=== PATIENT | female | born 1960 | race Caucasian/White ===

== ENCOUNTER 2017-08-10 16:33 | Inpatient (IN) | payer OTHER ==
[~2017-08-10] VITALS: Ht 162.6 cm; Wt 88.4 kg
[~2017-08-10 16:33] MED LIST: ALPR.5 PO; ALPR1 PO; AMLO5 PO; CHLO25 PO; CITA20 PO; CODACE30 PO; FURO20 PO; HYDACE5325 PO; IBUP600 PO; LISHYD1012 PO; LISHYD2012 PO; LISHYD2025 PO; LISI20 PO; NICO2 PO; OXYACE5T PO; OXYC5 PO; POTCHL20ER PO; TRAM50 PO; Xanax1 MG PO; Zofran Odt4 MG PO; Zofran Odt4 MG SL
[2017-08-10 17:20] LABS: BASOPHILS ABSOLUTE AUTO 0.03 K/mm3 (0.00-0.23); BASOPHILS PERCENT AUTO 1 % (0-2); EOSINOPHILS ABSOLUTE AUTO 0.01 K/mm3 (0.00-0.68); EOSINOPHILS PERCENT AUTO 0 % (0-6); Hematocrit 39.6 % (33.0-51.0); IMMATURE GRAN ABSOLUTE AUTO 0.02 K/mm3 (0.00-0.10); IMMATURE GRAN PERCENT AUTO 0 % (0-1); LYMPHOCYTES ABSOLUTE AUTO 2.37 K/mm3 (0.84-5.20); LYMPHOCYTES PERCENT AUTO 44 % (21-46); MONOCYTES ABSOLUTE AUTO 0.33 K/mm3 (0.16-1.47); MONOCYTES PERCENT AUTO 6 % (4-13); Mean Corpuscular HGB 36.9 pg (26.0-34.0); Mean Corpuscular HGB Conc 35.4 g/dL (31.5-36.5); Mean Corpuscular Volume 105 fL (80-100); NEUTROPHILS ABSOLUTE AUTO 2.69 K/mm3 (1.96-9.15); NEUTROPHILS PERCENT AUTO 49 % (41-73); Platelet Count 81 K/mm3 (150-400); RDW Coefficient Variation 14.3 % (11.7-14.2); RDW Standard Deviation 55.8 fL (35.1-46.3); Red Blood Cell Count 3.79 M/mm3 (3.80-5.20); White Blood Cell Count 5.45 K/mm3 (4.00-11.30)
[2017-08-10 17:41] LABS: Alanine Aminotransfer (ALT/SGP 107 U/L (12-78); Albumin, Blood 3.5 g/dL (3.4-5.0); Albumin/Globulin Ratio 0.9 (0.8-1.8); Alk Phos 49 U/L (50-136); Anion Gap 15 mmol/L (6-16); Aspartate Aminotrans (AST/SGOT 277 U/L (12-37); Bilirubin, Total 0.6 mg/dL (0.1-1.0); Blood Urea Nitrogen 15 mg/dL (8-24); Bun/Creatinine Ratio 23.3 (12.0-20.0); CO2, Blood 19 mmol/L (21-32); Chloride, Blood 103 mmol/L (98-108); Creatinine, Blood 0.64 mg/dL (0.40-1.00); Ethanol (Alcohol), Blood, Med 267 mg/dL; Globulin, Blood 3.7 g/dL (2.2-4.0); Glomerular Filtration Rate >60 (60-); Glucose, Blood 112 mg/dL (70-99); Potassium, Blood 3.6 mmol/L (3.5-5.5); Salicylate 3.5 mg/dL (2.8-20.0); Sodium, Blood 137 mmol/L (136-145); Total Protein, Blood 7.2 g/dL (6.4-8.2)
[2017-08-10 18:05] LABS: Acetaminophen, Random <2.0 ug/mL (10.0-30.0); CPK Creatine Kinase 1094 U/L (26-193)
[2017-08-10 18:18] LABS: Source, Urine Clean Catch
[2017-08-10 18:20] LABS: Creatine Kinase MB 7.4 ng/mL (0.0-3.6); Creatine Kinase MB Index 0.7 (0.0-4.0)
[2017-08-10 18:21] LABS: Appearance, Urine Hazy (Clear); Bilirubin, Urine Neg (Neg); Blood, Urine 1+ (Neg); Color, Urine Yellow (P-Yellow); Glucose Qualitative, Urine Neg (Neg); Ketones, Urine 3+ (Neg); Leukocyte Esterase, Urine 1+ (Neg); Nitrite, Urine Neg (Neg); Protein, Urine 2+ (Neg); Specific Gravity, Urine 1.015 (1.003-1.022); Urobilinogen, Urine 1+ (Normal)
[2017-08-10 18:31] LABS: Bacteria Many /hpf; Red Blood Cells, Urine 0-2 /hpf (0-2); Squamous Epithelial Cells Mod /hpf (Few)
[2017-08-10 18:34] LABS: U Amphetamine Screen Not Detected; U Barbituate Screen Not Detected; U Benzodiazapine Screen DETECTED; U Buprenorphine Screen Not Detected; U Cannabinoids Screen Not Detected; U Cocaine Screen Not Detected; U Methadone Screen Not Detected; U Methamphetamine Screen Not Detected; U Opiates Screen Not Detected; U Oxycodone Screen Not Detected; U Phencyclidine Screen Not Detected; U Propoxyphene Screen Not Detected
[2017-08-10 19:02] LABS: Influenza A Negative (NEGATIVE); Influenza B Negative (NEGATIVE)
[2017-08-10 23:20] LABS: Creatine Kinase MB 7.5 ng/mL (0.0-3.6); Creatine Kinase MB Index 0.7 (0.0-4.0)
[2017-08-11 05:23] LABS: BASOPHILS ABSOLUTE AUTO 0.03 K/mm3 (0.00-0.23); BASOPHILS PERCENT AUTO 1 % (0-2); EOSINOPHILS ABSOLUTE AUTO 0.02 K/mm3 (0.00-0.68); EOSINOPHILS PERCENT AUTO 0 % (0-6); Hematocrit 33.5 % (33.0-51.0); Hemoglobin 11.7 g/dL (11.5-16.0); IMMATURE GRAN ABSOLUTE AUTO 0.03 K/mm3 (0.00-0.10); IMMATURE GRAN PERCENT AUTO 1 % (0-1); LYMPHOCYTES ABSOLUTE AUTO 1.52 K/mm3 (0.84-5.20); LYMPHOCYTES PERCENT AUTO 31 % (21-46); MONOCYTES ABSOLUTE AUTO 0.47 K/mm3 (0.16-1.47); MONOCYTES PERCENT AUTO 10 % (4-13); Mean Corpuscular HGB 36.9 pg (26.0-34.0); Mean Corpuscular HGB Conc 34.9 g/dL (31.5-36.5); Mean Corpuscular Volume 106 fL (80-100); Mean Platelet Volume 10.7 fL (9.1-12.4); NEUTROPHILS ABSOLUTE AUTO 2.81 K/mm3 (1.96-9.15); NEUTROPHILS PERCENT AUTO 58 % (41-73); Platelet Count 63 K/mm3 (150-400); RDW Coefficient Variation 14.1 % (11.7-14.2); RDW Standard Deviation 55.4 fL (35.1-46.3); Red Blood Cell Count 3.17 M/mm3 (3.80-5.20); White Blood Cell Count 4.88 K/mm3 (4.00-11.30)
[2017-08-11 06:04] LABS: Alanine Aminotransfer (ALT/SGP 87 U/L (12-78); Albumin, Blood 3.1 g/dL (3.4-5.0); Albumin/Globulin Ratio 0.9 (0.8-1.8); Alk Phos 38 U/L (50-136); Anion Gap 11 mmol/L (6-16); Aspartate Aminotrans (AST/SGOT 199 U/L (12-37); Blood Urea Nitrogen 15 mg/dL (8-24); Bun/Creatinine Ratio 33.3 (12.0-20.0); CO2, Blood 22 mmol/L (21-32); Calcium, Blood 8.1 mg/dL (8.5-10.1); Chloride, Blood 106 mmol/L (98-108); Creatinine, Blood 0.45 mg/dL (0.40-1.00); Globulin, Blood 3.3 g/dL (2.2-4.0); Glomerular Filtration Rate >60 (60-); Glucose, Blood 88 mg/dL (70-99); Potassium, Blood 3.6 mmol/L (3.5-5.5); Sodium, Blood 139 mmol/L (136-145); Total Protein, Blood 6.4 g/dL (6.4-8.2)
[2017-08-11 06:05] LABS: CPK Creatine Kinase 1092 U/L (26-193)
[2017-08-11 06:22] LABS: Creatine Kinase MB 6.2 ng/mL (0.0-3.6); Creatine Kinase MB Index 0.6 (0.0-4.0)
[2017-08-12 04:49] LABS: BASOPHILS ABSOLUTE AUTO 0.03 K/mm3 (0.00-0.23); BASOPHILS PERCENT AUTO 1 % (0-2); EOSINOPHILS ABSOLUTE AUTO 0.07 K/mm3 (0.00-0.68); EOSINOPHILS PERCENT AUTO 2 % (0-6); Hematocrit 32.5 % (33.0-51.0); Hemoglobin 11.1 g/dL (11.5-16.0); IMMATURE GRAN ABSOLUTE AUTO 0.03 K/mm3 (0.00-0.10); IMMATURE GRAN PERCENT AUTO 1 % (0-1); LYMPHOCYTES ABSOLUTE AUTO 1.42 K/mm3 (0.84-5.20); LYMPHOCYTES PERCENT AUTO 43 % (21-46); MONOCYTES PERCENT AUTO 9 % (4-13); Mean Corpuscular HGB 36.6 pg (26.0-34.0); Mean Corpuscular HGB Conc 34.2 g/dL (31.5-36.5); Mean Corpuscular Volume 107 fL (80-100); Mean Platelet Volume 10.8 fL (9.1-12.4); NEUTROPHILS ABSOLUTE AUTO 1.46 K/mm3 (1.96-9.15); NEUTROPHILS PERCENT AUTO 44 % (41-73); Platelet Count 59 K/mm3 (150-400); RDW Standard Deviation 55.4 fL (35.1-46.3); Red Blood Cell Count 3.03 M/mm3 (3.80-5.20); White Blood Cell Count 3.31 K/mm3 (4.00-11.30)
[2017-08-12 05:11] LABS: Anion Gap 10 mmol/L (6-16); Blood Urea Nitrogen 6 mg/dL (8-24); Bun/Creatinine Ratio 16.5 (12.0-20.0); CO2, Blood 23 mmol/L (21-32); Calcium, Blood 7.9 mg/dL (8.5-10.1); Chloride, Blood 106 mmol/L (98-108); Creatinine, Blood 0.36 mg/dL (0.40-1.00); Glomerular Filtration Rate >60 (60-); Glucose, Blood 83 mg/dL (70-99); Potassium, Blood 3.2 mmol/L (3.5-5.5); Sodium, Blood 139 mmol/L (136-145)
[2017-08-13 04:38] LABS: BASOPHILS ABSOLUTE AUTO 0.03 K/mm3 (0.00-0.23); BASOPHILS PERCENT AUTO 1 % (0-2); EOSINOPHILS PERCENT AUTO 3 % (0-6); Hematocrit 33.3 % (33.0-51.0); Hemoglobin 11.6 g/dL (11.5-16.0); IMMATURE GRAN ABSOLUTE AUTO 0.04 K/mm3 (0.00-0.10); IMMATURE GRAN PERCENT AUTO 1 % (0-1); LYMPHOCYTES ABSOLUTE AUTO 1.78 K/mm3 (0.84-5.20); LYMPHOCYTES PERCENT AUTO 48 % (21-46); MONOCYTES ABSOLUTE AUTO 0.39 K/mm3 (0.16-1.47); MONOCYTES PERCENT AUTO 11 % (4-13); Mean Corpuscular HGB 37.1 pg (26.0-34.0); Mean Corpuscular HGB Conc 34.8 g/dL (31.5-36.5); Mean Corpuscular Volume 106 fL (80-100); NEUTROPHILS ABSOLUTE AUTO 1.35 K/mm3 (1.96-9.15); NEUTROPHILS PERCENT AUTO 37 % (41-73); NRBC ABSOLUTE 0.03 K/mm3 (0.00-0.02); NRBC Auto 0.8 /100 WBC (0.0-0.2); RDW Coefficient Variation 13.7 % (11.7-14.2); RDW Standard Deviation 54.4 fL (35.1-46.3); Red Blood Cell Count 3.13 M/mm3 (3.80-5.20); White Blood Cell Count 3.69 K/mm3 (4.00-11.30)
[2017-08-13 04:47] LABS: Mean Platelet Volume 10.8 fL (9.1-12.4); Platelet Count 73 K/mm3 (150-400)
[2017-08-13 05:04] LABS: Anion Gap 8 mmol/L (6-16); Blood Urea Nitrogen 3 mg/dL (8-24); Bun/Creatinine Ratio 8.2 (12.0-20.0); CO2, Blood 24 mmol/L (21-32); Calcium, Blood 8.4 mg/dL (8.5-10.1); Chloride, Blood 108 mmol/L (98-108); Creatinine, Blood 0.37 mg/dL (0.40-1.00); Glomerular Filtration Rate >60 (60-); Glucose, Blood 84 mg/dL (70-99); Magnesium, Blood 1.7 mg/dL (1.6-2.4); Potassium, Blood 3.2 mmol/L (3.5-5.5); Sodium, Blood 140 mmol/L (136-145)
[2017-08-13 05:40] LABS: Phosphorus, Blood 0.9 mg/dL (2.5-4.9)
[2017-08-13 12:07] LABS: Source, Urine Voided
[2017-08-13 12:18] LABS: Bilirubin, Urine Neg (Neg); Blood, Urine Neg (Neg); Glucose Qualitative, Urine Neg (Neg); Ketones, Urine Neg (Neg); Leukocyte Esterase, Urine Neg (Neg); Nitrite, Urine Neg (Neg); Protein, Urine Neg (Neg); Specific Gravity, Urine 1.015 (1.003-1.022); Urobilinogen, Urine NORM (Normal)
[2017-08-13 12:19] LABS: Appearance, Urine Clear (Clear); Color, Urine Pale Yellow (P-Yellow)
[2017-08-13 18:43] LABS: Phosphorus, Blood 1.8 mg/dL (2.5-4.9); Potassium, Blood 3.3 mmol/L (3.5-5.5)
[2017-08-14 05:54] LABS: Anion Gap 10 mmol/L (6-16); Blood Urea Nitrogen 4 mg/dL (8-24); Bun/Creatinine Ratio 10.4 (12.0-20.0); CO2, Blood 21 mmol/L (21-32); Calcium, Blood 8.6 mg/dL (8.5-10.1); Chloride, Blood 109 mmol/L (98-108); Creatinine, Blood 0.38 mg/dL (0.40-1.00); Glomerular Filtration Rate >60 (60-); Glucose, Blood 82 mg/dL (70-99); Phosphorus, Blood 3.7 mg/dL (2.5-4.9); Potassium, Blood 3.2 mmol/L (3.5-5.5); Sodium, Blood 140 mmol/L (136-145)
== END 2017-08-14 12:24 | disposition home or self-care (01) | DRG 897 ==
LOC: ER 16:33 → PCU 20:28
PROVIDERS: Emergency Medicine; Internal Medicine
PROC: 3E0234Z Introduction of Serum, Toxoid and Vaccine into Muscle, Percutaneous Approach (ICD-10-PCS; principal; 2017-08-11)
DX: F10.239 Alcohol dependence with withdrawal, unspecified (principal); D61.818 Other pancytopenia; M62.82 Rhabdomyolysis; E83.39 Other disorders of phosphorus metabolism; Z23 Encounter for immunization; G89.29 Other chronic pain; M54.9 Dorsalgia, unspecified; I10 Essential (primary) hypertension; E87.6 Hypokalemia; E86.0 Dehydration; F17.210 Nicotine dependence, cigarettes, uncomplicated; Z88.5 Allergy status to narcotic agent; Z88.8 Allergy status to other drugs, medicaments and biological substances; Z86.718 Personal history of other venous thrombosis and embolism; Z79.899 Other long term (current) drug therapy
CPT/HCPCS: 36415; 71046; 80048; 80053; 81001; 81003; 81025; 82550; 82553; 83735; 84100; 84132; 84443; 85025; 87086; 87804; 93005; 93010; 96361; 96365; 96375; 99285; G0480; J1650; J1956; J2001; J2060; J3411; J3475; J3480; J7030; J7040; J7042; J7050; Q2038

== ENCOUNTER 2017-11-30 17:25 | Emergency (ER) | payer OTHER ==
[~2017-11-30] VITALS: Ht 167.6 cm; Wt 86.2 kg
[2017-11-30] MEDS ORDERED: CEPH500 PO (17:55)
== END 2017-11-30 18:04 | disposition home or self-care (01) ==
LOC: ER 17:25
DX: L03.011 Cellulitis of right finger (principal); F41.9 Anxiety disorder, unspecified; I10 Essential (primary) hypertension; F17.210 Nicotine dependence, cigarettes, uncomplicated; Z88.8 Allergy status to other drugs, medicaments and biological substances; Z88.5 Allergy status to narcotic agent; Z88.1 Allergy status to other antibiotic agents; Z91.038 Other insect allergy status; Z79.899 Other long term (current) drug therapy
CPT/HCPCS: 99282

== ENCOUNTER 2018-01-17 00:46 | Emergency (ER) | payer OTHER ==
[~2018-01-17] VITALS: Ht 167.6 cm; Wt 86.2 kg
[~2018-01-17 00:46] MED LIST changes: +CEPH500 PO
== END 2018-01-17 03:00 | disposition home or self-care (01) ==
LOC: ER 00:46
DX: S52.501A Unspecified fracture of the lower end of right radius, initial encounter for closed fracture (principal); Y04.8XXA Assault by other bodily force, initial encounter; Z88.8 Allergy status to other drugs, medicaments and biological substances; Z88.5 Allergy status to narcotic agent; Z91.030 Bee allergy status; Z79.899 Other long term (current) drug therapy; Z79.2 Long term (current) use of antibiotics; F41.9 Anxiety disorder, unspecified; F17.210 Nicotine dependence, cigarettes, uncomplicated
CPT/HCPCS: 29105; 73110; 90471; 90714; 99283

== ENCOUNTER 2018-01-31 06:10 | Day surgery (SDC) | payer OTHER ==
[~2018-01-31] VITALS: Ht 167.6 cm; Wt 90.8 kg
[2018-01-31] MEDS ORDERED: TRAM50 PO (06:49)
== END 2018-01-31 11:51 | disposition home or self-care (01) ==
LOC: ORSCSDS 06:10
PROVIDERS: Orthopaedic Surgery
PROC: 0PSH04Z Reposition Right Radius with Internal Fixation Device, Open Approach (ICD-10-PCS; principal; 2018-01-31 07:30)
PROC: 0PHH05Z Insertion of External Fixation Device into Right Radius, Open Approach (ICD-10-PCS; principal; 2018-01-31 07:30)
DX: S52.501A Unspecified fracture of the lower end of right radius, initial encounter for closed fracture (principal); I10 Essential (primary) hypertension; Z79.899 Other long term (current) drug therapy; E66.9 Obesity, unspecified; Z68.32 Body mass index [BMI] 32.0-32.9, adult
CPT/HCPCS: C1713; J0690; J2250; J2405; J2795; J3010; J7120

== ENCOUNTER 2018-07-13 22:35 | Inpatient (IN) | payer OTHER ==
[~2018-07-13] VITALS: Ht 165.1 cm; Wt 89.0 kg
[2018-07-13 23:17] LABS: BASOPHILS ABSOLUTE AUTO 0.05 K/mm3 (0.00-0.23); BASOPHILS PERCENT AUTO 1 % (0-2); EOSINOPHILS ABSOLUTE AUTO 0.14 K/mm3 (0.00-0.68); EOSINOPHILS PERCENT AUTO 2 % (0-6); Hemoglobin 15.3 g/dL (11.5-16.0); IMMATURE GRAN ABSOLUTE AUTO 0.02 K/mm3 (0.00-0.10); IMMATURE GRAN PERCENT AUTO 0 % (0-1); LYMPHOCYTES ABSOLUTE AUTO 3.18 K/mm3 (0.84-5.20); LYMPHOCYTES PERCENT AUTO 46 % (21-46); MONOCYTES ABSOLUTE AUTO 0.57 K/mm3 (0.16-1.47); MONOCYTES PERCENT AUTO 8 % (4-13); Mean Corpuscular HGB 33.3 pg (26.0-34.0); Mean Corpuscular HGB Conc 33.3 g/dL (31.5-36.5); Mean Corpuscular Volume 100 fL (80-100); Mean Platelet Volume 10.3 fL (9.1-12.4); NEUTROPHILS ABSOLUTE AUTO 2.91 K/mm3 (1.96-9.15); NEUTROPHILS PERCENT AUTO 42 % (41-73); Platelet Count 145 K/mm3 (150-400); RDW Coefficient Variation 17.8 % (11.7-14.2); White Blood Cell Count 6.87 K/mm3 (4.00-11.30)
[2018-07-13 23:41] LABS: Acetaminophen, Random <2.0 ug/mL (10.0-30.0); Alanine Aminotransfer (ALT/SGP 47 U/L (12-78); Albumin, Blood 3.2 g/dL (3.4-5.0); Alk Phos 64 U/L (50-136); Anion Gap 7 mmol/L (6-16); Aspartate Aminotrans (AST/SGOT 65 U/L (12-37); Bilirubin, Total 0.2 mg/dL (0.1-1.0); Blood Urea Nitrogen 10 mg/dL (8-24); Bun/Creatinine Ratio 18.6 (12.0-20.0); CO2, Blood 28 mmol/L (21-32); Calcium, Blood 7.9 mg/dL (8.5-10.1); Chloride, Blood 112 mmol/L (98-108); Creatinine, Blood 0.54 mg/dL (0.40-1.00); Globulin, Blood 3.3 g/dL (2.2-4.0); Glomerular Filtration Rate >60 (60-); Glucose, Blood 93 mg/dL (70-99); Potassium, Blood 3.2 mmol/L (3.5-5.5); Salicylate 6.1 mg/dL (2.8-20.0); Sodium, Blood 147 mmol/L (136-145); Total Protein, Blood 6.5 g/dL (6.4-8.2)
[2018-07-13 23:59] LABS: Ethanol (Alcohol), Blood, Med 326 mg/dL
[2018-07-14 06:51] LABS: Source, Urine Clean Catch
[2018-07-14 06:55] LABS: Bilirubin, Urine Neg (Neg); Blood, Urine 2+ (Neg); Glucose Qualitative, Urine Neg (Neg); Ketones, Urine 1+ (Neg); Leukocyte Esterase, Urine 2+ (Neg); Nitrite, Urine Neg (Neg); Protein, Urine Neg (Neg); Specific Gravity, Urine 1.015 (1.003-1.022); Urobilinogen, Urine NORM (Normal); pH, Urine 6.5 (5.0-8.0)
[2018-07-14 07:03] LABS: Appearance, Urine Hazy (Clear); Color, Urine Yellow (P-Yellow)
[2018-07-14 07:07] LABS: Bacteria Many /hpf; Squamous Epithelial Cells Many /hpf (Few)
[2018-07-14 07:10] LABS: U Amphetamine Screen Not Detected; U Barbituate Screen Not Detected; U Benzodiazapine Screen DETECTED; U Buprenorphine Screen Not Detected; U Cannabinoids Screen Not Detected; U Cocaine Screen Not Detected; U Methadone Screen Not Detected; U Methamphetamine Screen Not Detected; U Opiates Screen Not Detected; U Oxycodone Screen Not Detected; U Phencyclidine Screen Not Detected; U Propoxyphene Screen Not Detected
[2018-07-14 16:43] LABS: BASOPHILS ABSOLUTE AUTO 0.04 K/mm3 (0.00-0.23); BASOPHILS PERCENT AUTO 1 % (0-2); EOSINOPHILS ABSOLUTE AUTO 0.01 K/mm3 (0.00-0.68); EOSINOPHILS PERCENT AUTO 0 % (0-6); Hematocrit 42.3 % (33.0-51.0); Hemoglobin 14.6 g/dL (11.5-16.0); IMMATURE GRAN ABSOLUTE AUTO 0.02 K/mm3 (0.00-0.10); IMMATURE GRAN PERCENT AUTO 0 % (0-1); LYMPHOCYTES ABSOLUTE AUTO 2.72 K/mm3 (0.84-5.20); LYMPHOCYTES PERCENT AUTO 33 % (21-46); MONOCYTES ABSOLUTE AUTO 0.78 K/mm3 (0.16-1.47); MONOCYTES PERCENT AUTO 10 % (4-13); Mean Corpuscular HGB Conc 34.5 g/dL (31.5-36.5); Mean Corpuscular Volume 99 fL (80-100); Mean Platelet Volume 10.4 fL (9.1-12.4); NEUTROPHILS ABSOLUTE AUTO 4.67 K/mm3 (1.96-9.15); NEUTROPHILS PERCENT AUTO 57 % (41-73); Platelet Count 120 K/mm3 (150-400); RDW Coefficient Variation 17.2 % (11.7-14.2); Red Blood Cell Count 4.29 M/mm3 (3.80-5.20); White Blood Cell Count 8.24 K/mm3 (4.00-11.30)
[2018-07-14 17:00] LABS: International Normalized Ratio 0.97
[2018-07-14 17:08] LABS: Magnesium, Blood 1.5 mg/dL (1.6-2.4)
[2018-07-14 17:09] LABS: Alanine Aminotransfer (ALT/SGP 42 U/L (12-78); Albumin, Blood 3.5 g/dL (3.4-5.0); Albumin/Globulin Ratio 1.1 (0.8-1.8); Alk Phos 68 U/L (50-136); Anion Gap 8 mmol/L (6-16); Aspartate Aminotrans (AST/SGOT 42 U/L (12-37); Bilirubin, Total 0.6 mg/dL (0.1-1.0); Blood Urea Nitrogen 12 mg/dL (8-24); Bun/Creatinine Ratio 24.2 (12.0-20.0); CO2, Blood 26 mmol/L (21-32); Calcium, Blood 8.8 mg/dL (8.5-10.1); Chloride, Blood 105 mmol/L (98-108); Globulin, Blood 3.2 g/dL (2.2-4.0); Glomerular Filtration Rate >60 (60-); Glucose, Blood 87 mg/dL (70-99); Phosphorus, Blood 2.2 mg/dL (2.5-4.9); Potassium, Blood 3.9 mmol/L (3.5-5.5); Sodium, Blood 139 mmol/L (136-145); Total Protein, Blood 6.7 g/dL (6.4-8.2)
--- NOTE | 2018-07-14 19:01 | NUR ---
1715: PT TO ICU 8 FROM ER, IS APPROPRATE AND COOPRATIVE AT THIS TIME, ALERT AND ORIENTED X4. VSS, ADMISSION ASSESSMENT AND HISTORY COMPLETED. BANANA BAG INFUSING AT 200ML/HR PER ORDERS. ALL BELONGINGS REMOVED FROM ROOM, PT IS A 2 PHYSICIAN HOLD. SITTER AT BEDSIDE. PT DENIES SUICIDAL IDEATION AT THIS TIME. 1830: CIWA SCORE 11, MEDICATED WITH ATIVAN AND LIBRIUM PER ORDERS, VSS. PT ALSO RECEIVED INFLUENZA VACCINE AT THIS TIME. DINNER TRAY GIVEN PER DR. BOATENG, PT SITTING UP IN BED EATING WITHOUT DIFFICULTY, REMAINS A&O, COOPERATIVE AND PLEASANT. SITTER REMAINS AT BEDSIDE, REPORT TO ONCOMING SHIFT.
--- NOTE | 2018-07-14 19:15 | NUR ---
ASSUMED PT CARE PT IS SLEEPING IN BED WITH CALL LIGHT AND BEDSIDE TABLE WITHIN REACH. BANANA BAG INFUSING AT 200MLS/HR. PT APPEARS COMFORTABLE AT THIS TIME.
--- NOTE | 2018-07-14 21:17 | NUR ---
POTASSIUM LEVEL CALLED DR. HERNANDEZ REGARDING POTASSIUM LEVEL OF 3.1; DR. HERNANDEZ STATED SHE WOULD PLACE ORDERS FOR PO POTASSIUM.
[2018-07-15 03:50] LABS: BASOPHILS ABSOLUTE AUTO 0.04 K/mm3 (0.00-0.23); BASOPHILS PERCENT AUTO 1 % (0-2); EOSINOPHILS PERCENT AUTO 2 % (0-6); Hematocrit 42.1 % (33.0-51.0); Hemoglobin 14.3 g/dL (11.5-16.0); IMMATURE GRAN ABSOLUTE AUTO 0.02 K/mm3 (0.00-0.10); IMMATURE GRAN PERCENT AUTO 0 % (0-1); LYMPHOCYTES ABSOLUTE AUTO 2.48 K/mm3 (0.84-5.20); LYMPHOCYTES PERCENT AUTO 37 % (21-46); MONOCYTES ABSOLUTE AUTO 0.55 K/mm3 (0.16-1.47); MONOCYTES PERCENT AUTO 8 % (4-13); Mean Corpuscular HGB 32.9 pg (26.0-34.0); Mean Corpuscular Volume 97 fL (80-100); Mean Platelet Volume 10.8 fL (9.1-12.4); NEUTROPHILS ABSOLUTE AUTO 3.58 K/mm3 (1.96-9.15); NEUTROPHILS PERCENT AUTO 53 % (41-73); Platelet Count 114 K/mm3 (150-400); RDW Coefficient Variation 17.3 % (11.7-14.2); RDW Standard Deviation 62.1 fL (35.1-46.3); Red Blood Cell Count 4.34 M/mm3 (3.80-5.20); White Blood Cell Count 6.77 K/mm3 (4.00-11.30)
[2018-07-15 04:06] LABS: Anion Gap 7 mmol/L (6-16); Blood Urea Nitrogen 7 mg/dL (8-24); CO2, Blood 26 mmol/L (21-32); Calcium, Blood 8.9 mg/dL (8.5-10.1); Chloride, Blood 110 mmol/L (98-108); Creatinine, Blood 0.58 mg/dL (0.40-1.00); Glomerular Filtration Rate >60 (60-); Glucose, Blood 85 mg/dL (70-99); Potassium, Blood 3.7 mmol/L (3.5-5.5); Sodium, Blood 143 mmol/L (136-145)
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
--- NOTE | 2018-07-15 10:49 | NUR ---
PATIENT UP TO CHAIR FOR OVER AN HOUR. PATIENT SPOKE WITH COMPASS. PATIENT CONTINUES TO HAVE TREMORS. MEDICATED WITH ATIVAN AND LIBRIUM. PATIENT ASSISTED BACK TO BED. NOT WANTING A BATH AT THIS TIME
--- NOTE | 2018-07-15 14:00 | NUR ---
Multiple attempts to see pt proved unsuccessful as pt was sleeping.
--- NOTE | 2018-07-15 14:29 | NUR ---
PATIENT BACK UP TO COMMODE AND CHAIR. PATIENT COOPERATIVE. CONTINUES TO HAVE TREMORS BUT ABLE TO FOLLOW CONVERSATION. PATIENT NOW MEDICAL FLOOR STATUS.
--- NOTE | 2018-07-15 18:31 | NUR ---
SUMMARY PATIENT CONTINUES TO HAVE WITHDRAWL SYMPTOMS RESPONDING WELL TO ATIVAN AND LIBRIUM. PATIENT UP TO CHAIR X2 TODAY AND MULTIPLE TIMES TO COMMODE. PATIENT CONTINUES TO BE IRRITABLE AT TIMES BUT EASILY REDIRECTED. VERBALIZING DESIRE TO GO HOME. WILL GIVE REPORT TO ONCOMING SHIFT WHEN AVAILABLE.
--- NOTE | 2018-07-16 02:09 | NUR ---
191: CARE ASSUMED, ROUNDED W/ OFF-GOING RN. DISCUSSED W/ PT PLAN TO CON'T ANTI-ANXIETY & PAIN MEDS AT SAME INTERVALS DURING NIGHT, PT AGREES. ATTENTION SPAN SHORT BUT SYMPTOMS OTHERWISE 0-1 RANGE. RETURNED TO SLEEP.
[2018-07-16 04:00] LABS: Anion Gap 6 mmol/L (6-16); Blood Urea Nitrogen 7 mg/dL (8-24); Bun/Creatinine Ratio 12.8 (12.0-20.0); CO2, Blood 26 mmol/L (21-32); Calcium, Blood 8.6 mg/dL (8.5-10.1); Chloride, Blood 109 mmol/L (98-108); Creatinine, Blood 0.55 mg/dL (0.40-1.00); Glomerular Filtration Rate >60 (60-); Glucose, Blood 83 mg/dL (70-99); Magnesium, Blood 2.1 mg/dL (1.6-2.4); Potassium, Blood 3.6 mmol/L (3.5-5.5); Sodium, Blood 141 mmol/L (136-145)
--- NOTE | 2018-07-16 07:43 | NUR ---
SLEPT AT LONG INTERVALS. CIIW-A SCORES < 10. TRAMADOL GIVEN Q 6 HR FOR MAXIMUM MANAGEMENT CHRONIC PAIN, ONLY C/O MINOR DISCOMFORTS OF MONITORS & IVs IN AM.
--- NOTE | 2018-07-16 08:29 | NUR ---
DR VILLEGAS IN TO ASSESS PT. DISCUSSED DOING TELEPYSCH TODAY.
--- NOTE | 2018-07-16 12:29 | NUR ---
[employer] ORDER PLACED. CALLED TO SET UP APPT TIME. SNAP SHOT DONE ON [employer] COMPUTER.
--- NOTE | 2018-07-16 13:04 | NUR ---
[facility] APPT SET UP FOR [address] ACOSTA.
--- NOTE | 2018-07-16 14:19 | NUR ---
CALLED DR VILLEGAS TO INFORM HIM OF DR DEX WOODS-JOEL RECOMMENDATIONS. AWAITING DR VILLEGAS TO SIGN RELEASE OF HOLD PAPERWORK.
--- NOTE | 2018-07-16 14:34 | NUR ---
DR VILLEGAS HERE TO SIGN RELEASE OF HOLD PAPERWORK. PT'S 2 MD HOLD AND SUICIDE PRECAUTIONS RELEASED.
--- NOTE | 2018-07-16 15:15 | NUR ---
DAVI FROM CASE MANAGEMENT TO DISCUSS RESOURCES AND RECOMMENDED PT RETURN TO [facility] FOR TX. PT DECLINED SERVICES.
--- NOTE | 2018-07-16 18:12 | NUR ---
SHIFT SUMMARY: KARLO DONE THIS SHIFT AND 2 MD HOLD WAS RELEASED. PT CONTINUES TO DENY SI. PT SLEEPS MOST THE TIME WHEN UNDISTURBED. PT REMAINS SLIGHTLY TREMULOUS IN THE UE'S, ANXIOUS AND RESTLESS AT TIMES, AND MOST RECENTLY BECAME TEARFUL OVER HAVE A "WEIRD DREAM." PT IS WORRIED ABOUT HER DOG AT HOME. OFFERRED TO CALL HER FRIEND/ROOMMATE AND CHECK ON HER DOG, BUT PT DECLINED. PT REPORTS SHE WOULD FEEL SAFEST STAYING IN THE HOSPITAL LONGER TO TX ETOH W/D SYMPTOMS. PT BEING TX WITH LIBRIUM AND ATIVAN PO PRN. LUNGS REMAIN CLEAR T/O. HR REGULAR, SR WITH CONTROLLED RATE. PT HAS GOOD APPETITE. VOIDS CLEAR YELLOW URINE PER TOILET. PT DOES REMAINS SOMEWHAT WEAK AND REQUIRES SBA WITH TNX FOR SAFETY.
--- NOTE | 2018-07-16 19:15 | NUR ---
REPORTED OFF TO YUMI SCHILLING WHOM ASSUMED CARE OF PT.
--- NOTE | 2018-07-16 19:32 | NUR ---
ASSUMED CARE BEDSIDE REPORT RECIEVED. PT IS RESTING QUIETLY, BUT AWAKENS TO VOICE EASILY. PT IS GROGGY, BUT ALERT, ORIENTED, AND FOLLOWING COMMANDS APPROPRIATELY. PT DENIES PAIN, NAUSEA, HEADACHE, AND NO TREMORS VISIBLE. PT DENIES SI AT THIS TIME, PT IS AWARE SHE HAS BEEN CLEARED OF HOLD. VITAL SIGNS STABLE, PT ON ROOMA AIR. IV'S SALINE LOCKED. PT TAKING PO FLUIDS WELL. INITIAL ADMIT SCREENING AND MED REC COMPLETED AT THIS TIME. WILL CONTINUE TO MONITOR.
--- NOTE | 2018-07-17 04:36 | NUR ---
SHIFT SUMMARY NO ACUTE CHANGES THIS SHIFT. PT HAS SLEPT OFF AND ON THROUGHOUT THE SHIFT. WHEN AWAKE PT IS GROGGY, BUT ORIENTED AND FOLLOWING COMMANDS APPROPRIATELY. PT CONTINUES TO DENY ANY FURTHER SI. PT EXPRESSESS WANTING TO GET OUTPATIENT HELP FOR ALCOHOL ABUSE. VITAL SIGNS HAVE REMAINED STABLE. PT UP TO TOILET WITH USE OF CANE, GAIT STEADY. PT TAKING PO FLUIDS WELL. PT VOIDING WELL. WILL CONTINUE TO MONITOR AND REPORT OFF TO ONCOMING RN.
--- NOTE | 2018-07-17 07:42 | NUR ---
0730: CARE ASSUMED, ASSESSMENT COMPLETED. PT AWAKE, ALERT AND ORIENTED, ANXIOUS, MOOD IS LABILE, PT CRIES WHILE TALKING ABOUT MISSING HER PETS AND FRIENDS. CIWA SCORE 10, PT MEDICATED PER ORDERS. VSS, HRR NSR, PT REPORTS ACHING PAIN IN RIGHT WRIST, DENIES NEED FOR INTERVENTION AT THIS TIME. PT AMBULATING IN ROOM TO VOID, GAIT STEADY WITH CANE. TEETH BRUSHED, PT REFUSES SHOWER. PLAN OF CARE AFTER DISCHARGE DISCUSSED WITH PATIENT, PT REPORTS [facility] W[facility], SEEMS WILLING AND AGREEABLE TO PARTICIPATE. PT DENIES SUICIDAL IDEATION OR HAVING THOUGHTS OF SELF HARM.
--- NOTE | 2018-07-17 10:12 | NUR ---
0830: DR. VILLEGAS AT BEDSIDE TO DISCUSS PLAN OF CARE WITH PT. BREAKFAST GIVEN, PT SITTING UP IN BED EATING WITHOUT DIFFICULTY. 1000: PT TOLERATED BREAKFAST WELL, IS NOW LYING IN BED WATCHING TV, DENIES NEEDS.
--- NOTE | 2018-07-17 11:21 | NUR ---
1120: PT STATES SHE WOULD LIKE TO BE DISCHARGED TO HOME TODAY IF SHE CAN HAVE AN RX FOR HER WITHDRAWAL SYMPTOMS, DR. VILLEGAS NOTIFIED. PT MEDICATED AT THIS TIME WITH ATIVAN AND LIBRIUM FOR CIWA SCORE 9, PT'S MOODS REMAIN LABILE. PALLIATIVE CARE AT BEDSIDE TO DISCUSS ADVANCED DIRECTIVE.
[2018-07-17] MEDS ORDERED: CHLO25 PO (11:50)
--- NOTE | 2018-07-17 12:17 | NUR ---
Initial [facility] visit: Pt and I are well known to each other. She is grateful to see someone she knows and states she is more tearful, out of relief in seeing a familiar face. I explained the purpose of my visit and clarified that pt would like help with completing an advanced directive. She states yes and is very receptive to discussing advanced care planning. She is appropriately tearful at times in expressing grief r/t loss of spouse (two years ago), sister and a beloved pet recently. Pt wants to complete her advanced directive and POLST at home after discharge. She is uncertain who her surrogate decision maker should be. She does not want it to be either of her two sons at this time. She has an aunt and uncle but states they are elderly and that might not work well. She expresses that she does not know who, right now, that she could trust with her life. She will need to think further about this. We talked about close and trusted friends who might be willing and able to be surrogate decision makers for her if needed. Pt discussed other stressors, finances, family conflict, her health. She has friends who have gone thru her home and removed alcohol. She feels if she has rxs to help with withdrawl that she can stop drinking. She is not interested in seeking treatment locally or otherwise. Time spent listening and supporting pt. Discussed resources for addressing her grief and she is receptive to contacting our [facility] Rn Cvor in the future. Contact information given to reach us with completed AD/POLST and assist with getting them into her medical record and also to contact us re: OP grief counseling. Pt's primary goal today is to get d/c'd and be able to sleep in her own bed tonight. She states she normally uses a cane and has been up and around in her room independently this am. She is experiencing emotional distress and pain but other than her normal bodily aches and pains denies new sources of physical pain. RN contacting re: medications and d/c orders during my visit.
--- NOTE | 2018-07-17 12:35 | NUR ---
1235: CASE MANAGEMENT HAS BEEN IN TO SEE PT REGARDING TRANSPORTATION TO APPOINTMENTS, PT TO FOLLOW UP WITH ZAC AT [facility]. DC INSTRUCTIONS GIVEN, PT VERBALIZES UNDERSTANDING. IV'S DC'D WITH TIPS INTACT, PRESSURE DRESSINGS APPLIED. PT DC TO HOME AT THIS TIME WITH MIKIE, ROOM MATE TO DRIVE HER HOME, GAIT SLOW BUT STEADY WITH CANE. PT HAS ALL BELONGINGS, RX, DC INSTRUCTIONS, AND ADVANCED DIRECTIVE PAPERWORK, PT REFUSES NEED FOR WC, AMBULATING TO CAR SAFELY.
== END 2018-07-17 12:35 | disposition home or self-care (01) | DRG 896 ==
LOC: ER 22:35 → EOR 22:36 → ICUE 07-14 15:38
PROVIDERS: Internal Medicine; ADMIT Emergency Medicine
DX: F10.229 Alcohol dependence with intoxication, unspecified (principal); G92 Toxic encephalopathy; R45.851 Suicidal ideations; E87.0 Hyperosmolality and hypernatremia; F10.239 Alcohol dependence with withdrawal, unspecified; Z96.642 Presence of left artificial hip joint; E66.9 Obesity, unspecified; Y90.8 Blood alcohol level of 240 mg/100 ml or more; Z68.30 Body mass index [BMI] 30.0-30.9, adult; I10 Essential (primary) hypertension; R31.9 Hematuria, unspecified; F32.9 Major depressive disorder, single episode, unspecified; F43.21 Adjustment disorder with depressed mood; Z51.5 Encounter for palliative care
CPT/HCPCS: 36415; 80048; 80053; 81001; 81025; 82140; 83735; 84100; 84132; 84443; 85025; 85610; 87086; 90686; 96365; 99285-25; G0378; G0480; J1650; J2060; J3411; J3475; J7042; Q3014

== ENCOUNTER 2018-08-12 14:38 | Emergency (ER) | payer OTHER ==
[~2018-08-12] VITALS: Ht 175.3 cm; Wt 83.9 kg
[2018-08-12] MEDS ORDERED: ALPR.5 PO (14:58)
[2018-08-12 15:26] LABS: BASOPHILS ABSOLUTE AUTO 0.06 K/mm3 (0.00-0.23); BASOPHILS PERCENT AUTO 1 % (0-2); EOSINOPHILS ABSOLUTE AUTO 0.03 K/mm3 (0.00-0.68); EOSINOPHILS PERCENT AUTO 0 % (0-6); Hematocrit 42.3 % (33.0-51.0); Hemoglobin 14.9 g/dL (11.5-16.0); IMMATURE GRAN ABSOLUTE AUTO 0.02 K/mm3 (0.00-0.10); IMMATURE GRAN PERCENT AUTO 0 % (0-1); LYMPHOCYTES ABSOLUTE AUTO 3.55 K/mm3 (0.84-5.20); LYMPHOCYTES PERCENT AUTO 48 % (21-46); MONOCYTES ABSOLUTE AUTO 0.49 K/mm3 (0.16-1.47); MONOCYTES PERCENT AUTO 7 % (4-13); Mean Corpuscular HGB Conc 35.2 g/dL (31.5-36.5); Mean Corpuscular Volume 97 fL (80-100); Mean Platelet Volume 9.5 fL (9.1-12.4); NEUTROPHILS ABSOLUTE AUTO 3.29 K/mm3 (1.96-9.15); NEUTROPHILS PERCENT AUTO 44 % (41-73); Platelet Count 192 K/mm3 (150-400); RDW Coefficient Variation 15.9 % (11.7-14.2); RDW Standard Deviation 57.1 fL (35.1-46.3); Red Blood Cell Count 4.38 M/mm3 (3.80-5.20); White Blood Cell Count 7.44 K/mm3 (4.00-11.30)
[2018-08-12 15:40] LABS: Alanine Aminotransfer (ALT/SGP 41 U/L (12-78); Albumin, Blood 3.7 g/dL (3.4-5.0); Alk Phos 40 U/L (50-136); Anion Gap 15 mmol/L (6-16); Aspartate Aminotrans (AST/SGOT 67 U/L (12-37); Bilirubin, Total 0.3 mg/dL (0.1-1.0); Blood Urea Nitrogen 6 mg/dL (8-24); Bun/Creatinine Ratio 12.5 (12.0-20.0); CO2, Blood 21 mmol/L (21-32); Calcium, Blood 8.7 mg/dL (8.5-10.1); Chloride, Blood 106 mmol/L (98-108); Creatinine, Blood 0.48 mg/dL (0.40-1.00); Ethanol (Alcohol), Blood, Med 222 mg/dL; Globulin, Blood 3.8 g/dL (2.2-4.0); Glomerular Filtration Rate >60 (60-); Glucose, Blood 75 mg/dL (70-99); Potassium, Blood 3.1 mmol/L (3.5-5.5); Sodium, Blood 142 mmol/L (136-145); Total Protein, Blood 7.5 g/dL (6.4-8.2); Troponin I <0.015 ng/mL (0.000-0.040)
[2018-08-12] MEDS ORDERED: CHLO25 PO (17:21)
== END 2018-08-12 19:18 | disposition home or self-care (01) ==
LOC: ER 14:38
PROVIDERS: Internal Medicine
DX: R07.9 Chest pain, unspecified (principal); F10.10 Alcohol abuse, uncomplicated; F32.9 Major depressive disorder, single episode, unspecified; F41.9 Anxiety disorder, unspecified; Z79.899 Other long term (current) drug therapy; Z88.6 Allergy status to analgesic agent; Z88.1 Allergy status to other antibiotic agents; Z88.8 Allergy status to other drugs, medicaments and biological substances; Z88.5 Allergy status to narcotic agent; Z91.030 Bee allergy status
CPT/HCPCS: 71045; 80053; 84484; 85025; 93005; 93010; 96360; 99285-25; G0480; J7030

== ENCOUNTER 2018-08-31 15:54 | Emergency (ER) | payer OTHER ==
[~2018-08-31] VITALS: Ht 167.6 cm; Wt 77.1 kg
[2018-08-31 16:53] LABS: BASOPHILS ABSOLUTE AUTO 0.06 K/mm3 (0.00-0.23); BASOPHILS PERCENT AUTO 1 % (0-2); EOSINOPHILS PERCENT AUTO 1 % (0-6); Hematocrit 46.1 % (33.0-51.0); Hemoglobin 15.8 g/dL (11.5-16.0); IMMATURE GRAN ABSOLUTE AUTO 0.07 K/mm3 (0.00-0.10); IMMATURE GRAN PERCENT AUTO 1 % (0-1); LYMPHOCYTES ABSOLUTE AUTO 3.74 K/mm3 (0.84-5.20); LYMPHOCYTES PERCENT AUTO 42 % (21-46); MONOCYTES ABSOLUTE AUTO 0.66 K/mm3 (0.16-1.47); MONOCYTES PERCENT AUTO 7 % (4-13); Mean Corpuscular HGB 34.1 pg (26.0-34.0); Mean Corpuscular HGB Conc 34.3 g/dL (31.5-36.5); Mean Corpuscular Volume 100 fL (80-100); Mean Platelet Volume 10.2 fL (9.1-12.4); NEUTROPHILS ABSOLUTE AUTO 4.27 K/mm3 (1.96-9.15); NEUTROPHILS PERCENT AUTO 48 % (41-73); Platelet Count 207 K/mm3 (150-400); RDW Coefficient Variation 16.6 % (11.7-14.2); RDW Standard Deviation 61.1 fL (35.1-46.3); Red Blood Cell Count 4.63 M/mm3 (3.80-5.20)
[2018-08-31 17:02] LABS: Source, Urine Clean Catch
[2018-08-31 17:07] LABS: Appearance, Urine Hazy (Clear); Bilirubin, Urine Neg (Neg); Blood, Urine 3+ (Neg); Color, Urine Yellow (P-Yellow); Glucose Qualitative, Urine Neg (Neg); Ketones, Urine Neg (Neg); Leukocyte Esterase, Urine 3+ (Neg); Nitrite, Urine Pos (Neg); Protein, Urine 2+ (Neg); Specific Gravity, Urine 1.015 (1.003-1.022); Urobilinogen, Urine NORM (Normal)
[2018-08-31 17:12] LABS: Alanine Aminotransfer (ALT/SGP 27 U/L (12-78); Albumin, Blood 3.2 g/dL (3.4-5.0); Albumin/Globulin Ratio 0.9 (0.8-1.8); Alk Phos 37 U/L (50-136); Anion Gap 11 mmol/L (6-16); Aspartate Aminotrans (AST/SGOT 28 U/L (12-37); Bilirubin, Total 0.1 mg/dL (0.1-1.0); Blood Urea Nitrogen 6 mg/dL (8-24); Bun/Creatinine Ratio 13.1 (12.0-20.0); CO2, Blood 26 mmol/L (21-32); Calcium, Blood 8.1 mg/dL (8.5-10.1); Chloride, Blood 110 mmol/L (98-108); Creatinine, Blood 0.46 mg/dL (0.40-1.00); Globulin, Blood 3.7 g/dL (2.2-4.0); Glomerular Filtration Rate >60 (60-); Glucose, Blood 88 mg/dL (70-99); Potassium, Blood 3.6 mmol/L (3.5-5.5); Salicylate 5.6 mg/dL (2.8-20.0); Sodium, Blood 147 mmol/L (136-145); Thyroxine (T4) 5.2 ug/dL (4.8-13.9); Total Protein, Blood 6.9 g/dL (6.4-8.2)
[2018-08-31 17:16] LABS: Thyroid Stimulating Hormone 0.709 uIU/mL (0.360-4.800)
[2018-08-31 17:16] LABS: U Amphetamine Screen Not Detected; U Barbituate Screen Not Detected; U Benzodiazapine Screen DETECTED; U Buprenorphine Screen Not Detected; U Cannabinoids Screen Not Detected; U Cocaine Screen Not Detected; U Methadone Screen Not Detected; U Methamphetamine Screen Not Detected; U Opiates Screen Not Detected; U Oxycodone Screen Not Detected; U Phencyclidine Screen Not Detected; U Propoxyphene Screen Not Detected
[2018-08-31 17:20] LABS: Acetaminophen, Random <2.0 ug/mL (10.0-30.0); Ethanol (Alcohol), Blood, Med 325 mg/dL
[2018-08-31 17:21] LABS: Bacteria Many /hpf; Squamous Epithelial Cells Few /hpf (Few); White Blood Cells, Urine 50-100 /hpf (0-5)
[2018-08-31] MEDS ORDERED: CHLO25 PO (18:03)
[2018-08-31] MEDS ORDERED: CEPH500 PO (18:06)
== END 2018-08-31 18:40 | disposition home or self-care (01) ==
LOC: ER 15:54
PROVIDERS: Emergency Medicine
DX: F10.20 Alcohol dependence, uncomplicated (principal); N39.0 Urinary tract infection, site not specified; F41.9 Anxiety disorder, unspecified; F17.210 Nicotine dependence, cigarettes, uncomplicated; Z88.8 Allergy status to other drugs, medicaments and biological substances; Z88.6 Allergy status to analgesic agent; Z88.1 Allergy status to other antibiotic agents; Z88.5 Allergy status to narcotic agent; Z79.899 Other long term (current) drug therapy; Y90.8 Blood alcohol level of 240 mg/100 ml or more
CPT/HCPCS: 36415; 80053; 81001; 84436; 84443; 85025; 87077; 87086; 87186; 99284; G0480

== ENCOUNTER 2018-09-03 00:59 | Observation (INO) | payer OTHER ==
[~2018-09-03] VITALS: Ht 167.6 cm; Wt 89.7 kg
[2018-09-03 01:25] LABS: BASOPHILS ABSOLUTE AUTO 0.06 K/mm3 (0.00-0.23); BASOPHILS PERCENT AUTO 1 % (0-2); EOSINOPHILS ABSOLUTE AUTO 0.15 K/mm3 (0.00-0.68); EOSINOPHILS PERCENT AUTO 2 % (0-6); Hematocrit 41.8 % (33.0-51.0); Hemoglobin 14.2 g/dL (11.5-16.0); IMMATURE GRAN ABSOLUTE AUTO 0.02 K/mm3 (0.00-0.10); IMMATURE GRAN PERCENT AUTO 0 % (0-1); LYMPHOCYTES ABSOLUTE AUTO 3.31 K/mm3 (0.84-5.20); LYMPHOCYTES PERCENT AUTO 52 % (21-46); MONOCYTES ABSOLUTE AUTO 0.56 K/mm3 (0.16-1.47); MONOCYTES PERCENT AUTO 9 % (4-13); Mean Corpuscular HGB 33.6 pg (26.0-34.0); Mean Corpuscular Volume 99 fL (80-100); NEUTROPHILS ABSOLUTE AUTO 2.28 K/mm3 (1.96-9.15); NEUTROPHILS PERCENT AUTO 36 % (41-73); Platelet Count 168 K/mm3 (150-400); RDW Coefficient Variation 16.3 % (11.7-14.2); RDW Standard Deviation 59.6 fL (35.1-46.3); Red Blood Cell Count 4.22 M/mm3 (3.80-5.20); White Blood Cell Count 6.38 K/mm3 (4.00-11.30)
[2018-09-03 01:51] LABS: Acetaminophen, Random <2.0 ug/mL (10.0-30.0); Alanine Aminotransfer (ALT/SGP 27 U/L (12-78); Albumin/Globulin Ratio 0.9 (0.8-1.8); Alk Phos 52 U/L (50-136); Anion Gap 8 mmol/L (6-16); Aspartate Aminotrans (AST/SGOT 28 U/L (12-37); Bilirubin, Total 0.2 mg/dL (0.1-1.0); Blood Urea Nitrogen 7 mg/dL (8-24); Bun/Creatinine Ratio 11.3 (12.0-20.0); CO2, Blood 28 mmol/L (21-32); Calcium, Blood 7.9 mg/dL (8.5-10.1); Chloride, Blood 109 mmol/L (98-108); Creatinine, Blood 0.62 mg/dL (0.40-1.00); Ethanol (Alcohol), Blood, Med 291 mg/dL; Globulin, Blood 3.3 g/dL (2.2-4.0); Glomerular Filtration Rate >60 (60-); Glucose, Blood 105 mg/dL (70-99); Potassium, Blood 3.1 mmol/L (3.5-5.5); Salicylate 5.3 mg/dL (2.8-20.0); Sodium, Blood 145 mmol/L (136-145); Total Protein, Blood 6.3 g/dL (6.4-8.2)
[2018-09-03] MEDS ORDERED: CITA20 PO (02:04)
[2018-09-03 02:06] LABS: Source, Urine Clean Catch
[2018-09-03 02:12] LABS: Appearance, Urine Clear (Clear); Bilirubin, Urine Neg (Neg); Blood, Urine 1+ (Neg); Color, Urine Yellow (P-Yellow); Glucose Qualitative, Urine Neg (Neg); Ketones, Urine Neg (Neg); Leukocyte Esterase, Urine 2+ (Neg); Nitrite, Urine Pos (Neg); Protein, Urine Neg (Neg); Specific Gravity, Urine 1.005 (1.003-1.022); Urobilinogen, Urine NORM (Normal)
[2018-09-03 02:14] LABS: Bacteria Many /hpf; Red Blood Cells, Urine 0-2 /hpf (0-2); Squamous Epithelial Cells Few /hpf (Few)
[2018-09-03 02:20] LABS: U Amphetamine Screen Not Detected; U Barbituate Screen Not Detected; U Benzodiazapine Screen DETECTED; U Buprenorphine Screen Not Detected; U Cannabinoids Screen Not Detected; U Cocaine Screen Not Detected; U Methadone Screen Not Detected; U Methamphetamine Screen Not Detected; U Opiates Screen Not Detected; U Oxycodone Screen Not Detected; U Phencyclidine Screen Not Detected; U Propoxyphene Screen Not Detected
[2018-09-03] MEDS ORDERED: CETI5 PO (12:49)
--- NOTE | 2018-09-03 13:26 | NUR ---
ADMIT: PT ARRIVED TO ICU 11 VIA STREATCHER. SITTER AT THE BEDSIDE. PT ABLE TO MOVE HERSELF TO THE BED. PT STATES SHE SAW DR. STINSON DOWNSTAIRS AND THAT HE MIGHT LET HER GO TOMORROW, BUT PT STATES SHE IS HOMELESS. PT WAS ADMITTED FROM HOME AND WHEN QUESTIONED ABOUT THIS SHE BACKTRACKS AND SAYS SHE IS PROBABLY ABOUT 2 MONTHS AWAY FROM [facility] AND SHE DOESN'T KNOW IF THE POWER WILL BE ON. PT STATES SHE HAS NO FAMILY TO HELP HER, BUT A FEW MINUTES LATER IS ASKING TO USE THE PHONE TO CALL FAMILY. RULES FOR PHONE USE WHEN ON A HOLD EXPLAINED TO PT. PT IS UNHAPPY ABOUT PHONE RESTRICTIONS BUT VERBALIZED UNDERSTANDING. DR. PETTY TO THE BEDSIDE AND DISCUSSED MEDICATIONS FOR ETOH WITHDRAWAL. CIWAA IS CURRENTLY LESS THAN 6. DR. PETTY REQUESTED TO BE CALLED FOR MEDS IF CIWAA STARTS TO RISE.
[2018-09-03 14:09] LABS: Hematocrit 41.5 % (33.0-51.0); Hemoglobin 14.6 g/dL (11.5-16.0); Mean Corpuscular HGB 33.9 pg (26.0-34.0); Mean Corpuscular HGB Conc 35.2 g/dL (31.5-36.5); Platelet Count 163 K/mm3 (150-400); RDW Coefficient Variation 15.8 % (11.7-14.2); RDW Standard Deviation 57.2 fL (35.1-46.3); Red Blood Cell Count 4.31 M/mm3 (3.80-5.20); White Blood Cell Count 7.13 K/mm3 (4.00-11.30)
[2018-09-03 14:11] LABS: Mean Corpuscular Volume 96 fL (80-100)
[2018-09-03 14:38] LABS: Alanine Aminotransfer (ALT/SGP 23 U/L (12-78); Albumin, Blood 3.1 g/dL (3.4-5.0); Albumin/Globulin Ratio 0.9 (0.8-1.8); Alk Phos 40 U/L (50-136); Anion Gap 10 mmol/L (6-16); Aspartate Aminotrans (AST/SGOT 26 U/L (12-37); Bilirubin, Total 0.6 mg/dL (0.1-1.0); Blood Urea Nitrogen 4 mg/dL (8-24); Bun/Creatinine Ratio 7.9 (12.0-20.0); CO2, Blood 25 mmol/L (21-32); Calcium, Blood 8.2 mg/dL (8.5-10.1); Chloride, Blood 108 mmol/L (98-108); Creatinine, Blood 0.51 mg/dL (0.40-1.00); Globulin, Blood 3.3 g/dL (2.2-4.0); Glomerular Filtration Rate >60 (60-); Glucose, Blood 109 mg/dL (70-99); Potassium, Blood 3.9 mmol/L (3.5-5.5); Sodium, Blood 143 mmol/L (136-145); Total Protein, Blood 6.4 g/dL (6.4-8.2)
--- NOTE | 2018-09-03 17:11 | NUR ---
SHIFT SUMMARY: PT HAS BEEN RESTING IN BED SINCE ADMIT. SHE IS GETTING UP TO THE COMMODE. CIWAA HAS BEEN AROUND 6, MOSTLY DUE TO HER TREMORS. HER LUNGS ARE CLEAR, ON RA. SR, BP STABLE. NO SIGNIFICANT CHANGES SINCE ADMIT ASSESSMENT. CONTINUING TO MONITOR.
--- NOTE | 2018-09-03 23:23 | NUR ---
PT RESTING QUIETLY IN BED. 1:1 SITTER PRESENT. PT DENIES SUICIDAL IDEATION NOW. NO SIGN OF DISTRESS.
[2018-09-04 03:35] LABS: Hematocrit 43.3 % (33.0-51.0); Hemoglobin 14.8 g/dL (11.5-16.0); Mean Corpuscular HGB 33.3 pg (26.0-34.0); Mean Corpuscular HGB Conc 34.2 g/dL (31.5-36.5); Mean Corpuscular Volume 97 fL (80-100); Mean Platelet Volume 10.7 fL (9.1-12.4); Platelet Count 162 K/mm3 (150-400); RDW Coefficient Variation 15.9 % (11.7-14.2); RDW Standard Deviation 57.3 fL (35.1-46.3); Red Blood Cell Count 4.45 M/mm3 (3.80-5.20); White Blood Cell Count 6.54 K/mm3 (4.00-11.30)
[2018-09-04 03:54] LABS: Anion Gap 8 mmol/L (6-16); Blood Urea Nitrogen 2 mg/dL (8-24); CO2, Blood 25 mmol/L (21-32); Calcium, Blood 8.3 mg/dL (8.5-10.1); Chloride, Blood 108 mmol/L (98-108); Glomerular Filtration Rate >60 (60-); Glucose, Blood 83 mg/dL (70-99); Magnesium, Blood 1.7 mg/dL (1.6-2.4); Phosphorus, Blood 2.1 mg/dL (2.5-4.9); Potassium, Blood 3.7 mmol/L (3.5-5.5); Sodium, Blood 141 mmol/L (136-145)
--- NOTE | 2018-09-04 06:46 | NUR ---
SUMMARY PT RESTING IN BED. A/O PERSON, PLACE, EVENTS, MONTH. CIWA 4-6 ALL NIGHT. HANDS ARE TREMULOUS. TRANSFERS TO BSC WITH STANDBY ASSIST. DENIES SUICIDAL IDEATION. 1:1 SITTER PRESENT. NO SIGN OF DISTRESS.
--- NOTE | 2018-09-04 07:30 | NUR ---
PATIENT UP TO BEDSIDE COMMODE WITH ONE ASSIST, APPEARS WEAK OVERALL, RETURNED TO BED, PATIENT HAS GOOD URINE OUTPUT, NO PROBLEMS URINATING, PATIENT HAS CALL LIGHT IN REACH, WILL CONTINUE TO MONITOR.
--- NOTE | 2018-09-04 07:46 | NUR ---
START OF SHIFT REPORT: RECEIVED REPORT FROM YUMI MCKINLEY, ASSUMED CARE, PATIENT IS RESTING COMFORTABLY, C/O GENERALIZED WEAKNESS, AWAKE, ALERT AND ORIENTED, IV FLUIDS INFUSING, PATIENT IS A TWO PHYSICIAN HOLD, SITTER IN PLACE, PATIENT DENIES PAIN, AFEBRILE, CALL LIGHT IN REACH, WILL CONTINUE TO MONITOR.
--- NOTE | 2018-09-04 09:36 | NUR ---
DR. CORRAL IN TO SEE PATIENT, TWO PHYSICIAN HOLD WAS REMOVED, FORM FILLED OUT AND SIGNED BY DR. CORRAL, PER DR. CORRAL PATIENT IS OK TO BE DISCHARGED IF OK WITH HOSPITALIST, DAIRY GRAZER IN TO SEE PATIENT WELL AND PROVIDE OPTIONS FOR DISCHARGE, DR. VILLEGAS IN TO SEE PATIENT, WILL KEEP PATIENT FOR ONE MORE DAY BUT MAY TRANSFER TO PCU/MEDICAL STATUS, HOME MEDICATIONS ORDERED PER DR. VILLEGAS.
--- NOTE | 2018-09-04 10:00 | NUR ---
DR. VILLEGAS IN TO SEE PATIENT, STATUS IS NOW MEDICAL, PATIENT'S BLOOD PRESSURE AND DEPRESSION MEDICATIONS ORDERED BY AND GIVEN, PATIENT RESTING COMFORTABLY AT THIS TIME, CALL LIGHT IN REACH, WILL CONTINUE TO MONITOR.
--- NOTE | 2018-09-04 11:36 | NUR ---
OVEN UNLOADER IN TO SEE PATIENT.
--- NOTE | 2018-09-04 14:00 | NUR ---
REPORT GIVEN TO YUMI NOLAN.
--- NOTE | 2018-09-04 14:35 | NUR ---
ASSUMED CARE: REPORT RECIEVED FROM CAMILLE EASON. PT RESTING IN BED, TREMORS NOTED. DENIES FURTHER NEEDS OR CONCERNS AT THIS TIME
--- NOTE | 2018-09-04 15:31 | NUR ---
KARENA EASON STARTED NEW IV, FLUIDS RESTARTED. TREMORS NOTED, DENIES FURTHER COMPLAINTS.
--- NOTE | 2018-09-04 18:22 | NUR ---
SHIFT SUMMARY: PT RESTING QUIETLY. CIWA BELOW 8 SINCE TAKING OVER PT THIS AFTERNOON. IV INFILTRATED AND DIFFICULT START. ORDERS TO KEEP IV OUT. NO FURTHER NEEDS OR CONCERNS AT THIS TIME
--- NOTE | 2018-09-04 22:01 | NUR ---
PT RESTING IN BED. A/O X4. C/O PAIN IN R WRIST THAT IS CHRONIC. GAVE ULTRAM. DENIES N/V, SOB AND DIZZINESS. SEE ASSESSMENT AND CIWA ASSESSMENT. NO SIGN OF DISTRESS.
[2018-09-05 03:46] LABS: Hematocrit 42.4 % (33.0-51.0); Hemoglobin 14.5 g/dL (11.5-16.0); Mean Corpuscular HGB 33.6 pg (26.0-34.0); Mean Corpuscular HGB Conc 34.2 g/dL (31.5-36.5); Mean Corpuscular Volume 98 fL (80-100); Mean Platelet Volume 10.7 fL (9.1-12.4); Platelet Count 162 K/mm3 (150-400); RDW Coefficient Variation 15.5 % (11.7-14.2); RDW Standard Deviation 56.6 fL (35.1-46.3); Red Blood Cell Count 4.31 M/mm3 (3.80-5.20); White Blood Cell Count 6.07 K/mm3 (4.00-11.30)
[2018-09-05 04:11] LABS: Anion Gap 7 mmol/L (6-16); Blood Urea Nitrogen 2 mg/dL (8-24); Bun/Creatinine Ratio 4.5 (12.0-20.0); CO2, Blood 25 mmol/L (21-32); Calcium, Blood 8.5 mg/dL (8.5-10.1); Chloride, Blood 109 mmol/L (98-108); Creatinine, Blood 0.44 mg/dL (0.40-1.00); Glomerular Filtration Rate >60 (60-); Glucose, Blood 82 mg/dL (70-99); Potassium, Blood 3.6 mmol/L (3.5-5.5); Sodium, Blood 141 mmol/L (136-145)
--- NOTE | 2018-09-05 04:54 | NUR ---
LATE ENTRY ON 09/04/[address] CHAPPELL TO INFORM HIM OF PHOS LEVEL. NO NEW ORDERS.
--- NOTE | 2018-09-05 06:30 | NUR ---
PT SLEPT MOST OF THE NIGHT. CIWA 2. NO SIGN OF DISTRESS. NO CHANGES.
--- NOTE | 2018-09-05 08:00 | NUR ---
PT A/O SITTING UP IN BED TALKING. SOME PAIN IN RT WRIST, STATES FROM OLD INJURY. MED PER EMAR. PT RESTING COMFORTABLY. STATES MAY START WITHDRAWL FROM ETOH SOON. STATES 1/2 OF 5TH VODKA DAILY. DENIES ANX, IRRITATION, H/ACHE, IS SOME TREMULOUS IN HANDS. NO HALLUCINATIONS. CWA 3. H/R REG, NO MURMER NOTED. NO TELE. LUNGS CLEAR., RESP EASY, UNLABORED TALKING IN 5-6 WORD SENTENCES. SPOKE ABOUT HER DOGS. ON R/A. BT X4 LAST BM STATES YEST. VOIDS PER BSC INDEPENDANTLY AT THIS TIME. BED IN LOW POSITION, CALL LITE IN REACH, CALLS APROP.
--- NOTE | 2018-09-05 10:00 | NUR ---
PT C/O PAIN IN WRIST. MED PER EMAR.
--- NOTE | 2018-09-05 11:50 | NUR ---
PT CALLED. SHAKING TREMBLING. SWEATING ON TRUNK. NOTICED PT RT LEG UP IN AIR SLIGHTLY, SHAKING BACK AND FORTH. LEFT LEG ON BED, NOT SHAKING. ARM TREMULOUS. SWEAT ON TRUNK. RECHECKED CWA 8. MED PER EMAR 25 MG LIBRIUM. 1205 PT SAME CONDITION, SPOKE TO CHARGE. OKAY RECOMMEND GIVE FULL LIBRIUM. ADDITIONAL DOSE OF 25 MG GIVEN. 1215 PT LYING IN BED RESTING, MINIMAL IF AFNY TREMULATIONS, PT RESTING. QUIET. STATES THANKS FOR MEDICATING. BED IN LOW POSITION, CALL LITE IN REACH, CALLS APPROP
--- NOTE | 2018-09-05 14:00 | NUR ---
PT LYING IN ROOM. FACING WINDOW. NO TREMULATIONS NOTED. RESP EASY, UNLABORED. DID NOT DISTURB PT.
--- NOTE | 2018-09-05 14:20 | NUR ---
DR VILLEGAS IN ROOM. NOT D/C PT TODAY. FEELS MAY BEGIN WITHDRAWL SOON. TO ORDER TELE AND LIBRIUM AND ATIVAN.
--- NOTE | 2018-09-05 17:59 | NUR ---
PT PLEASANT TODAY. CWA BETWEEN 2-8. MEDICATED WITH LIBRIUM 50 MG. TALKING ON PHONE THIS DALY. PRESENTS NO DISTRESS AT THIS TIME. VERY LIGHT VISABLE TREMORS IN HANDS AT THIS TIME. NO REPORTED HALLUCINATIONS. REMAINS ALERT AND ORIENTED T/O SHIFT. NO OTHER CONCERNS AT THIS TIME. BED IN LOW POSITION, CALL LITE IN REACH, CALLS APPROP
[2018-09-06 03:50] LABS: Hemoglobin 14.8 g/dL (11.5-16.0); Mean Corpuscular HGB 33.5 pg (26.0-34.0); Mean Corpuscular HGB Conc 34.4 g/dL (31.5-36.5); Mean Corpuscular Volume 97 fL (80-100); Mean Platelet Volume 10.8 fL (9.1-12.4); Platelet Count 142 K/mm3 (150-400); RDW Coefficient Variation 15.7 % (11.7-14.2); RDW Standard Deviation 55.8 fL (35.1-46.3); Red Blood Cell Count 4.42 M/mm3 (3.80-5.20); White Blood Cell Count 6.29 K/mm3 (4.00-11.30)
[2018-09-06 04:32] LABS: Albumin, Blood 3.2 g/dL (3.4-5.0); Anion Gap 9 mmol/L (6-16); Blood Urea Nitrogen 8 mg/dL (8-24); Bun/Creatinine Ratio 12.8 (12.0-20.0); CO2, Blood 26 mmol/L (21-32); Calcium, Blood 8.9 mg/dL (8.5-10.1); Chloride, Blood 107 mmol/L (98-108); Creatinine, Blood 0.62 mg/dL (0.40-1.00); Glomerular Filtration Rate >60 (60-); Glucose, Blood 78 mg/dL (70-99); Magnesium, Blood 2.1 mg/dL (1.6-2.4); Phosphorus, Blood 5.2 mg/dL (2.5-4.9); Potassium, Blood 3.1 mmol/L (3.5-5.5); Sodium, Blood 142 mmol/L (136-145)
--- NOTE | 2018-09-06 06:07 | NUR ---
SUMMARY VITALS STABLE THROUGHOUT NIGHT. PT PLEASANT, COOPERATIVE. MEDICATED PER CIWA ASSESSMENTS. ALSO MEDICATED FOR PAIN TO RIGHT WRIST. PT UP TO BEDSIDE COMMODE WITH STAND BY ASSIST, REPOSITIONING SELF THROUGHOUT NIGHT. SEE ASSESSMENTS/FLOWSHEETS.
--- NOTE | 2018-09-06 08:40 | NUR ---
ASSUMED CARE / DR. VILLEGAS: REPORT RECEIVED FROM CISCO Don RN. ASSUMED CARE OF THIS PT AT APPROX 0700. ON ASSESSMENT, THE PT IS RESTING QUIETLY. ONCE AWAKE, SHE BECOMES TREMULOUS & STS SHE IS EXPERIENCING A HEADACHE & AGITATION/ANXIETY. SHE STS THAT SHE IS NOT CURRENTLY HALLUCINATING BUT THAT LAST NIGHT THOUGHT SHE COULD HEAR A DOG "SCRATCHING AROUND" UNDER HER BED. CIWA COMPLETE. MEDS PER EMAR. PROVIDER AT BEDSIDE. DISCUSSED POC W/ PT. REQUEST FROM THIS RN FOR KPHOS TO BE D/C'd R/T PT's HIGH PHOS LEVEL THIS AM. POTASSIUM LOW THIS AM, ALTERNATE ORDERS HAVE BEEN PLACED FOR REPLETION & KPHOS HAS BEEN D/C'd. WILL CONTINUE TO MONITOR & UPDATE NEEDED.
--- NOTE | 2018-09-06 15:33 | NUR ---
MED FLOOR TRANSFER: NEW BED ASSIGNMENT, PT TO TX TO RM 349. CALL TO DULCE MARIA Murdock RN TO ASSUME CARE. SHE WILL RETURN CALL FOR REPORT WHEN ABLE. WILL CONTINUE TO MONITOR & UPDATE NEEDED.
--- NOTE | 2018-09-06 16:30 | NUR ---
TRANSFER TO MED FLOOR: REPORT HAS BEEN GIVEN TO DULCE MARIA Murdock RN TO ASSUME CARE. SHE DENIES FURTHER QUESTIONS. VSS & CIWA HAS BEEN COMPLETED W/ MEDS PER EMAR. PT HAS BEEN TAKEN UPSTAIRS BY ALBA WEBSTER. CHART, MEDS & ALL BELONGINGS HAVE BEEN TAKEN W/ PT.
--- NOTE | 2018-09-06 18:03 | NUR ---
SHIFT SUMMARY PT AXO, PLEASANT AND COOPERATIVE WITH CARE. ARRIVED TO ROOM AT 1446. PT COMPLAINS OF R. WRIST PAIN. BUT IS RESTING COMFORTABLY AT THIS TIME. BED IN LOW POSITION, CALL LIGHT WITHIN REACH, TELE ON; PT SINUS RHYTHM AT 90 PER LEGAL INSTRUMENTS EXAMINER. LAST CIWA COMPLETED AT 1604 BY RIGO CARPENTER PRIOR TO TRANSFER WAS 9. PT MEDICATED PER EMAR. NEXT DUE AT 2003.
--- NOTE | 2018-09-07 03:51 | NUR ---
SHIFT SUMMARY PATIENT HAD NO ACUTE CHANGES OBSERVED THIS SHIFT. FIRST CIWA 8 AND LIBRIUM GIVEN PER EMAR. NEXT CIWA LESS TREMORS AND DECREASE COLLAZO WITH A SCORE OF 7. AXOX 3 AND ONE ASSIST TO BSC. VSS/AFEBRILE. REPORTED RW FX PAIN AND RECEIVED ULTRAM PER EMAR. PIV REMAINS INTACT. SCRAP DEALER REPORTS SB 59. DENIES SOB AND N/V. CALL LIGHT IN REACH. BED IN LOWEST POSITION. WILL CONTINUE TO MONITOR UNTIL DAY SHIFT NURSE ASSUMES CARE.
[2018-09-07 05:34] LABS: Albumin, Blood 3.1 g/dL (3.4-5.0); Anion Gap 7 mmol/L (6-16); Blood Urea Nitrogen 12 mg/dL (8-24); CO2, Blood 26 mmol/L (21-32); Calcium, Blood 9.1 mg/dL (8.5-10.1); Chloride, Blood 108 mmol/L (98-108); Creatinine, Blood 0.57 mg/dL (0.40-1.00); Glomerular Filtration Rate >60 (60-); Glucose, Blood 82 mg/dL (70-99); Phosphorus, Blood 4.5 mg/dL (2.5-4.9); Potassium, Blood 3.3 mmol/L (3.5-5.5); Sodium, Blood 141 mmol/L (136-145)
--- NOTE | 2018-09-07 16:35 | NUR ---
SHIFT SUMMARY PT IS A&O X4, LISTED 1 ASSIST TO BSC. PT IS ON TELE (CAN RUN JOSE), SHE IS ON ROOM AIR AND ON A REGULAR DIET. ADMITTED FOR OVERDOSE. SHE HAS A HX OF ALCOHOL USE, CIWA SCORES HAVE DROPPED FROM 8 TO 5. SHE WILL ENTER ADAPT DETOX WHEN A BED BECOMES AVAILABLE. SHE IS EXPERIENCING MILD TREMORS AND WRIST PAIN THIS SHIFT. SHE BECAME UPSET FOLLOWING THE HOSPITALIST ROUNDING, BUT OTHER THAN THAT I HAVE NOT NOTICED UNDUE ANXIETY OR DIAPHORESIS THIS SHIFT. SHE WISHES TO DC TOMORROW. SHE CAN TAKE HER MEDS WHOLE AND HAS BEEN INDEPENDENT IN THE ROOM TO THE BATHROOM THIS SHIFT.
--- NOTE | 2018-09-08 03:34 | NUR ---
SHIFT SUMMARY PATIENT HAD NO ACUTE CHANGES OBSERVED THIS SHIFT. AXOX 3 AND INDEPENDENT IN THE ROOM. CIWA SCORES ARE THREE WITH TREMORS AND ANXIETY. PIV REMAINS INTACT. SUPERVISOR SILVERING DEPARTMENT REPORTS NSR 64. DENIES PAIN, SOB, AND N/V. VSS/AFEBRILE. TAKES MEDS WHOLE WITH WATER. PATIENT ABLE TO SLEEP MOST OF THE SHIFT. CALL LIGHT IN REACH. BED IN LOWEST POSITION. WILL CONTINUE TO MONITOR UNTIL DAY SHIFT NURSE ASSUMES CARE.
[2018-09-08 05:57] LABS: Anion Gap 8 mmol/L (6-16); Blood Urea Nitrogen 8 mg/dL (8-24); Bun/Creatinine Ratio 14.1 (12.0-20.0); CO2, Blood 23 mmol/L (21-32); Calcium, Blood 9.2 mg/dL (8.5-10.1); Chloride, Blood 112 mmol/L (98-108); Creatinine, Blood 0.57 mg/dL (0.40-1.00); Glomerular Filtration Rate >60 (60-); Glucose, Blood 85 mg/dL (70-99); Potassium, Blood 3.8 mmol/L (3.5-5.5); Sodium, Blood 143 mmol/L (136-145)
[2018-09-08] MEDS ORDERED: CEPH500 PO (10:42)
[2018-09-08] MEDS ORDERED: TRAZ100 PO (10:43)
[2018-09-08] MEDS ORDERED: TRAM50 PO (10:43)
--- NOTE | 2018-09-08 11:23 | NUR ---
DISCHARGE NOTE PT DRESSED IN PERSONAL CLOTHES AND HOSPITAL GOWN FOR DISCHARGE (EMT'S CUT PT'S TOP WHEN TRANSPORTED TO ER). IV DC'D WNL. PT PROVIDED WITH HARDCOPY PRESCRIPTIONS BY HOSPITALIST SHE REQUESTED. PT PROVIDED WITH TRANSPORTATION HOME VIA [facility] SHE REQUESTED. PT PROVIDED WITH HARDCOPY AND VERBAL INSTRUCTIONS FOR DISCHARGE REGARDING DIAGNOSES, MEDICATIONS, AND FOLLOW UP APPOINTMENTS. PT HAD NO FURTHER QUESTIONS. HOME APPRAISER TRANSPORTED PT TO [facility] VIA WHEELCHAIR.
--- NOTE | 2018-09-08 11:30 | NUR ---
MEDICATION RECONCILIATION CALLED PT TO NOTIFY HER THAT HER TRAZODONE PRESCRIPTION HAS BEEN CHANGED FROM 100 MG, TO 50-100 MG PO PRN SLEEP. PT STATED UNDERSTANDING.
== END 2018-09-08 11:10 | disposition home or self-care (01) ==
LOC: ER 00:59 → ERHOLD 01:00 → ICUW 01:00 → ER 01:32 → ERHOLD 01:32 → ICUW 12:15 → MEDS 09-06 16:42 → ENPENDDIS 09-08 10:30 → MEDS 09-08 11:10
PROVIDERS: Emergency Medicine; Internal Medicine; ADMIT Internal Medicine
DX: T42.4X2A Poisoning by benzodiazepines, intentional self-harm, initial encounter (principal); F10.239 Alcohol dependence with withdrawal, unspecified; F32.9 Major depressive disorder, single episode, unspecified; I10 Essential (primary) hypertension; E87.6 Hypokalemia; E66.9 Obesity, unspecified; Z88.1 Allergy status to other antibiotic agents; Z88.8 Allergy status to other drugs, medicaments and biological substances; Z79.899 Other long term (current) drug therapy; Z86.718 Personal history of other venous thrombosis and embolism; Z91.5 Personal history of self-harm; Z23 Encounter for immunization; Z68.29 Body mass index [BMI] 29.0-29.9, adult
CPT/HCPCS: 36415; 80048; 80053; 80069; 81001; 81025; 83735; 84100; 84132; 84443; 85025; 85027; 87077; 87086; 87186; 90686; 93005; 93010; 96361; 96365; 96366; 96367; 96372; 96375; 96376; 99285-25; C9113; G0378; G0480; J0696; J1650; J3411; J3475; J3480; J7042

== ENCOUNTER 2018-10-23 15:39 | Emergency (ER) | payer OTHER ==
[~2018-10-23] VITALS: Ht 165.1 cm; Wt 81.7 kg
[~2018-10-23 15:39] MED LIST changes: +CETI5 PO; +TRAZ100 PO
[2018-10-23 16:08] LABS: BASOPHILS ABSOLUTE AUTO 0.04 K/mm3 (0.00-0.23); BASOPHILS PERCENT AUTO 1 % (0-2); EOSINOPHILS ABSOLUTE AUTO 0.03 K/mm3 (0.00-0.68); EOSINOPHILS PERCENT AUTO 0 % (0-6); Hemoglobin 14.8 g/dL (11.5-16.0); IMMATURE GRAN ABSOLUTE AUTO 0.02 K/mm3 (0.00-0.10); IMMATURE GRAN PERCENT AUTO 0 % (0-1); LYMPHOCYTES ABSOLUTE AUTO 4.43 K/mm3 (0.84-5.20); LYMPHOCYTES PERCENT AUTO 54 % (21-46); MONOCYTES ABSOLUTE AUTO 0.54 K/mm3 (0.16-1.47); MONOCYTES PERCENT AUTO 7 % (4-13); Mean Corpuscular HGB 33.8 pg (26.0-34.0); Mean Corpuscular HGB Conc 34.4 g/dL (31.5-36.5); Mean Corpuscular Volume 98 fL (80-100); Mean Platelet Volume 10.2 fL (9.1-12.4); NEUTROPHILS ABSOLUTE AUTO 3.09 K/mm3 (1.96-9.15); NEUTROPHILS PERCENT AUTO 38 % (41-73); Platelet Count 189 K/mm3 (150-400); RDW Coefficient Variation 15.5 % (11.7-14.2); RDW Standard Deviation 55.4 fL (35.1-46.3); Red Blood Cell Count 4.38 M/mm3 (3.80-5.20); White Blood Cell Count 8.15 K/mm3 (4.00-11.30)
[2018-10-23 16:32] LABS: Alanine Aminotransfer (ALT/SGP 21 U/L (12-78); Albumin, Blood 3.7 g/dL (3.4-5.0); Albumin/Globulin Ratio 1.2 (0.8-1.8); Alk Phos 30 U/L (50-136); Anion Gap 8 mmol/L (6-16); Aspartate Aminotrans (AST/SGOT 16 U/L (12-37); Bilirubin, Total 0.4 mg/dL (0.1-1.0); Blood Urea Nitrogen 2 mg/dL (8-24); Bun/Creatinine Ratio 3.9 (12.0-20.0); CO2, Blood 26 mmol/L (21-32); Calcium, Blood 8.7 mg/dL (8.5-10.1); Chloride, Blood 109 mmol/L (98-108); Creatinine, Blood 0.52 mg/dL (0.40-1.00); Globulin, Blood 3.2 g/dL (2.2-4.0); Glomerular Filtration Rate >60 (60-); Glucose, Blood 113 mg/dL (70-99); Potassium, Blood 3.2 mmol/L (3.5-5.5); Sodium, Blood 143 mmol/L (136-145); Total Protein, Blood 6.9 g/dL (6.4-8.2); Troponin I <0.015 ng/mL (0.000-0.040)
== END 2018-10-23 17:45 | disposition home or self-care (01) ==
LOC: ER 15:39
PROVIDERS: Emergency Medicine
DX: R07.9 Chest pain, unspecified (principal); F41.9 Anxiety disorder, unspecified; F10.20 Alcohol dependence, uncomplicated; Z88.0 Allergy status to penicillin; Z88.8 Allergy status to other drugs, medicaments and biological substances; Z79.899 Other long term (current) drug therapy
CPT/HCPCS: 80053; 84484; 85025; 93005; 93010; 99285-25

== ENCOUNTER 2019-01-09 04:12 | Emergency (ER) | payer OTHER ==
[~2019-01-09] VITALS: Ht 165.1 cm; Wt 77.1 kg
[2019-01-09 04:57] LABS: BASOPHILS ABSOLUTE AUTO 0.05 K/mm3 (0.00-0.23); BASOPHILS PERCENT AUTO 1 % (0-2); EOSINOPHILS ABSOLUTE AUTO 0.04 K/mm3 (0.00-0.68); EOSINOPHILS PERCENT AUTO 1 % (0-6); Hematocrit 39.2 % (33.0-51.0); Hemoglobin 13.8 g/dL (11.5-16.0); IMMATURE GRAN ABSOLUTE AUTO 0.02 K/mm3 (0.00-0.10); IMMATURE GRAN PERCENT AUTO 0 % (0-1); LYMPHOCYTES ABSOLUTE AUTO 3.49 K/mm3 (0.84-5.20); LYMPHOCYTES PERCENT AUTO 45 % (21-46); MONOCYTES ABSOLUTE AUTO 0.62 K/mm3 (0.16-1.47); MONOCYTES PERCENT AUTO 8 % (4-13); Mean Corpuscular HGB 34.5 pg (26.0-34.0); Mean Corpuscular HGB Conc 35.2 g/dL (31.5-36.5); Mean Corpuscular Volume 98 fL (80-100); Mean Platelet Volume 10.3 fL (9.1-12.4); NEUTROPHILS ABSOLUTE AUTO 3.49 K/mm3 (1.96-9.15); NEUTROPHILS PERCENT AUTO 45 % (41-73); Platelet Count 152 K/mm3 (150-400); RDW Coefficient Variation 15.9 % (11.7-14.2); White Blood Cell Count 7.71 K/mm3 (4.00-11.30)
[2019-01-09 05:29] LABS: Alanine Aminotransfer (ALT/SGP 26 U/L (12-78); Albumin, Blood 3.5 g/dL (3.4-5.0); Albumin/Globulin Ratio 1.2 (0.8-1.8); Alk Phos 25 U/L (50-136); Anion Gap 7 mmol/L (6-16); Aspartate Aminotrans (AST/SGOT 26 U/L (12-37); Bilirubin, Total 0.3 mg/dL (0.1-1.0); Blood Urea Nitrogen 10 mg/dL (8-24); Bun/Creatinine Ratio 19.3 (12.0-20.0); CO2, Blood 25 mmol/L (21-32); Calcium, Blood 8.8 mg/dL (8.5-10.1); Chloride, Blood 112 mmol/L (98-108); Creatinine, Blood 0.52 mg/dL (0.40-1.00); Ethanol (Alcohol), Blood, Med <3 mg/dL; Globulin, Blood 2.9 g/dL (2.2-4.0); Glomerular Filtration Rate >60 (60-); Glucose, Blood 97 mg/dL (70-99); Potassium, Blood 3.6 mmol/L (3.5-5.5); Sodium, Blood 144 mmol/L (136-145); Total Protein, Blood 6.4 g/dL (6.4-8.2); Troponin I <0.015 ng/mL (0.000-0.040)
[2019-01-09] MEDS ORDERED: ONDA4ODT MM (06:13)
[2019-01-09] MEDS ORDERED: PHENERGAN25 MG PR (06:13)
== END 2019-01-09 08:50 | disposition home or self-care (01) ==
LOC: ER 04:12
PROVIDERS: Emergency Medicine
DX: F41.9 Anxiety disorder, unspecified (principal); R11.2 Nausea with vomiting, unspecified; Z88.8 Allergy status to other drugs, medicaments and biological substances; Z88.1 Allergy status to other antibiotic agents; Z88.5 Allergy status to narcotic agent; Z91.030 Bee allergy status; Z79.899 Other long term (current) drug therapy; F32.9 Major depressive disorder, single episode, unspecified; F17.200 Nicotine dependence, unspecified, uncomplicated
CPT/HCPCS: 71046; 80053; 83690; 84484; 85025; 93005; 93010; 96361; 96374; 96375; 99284-25; G0480; J2060; J2405; J2550; J7030

== ENCOUNTER 2019-01-16 10:01 | Emergency (ER) | payer OTHER ==
[~2019-01-16] VITALS: Ht 172.7 cm; Wt 83.9 kg
[~2019-01-16 10:01] MED LIST changes: +ONDA4ODT MM; +PHENERGAN25 MG PR
[2019-01-16] MEDS ORDERED: TRAM50 PO (10:21)
[2019-01-16 10:57] LABS: BASOPHILS ABSOLUTE AUTO 0.05 K/mm3 (0.00-0.23); BASOPHILS PERCENT AUTO 1 % (0-2); EOSINOPHILS ABSOLUTE AUTO 0.21 K/mm3 (0.00-0.68); EOSINOPHILS PERCENT AUTO 2 % (0-6); Hematocrit 42.8 % (33.0-51.0); IMMATURE GRAN ABSOLUTE AUTO 0.02 K/mm3 (0.00-0.10); IMMATURE GRAN PERCENT AUTO 0 % (0-1); LYMPHOCYTES ABSOLUTE AUTO 3.44 K/mm3 (0.84-5.20); LYMPHOCYTES PERCENT AUTO 35 % (21-46); MONOCYTES ABSOLUTE AUTO 0.92 K/mm3 (0.16-1.47); MONOCYTES PERCENT AUTO 9 % (4-13); Mean Corpuscular HGB 34.5 pg (26.0-34.0); Mean Corpuscular Volume 98 fL (80-100); Mean Platelet Volume 11.4 fL (9.1-12.4); NEUTROPHILS ABSOLUTE AUTO 5.18 K/mm3 (1.96-9.15); NEUTROPHILS PERCENT AUTO 53 % (41-73); Platelet Count 181 K/mm3 (150-400); RDW Standard Deviation 54.6 fL (35.1-46.3); Red Blood Cell Count 4.35 M/mm3 (3.80-5.20); White Blood Cell Count 9.82 K/mm3 (4.00-11.30)
[2019-01-16 11:12] LABS: Alanine Aminotransfer (ALT/SGP 24 U/L (12-78); Albumin, Blood 4.3 g/dL (3.4-5.0); Albumin/Globulin Ratio 1.3 (0.8-1.8); Alk Phos 33 U/L (50-136); Anion Gap 6 mmol/L (6-16); Aspartate Aminotrans (AST/SGOT 16 U/L (12-37); Bilirubin, Total 0.4 mg/dL (0.1-1.0); Blood Urea Nitrogen 6 mg/dL (8-24); Bun/Creatinine Ratio 13.8 (12.0-20.0); CO2, Blood 27 mmol/L (21-32); Calcium, Blood 9.6 mg/dL (8.5-10.1); Chloride, Blood 103 mmol/L (98-108); Creatinine, Blood 0.44 mg/dL (0.40-1.00); Ethanol (Alcohol), Blood, Med <3 mg/dL; Globulin, Blood 3.2 g/dL (2.2-4.0); Glomerular Filtration Rate >60 (60-); Glucose, Blood 79 mg/dL (70-99); Sodium, Blood 136 mmol/L (136-145); Total Protein, Blood 7.5 g/dL (6.4-8.2)
== END 2019-01-16 12:39 | disposition home or self-care (01) ==
LOC: ER 10:01
PROVIDERS: Emergency Medicine
DX: R11.2 Nausea with vomiting, unspecified (principal); Z88.8 Allergy status to other drugs, medicaments and biological substances; Z88.1 Allergy status to other antibiotic agents; Z88.5 Allergy status to narcotic agent; Z91.030 Bee allergy status; Z79.899 Other long term (current) drug therapy; Z79.891 Long term (current) use of opiate analgesic; F32.9 Major depressive disorder, single episode, unspecified; F41.9 Anxiety disorder, unspecified
CPT/HCPCS: 80053; 83690; 83735; 85025; 93005; 93010; 96361; 96374; 99284-25; G0480; J0780; J7120

== ENCOUNTER 2019-01-20 18:59 | Emergency (ER) | payer OTHER ==
[~2019-01-20] VITALS: Ht 167.6 cm; Wt 77.1 kg
[2019-01-20 19:30] LABS: BASOPHILS ABSOLUTE AUTO 0.03 K/mm3 (0.00-0.23); BASOPHILS PERCENT AUTO 1 % (0-2); EOSINOPHILS ABSOLUTE AUTO 0.01 K/mm3 (0.00-0.68); EOSINOPHILS PERCENT AUTO 0 % (0-6); Hematocrit 41.6 % (33.0-51.0); Hemoglobin 14.5 g/dL (11.5-16.0); IMMATURE GRAN ABSOLUTE AUTO 0.02 K/mm3 (0.00-0.10); IMMATURE GRAN PERCENT AUTO 0 % (0-1); LYMPHOCYTES ABSOLUTE AUTO 1.27 K/mm3 (0.84-5.20); LYMPHOCYTES PERCENT AUTO 20 % (21-46); MONOCYTES ABSOLUTE AUTO 0.67 K/mm3 (0.16-1.47); MONOCYTES PERCENT AUTO 10 % (4-13); Mean Corpuscular HGB 34.1 pg (26.0-34.0); Mean Corpuscular HGB Conc 34.9 g/dL (31.5-36.5); Mean Corpuscular Volume 98 fL (80-100); Mean Platelet Volume 10.4 fL (9.1-12.4); NEUTROPHILS ABSOLUTE AUTO 4.42 K/mm3 (1.96-9.15); NEUTROPHILS PERCENT AUTO 69 % (41-73); Platelet Count 170 K/mm3 (150-400); RDW Coefficient Variation 15.2 % (11.7-14.2); RDW Standard Deviation 54.9 fL (35.1-46.3); Red Blood Cell Count 4.25 M/mm3 (3.80-5.20); White Blood Cell Count 6.42 K/mm3 (4.00-11.30)
[2019-01-20 20:01] LABS: Alanine Aminotransfer (ALT/SGP 34 U/L (12-78); Albumin, Blood 4.2 g/dL (3.4-5.0); Albumin/Globulin Ratio 1.5 (0.8-1.8); Alk Phos 25 U/L (50-136); Anion Gap 8 mmol/L (6-16); Aspartate Aminotrans (AST/SGOT 38 U/L (12-37); Bilirubin, Total 0.4 mg/dL (0.1-1.0); Blood Urea Nitrogen 4 mg/dL (8-24); Bun/Creatinine Ratio 7.1 (12.0-20.0); CO2, Blood 25 mmol/L (21-32); Calcium, Blood 9.1 mg/dL (8.5-10.1); Chloride, Blood 102 mmol/L (98-108); Creatinine, Blood 0.56 mg/dL (0.40-1.00); Globulin, Blood 2.8 g/dL (2.2-4.0); Glomerular Filtration Rate >60 (60-); Glucose, Blood 118 mg/dL (70-99); Potassium, Blood 3.5 mmol/L (3.5-5.5); Sodium, Blood 135 mmol/L (136-145)
[2019-01-20 20:15] LABS: Source, Urine Clean Catch
[2019-01-20 20:19] LABS: Bilirubin, Urine Neg (Neg); Blood, Urine 1+ (Neg); Glucose Qualitative, Urine Neg (Neg); Ketones, Urine 2+ (Neg); Leukocyte Esterase, Urine Neg (Neg); Nitrite, Urine Neg (Neg); Protein, Urine Neg (Neg); Urobilinogen, Urine NORM (Normal)
[2019-01-20 20:25] LABS: Appearance, Urine Clear (Clear); Color, Urine Yellow (P-Yellow)
[2019-01-20 20:26] LABS: Bacteria Few /hpf; Red Blood Cells, Urine 0-2 /hpf (0-2); Squamous Epithelial Cells Few /hpf (Few); White Blood Cells, Urine 0-2 /hpf (0-5)
[2019-01-20 20:30] LABS: U Amphetamine Screen Not Detected; U Barbituate Screen Not Detected; U Benzodiazapine Screen Not Detected; U Buprenorphine Screen Not Detected; U Cannabinoids Screen Not Detected; U Cocaine Screen Not Detected; U Methadone Screen Not Detected; U Methamphetamine Screen Not Detected; U Opiates Screen Not Detected; U Oxycodone Screen Not Detected; U Phencyclidine Screen Not Detected; U Propoxyphene Screen Not Detected
[2019-01-20] MEDS ORDERED: Zofran4 MG PO (21:30)
== END 2019-01-20 21:45 | disposition home or self-care (01) ==
LOC: ER 18:59
PROVIDERS: Emergency Medicine
DX: E86.0 Dehydration (principal); F10.239 Alcohol dependence with withdrawal, unspecified; F41.9 Anxiety disorder, unspecified; R11.2 Nausea with vomiting, unspecified; Z88.8 Allergy status to other drugs, medicaments and biological substances; Z88.1 Allergy status to other antibiotic agents; Z88.5 Allergy status to narcotic agent; Z91.030 Bee allergy status; Z79.899 Other long term (current) drug therapy; Z79.891 Long term (current) use of opiate analgesic; F32.9 Major depressive disorder, single episode, unspecified; I10 Essential (primary) hypertension; F17.200 Nicotine dependence, unspecified, uncomplicated
CPT/HCPCS: 71045; 80053; 81001; 83605; 84145; 85025; 87040; 93005; 93010; 96361; 96374; 99285-25; G0480; J2405; J7030

== ENCOUNTER 2019-01-25 01:30 | Emergency (ER) | payer OTHER ==
[~2019-01-25] VITALS: Ht 172.7 cm; Wt 68.0 kg
[~2019-01-25 01:30] MED LIST changes: +Zofran4 MG PO
== END 2019-01-25 03:19 | disposition home or self-care (01) ==
LOC: ER 01:30
DX: F10.129 Alcohol abuse with intoxication, unspecified (principal); F41.0 Panic disorder [episodic paroxysmal anxiety]; F32.9 Major depressive disorder, single episode, unspecified; F17.200 Nicotine dependence, unspecified, uncomplicated; Z88.1 Allergy status to other antibiotic agents; Z88.6 Allergy status to analgesic agent; Z88.8 Allergy status to other drugs, medicaments and biological substances; Z91.038 Other insect allergy status; Z79.899 Other long term (current) drug therapy; Z86.718 Personal history of other venous thrombosis and embolism
CPT/HCPCS: 36415; 84484; 93005; 93010; 99284-25

== ENCOUNTER 2019-01-25 06:00 | Emergency (ER) | payer OTHER ==
[~2019-01-25] VITALS: Ht 162.6 cm; Wt 78.0 kg
== END 2019-01-25 06:07 | disposition home or self-care (01) ==
LOC: ER 06:00
DX: F10.10 Alcohol abuse, uncomplicated (principal); Z76.5 Malingerer [conscious simulation]; F41.9 Anxiety disorder, unspecified; Z88.1 Allergy status to other antibiotic agents; Z88.8 Allergy status to other drugs, medicaments and biological substances; Z88.5 Allergy status to narcotic agent; Z91.030 Bee allergy status; Z79.899 Other long term (current) drug therapy; Z79.891 Long term (current) use of opiate analgesic; F32.9 Major depressive disorder, single episode, unspecified; I10 Essential (primary) hypertension; F17.200 Nicotine dependence, unspecified, uncomplicated
CPT/HCPCS: 99283

== ENCOUNTER 2019-01-25 15:39 | Observation (INO) | payer OTHER ==
[~2019-01-25] VITALS: Ht 165.1 cm; Wt 79.2 kg
[2019-01-25 19:35] LABS: BASOPHILS ABSOLUTE AUTO 0.07 K/mm3 (0.00-0.23); BASOPHILS PERCENT AUTO 1 % (0-2); EOSINOPHILS ABSOLUTE AUTO 0.03 K/mm3 (0.00-0.68); EOSINOPHILS PERCENT AUTO 0 % (0-6); Hematocrit 37.6 % (33.0-51.0); Hemoglobin 13.5 g/dL (11.5-16.0); IMMATURE GRAN ABSOLUTE AUTO 0.02 K/mm3 (0.00-0.10); IMMATURE GRAN PERCENT AUTO 0 % (0-1); LYMPHOCYTES ABSOLUTE AUTO 2.73 K/mm3 (0.84-5.20); LYMPHOCYTES PERCENT AUTO 36 % (21-46); MONOCYTES ABSOLUTE AUTO 0.86 K/mm3 (0.16-1.47); MONOCYTES PERCENT AUTO 11 % (4-13); Mean Corpuscular HGB 34.8 pg (26.0-34.0); Mean Corpuscular HGB Conc 35.9 g/dL (31.5-36.5); Mean Corpuscular Volume 97 fL (80-100); Mean Platelet Volume 10.7 fL (9.1-12.4); NEUTROPHILS ABSOLUTE AUTO 3.81 K/mm3 (1.96-9.15); NEUTROPHILS PERCENT AUTO 51 % (41-73); Platelet Count 170 K/mm3 (150-400); RDW Coefficient Variation 14.9 % (11.7-14.2); RDW Standard Deviation 53.6 fL (35.1-46.3); Red Blood Cell Count 3.88 M/mm3 (3.80-5.20); White Blood Cell Count 7.52 K/mm3 (4.00-11.30)
[2019-01-25 19:50] LABS: Alanine Aminotransfer (ALT/SGP 57 U/L (12-78); Albumin, Blood 3.6 g/dL (3.4-5.0); Albumin/Globulin Ratio 1.4 (0.8-1.8); Alk Phos 28 U/L (50-136); Anion Gap 16 mmol/L (6-16); Aspartate Aminotrans (AST/SGOT 74 U/L (12-37); Bilirubin, Total 0.3 mg/dL (0.1-1.0); Blood Urea Nitrogen 7 mg/dL (8-24); Bun/Creatinine Ratio 14.8 (12.0-20.0); CO2, Blood 19 mmol/L (21-32); Calcium, Blood 8.1 mg/dL (8.5-10.1); Chloride, Blood 99 mmol/L (98-108); Creatinine, Blood 0.47 mg/dL (0.40-1.00); Globulin, Blood 2.6 g/dL (2.2-4.0); Glomerular Filtration Rate >60 (60-); Glucose, Blood 111 mg/dL (70-99); Magnesium, Blood 1.8 mg/dL (1.6-2.4); Potassium, Blood 2.9 mmol/L (3.5-5.5); Sodium, Blood 134 mmol/L (136-145); Total Protein, Blood 6.2 g/dL (6.4-8.2)
--- NOTE | 2019-01-26 04:48 | NUR ---
Shift summary. Pt admitted last pm. ETOH level 217. pt states she going thru detox. Pt hands very shaky but no seizure activity noted. Pt states she feels very weak so she is unable to get to bathroom. pt using the bedpan without assist. Pt getting librium every 2 hours during night. pt states it seems to help some.
[2019-01-26 05:25] LABS: Anion Gap 10 mmol/L (6-16); Blood Urea Nitrogen 3 mg/dL (8-24); CO2, Blood 24 mmol/L (21-32); Chloride, Blood 105 mmol/L (98-108); Creatinine, Blood 0.43 mg/dL (0.40-1.00); Glomerular Filtration Rate >60 (60-); Glucose, Blood 79 mg/dL (70-99); Potassium, Blood 3.2 mmol/L (3.5-5.5); Sodium, Blood 139 mmol/L (136-145)
--- NOTE | 2019-01-26 13:40 | NUR ---
UPON CIWA ASSESSEMENT THIS NURSE FOUND PATIENT TO BE DRENCHED IN SWEAT AND TREMOROUS. SHE HAD NO HEADACHE AND NO AUDITORY OR VISUAL HALLUCINATIONS. NO N/V AND NO AGITATION. SHE WAS EATING HER LUNCH. LIBRIUM WILL BE GIVEN PER EMAR. CIWA WAS 13.
--- NOTE | 2019-01-26 18:25 | NUR ---
PATIENT CONTINUES TO DETOX. SHE HAS HAD 2 EPISODES OF PARADOXICALL SWEATS REQUIRING COMPLETE CHANGE OF GOWN. SHE ACTS CONFUSED TO WHY SHE IS SWEATING SO MUCH AND HAS HAD IT EXPLAINED TO HER THAT SHE IS DETOXING. SHE HAS SLEPT MOST OF THE DAY WITH ONLY REQUESTS FOR LIBRIUM. IS EATING AND VOIDING WELL. NO ACUTE CHANGES.
--- NOTE | 2019-01-27 03:38 | NUR ---
pT HAS HAD A BETTER NIGHT. She has been able to sleep most of night with only two doses of librium. Pt still has some tremors but they having been decreasing in severity. No hallucinations or headache noted.
[2019-01-27 04:55] LABS: Hematocrit 38.2 % (33.0-51.0); Hemoglobin 13.1 g/dL (11.5-16.0); Mean Corpuscular HGB 34.4 pg (26.0-34.0); Mean Corpuscular HGB Conc 34.3 g/dL (31.5-36.5); Mean Corpuscular Volume 100 fL (80-100); Mean Platelet Volume 10.6 fL (9.1-12.4); Platelet Count 148 K/mm3 (150-400); RDW Coefficient Variation 15.1 % (11.7-14.2); RDW Standard Deviation 56.6 fL (35.1-46.3); Red Blood Cell Count 3.81 M/mm3 (3.80-5.20); White Blood Cell Count 4.64 K/mm3 (4.00-11.30)
[2019-01-27 05:12] LABS: Anion Gap 7 mmol/L (6-16); Blood Urea Nitrogen 3 mg/dL (8-24); Bun/Creatinine Ratio 6.1 (12.0-20.0); CO2, Blood 25 mmol/L (21-32); Calcium, Blood 8.3 mg/dL (8.5-10.1); Chloride, Blood 108 mmol/L (98-108); Creatinine, Blood 0.49 mg/dL (0.40-1.00); Glomerular Filtration Rate >60 (60-); Glucose, Blood 70 mg/dL (70-99); Phosphorus, Blood 2.9 mg/dL (2.5-4.9); Potassium, Blood 3.6 mmol/L (3.5-5.5); Sodium, Blood 140 mmol/L (136-145)
--- NOTE | 2019-01-27 17:15 | NUR ---
SUMMARY PT RESTING QUIETLY IN BED, HAS BEEN PLEASANT AND COOPERATIVE WITH CARE, PT HAVING MODERATE TREMORS, MED PER EMAR, PT HAS WORKED WITH PT/OT AND HAS BEEN SEEN BY DISCHARGE PLANNING, NO COMPLAINTS, NO ACUTE CHANGES, WILL CONT TO MONITOR
--- NOTE | 2019-01-28 03:51 | NUR ---
Shift summary: Pt has been able to sleep most of night s issues. Tremors in hands is decreasing. No sweats or hallucinations noted. Librium given x 2 during the night. Pt up to br x 1 with walker. pt still weak requiring one assist.
--- NOTE | 2019-01-28 17:59 | NUR ---
SUMMARY PT RESTING QUIETLY IN BED, HAS WORKED WITH PT/OT TODAY, HAD SOME FRIENDS IN TO VISIT, MED PER EMAR FOR WITHDRAWLS, NO COMPLAINTS, VSS, WILL CONT TO MONITOR
--- NOTE | 2019-01-29 03:08 | NUR ---
sHIFT SUMMARY. pT DOING MUCH BETTER THIS PM. tREMORS DECREASING IN SEVERITY. Pt sleeping most of night. Pt only requested librium x 1 during the night. Pt's strength also increasing. pt can get to bathroom on own with only standby assist. Pt anticipating discharge in am.
[2019-01-29 05:13] LABS: Anion Gap 5 mmol/L (6-16); Blood Urea Nitrogen 7 mg/dL (8-24); Bun/Creatinine Ratio 13.5 (12.0-20.0); CO2, Blood 28 mmol/L (21-32); Calcium, Blood 9.1 mg/dL (8.5-10.1); Chloride, Blood 107 mmol/L (98-108); Creatinine, Blood 0.52 mg/dL (0.40-1.00); Glomerular Filtration Rate >60 (60-); Glucose, Blood 81 mg/dL (70-99); Potassium, Blood 4.3 mmol/L (3.5-5.5); Sodium, Blood 140 mmol/L (136-145)
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
--- NOTE | 2019-01-29 11:49 | NUR ---
DISCHARGE REVIEWED WITH PT. SHE VERBALIZED UNDERSTANDING OF MEDS AND INSTRUCTIONS. 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 IV X2 REMOVED INTACT. NO TELE. PT DRESSED ALREADY.
--- NOTE | 2019-01-29 12:34 | NUR ---
OUT DOOR AT 1225 WITH AIDE IN WHEELCHAIR. SON AT SIDE.
== END 2019-01-29 12:40 | disposition home health service (06) ==
LOC: ER 15:39 → MEDS 15:40 → ENPENDDIS 01-29 11:41 → MEDS 01-29 12:40
PROVIDERS: Emergency Medicine; Hospitalist; Internal Medicine; ADMIT Hospitalist
DX: E87.6 Hypokalemia (principal); E87.1 Hypo-osmolality and hyponatremia; R11.2 Nausea with vomiting, unspecified; F10.129 Alcohol abuse with intoxication, unspecified; F11.10 Opioid abuse, uncomplicated; F41.9 Anxiety disorder, unspecified; F32.9 Major depressive disorder, single episode, unspecified; K21.9 Gastro-esophageal reflux disease without esophagitis; I10 Essential (primary) hypertension; F17.200 Nicotine dependence, unspecified, uncomplicated; Z88.8 Allergy status to other drugs, medicaments and biological substances; Z88.1 Allergy status to other antibiotic agents; Z88.5 Allergy status to narcotic agent; Z79.899 Other long term (current) drug therapy
CPT/HCPCS: 36415; 80048; 80053; 80069; 83735; 84484; 85025; 85027; 93005; 93010; 96365; 96366; 96367; 96368; 96372; 97110; 97116; 97162; 97165; 97530; 97535; 99285-25; G0378; G0480; J1650; J3411; J3475; J3480; J7030; J7040; J7042

== ENCOUNTER 2019-01-31 21:48 | Emergency (ER) | payer OTHER ==
[~2019-01-31] VITALS: Ht 165.1 cm; Wt 70.3 kg
[2019-01-31 23:10] LABS: BASOPHILS ABSOLUTE AUTO 0.05 K/mm3 (0.00-0.23); BASOPHILS PERCENT AUTO 1 % (0-2); EOSINOPHILS ABSOLUTE AUTO 0.08 K/mm3 (0.00-0.68); EOSINOPHILS PERCENT AUTO 1 % (0-6); Hematocrit 42.1 % (33.0-51.0); Hemoglobin 14.1 g/dL (11.5-16.0); IMMATURE GRAN ABSOLUTE AUTO 0.03 K/mm3 (0.00-0.10); IMMATURE GRAN PERCENT AUTO 0 % (0-1); LYMPHOCYTES ABSOLUTE AUTO 2.98 K/mm3 (0.84-5.20); LYMPHOCYTES PERCENT AUTO 37 % (21-46); MONOCYTES ABSOLUTE AUTO 0.54 K/mm3 (0.16-1.47); MONOCYTES PERCENT AUTO 7 % (4-13); Mean Corpuscular HGB 34.6 pg (26.0-34.0); Mean Corpuscular HGB Conc 33.5 g/dL (31.5-36.5); Mean Platelet Volume 10.6 fL (9.1-12.4); NEUTROPHILS ABSOLUTE AUTO 4.35 K/mm3 (1.96-9.15); NEUTROPHILS PERCENT AUTO 54 % (41-73); Platelet Count 148 K/mm3 (150-400); RDW Coefficient Variation 15.8 % (11.7-14.2); RDW Standard Deviation 60.9 fL (35.1-46.3); Red Blood Cell Count 4.07 M/mm3 (3.80-5.20); White Blood Cell Count 8.03 K/mm3 (4.00-11.30)
[2019-01-31 23:13] LABS: Mean Corpuscular Volume 103 fL (80-100)
[2019-01-31 23:33] LABS: Alanine Aminotransfer (ALT/SGP 28 U/L (12-78); Albumin, Blood 3.4 g/dL (3.4-5.0); Alk Phos 26 U/L (50-136); Anion Gap 7 mmol/L (6-16); Aspartate Aminotrans (AST/SGOT 18 U/L (12-37); Bilirubin, Total 0.1 mg/dL (0.1-1.0); Blood Urea Nitrogen 3 mg/dL (8-24); Bun/Creatinine Ratio 5.1 (12.0-20.0); CO2, Blood 25 mmol/L (21-32); Calcium, Blood 9.1 mg/dL (8.5-10.1); Chloride, Blood 110 mmol/L (98-108); Creatinine, Blood 0.59 mg/dL (0.40-1.00); Globulin, Blood 3.3 g/dL (2.2-4.0); Glomerular Filtration Rate >60 (60-); Glucose, Blood 106 mg/dL (70-99); Potassium, Blood 4.2 mmol/L (3.5-5.5); Sodium, Blood 142 mmol/L (136-145); Total Protein, Blood 6.7 g/dL (6.4-8.2); Troponin I <0.015 ng/mL (0.000-0.040)
[2019-02-01] MEDS ORDERED: CHLO25 PO (09:37)
== END 2019-02-01 02:00 | disposition home or self-care (01) ==
LOC: ER 21:48
PROVIDERS: Emergency Medicine
DX: R07.9 Chest pain, unspecified (principal); F41.9 Anxiety disorder, unspecified; F32.9 Major depressive disorder, single episode, unspecified; F17.210 Nicotine dependence, cigarettes, uncomplicated; Z88.1 Allergy status to other antibiotic agents; Z88.5 Allergy status to narcotic agent; Z91.038 Other insect allergy status; Z88.8 Allergy status to other drugs, medicaments and biological substances
CPT/HCPCS: 36415; 71046; 80053; 83690; 84484; 85025; 93005; 93010; 99285-25; G0480

== ENCOUNTER 2019-02-01 06:37 | Emergency (ER) | payer OTHER ==
[~2019-02-01] VITALS: Ht 165.1 cm; Wt 70.3 kg
[2019-02-01] MEDS ORDERED: CHLO25 PO (09:37)
== END 2019-02-01 09:36 | disposition home or self-care (01) ==
LOC: ER 06:37
DX: F10.20 Alcohol dependence, uncomplicated (principal); T69.9XXA Effect of reduced temperature, unspecified, initial encounter; R07.89 Other chest pain; F41.9 Anxiety disorder, unspecified; F32.9 Major depressive disorder, single episode, unspecified; I10 Essential (primary) hypertension; F17.200 Nicotine dependence, unspecified, uncomplicated; Z88.1 Allergy status to other antibiotic agents; Z88.8 Allergy status to other drugs, medicaments and biological substances
CPT/HCPCS: 99284

== ENCOUNTER 2019-08-18 20:31 | Emergency (ER) | payer OTHER ==
[~2019-08-18] VITALS: Ht 167.6 cm; Wt 81.7 kg
[2019-08-18] MEDS ORDERED: MELATONIN2.5 MG PO (22:35)
[2019-08-18] MEDS ORDERED: ALPRAZOLAM0.5 M1 PO (22:35)
[2019-08-18] MEDS ORDERED: DIPH50 PO (22:35)
== END 2019-08-18 23:30 | disposition home or self-care (01) ==
LOC: ER 20:31
DX: F10.129 Alcohol abuse with intoxication, unspecified (principal); S09.90XA Unspecified injury of head, initial encounter; F41.9 Anxiety disorder, unspecified; F32.9 Major depressive disorder, single episode, unspecified; F17.210 Nicotine dependence, cigarettes, uncomplicated; Z88.8 Allergy status to other drugs, medicaments and biological substances; Z88.1 Allergy status to other antibiotic agents; Z88.5 Allergy status to narcotic agent; Z79.899 Other long term (current) drug therapy; W01.0XXA Fall on same level from slipping, tripping and stumbling without subsequent striking against object, initial encounter; Y92.009 Unspecified place in unspecified non-institutional (private) residence as the place of occurrence of the external cause
CPT/HCPCS: 70450; 99284-25

== ENCOUNTER 2020-01-01 14:31 | Emergency (ER) | payer OTHER ==
[~2020-01-01] VITALS: Ht 167.6 cm; Wt 86.2 kg
[~2020-01-01 14:31] MED LIST changes: +ALPRAZOLAM0.5 M1 PO; +DIPH50 PO; +MELATONIN2.5 MG PO
== END 2020-01-01 15:48 | disposition left against medical advice (07) ==
LOC: ER 14:31
DX: Z53.21 Procedure and treatment not carried out due to patient leaving prior to being seen by health care provider (principal)

== ENCOUNTER 2020-08-12 21:40 | Emergency (ER) | payer MEDICARE, OTHER ==
[~2020-08-12] VITALS: Ht 165.1 cm; Wt 81.7 kg
== END 2020-08-12 23:00 | disposition home or self-care (01) ==
LOC: ER 21:40
DX: T76.21XA Adult sexual abuse, suspected, initial encounter (principal); F17.200 Nicotine dependence, unspecified, uncomplicated; I10 Essential (primary) hypertension; Z88.1 Allergy status to other antibiotic agents; Z88.5 Allergy status to narcotic agent; Z91.030 Bee allergy status; Z88.8 Allergy status to other drugs, medicaments and biological substances; Z79.899 Other long term (current) drug therapy; Z86.718 Personal history of other venous thrombosis and embolism
CPT/HCPCS: 99284

== ENCOUNTER 2020-08-13 20:36 | Emergency (ER) | payer OTHER, MEDICARE ==
[~2020-08-13] VITALS: Ht 165.1 cm; Wt 81.7 kg
[2020-08-14] MEDS ORDERED: Vibramycin100 MG PO (02:51)
== END 2020-08-14 04:44 | disposition home or self-care (01) ==
LOC: ER 20:36
DX: S30.0XXA Contusion of lower back and pelvis, initial encounter (principal); S80.12XA Contusion of left lower leg, initial encounter; S30.1XXA Contusion of abdominal wall, initial encounter; I10 Essential (primary) hypertension; F17.200 Nicotine dependence, unspecified, uncomplicated; Z79.899 Other long term (current) drug therapy; Z86.718 Personal history of other venous thrombosis and embolism; Z91.030 Bee allergy status; Z88.1 Allergy status to other antibiotic agents; W22.8XXA Striking against or struck by other objects, initial encounter
CPT/HCPCS: 96372; 99284-25; 99285; A9270; J0696

== ENCOUNTER 2020-12-29 22:03 | Emergency (ER) | payer OTHER, MEDICARE ==
[~2020-12-29] VITALS: Ht 162.6 cm; Wt 77.1 kg
[~2020-12-29 22:03] MED LIST changes: +Vibramycin100 MG PO
== END 2020-12-30 00:04 | disposition home or self-care (01) ==
LOC: ER 22:03
DX: S01.81XA Laceration without foreign body of other part of head, initial encounter (principal); I10 Essential (primary) hypertension; F17.200 Nicotine dependence, unspecified, uncomplicated; Z88.8 Allergy status to other drugs, medicaments and biological substances; Z88.1 Allergy status to other antibiotic agents; Z91.030 Bee allergy status; Z79.899 Other long term (current) drug therapy; Y08.89XA Assault by other specified means, initial encounter
CPT/HCPCS: 70450; 99284-25

== ENCOUNTER 2021-02-15 10:37 | Inpatient (IN) | payer MEDICARE, OTHER ==
[~2021-02-15] VITALS: Ht 167.6 cm; Wt 78.8 kg
[2021-02-15 11:17] LABS: Base Excess Venous -6.5 mmol/L; Bicarbonate Venous 19.6 mmol/L (24.0-30.0); PCO2 Venous 32.8 mmHg (38-42); pH Blood Venous 7.37 (7.34-7.37)
[2021-02-15 11:37] LABS: BASOPHILS ABSOLUTE AUTO 0.05 K/mm3 (0.00-0.23); BASOPHILS PERCENT AUTO 0 % (0-2); EOSINOPHILS PERCENT AUTO 0 % (0-6); Hematocrit 36.1 % (33.0-51.0); Hemoglobin 13.3 g/dL (11.5-16.0); IMMATURE GRAN ABSOLUTE AUTO 0.11 K/mm3 (0.00-0.10); IMMATURE GRAN PERCENT AUTO 1 % (0-1); LYMPHOCYTES ABSOLUTE AUTO 2.04 K/mm3 (0.84-5.20); LYMPHOCYTES PERCENT AUTO 11 % (21-46); MONOCYTES ABSOLUTE AUTO 1.23 K/mm3 (0.16-1.47); MONOCYTES PERCENT AUTO 6 % (4-13); Mean Corpuscular HGB 37.6 pg (26.0-34.0); Mean Corpuscular HGB Conc 36.8 g/dL (31.5-36.5); Mean Corpuscular Volume 102 fL (80-100); Mean Platelet Volume 11.9 fL (9.1-12.4); NEUTROPHILS ABSOLUTE AUTO 15.74 K/mm3 (1.96-9.15); NEUTROPHILS PERCENT AUTO 82 % (41-73); Platelet Count 270 K/mm3 (150-400); RDW Coefficient Variation 18.1 % (11.7-14.2); RDW Standard Deviation 68.3 fL (35.1-46.3); Red Blood Cell Count 3.54 M/mm3 (3.80-5.20); White Blood Cell Count 19.17 K/mm3 (4.00-11.30)
[2021-02-15 12:17] LABS: Albumin, Blood 3.5 g/dL (3.4-5.0); Albumin/Globulin Ratio 0.9 (0.8-1.8); Bilirubin, Total 0.9 mg/dL (0.1-1.0); Bun/Creatinine Ratio 7.5 (12.0-20.0); Calcium, Blood 9.1 mg/dL (8.5-10.1); Creatinine, Blood 5.21 mg/dL (0.40-1.00); Globulin, Blood 3.9 g/dL (2.2-4.0); Potassium, Blood 2.4 mmol/L (3.5-5.5); Total Protein, Blood 7.4 g/dL (6.4-8.2)
[2021-02-15] MEDS ORDERED: CITALOPRAM HBR20 M3 PO (12:57)
[2021-02-15] MEDS ORDERED: CITALOPRAM HBR PO (13:00)
[2021-02-15 14:10] LABS: SARS-Cov-2 (COVID-19) PCR, MMC NEGATIVE (NEGATIVE)
[2021-02-15 14:22] LABS: International Normalized Ratio 0.96; Prothrombin Time Results 10.4 Sec (9.7-11.5)
[2021-02-15 19:53] LABS: Bun/Creatinine Ratio 11.4 (12.0-20.0); Calcium, Blood 7.5 mg/dL (8.5-10.1); Creatinine, Blood 3.5 mg/dL (0.40-1.00); Potassium, Blood 2.9 mmol/L (3.5-5.5)
[2021-02-15 22:52] LABS: Source, Urine Clean Catch
[2021-02-15 23:01] LABS: Appearance, Urine Clear (Clear); Bilirubin, Urine Neg (Neg); Blood, Urine 5+ (Neg); Color, Urine Amber (P-Yellow); Glucose Qualitative, Urine Neg (Neg); Ketones, Urine Neg (Neg); Leukocyte Esterase, Urine Neg (Neg); Nitrite, Urine Neg (Neg); Protein, Urine 2+ (Neg); Specific Gravity, Urine 1.015 (1.003-1.022); Urobilinogen, Urine NORM (Normal)
[2021-02-15 23:09] LABS: Amorphous Light (0-Heavy); Bacteria Few /hpf; Hyaline Casts 0-2 /lpf (0-2); Red Blood Cells, Urine 0-2 /hpf (0-2); Squamous Epithelial Cells Few /hpf (Few)
[2021-02-15 23:13] LABS: U Amphetamine Screen Not Detected; U Barbituate Screen Not Detected; U Benzodiazapine Screen DETECTED; U Buprenorphine Screen Not Detected; U Cannabinoids Screen Not Detected; U Cocaine Screen Not Detected; U Methadone Screen Not Detected; U Methamphetamine Screen Not Detected; U Opiates Screen Not Detected; U Oxycodone Screen Not Detected; U Phencyclidine Screen Not Detected; U Propoxyphene Screen Not Detected
--- NOTE | 2021-02-16 00:19 | NUR ---
CARE ASSUMPTION PT ARRIVED TO THE UNIT SOMEWHAT LETHARGIC BUT WOULD AWAKEN WHEN SPOKEN TO. PT IS AXO TO SELF AT THIS POINT AND HAS NONSENSICAL SPEECH WHEN ASKED QUESTIONS. CIWA IS 10 AT THIS TIME DUE TO DISORIENTATION BUT IS SLEPPING COMFORTABLY IN NO DISTRESS. VSS, FLUIDS AND POTASSIUM RUNNING AT THIS TIME. O2 SATS >92% ON RM AIR.
[2021-02-16 04:25] LABS: BASOPHILS ABSOLUTE AUTO 0.04 K/mm3 (0.00-0.23); BASOPHILS PERCENT AUTO 1 % (0-2); EOSINOPHILS ABSOLUTE AUTO 0.04 K/mm3 (0.00-0.68); EOSINOPHILS PERCENT AUTO 1 % (0-6); Hematocrit 31.7 % (33.0-51.0); Hemoglobin 11.2 g/dL (11.5-16.0); IMMATURE GRAN ABSOLUTE AUTO 0.03 K/mm3 (0.00-0.10); IMMATURE GRAN PERCENT AUTO 0 % (0-1); LYMPHOCYTES PERCENT AUTO 21 % (21-46); MONOCYTES ABSOLUTE AUTO 0.71 K/mm3 (0.16-1.47); MONOCYTES PERCENT AUTO 10 % (4-13); Mean Corpuscular HGB 37.6 pg (26.0-34.0); Mean Corpuscular HGB Conc 35.3 g/dL (31.5-36.5); Mean Corpuscular Volume 106 fL (80-100); Mean Platelet Volume 11.5 fL (9.1-12.4); NEUTROPHILS ABSOLUTE AUTO 5.05 K/mm3 (1.96-9.15); NEUTROPHILS PERCENT AUTO 68 % (41-73); Platelet Count 208 K/mm3 (150-400); RDW Coefficient Variation 18.6 % (11.7-14.2); RDW Standard Deviation 72.3 fL (35.1-46.3); Red Blood Cell Count 2.98 M/mm3 (3.80-5.20); White Blood Cell Count 7.47 K/mm3 (4.00-11.30)
[2021-02-16 04:59] LABS: Albumin, Blood 2.7 g/dL (3.4-5.0); Albumin/Globulin Ratio 0.8 (0.8-1.8); Bilirubin, Total 0.5 mg/dL (0.1-1.0); Bun/Creatinine Ratio 14.6 (12.0-20.0); Calcium, Blood 7.6 mg/dL (8.5-10.1); Creatinine, Blood 2.33 mg/dL (0.40-1.00); Globulin, Blood 3.2 g/dL (2.2-4.0); Potassium, Blood 2.9 mmol/L (3.5-5.5); Total Protein, Blood 5.9 g/dL (6.4-8.2)
--- NOTE | 2021-02-16 05:43 | NUR ---
SERVER ASSISTANT SUMMARY PT IS AXO X3 THIS AM AND IS ABLE TO ANSWERS QUESTIONS APPROPRIATELY ALTHOUGH SHE HAS NONSENSICAL TALK WHEN SHE IS LYING IN BED ALONE IN HE ROOM. PT HAS DENIED ANY NAUSEA, ANXIETY ORHEADACHE THIS SHIFT BUT DOES HAVE A SLIGHT TREMOR. POTASSIUM REMAINS LOW IN AM LABS SO ADDITIONAL 60 MEQ WAS ORDERED BY THE NIGHT TIME PROVIDER. O2 SATS >92% ON RM AIR. WILL REPORT TO ONCOMING RN.
--- NOTE | 2021-02-16 16:32 | NUR ---
SHIFT SUMMARY PT A/O X2, SHE KNOWS THAT SHE IS IN THE HOSPITAL BUT DOES NOT KNOW THE DAY/MONTH/YEAR. SHE IS EXPERIENCING SYMPTOMS OF ETOH WITHDRAWAL. NO HEADACHES OR NAUSEA BUT TREMORS AND HALLUCINATIONS NOTED. PT'S TREMORS GET BETTER WHEN MEDICATED BUT HALLUCINATIONS REMAIN UNCHANGED THIS SHIFT. CIWAS DONE THIS SHIFT AND HAVE REMAINED UNDER 12. SCHWARTZ IN PLACE AND DRAINING PALE YELLOW URINE. VSS. PT ABLE TO TURN HERSELF IN BED. WILL REPORT TO KUSH EASON.
--- NOTE | 2021-02-17 05:27 | NUR ---
INFORMATION SYSTEMS PROJECT MANAGER SUMMARY PT CONTINUES TO HAVE HALLUCINATIONS BUT HAS LONG PERIODS OF BEING LUCID AND HAVING APPROPRIATE CONVERSATION. CIWA'S HAVE BEEN LOW AND STABLE THIS SHIFT. PT HAS HAD VERY GOOD URINE OUTPUT THIS SHIFT AND HAS POSITIVE 500ML FLUID BALANCE AT THIS TIME. POTASSIUM LEVELS STIL LOW AT 2.8 START OF SHIFT SO ORDER ADDITIONAL 60 MEQ'S GIVEN THIS SHIFT. PT HAS DENIED ANY PAIUN OR NAUSEA THIS SHIFT. BP WNL AND STABLE THIS SHIFT. O2 SATS >94% ON RM AIR, NO COUGH, LUNG SOUNDS CLEAR THIS SHIFT. TELE SHOWING NSR IN THE 60'S. PT HAD 2 SOFT BM'S THIS SHIFT. WILL REPORT TO ONCOMING RN.
[2021-02-17 06:31] LABS: Anion Gap 8 mmol/L (6-16); Blood Urea Nitrogen 15 mg/dL (8-24); Bun/Creatinine Ratio 20.2 (12.0-20.0); CO2, Blood 19 mmol/L (21-32); Calcium, Blood 7.3 mg/dL (8.5-10.1); Chloride, Blood 113 mmol/L (98-108); Creatinine, Blood 0.74 mg/dL (0.40-1.00); Glomerular Filtration Rate >60 (60-); Glucose, Blood 84 mg/dL (70-99); Potassium, Blood 2.9 mmol/L (3.5-5.5); Sodium, Blood 140 mmol/L (136-145)
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
--- NOTE | 2021-02-17 17:45 | NUR ---
pt has had an uneventful day, getting up to the bedside cammode with assistance, sleeping when left undisturbed, no acute changes this shift. call light in reach.
--- NOTE | 2021-02-18 00:26 | NUR ---
ASSUMED CARE ASSUMDED CARE OF PT AT 1900. PT IS A/OX4. CALLS APPRPOPIATELY. PT FEELS DIZZY WHEN WALKING. CIWAH SCORES 1-2. PT IS A 1P SBA WITH FWW TO BATHROOM. PT HAS NO NEW COMPLAINTS. CALL LIGHT IN REACH, BED IN LOWEST POSTION.
--- NOTE | 2021-02-18 03:34 | NUR ---
SHIFT SUMMARY NO ACUTE CHANGES FROM PT THIS EVENING. PT SLEPT T/O THE NIGHT. PT IS BEING TRANSFERED TO MEDICAL FLOOR. CWAH REMAINS BELOW 2. REPORT GIVEN TO FLORES EASON.
--- NOTE | 2021-02-18 04:50 | NUR ---
SUMMARY PT ARRIVED TO FLOOR IN NO DISTRESS. PT CURRENTLY RESTING AND BREATHING EASY. CALL LIGHT IN REACH AND BED ALARM ON.
[2021-02-18 06:18] LABS: Anion Gap 10 mmol/L (6-16); Blood Urea Nitrogen 8 mg/dL (8-24); Bun/Creatinine Ratio 14.1 (12.0-20.0); CO2, Blood 22 mmol/L (21-32); Calcium, Blood 7.8 mg/dL (8.5-10.1); Chloride, Blood 108 mmol/L (98-108); Creatinine, Blood 0.57 mg/dL (0.40-1.00); Glomerular Filtration Rate >60 (60-); Glucose, Blood 96 mg/dL (70-99); Potassium, Blood 2.8 mmol/L (3.5-5.5); Sodium, Blood 140 mmol/L (136-145)
[2021-02-18] MEDS ORDERED: POTA20LUD PO (18:05)
[2021-02-18] MEDS ORDERED: DOXY100 PO (18:05)
--- NOTE | 2021-02-18 18:27 | NUR ---
PT WAS DISCHARGED VIA WHEELCHAIR WITH BELONGINGS AT SIDE. PT WAS ALERT AND ORIENTED X4 AND MADE NO COMPLAINTS AT THE TIME. NO TREMMORS NOTED. CWAS COMPLETE. PT WAS PROVIDED DC EDUCATION AND WAS ABLE TO VERBALIZE UNDERSTANDING.
== END 2021-02-18 18:29 | disposition home or self-care (01) | DRG 896 ==
LOC: ER 10:37 → ERHOLD 13:23 → MEDS 13:23 → PCU 13:23 → MEDS 02-18 03:54
PROVIDERS: Emergency Medicine; Nurse Practitioner Acute Care; ADMIT Internal Medicine
DX: F10.131 Alcohol abuse with withdrawal delirium (principal); G92 Toxic encephalopathy; N17.9 Acute kidney failure, unspecified; R65.10 Systemic inflammatory response syndrome (SIRS) of non-infectious origin without acute organ dysfunction; E87.6 Hypokalemia; Z20.822 Contact with and (suspected) exposure to COVID-19; E83.42 Hypomagnesemia; E86.0 Dehydration; F41.9 Anxiety disorder, unspecified; F32.9 Major depressive disorder, single episode, unspecified; G89.4 Chronic pain syndrome; I10 Essential (primary) hypertension; G62.9 Polyneuropathy, unspecified; F17.210 Nicotine dependence, cigarettes, uncomplicated; Z71.41 Alcohol abuse counseling and surveillance of alcoholic; Z86.718 Personal history of other venous thrombosis and embolism; Z79.899 Other long term (current) drug therapy; Z96.642 Presence of left artificial hip joint; Z88.1 Allergy status to other antibiotic agents; Z88.5 Allergy status to narcotic agent; Z91.030 Bee allergy status; Z98.890 Other specified postprocedural states; Z88.8 Allergy status to other drugs, medicaments and biological substances
CPT/HCPCS: 36415; 51702; 71045; 76770; 80048; 80053; 81001; 82140; 82550; 82553; 82803; 83605; 83690; 83735; 84132; 84145; 84443; 85025; 85610; 87040; 92526; 92610; 93005; 93010; 96365-59; 96366-59; 96375-59; 96376-59; 97116; 97161; 99285-25; A9270; G0480; J0696; J1644; J2060; J3411; J3475; J3480; J7030; J7042; J7050; U0004

== ENCOUNTER 2021-04-26 18:14 | Emergency (ER) | payer MEDICARE, OTHER ==
[~2021-04-26] VITALS: Ht 167.6 cm; Wt 72.6 kg
[~2021-04-26 18:14] MED LIST changes: +CITALOPRAM HBR PO; +CITALOPRAM HBR20 M3 PO; +DOXY100 PO; +POTA20LUD PO
[2021-04-27] MEDS ORDERED: EPIPEN0.3 MG/0.3 IM (18:51)
[2021-04-27] MEDS ORDERED: ALLEGRA ALLERGY60 MG PO (18:51)
== END 2021-04-26 18:47 | disposition home or self-care (01) ==
LOC: ER 18:14
DX: F32.9 Major depressive disorder, single episode, unspecified (principal); F10.20 Alcohol dependence, uncomplicated; I10 Essential (primary) hypertension; F17.210 Nicotine dependence, cigarettes, uncomplicated; Z91.030 Bee allergy status; Z88.5 Allergy status to narcotic agent; Z79.899 Other long term (current) drug therapy
CPT/HCPCS: 99284

== ENCOUNTER 2021-04-27 17:15 | Emergency (ER) | payer MEDICARE, OTHER ==
[~2021-04-27] VITALS: Ht 165.1 cm; Wt 72.6 kg
[2021-04-27] MEDS ORDERED: ALLEGRA ALLERGY60 MG PO (18:51)
[2021-04-27] MEDS ORDERED: EPIPEN0.3 MG/0.3 IM (18:51)
== END 2021-04-27 19:24 | disposition home or self-care (01) ==
LOC: ER 17:15
DX: T63.441A Toxic effect of venom of bees, accidental (unintentional), initial encounter (principal); T78.2XXA Anaphylactic shock, unspecified, initial encounter; I10 Essential (primary) hypertension; F17.210 Nicotine dependence, cigarettes, uncomplicated; Z88.8 Allergy status to other drugs, medicaments and biological substances; Z88.1 Allergy status to other antibiotic agents; Z88.5 Allergy status to narcotic agent; Z79.899 Other long term (current) drug therapy; Z86.718 Personal history of other venous thrombosis and embolism
CPT/HCPCS: 93005; 93010; 99285

== ENCOUNTER 2021-05-29 14:20 | Emergency (ER) | payer MEDICARE, OTHER ==
[~2021-05-29] VITALS: Ht 165.1 cm; Wt 77.1 kg
[~2021-05-29 14:20] MED LIST changes: +ALLEGRA ALLERGY60 MG PO; +EPIPEN0.3 MG/0.3 IM
[2021-05-29 16:36] LABS: BASOPHILS ABSOLUTE AUTO 0.08 K/mm3 (0.00-0.23); BASOPHILS PERCENT AUTO 1 % (0-2); EOSINOPHILS ABSOLUTE AUTO 0.04 K/mm3 (0.00-0.68); EOSINOPHILS PERCENT AUTO 1 % (0-6); Hematocrit 38.6 % (33.0-51.0); Hemoglobin 13.4 g/dL (11.5-16.0); IMMATURE GRAN ABSOLUTE AUTO 0.01 K/mm3 (0.00-0.10); IMMATURE GRAN PERCENT AUTO 0 % (0-1); LYMPHOCYTES ABSOLUTE AUTO 2.36 K/mm3 (0.84-5.20); LYMPHOCYTES PERCENT AUTO 32 % (21-46); MONOCYTES ABSOLUTE AUTO 0.44 K/mm3 (0.16-1.47); MONOCYTES PERCENT AUTO 6 % (4-13); Mean Corpuscular HGB 34.4 pg (26.0-34.0); Mean Corpuscular HGB Conc 34.7 g/dL (31.5-36.5); Mean Corpuscular Volume 99 fL (80-100); NEUTROPHILS PERCENT AUTO 60 % (41-73); Platelet Count 148 K/mm3 (150-400); RDW Coefficient Variation 15.1 % (11.7-14.2); RDW Standard Deviation 54.9 fL (35.1-46.3); Red Blood Cell Count 3.89 M/mm3 (3.80-5.20); White Blood Cell Count 7.33 K/mm3 (4.00-11.30)
[2021-05-29 16:52] LABS: Ethanol (Alcohol), Blood, Med 53 mg/dL
[2021-05-29 17:05] LABS: Magnesium, Blood 1.7 mg/dL (1.6-2.4); Phosphorus, Blood 3.2 mg/dL (2.5-4.9)
[2021-05-29 17:11] LABS: Source, Urine Clean Catch
[2021-05-29 17:15] LABS: Appearance, Urine Clear (Clear); Bilirubin, Urine Neg (Neg); Blood, Urine 1+ (Neg); Glucose Qualitative, Urine Neg (Neg); Ketones, Urine Neg (Neg); Leukocyte Esterase, Urine 2+ (Neg); Nitrite, Urine Neg (Neg); Protein, Urine Neg (Neg); Urobilinogen, Urine NORM (Normal)
[2021-05-29 17:28] LABS: Color, Urine Pale Yellow (P-Yellow)
[2021-05-29 17:30] LABS: Bacteria Mod /hpf; Red Blood Cells, Urine 0-2 /hpf (0-2); Squamous Epithelial Cells Rare /hpf (Few); Yeast/Fungi Urine Few /hpf
[2021-05-29 17:53] LABS: Anion Gap 14 mmol/L (6-16); Blood Urea Nitrogen 8 mg/dL (8-24); Bun/Creatinine Ratio 18.6 (12.0-20.0); CO2, Blood 16 mmol/L (21-32); Chloride, Blood 108 mmol/L (98-108); Creatinine, Blood 0.43 mg/dL (0.40-1.00); Glomerular Filtration Rate >60 (60-); Glucose, Blood 93 mg/dL (70-99); Potassium, Blood 3.9 mmol/L (3.5-5.5); Sodium, Blood 138 mmol/L (136-145)
[2021-05-29 17:54] LABS: Calcium, Blood 9.6 mg/dL (8.5-10.1)
[2021-05-29 18:50] LABS: Alanine Aminotransfer (ALT/SGP 22 U/L (12-78); Albumin, Blood 3.8 g/dL (3.4-5.0); Albumin/Globulin Ratio 1.1 (0.8-1.8); Alk Phos 45 U/L (50-136); Aspartate Aminotrans (AST/SGOT 30 U/L (12-37); Bilirubin, Total 0.6 mg/dL (0.1-1.0); Globulin, Blood 3.6 g/dL (2.2-4.0); Total Protein, Blood 7.4 g/dL (6.4-8.2)
[2021-05-29] MEDS ORDERED: CEPH250A PO (20:11)
[2021-05-29] MEDS ORDERED: CHLO25 PO (20:11)
== END 2021-05-29 20:22 | disposition home or self-care (01) ==
LOC: ER 14:20
PROVIDERS: Physician Assistant
DX: F10.239 Alcohol dependence with withdrawal, unspecified (principal); I10 Essential (primary) hypertension; F17.210 Nicotine dependence, cigarettes, uncomplicated
CPT/HCPCS: 36415; 80053; 81001; 83735; 84100; 85025; 87077; 87086; 87186; 93005; 93010; 96374; 96375; 96376; 99285-25; A9270; G0480; J2060; J2405; J7030

== ENCOUNTER 2021-06-19 18:13 | Emergency (ER) | payer MEDICARE, OTHER ==
[~2021-06-19] VITALS: Ht 165.1 cm; Wt 72.6 kg
[~2021-06-19 18:13] MED LIST changes: +CEPH250A PO
[2021-06-19 18:37] LABS: BASOPHILS ABSOLUTE AUTO 0.08 K/mm3 (0.00-0.23); BASOPHILS PERCENT AUTO 1 % (0-2); EOSINOPHILS ABSOLUTE AUTO 0.07 K/mm3 (0.00-0.68); EOSINOPHILS PERCENT AUTO 1 % (0-6); Hematocrit 43.7 % (33.0-51.0); Hemoglobin 14.7 g/dL (11.5-16.0); IMMATURE GRAN ABSOLUTE AUTO 0.03 K/mm3 (0.00-0.10); IMMATURE GRAN PERCENT AUTO 0 % (0-1); LYMPHOCYTES ABSOLUTE AUTO 4.35 K/mm3 (0.84-5.20); LYMPHOCYTES PERCENT AUTO 54 % (21-46); MONOCYTES ABSOLUTE AUTO 0.36 K/mm3 (0.16-1.47); MONOCYTES PERCENT AUTO 4 % (4-13); Mean Corpuscular HGB 33.9 pg (26.0-34.0); Mean Corpuscular HGB Conc 33.6 g/dL (31.5-36.5); Mean Corpuscular Volume 101 fL (80-100); Mean Platelet Volume 10.5 fL (9.1-12.4); NEUTROPHILS ABSOLUTE AUTO 3.22 K/mm3 (1.96-9.15); NEUTROPHILS PERCENT AUTO 40 % (41-73); Platelet Count 257 K/mm3 (150-400); RDW Coefficient Variation 15.9 % (11.7-14.2); RDW Standard Deviation 58.1 fL (35.1-46.3); Red Blood Cell Count 4.33 M/mm3 (3.80-5.20); White Blood Cell Count 8.11 K/mm3 (4.00-11.30)
[2021-06-19 19:04] LABS: Alanine Aminotransfer (ALT/SGP 20 U/L (12-78); Albumin, Blood 3.8 g/dL (3.4-5.0); Albumin/Globulin Ratio 1.1 (0.8-1.8); Alk Phos 47 U/L (50-136); Anion Gap 11 mmol/L (6-16); Aspartate Aminotrans (AST/SGOT 19 U/L (12-37); Bilirubin, Total 0.2 mg/dL (0.1-1.0); Blood Urea Nitrogen 13 mg/dL (8-24); Bun/Creatinine Ratio 27.1 (12.0-20.0); CO2, Blood 21 mmol/L (21-32); Calcium, Blood 8.7 mg/dL (8.5-10.1); Chloride, Blood 114 mmol/L (98-108); Creatinine, Blood 0.48 mg/dL (0.40-1.00); Ethanol (Alcohol), Blood, Med 419 mg/dL; Globulin, Blood 3.4 g/dL (2.2-4.0); Glomerular Filtration Rate >60 (60-); Glucose, Blood 80 mg/dL (70-99); Potassium, Blood 3.8 mmol/L (3.5-5.5); Sodium, Blood 146 mmol/L (136-145); Total Protein, Blood 7.2 g/dL (6.4-8.2)
== END 2021-06-19 21:39 | disposition home or self-care (01) ==
LOC: ER 18:13
PROVIDERS: Physician Assistant
DX: F10.129 Alcohol abuse with intoxication, unspecified (principal); Y90.8 Blood alcohol level of 240 mg/100 ml or more; F17.210 Nicotine dependence, cigarettes, uncomplicated; I10 Essential (primary) hypertension; G62.9 Polyneuropathy, unspecified; Z86.718 Personal history of other venous thrombosis and embolism; Z88.8 Allergy status to other drugs, medicaments and biological substances; Z88.5 Allergy status to narcotic agent; Z79.899 Other long term (current) drug therapy
CPT/HCPCS: 36415; 80053; 85025; 99283; G0480

== ENCOUNTER 2021-06-27 18:26 | Inpatient (IN) | payer MEDICARE, OTHER ==
[~2021-06-27] VITALS: Ht 165.1 cm; Wt 84.9 kg
[~2021-06-27 18:26] MED LIST changes: +CELEXA40 M1 PO; -CITALOPRAM HBR PO
[2021-06-27 20:10] LABS: BASOPHILS ABSOLUTE AUTO 0.05 K/mm3 (0.00-0.23); BASOPHILS PERCENT AUTO 0 % (0-2); EOSINOPHILS ABSOLUTE AUTO 0.03 K/mm3 (0.00-0.68); EOSINOPHILS PERCENT AUTO 0 % (0-6); Hematocrit 35.3 % (33.0-51.0); Hemoglobin 12.4 g/dL (11.5-16.0); IMMATURE GRAN ABSOLUTE AUTO 0.09 K/mm3 (0.00-0.10); IMMATURE GRAN PERCENT AUTO 1 % (0-1); LYMPHOCYTES ABSOLUTE AUTO 1.87 K/mm3 (0.84-5.20); LYMPHOCYTES PERCENT AUTO 11 % (21-46); MONOCYTES PERCENT AUTO 8 % (4-13); Mean Corpuscular HGB 34.9 pg (26.0-34.0); Mean Corpuscular HGB Conc 35.1 g/dL (31.5-36.5); Mean Corpuscular Volume 99 fL (80-100); Mean Platelet Volume 10.9 fL (9.1-12.4); NEUTROPHILS ABSOLUTE AUTO 13.95 K/mm3 (1.96-9.15); NEUTROPHILS PERCENT AUTO 81 % (41-73); Platelet Count 137 K/mm3 (150-400); RDW Coefficient Variation 14.7 % (11.7-14.2); RDW Standard Deviation 52.9 fL (35.1-46.3); Red Blood Cell Count 3.55 M/mm3 (3.80-5.20); White Blood Cell Count 17.29 K/mm3 (4.00-11.30)
[2021-06-27 20:44] LABS: Alanine Aminotransfer (ALT/SGP 27 U/L (12-78); Albumin, Blood 3.6 g/dL (3.4-5.0); Alk Phos 28 U/L (50-136); Anion Gap 11 mmol/L (6-16); Aspartate Aminotrans (AST/SGOT 21 U/L (12-37); Bilirubin, Total 0.8 mg/dL (0.1-1.0); Blood Urea Nitrogen 16 mg/dL (8-24); Bun/Creatinine Ratio 16.5 (12.0-20.0); CO2, Blood 21 mmol/L (21-32); Calcium, Blood 9.5 mg/dL (8.5-10.1); Chloride, Blood 106 mmol/L (98-108); Creatinine, Blood 0.97 mg/dL (0.40-1.00); Ethanol (Alcohol), Blood, Med <3 mg/dL; Globulin, Blood 3.5 g/dL (2.2-4.0); Glomerular Filtration Rate 58 (60-); Glucose, Blood 97 mg/dL (70-99); Potassium, Blood 3.3 mmol/L (3.5-5.5); Sodium, Blood 138 mmol/L (136-145); Total Protein, Blood 7.1 g/dL (6.4-8.2)
[2021-06-27 21:00] LABS: Source, Urine Clean Catch
[2021-06-27 21:03] LABS: Blood, Urine 2+ (Neg); Glucose Qualitative, Urine Neg (Neg); Ketones, Urine Neg (Neg); Leukocyte Esterase, Urine 1+ (Neg); Nitrite, Urine Pos (Neg); Protein, Urine 2+ (Neg); Specific Gravity, Urine 1.015 (1.003-1.022); Urobilinogen, Urine 2+ (Normal)
[2021-06-27 21:19] LABS: Bilirubin, Urine 2+ (Neg)
[2021-06-27 21:21] LABS: Appearance, Urine Hazy (Clear); Color, Urine Amber (P-Yellow); Hyaline Casts 0-2 /lpf (0-2)
[2021-06-27 21:22] LABS: Bacteria Many /hpf; Red Blood Cells, Urine 0-2 /hpf (0-2); Squamous Epithelial Cells Few /hpf (Few)
[2021-06-27 21:31] LABS: U Amphetamine Screen Not Detected; U Barbituate Screen Not Detected; U Benzodiazapine Screen DETECTED; U Buprenorphine Screen Not Detected; U Cannabinoids Screen Not Detected; U Cocaine Screen Not Detected; U Methadone Screen Not Detected; U Methamphetamine Screen Not Detected; U Opiates Screen Not Detected; U Oxycodone Screen DETECTED; U Phencyclidine Screen Not Detected; U Propoxyphene Screen Not Detected
[2021-06-28 05:42] LABS: BASOPHILS ABSOLUTE AUTO 0.02 K/mm3 (0.00-0.23); BASOPHILS PERCENT AUTO 0 % (0-2); EOSINOPHILS ABSOLUTE AUTO 0.01 K/mm3 (0.00-0.68); EOSINOPHILS PERCENT AUTO 0 % (0-6); Hematocrit 36.3 % (33.0-51.0); Hemoglobin 12.6 g/dL (11.5-16.0); IMMATURE GRAN ABSOLUTE AUTO 0.06 K/mm3 (0.00-0.10); IMMATURE GRAN PERCENT AUTO 1 % (0-1); LYMPHOCYTES PERCENT AUTO 10 % (21-46); MONOCYTES ABSOLUTE AUTO 0.13 K/mm3 (0.16-1.47); MONOCYTES PERCENT AUTO 1 % (4-13); Mean Corpuscular HGB 34.1 pg (26.0-34.0); Mean Corpuscular HGB Conc 34.7 g/dL (31.5-36.5); Mean Corpuscular Volume 98 fL (80-100); Mean Platelet Volume 11.1 fL (9.1-12.4); NEUTROPHILS ABSOLUTE AUTO 8.98 K/mm3 (1.96-9.15); NEUTROPHILS PERCENT AUTO 88 % (41-73); Platelet Count 141 K/mm3 (150-400); RDW Coefficient Variation 14.7 % (11.7-14.2)
--- NOTE | 2021-06-28 06:35 | NUR ---
SHIFT SUMMARY PT ARRIVED ON UNIT FROM ER AT 0525. SHE WAS ABLE TO TRANSFER TO THE ICU BED W/ MINIMAL ASSISTANCE. ON RA SHE SATS 94%, HR IN 70'S, AND BP 115/75. SHE IS ORIENTED TO SELF AND PLACE BUT IS CONFUSED ABOUT THE DATE/TIME AND DOES NOT KNOW/REMEMBER WHY SHE IS HERE. SHE DENIES PAIN AND TEMP IS 98.0. SKIN IS WARM AND DRY W/ GENERALIZED BRUISING. SHE HAS LR INFUSING AT 100ML/HR INTO A L AC PIV. SHE HAS NOT VOIDED OR HAD A BM SINCE COMING TO THE ICU. SHE IS CURRENTLY RESTING QUIETLY IN BED W/ HER EYES CLOSED.
[2021-06-28 06:39] LABS: Alanine Aminotransfer (ALT/SGP 24 U/L (12-78); Albumin, Blood 3.2 g/dL (3.4-5.0); Albumin/Globulin Ratio 0.9 (0.8-1.8); Alk Phos 28 U/L (50-136); Anion Gap 12 mmol/L (6-16); Aspartate Aminotrans (AST/SGOT 18 U/L (12-37); Bilirubin, Total 0.5 mg/dL (0.1-1.0); Blood Urea Nitrogen 14 mg/dL (8-24); Bun/Creatinine Ratio 21.4 (12.0-20.0); CO2, Blood 19 mmol/L (21-32); Calcium, Blood 9.6 mg/dL (8.5-10.1); Chloride, Blood 107 mmol/L (98-108); Creatinine, Blood 0.66 mg/dL (0.40-1.00); Globulin, Blood 3.7 g/dL (2.2-4.0); Glomerular Filtration Rate >60 (60-); Glucose, Blood 120 mg/dL (70-99); Potassium, Blood 3.3 mmol/L (3.5-5.5); Sodium, Blood 138 mmol/L (136-145); Total Protein, Blood 6.9 g/dL (6.4-8.2)
--- NOTE | 2021-06-28 09:00 | NUR ---
INITIAL ASSESSMENT PATIENT ALERT AND ORIENTED X 4. TREMORS NOTED. CIWA SCORE OF 4. PATIENT STATES SHE REMEMBERS COMING TO THE HOSPITAL BECAUSE SHE SPRAYED RAID IN HER HOUSE TO KILL THE FLEAS. SHE STATES THAT SHE THEN HAD TROUBLE BREATHING AND BEGAN COUGHING UP "FLEA LEGS". AFEBRILE. NO COMPLAINTS OF PAIN. PATIENT LUNGS CLEAR TO AUSCULTATION. SATTING 94% ON RA. PATIENT IN SR, HR IN THE 90S. BP 116/ 70. GI AND WNL. PATIENT VOIDED THIS AM FOR REGISTERED NURSES. SCATTERED SCABS AND BRUISES NOTED T/O BODY. PATIENT STATES SMALL SCABS WITH BRUISES AROUND THEM ARE FROM THE FLEA BITES AND THEN HER SCRATCHING AT THEM. PATIENT REPORTS FREQUENT FALLS AT HOME. IV FLUID STOPPED. IV FLUSHED AND SALINE LOCKED. PATIENT RECEIVED 20 MEQ KCL IV THIS AM FOR POTASSIUM OF 3.3. CALL LIGHT IN REACH. WILL CONTINUE TO MONITOR PATIENT FREQUENTLY THROUGHOUT SHIFT.
--- NOTE | 2021-06-28 12:14 | NUR ---
PATIENT AFEBRILE. NO CHANGES IN NEURO STATUS NOTED. DENIES PAIN OR DISCOMFORT. CIWA SCORE OF 4 BECAUSE OF TREMORS. HR IN THE 80S. BP 138/69. PATIENT REFUSES SHOWER TODAY. NO OTHER ACUTE CHANGES TO NOTE ON AT THIS TIME. WILL CONTINUE TO MONITOR. BED LOW, CALL LIGHT IN REACH.
--- NOTE | 2021-06-28 17:00 | NUR ---
PATIENT AFEBRILE. HR IN THE 80S. SBP 147/68. CIWA REMAINS AT 4 FOR TREMORS. NO OTHER ACUTE CHANGES TO NOTE ON AT THIS TIME. WILL CONTINUE TO MONITOR.
--- NOTE | 2021-06-28 18:57 | NUR ---
SHIFT SUMMARY PATIENT REMAINED ALERT AND ORIENTED X 4 TO ALL ORIENTATION QUESTIONS. PATIENT DID CONTINUE TO TALK ABOUT HOW UPSET SHE IS THAT FLEAS ARE STILL IN HER HOUSE AND THAT SHE WAS COUGHING PARTS OF FLEAS UP. CIWA SCORE REMAINED 4. ONLY ETOH WITHDRAWAL SYMPTOM NOTED IS TREMORS. PATIENT STATES THAT SHE DOES WANT TO MAINTAIN SOBRIETY. PATIENT HAS REMAINED AFEBRILE. PATIENT HAS HAD NO COMPLAINTS OF PAIN. LUNGS REMAINED CLEAR. PATIENT REMAINED SATTING 94% AND GREATER ON RA. PATIENT HAD NO COMPLAINTS OF SOB OR DIFFICULTY BREATHING. GI WNL. PATIENT HAD GOOD APPETITE. NO BM THIS SHIFT. WNL- URINE YELLOW IN COLOR. IV SALINE LOCKED. PATIENT RECEIVED 20 MEQ KCL IV AND 20 MEQ PO KDUR THIS SHIFT FOR AM POTASSIUM OF 3.3. PATIENT REFUSED SHOWER THIS SHIFT. PATIENT HAS NO COMPLAINTS AT THIS TIME. BED LOW, CALL LIGHT IN REACH. REPORT WILL BE GIVEN TO ONCOMING LODGING FACILITIES ATTENDANT NURSE SHORTLY.
--- NOTE | 2021-06-28 19:00 | NUR ---
ASSUME CARE PT ALERT AND ORIENTED X4 W/ NO COMPLAINTS OF PAIN OR ANY [id number]. ON RA SHE SATS 95%, HR 80-90'S, AND SBP 140'S. SHE IS UP TO THE TOILET W/ ASSISTANCE. SHE IS AFEBRILE. SHE TOLERATED HER MEALS TODAY. SKIN IS WARM AND DRY W/ GEN. BRUISING AND BITE-LIKE THAT PT STATES ARE FLEA BITES AND FROM HER SCRATCHING. SHE IS MORE ALERT THIS EVENING AND STATES THAT SHE FEELS GOOD. SEE SHIFT ASSESSMENT FOR DETAILS.
[2021-06-29 05:45] LABS: BASOPHILS ABSOLUTE AUTO 0.02 K/mm3 (0.00-0.23); BASOPHILS PERCENT AUTO 0 % (0-2); EOSINOPHILS ABSOLUTE AUTO 0.07 K/mm3 (0.00-0.68); EOSINOPHILS PERCENT AUTO 1 % (0-6); Hematocrit 35.2 % (33.0-51.0); IMMATURE GRAN ABSOLUTE AUTO 0.05 K/mm3 (0.00-0.10); IMMATURE GRAN PERCENT AUTO 1 % (0-1); LYMPHOCYTES ABSOLUTE AUTO 1.82 K/mm3 (0.84-5.20); LYMPHOCYTES PERCENT AUTO 19 % (21-46); MONOCYTES ABSOLUTE AUTO 1.26 K/mm3 (0.16-1.47); MONOCYTES PERCENT AUTO 13 % (4-13); Mean Corpuscular HGB 33.9 pg (26.0-34.0); Mean Corpuscular HGB Conc 34.1 g/dL (31.5-36.5); Mean Corpuscular Volume 99 fL (80-100); Mean Platelet Volume 11.5 fL (9.1-12.4); NEUTROPHILS ABSOLUTE AUTO 6.35 K/mm3 (1.96-9.15); NEUTROPHILS PERCENT AUTO 66 % (41-73); Platelet Count 168 K/mm3 (150-400); RDW Coefficient Variation 14.9 % (11.7-14.2); RDW Standard Deviation 53.2 fL (35.1-46.3); Red Blood Cell Count 3.54 M/mm3 (3.80-5.20); White Blood Cell Count 9.57 K/mm3 (4.00-11.30)
[2021-06-29 05:50] LABS: Alanine Aminotransfer (ALT/SGP 20 U/L (12-78); Albumin, Blood 2.9 g/dL (3.4-5.0); Albumin/Globulin Ratio 0.9 (0.8-1.8); Alk Phos 29 U/L (50-136); Anion Gap 8 mmol/L (6-16); Aspartate Aminotrans (AST/SGOT 13 U/L (12-37); Bilirubin, Total 0.5 mg/dL (0.1-1.0); Blood Urea Nitrogen 11 mg/dL (8-24); Bun/Creatinine Ratio 21.8 (12.0-20.0); CO2, Blood 23 mmol/L (21-32); Calcium, Blood 8.7 mg/dL (8.5-10.1); Chloride, Blood 110 mmol/L (98-108); Globulin, Blood 3.3 g/dL (2.2-4.0); Glomerular Filtration Rate >60 (60-); Glucose, Blood 82 mg/dL (70-99); Potassium, Blood 3.5 mmol/L (3.5-5.5); Sodium, Blood 141 mmol/L (136-145); Total Protein, Blood 6.2 g/dL (6.4-8.2)
--- NOTE | 2021-06-29 06:00 | NUR ---
SHIFT SUMMARY: NO ACUTE OVERNIGHT EVENTS. PT RESTING QUIETLY BUT IS EASILY AROUSABLE. SHE HAS REMAINED ALERT AND ORIENTED T/O THE SHIFT. SHE DENIES PAIN AND CONTINUES TO BE AFEBRILE. ON RA SHE SATS 95%, HR 70-90'S, AND SBP 120-140'S. SHE WAS UP TO THE TOILET W/ MINIMAL ASSISTANCE W/ NO ISSUES VOIDING. NO BM THIS SHIFT. SKIN REMAINS WARM, DRY, AND INTACT W/ GENERALIZED BRUISING/FLEA BITES. WILL REPORT TO ONCOMING RN WHEN AVAILABLE.
[2021-06-29] MEDS ORDERED: CEFD300 PO ×2 (12:52→12:56)
[2021-06-29] MEDS ORDERED: MULVITA PO (12:57)
[2021-06-29] MEDS ORDERED: B-1100 M1 PO (12:57)
[2021-06-29] MEDS ORDERED: NICO21TP TOP (12:58)
[2021-06-29] MEDS ORDERED: Triamcinolone A15 G3 TOP (13:00)
[2021-06-29] MEDS ORDERED: VISBIOME 112.51 EACH PO (13:00)
--- NOTE | 2021-06-29 14:45 | NUR ---
PT DISCHARGE PT PROVIDED WITH DISCHARGE INSTRUCTIONS PER [facility]. MEDICATIONS FAXED TO PT'S PREFERRED [facility]. REAL ESTATE ADMINISTRATOR ASSISTED WITH TRANSPORT FOR PT TO PHARMACY AND HOME. IV REMOVED. PT EDUCATED ON NEW MEDICATIONS. PT BROUGHT TO [facility] BY THIS RN WITH BELONGINGS. ONCE PT IN [facility] PT STATED SHE WILL NOT GO TO [facility] HER PRESCRIPTIONS TODAY AND WILL GO TOMORROW AM.
== END 2021-06-29 14:35 | disposition home or self-care (01) | DRG 872 ==
LOC: ER 18:26 → ICUW 06-28 03:59
PROVIDERS: Family Medicine; Physician Assistant; Student in an Organized Health Care Education/Training Program; ADMIT Family Medicine
DX: A41.9 Sepsis, unspecified organism (principal); N39.0 Urinary tract infection, site not specified; E87.6 Hypokalemia; S40.862A Insect bite (nonvenomous) of left upper arm, initial encounter; S40.861A Insect bite (nonvenomous) of right upper arm, initial encounter; S80.862A Insect bite (nonvenomous), left lower leg, initial encounter; S80.861A Insect bite (nonvenomous), right lower leg, initial encounter; S20.369A Insect bite (nonvenomous) of unspecified front wall of thorax, initial encounter; S30.861A Insect bite (nonvenomous) of abdominal wall, initial encounter; G62.9 Polyneuropathy, unspecified; Z28.21 Immunization not carried out because of patient refusal; F41.9 Anxiety disorder, unspecified; I10 Essential (primary) hypertension; F32.A Depression, unspecified; G89.4 Chronic pain syndrome; F10.20 Alcohol dependence, uncomplicated; F17.210 Nicotine dependence, cigarettes, uncomplicated; Z98.890 Other specified postprocedural states; Z91.030 Bee allergy status; Z88.8 Allergy status to other drugs, medicaments and biological substances; Z88.1 Allergy status to other antibiotic agents; Z88.5 Allergy status to narcotic agent; Z79.899 Other long term (current) drug therapy; Z86.718 Personal history of other venous thrombosis and embolism; W57.XXXA Bitten or stung by nonvenomous insect and other nonvenomous arthropods, initial encounter
CPT/HCPCS: 36415; 71045; 80053; 81001; 83605; 85025; 87040; 87086; 96365; 96375; 97116; 97162; 99285-25; A9270; G0480; J0696; J1200; J1650; J1790; J2930; J3411; J3480; J7040; J7120

== ENCOUNTER 2021-08-12 20:38 | Inpatient (IN) | payer MEDICARE, OTHER ==
[~2021-08-12] VITALS: Ht 167.6 cm; Wt 81.3 kg
[~2021-08-12 20:38] MED LIST changes: +B-1100 M1 PO; +CEFD300 PO; +MULVITA PO; +NICO21TP TOP; +Triamcinolone A15 G3 TOP; +VISBIOME 112.51 EACH PO
[2021-08-12 22:55] LABS: BASOPHILS ABSOLUTE AUTO 0.04 K/mm3 (0.00-0.23); BASOPHILS PERCENT AUTO 1 % (0-2); EOSINOPHILS ABSOLUTE AUTO 0.04 K/mm3 (0.00-0.68); EOSINOPHILS PERCENT AUTO 1 % (0-6); Hematocrit 40.1 % (33.0-51.0); Hemoglobin 13.9 g/dL (11.5-16.0); IMMATURE GRAN ABSOLUTE AUTO 0.01 K/mm3 (0.00-0.10); IMMATURE GRAN PERCENT AUTO 0 % (0-1); LYMPHOCYTES ABSOLUTE AUTO 2.71 K/mm3 (0.84-5.20); LYMPHOCYTES PERCENT AUTO 38 % (21-46); MONOCYTES ABSOLUTE AUTO 0.43 K/mm3 (0.16-1.47); MONOCYTES PERCENT AUTO 6 % (4-13); Mean Corpuscular HGB 33.3 pg (26.0-34.0); Mean Corpuscular HGB Conc 34.7 g/dL (31.5-36.5); Mean Corpuscular Volume 96 fL (80-100); Mean Platelet Volume 9.7 fL (9.1-12.4); NEUTROPHILS ABSOLUTE AUTO 3.91 K/mm3 (1.96-9.15); NEUTROPHILS PERCENT AUTO 55 % (41-73); Platelet Count 148 K/mm3 (150-400); RDW Coefficient Variation 16.4 % (11.7-14.2); RDW Standard Deviation 57.6 fL (35.1-46.3); Red Blood Cell Count 4.17 M/mm3 (3.80-5.20); White Blood Cell Count 7.14 K/mm3 (4.00-11.30)
[2021-08-12 23:13] LABS: Alanine Aminotransfer (ALT/SGP 26 U/L (12-78); Albumin, Blood 3.7 g/dL (3.4-5.0); Albumin/Globulin Ratio 0.9 (0.8-1.8); Alk Phos 51 U/L (50-136); Anion Gap 12 mmol/L (6-16); Aspartate Aminotrans (AST/SGOT 32 U/L (12-37); Bilirubin, Total 0.3 mg/dL (0.1-1.0); Blood Urea Nitrogen 10 mg/dL (8-24); Bun/Creatinine Ratio 20.7 (12.0-20.0); CO2, Blood 19 mmol/L (21-32); Chloride, Blood 110 mmol/L (98-108); Creatinine, Blood 0.48 mg/dL (0.40-1.00); Globulin, Blood 4.1 g/dL (2.2-4.0); Glomerular Filtration Rate >60 (60-); Glucose, Blood 90 mg/dL (70-99); Sodium, Blood 141 mmol/L (136-145); Total Protein, Blood 7.8 g/dL (6.4-8.2)
[2021-08-12 23:44] LABS: Influenza A, PCR NEGATIVE (NEGATIVE); Influenza B, PCR NEGATIVE (NEGATIVE); Resp Syncytial Virus, PCR NEGATIVE (NEGATIVE); SARS-Cov-2 (COVID-19) PCR, MMC NEGATIVE (NEGATIVE)
[2021-08-13] MEDS ORDERED: Neurontin 300300 MG PO (01:18)
[2021-08-13] MEDS ORDERED: Naltrexone HCl50 MG PO (01:18)
[2021-08-13] MEDS ORDERED: CEFD300 PO (01:18)
[2021-08-13 03:03] LABS: Magnesium, Blood 2.1 mg/dL (1.6-2.4)
--- NOTE | 2021-08-13 03:30 | NUR ---
ASSUMED CARE PATIENT FROM ED TO ICU 2. PATIENT IS ON ROOM AIR AND TREMULOUS IN BED WHILE RESTING. PATIENT SLID SELF FROM ER BED TO ICU BED WITH GUIDANCE. V/S STABLE AT THIS TIME WITH SPO2 LOW 90'S, BP 100'S/60'S MAPS GREATER THAN 65, HR 90'S. SPEECH IS SLURRED AND SHAKY. SKIN IS COVERED WITH SCABS, SOME OF WHICH ARE BLEEDING AND HAVE BANDAIDS IN PLACE. PATIENT IS PICKING AT ELECTRODES AND CORDS. REPORT COMPLETED WITH ED RN.
--- NOTE | 2021-08-13 04:22 | NUR ---
CIWA 21-PRECEDEX ORDERED INITIAL CIWA ON ARRIVAL TO ICU 19, MEDICATED WITH ATIVAN 4MG IV AND LIBRIUM 50MG PO PER CIWA PROTOCOL. 30 MINUTES LATER CIWA REASSESSED WITH CIWA SCORE OF 21. CALL MADE TO DR. CHAPPELL FOR FURTHER ORDERS. PRECEDEX ORDERS OBTAINED AND TRANSFER ICU STATUS.
[2021-08-13 04:32] LABS: Anion Gap 12 mmol/L (6-16); Blood Urea Nitrogen 9 mg/dL (8-24); Bun/Creatinine Ratio 19.4 (12.0-20.0); CO2, Blood 17 mmol/L (21-32); Calcium, Blood 8.4 mg/dL (8.5-10.1); Chloride, Blood 109 mmol/L (98-108); Creatinine, Blood 0.46 mg/dL (0.40-1.00); Glomerular Filtration Rate >60 (60-); Glucose, Blood 118 mg/dL (70-99); Sodium, Blood 138 mmol/L (136-145)
--- NOTE | 2021-08-13 05:55 | NUR ---
SHIFT SUMMARY PATIENT CIWA SCORES INCREASED FROM 19 TO 21 FOLLOWING ATIVAN 4MG AND LIBRIUM 50MG. CALL MADE TO DR. CHAPPELL, SEE NOTE ON CIWA SCORES AND PRECEDEX. PRECEDEX WAS INITIALLY STARTED @ 0.3MCG/KG/HR. PATIENT DIFFICULT TO AROUSE BUT STILL TREMULOUS-PRECEDEX DECREASED TO 0.2MCG/KG/HR. CIWA REASSESSED AND SCORED 3 WITH PATIENT STILL DIFFICULT TO AROUSE-PRECEDEX PLACED ON STANDBY. SEE ICU FLOWSHEET FOR TIMES. PATIENT IS RESTING COMFORTABLY WITH NO TREMORS OR PERSPIRATION PRESENT AT THIS TIME. NS @ 125ML/HR AND KCL @ 50ML/HR INF TO RT AC IV. LT AC IV HAS NO MEDICATIONS INF AT THIS TIME. PATIENT ATTEMPTED TO USE THE BEDPAN UPON ARRIVAL TO ICU UNSUCCESSFULLY. UNABLE TO OBTAIN CURRENT HISTORY BASED ON PATIENT'S CONFUSION; HISTORY OBTAINED VIA MEDICAL RECORD. NO OTHER MAJOR CHANGES DURING SHIFT.
--- NOTE | 2021-08-13 13:02 | NUR ---
REASSESSMENT PT HAS BEEN RESTING IN BED THROUGHOUT THE MORNING. CIWAA WAS 8 THIS MORNING AND [address] SEQUEIRA STARTED SCHEDULED LIBRIUM. SR, BUT TACHY UP TO 130S WITH ACTIVITY. BP STABLE. LUNGS CLEAR, RA. TOLERATING DIET. VOIDING USING THE BEDPAN. PT STATES SHE HAS NOBODY THAT SHE WOULD LIKE UPDATED ABOUT HER CARE. CONTINUING TO MONITOR.
--- NOTE | 2021-08-13 17:16 | NUR ---
SHIFT SUMMARY PT HAS BEEN RESTING IN BED THROUGHOUT THE SHIFT. SHE IS ORIENTED, BUT SLEEPY. WAKES EASILY TO VOICE. LUNGS ARE CLEAR, RA. SR, BP STABLE. CIWAA 8-11 THIS SHIFT, MEDICATING WITH LIBRIUM AND ATIVAN. EATING MEALS. VOIDING IN BEDPAN. CONTINUING TO MONITOR.
--- NOTE | 2021-08-13 19:34 | NUR ---
ASSUMED CARE PATIENT LYING IN BED SLEEPING, AWAKES OCCASSIONALLY TO DRINK WATER AND EAT FRUIT. DEPENDS IN PLACE AND PATIENT REQUESTED BEDPAN TO URINATE FOLLOWING REPORT; 500ML CLEAR YELLOW URINE OUT. DEPENDS REPLACED. PATIENT WAS ABLE TO TURN SELF WITH GUIDANCE. NS INF @ 125ML/HR TO RT AC IV. NO MEDICATIONS INF TO LT AC IV. PATIENT TRACKS TO SOUND AND FOLLOWS COMMANDS. PRECEDEX IN ROOM BUT ON SB SINCE THIS MORNING. PATIENT ABLE TO USE CALL LIGHT APPROPRIATELY AND PLACED IN REACH OF PATIENT. REPORT COMPLETED WITH SHAQ RN.
[2021-08-14 03:30] LABS: Hematocrit 34.5 % (33.0-51.0); Hemoglobin 11.2 g/dL (11.5-16.0); Mean Corpuscular HGB 32.8 pg (26.0-34.0); Mean Corpuscular HGB Conc 32.5 g/dL (31.5-36.5); Mean Platelet Volume 10.2 fL (9.1-12.4); Platelet Count 118 K/mm3 (150-400); RDW Coefficient Variation 16.9 % (11.7-14.2); RDW Standard Deviation 60.6 fL (35.1-46.3); Red Blood Cell Count 3.41 M/mm3 (3.80-5.20); White Blood Cell Count 6.85 K/mm3 (4.00-11.30)
[2021-08-14 03:35] LABS: Mean Corpuscular Volume 101 fL (80-100)
[2021-08-14 03:50] LABS: Alanine Aminotransfer (ALT/SGP 20 U/L (12-78); Albumin, Blood 2.8 g/dL (3.4-5.0); Albumin/Globulin Ratio 0.8 (0.8-1.8); Alk Phos 38 U/L (50-136); Anion Gap 6 mmol/L (6-16); Aspartate Aminotrans (AST/SGOT 22 U/L (12-37); Bilirubin, Total 0.5 mg/dL (0.1-1.0); Blood Urea Nitrogen 7 mg/dL (8-24); Bun/Creatinine Ratio 15.1 (12.0-20.0); CO2, Blood 20 mmol/L (21-32); Calcium, Blood 8.5 mg/dL (8.5-10.1); Chloride, Blood 114 mmol/L (98-108); Creatinine, Blood 0.46 mg/dL (0.40-1.00); Globulin, Blood 3.3 g/dL (2.2-4.0); Glomerular Filtration Rate >60 (60-); Glucose, Blood 98 mg/dL (70-99); Potassium, Blood 3.2 mmol/L (3.5-5.5); Sodium, Blood 140 mmol/L (136-145); Total Protein, Blood 6.1 g/dL (6.4-8.2)
--- NOTE | 2021-08-14 05:14 | NUR ---
POTASSIUM REPLACEMENT POTASSIUM LAB RESULT 3.2 THIS MORNING. CALL MADE TO DR. CHAPPELL AND ORDERS OBTAINED FOR KCL 40MEQ PO ONCE.
--- NOTE | 2021-08-14 06:07 | NUR ---
SHIFT SUMMARY PATIENT REQUIRED TWO DOSES OF ATIVAN AND 1 PRN LIBRIUM 25MG DRING SHIFT FOR CIWA SCORES. HIGHEST CIWA 10 THIS MORNING. PATIENT WAS ABLE TO USE CALL LIGHT T/O NIGHT TO REQUEST BED CAMPO. NO BM DURING SHIFT, BUT BT ARE HYPERACTIVE X 4 AND PATIENT IS PASSING GAS. NO MEDICATIONS INF AT THIS TIME AND PRECEDEX REMAINED OFF T/O SHIFT. POTASSIUM LOW @ 3.2 THIS AM. SEE NOTE ON POTASSIUM REPLACEMENT. NO OTHER CHANGES DURING SHIFT.
--- NOTE | 2021-08-14 12:02 | NUR ---
REASSESSMENT PT HAS BEEN RESTING IN BED THROUGHOUT THE MORNING. ENCOURAGED PT TO GET UP FOR LUNCH, BUT SHE DIDN'T WANT TO. WILL ENOURAGE IT LATER THIS AFTERNOON. SHE REMAINS ALERT AND ORIENTED. CIWAA 11. SR, BP STABLE. VOIDING IN BEDPAN (WILL ALSO ENCOURAGE GETTING UP TO COMMODE). EATING WELL. SPOKE TO DR. SEQUEIRA AND SHE OK'D PT TO BE MED TELE, ORDER PLACED. CONTINUING TO MONITOR.
--- NOTE | 2021-08-14 16:26 | NUR ---
SHIFT SUMMARY PT HAS BEEN RESTING IN BED THROUGHOUT THE DAY BUT THIS AFTERNOON STARTED GETTING UP TO THE TOILET WHEN SHE NEEDS TO VOID. HER CIWAA IS STILL 10-12, MOSTLY DUE TO PT'S TREMORS. MEDICATING PER MAR. SR, BPS TABLE. LUNGS CLEAR, RA. VOIDING CL YELLOW URINE. EATING WELL. CONTINUING TO MONITOR.
--- NOTE | 2021-08-14 19:06 | NUR ---
ASSUMED CARE PATIENT LYING IN BED ON HIGH RT SIDE SLEEPING. ON ROOM AIR WITH SPO2 96%. SINUS TACH W/ RATE 100'S-110'S. WALKER IN ROOM AND FAN AND WATER ON BEDSIDE. NO MEDICATIONS INF AT THIS TIME. STATUS HAS BEEN CHANGED TO MED WITH TELE. SEE SHIFT ASSESSMENT FOR FURTHER INFORMATION. BEDSIDE REPORT COMPLETED WITH YAIMA EASON.
[2021-08-15 03:54] LABS: Hematocrit 35.1 % (33.0-51.0); Hemoglobin 11.8 g/dL (11.5-16.0); Mean Corpuscular HGB 33.6 pg (26.0-34.0); Mean Corpuscular HGB Conc 33.6 g/dL (31.5-36.5); Mean Corpuscular Volume 100 fL (80-100); Mean Platelet Volume 10.5 fL (9.1-12.4); Platelet Count 126 K/mm3 (150-400); RDW Coefficient Variation 16.8 % (11.7-14.2); RDW Standard Deviation 60.6 fL (35.1-46.3); Red Blood Cell Count 3.51 M/mm3 (3.80-5.20); White Blood Cell Count 6.78 K/mm3 (4.00-11.30)
[2021-08-15 04:16] LABS: Alanine Aminotransfer (ALT/SGP 21 U/L (12-78); Alk Phos 43 U/L (50-136); Anion Gap 8 mmol/L (6-16); Aspartate Aminotrans (AST/SGOT 23 U/L (12-37); Bilirubin, Total 0.4 mg/dL (0.1-1.0); Blood Urea Nitrogen 6 mg/dL (8-24); Bun/Creatinine Ratio 13.5 (12.0-20.0); CO2, Blood 22 mmol/L (21-32); Calcium, Blood 9.4 mg/dL (8.5-10.1); Chloride, Blood 110 mmol/L (98-108); Creatinine, Blood 0.44 mg/dL (0.40-1.00); Globulin, Blood 3.1 g/dL (2.2-4.0); Glomerular Filtration Rate >60 (60-); Glucose, Blood 91 mg/dL (70-99); Potassium, Blood 3.5 mmol/L (3.5-5.5); Sodium, Blood 140 mmol/L (136-145); Total Protein, Blood 6.1 g/dL (6.4-8.2)
--- NOTE | 2021-08-15 05:39 | NUR ---
SHIFT SUMMARY CIWA'S REMAINED LOW 3-5. NO PRN MEDICATIONS GIVEN. PATIENT WAS ABLE TO USE CALL LIGHT AND WALKER TO AMBULATE TO TOILET WHEN NEEDED WITH STAFF ON STANDBY. HR INCREASED TO 120'S-130'S WITH THIS EXERTION THAT RESOLVED WITHIN MINUTES OF REST. RHYTHM REMAINED SINUS AT ALL TIMES. ASSESSMENTS REMAINED THE SAME OTHER THAN CIWA SCORE. VSS REMAINED STABLE DURING SHIFT. NO OTHER MAJOR CHANGES DURING SHIFT.
--- NOTE | 2021-08-15 08:52 | NUR ---
DR SEQUEIRA ROUNDED, NO CHANGES, CAN DC TELE, PATIENT MEDICAL FLOOR STATUS
--- NOTE | 2021-08-15 11:25 | NUR ---
1018 reported to [facility] medical floor, patient transfered via w/c at 1115 to room 303
--- NOTE | 2021-08-15 11:54 | NUR ---
PT ARRIVED TO UNIT FROM ICU TRANSFERRED FROM TO BED W/SBA. ORIENTED TO ROOM. CALL LIGHT IN REACH. CIWA 7. PT REPORTS SLIGHT COLLAZO, SLIGHT NAUSEA AND SLIGHT TREMORS. DENIES ANY NEEDS AT THIS TIME.
--- NOTE | 2021-08-15 13:34 | NUR ---
BILLY Simmons/THERAPY IN TO SEE PT.
--- NOTE | 2021-08-15 18:14 | NUR ---
SUMMARY NO ACUTE CHANGES SINCE ARRIVING TO UNIT FROM ICU. PT'S CIWA SCORE WAS 7 UPON ARRIVAL. MEDICATED PER ORDERS W/LIBRIUM. APPEARS STABLE. WORKED W/THERAPY. SAT UP IN CHAIR. MAY BE CONFUSED AT TIMES. BED ALARM AND CHAIR ALARM IN USE. PT TOLERATING DIET. DENIES ANY NEEDS AT THIS TIME. CALL LIGHT IN REACH.
--- NOTE | 2021-08-16 04:18 | NUR ---
SUMMARY: PT A/OX3, CALLS APPROPRIATELY TO SPECIFY NEEDS AND IS PLEASANT AND COOPERATIVE W/CARE. SHE REPORTS GENERAL PAIN, COLLAZO, NAUSEA AND TREMORS AT TIMES W/CIWA SCORE OF 0-6 THIS SHIFT. SCHEDULED AND PRN LIBRIUM RECIEVED FOR GOOD AFFECT. SHE'S SBA TO TOILET OR BSC D/T OCC DIZZYNESS AFTER RECIEVING LIBRIUM. PT AWARE TO DANGLE AT EOB PRIOR TO AMBULATION AND BED ALARM ON FOR FALL RISK. VSS/AFEBRILE, NO ACUTE CHANGES. WCTM AND REPORT TO DAY RN.
[2021-08-16] MEDS ORDERED: ALPR.5 PO (11:56)
[2021-08-16] MEDS ORDERED: DOXY100 PO (11:57)
[2021-08-16] MEDS ORDERED: MELATONIN10 M6 PO (11:58)
[2021-08-16] MEDS ORDERED: POTASSIUM CHLORIDE PO (12:00)
[2021-08-16] MEDS ORDERED: GLUCOSAMINE CHOND PO (12:02)
--- NOTE | 2021-08-16 17:18 | NUR ---
PT AOX4 AND COOPERATIVE. PT STILL REPORTS FEELING A BIT LIGHT HEADED AFTER SHE TAKES LIBRIUM, BUT IS NOT IMPULSIVE AND WAITS FOR HELP TO TRANSFER TO RESTROOM. PT DOES WELL A ONE PERSON WITH WALKER. PT CALLS APPROPRIATELY AND HAS CALL LIGHT WITHIN REACH. NO DISTRESS NOTED WILL CONTINUE TO MONITOR.
[2021-08-17 04:48] LABS: BASOPHILS ABSOLUTE AUTO 0.04 K/mm3 (0.00-0.23); BASOPHILS PERCENT AUTO 1 % (0-2); EOSINOPHILS ABSOLUTE AUTO 0.12 K/mm3 (0.00-0.68); EOSINOPHILS PERCENT AUTO 2 % (0-6); Hematocrit 39.1 % (33.0-51.0); Hemoglobin 12.9 g/dL (11.5-16.0); IMMATURE GRAN ABSOLUTE AUTO 0.02 K/mm3 (0.00-0.10); IMMATURE GRAN PERCENT AUTO 0 % (0-1); LYMPHOCYTES ABSOLUTE AUTO 2.41 K/mm3 (0.84-5.20); LYMPHOCYTES PERCENT AUTO 34 % (21-46); MONOCYTES ABSOLUTE AUTO 1.05 K/mm3 (0.16-1.47); MONOCYTES PERCENT AUTO 15 % (4-13); Mean Corpuscular HGB 33.7 pg (26.0-34.0); Mean Corpuscular Volume 102 fL (80-100); Mean Platelet Volume 9.9 fL (9.1-12.4); NEUTROPHILS ABSOLUTE AUTO 3.46 K/mm3 (1.96-9.15); NEUTROPHILS PERCENT AUTO 49 % (41-73); Platelet Count 237 K/mm3 (150-400); RDW Coefficient Variation 17.7 % (11.7-14.2); RDW Standard Deviation 63.2 fL (35.1-46.3); Red Blood Cell Count 3.83 M/mm3 (3.80-5.20)
--- NOTE | 2021-08-17 04:54 | NUR ---
PT IS A/OX4. SHE WAS INDEPENDENT IN THE ROOM AND CALLED FOR NEEDS. SHE IS CURRENTLY ON RA AND NO TELE. NO ACUTE CHANGES TO REPORT. POSSIBLE DC.
[2021-08-17 05:09] LABS: Alanine Aminotransfer (ALT/SGP 29 U/L (12-78); Albumin, Blood 3.2 g/dL (3.4-5.0); Albumin/Globulin Ratio 0.9 (0.8-1.8); Alk Phos 37 U/L (50-136); Anion Gap 9 mmol/L (6-16); Aspartate Aminotrans (AST/SGOT 32 U/L (12-37); Bilirubin, Total 0.4 mg/dL (0.1-1.0); Blood Urea Nitrogen 11 mg/dL (8-24); Bun/Creatinine Ratio 21.1 (12.0-20.0); CO2, Blood 21 mmol/L (21-32); Calcium, Blood 9.6 mg/dL (8.5-10.1); Chloride, Blood 114 mmol/L (98-108); Creatinine, Blood 0.52 mg/dL (0.40-1.00); Globulin, Blood 3.7 g/dL (2.2-4.0); Glomerular Filtration Rate >60 (60-); Glucose, Blood 88 mg/dL (70-99); Potassium, Blood 4.4 mmol/L (3.5-5.5); Sodium, Blood 144 mmol/L (136-145); Total Protein, Blood 6.9 g/dL (6.4-8.2)
--- NOTE | 2021-08-17 17:28 | NUR ---
NO ACUTE CHANGES AT THIS TIME. PT AOX4 AND COOPERATIVE OF CARE. PT IS A STANDBY ASSIST TO RESTROOM WITH WALKER. PT REPORTED COLLAZO AND DR SEQUEIRA ADDED MEDITATION TO EMAR. PT TREATED AND MEDICATION APPEARED EFFECTIVE. PT HAS BEEN HAVING SOME BROWN PHLEGM AND DR SEQUEIRA IS AWARE. NO DISTRESS NOTED AT THIS TIME WILL CONTINUE TO MONITOR CALL LIGHT WITHIN REACH.
[2021-08-18 05:03] LABS: Hematocrit 35.4 % (33.0-51.0); Hemoglobin 11.5 g/dL (11.5-16.0); Mean Corpuscular HGB 33.5 pg (26.0-34.0); Mean Corpuscular HGB Conc 32.5 g/dL (31.5-36.5); Mean Corpuscular Volume 103 fL (80-100); Mean Platelet Volume 9.7 fL (9.1-12.4); Platelet Count 237 K/mm3 (150-400); RDW Coefficient Variation 17.5 % (11.7-14.2); RDW Standard Deviation 65.1 fL (35.1-46.3); Red Blood Cell Count 3.43 M/mm3 (3.80-5.20); White Blood Cell Count 5.18 K/mm3 (4.00-11.30)
--- NOTE | 2021-08-18 05:24 | NUR ---
SHIFT SUMMARY: PT IS A/OX4. SHE SEEMS TO BE FORGETFUL AT TIMES. SHE HAS BEEN INDEPENDENT IN THE ROOM. NO CHANGES TO REPORT AND SHE IS A POSSIBLE DISCHARGE TODAY.
[2021-08-18 05:44] LABS: Alanine Aminotransfer (ALT/SGP 29 U/L (12-78); Albumin, Blood 2.9 g/dL (3.4-5.0); Albumin/Globulin Ratio 0.9 (0.8-1.8); Alk Phos 33 U/L (50-136); Anion Gap 8 mmol/L (6-16); Aspartate Aminotrans (AST/SGOT 26 U/L (12-37); Bilirubin, Total 0.3 mg/dL (0.1-1.0); Blood Urea Nitrogen 12 mg/dL (8-24); CO2, Blood 22 mmol/L (21-32); Calcium, Blood 9.5 mg/dL (8.5-10.1); Chloride, Blood 114 mmol/L (98-108); Creatinine, Blood 0.48 mg/dL (0.40-1.00); Globulin, Blood 3.1 g/dL (2.2-4.0); Glomerular Filtration Rate >60 (60-); Glucose, Blood 86 mg/dL (70-99); Potassium, Blood 4.1 mmol/L (3.5-5.5); Sodium, Blood 144 mmol/L (136-145)
[2021-08-18] MEDS ORDERED: GENICIN500 M1 PO (14:56)
[2021-08-18] MEDS ORDERED: Celexa20 MG PO (14:56)
[2021-08-18] MEDS ORDERED: MIRT30 PO (14:57)
[2021-08-18] MEDS ORDERED: MULVITA PO (14:57)
--- NOTE | 2021-08-18 16:16 | NUR ---
DISCHARGE PATIENT TRANSPORTED VIA WHEELCHAIR TO [facility]. DISCHARGE INSTRUCTIONS EXPLAINED TO PATIENT. PATIENT STATED UNDERSTANDING. PACKET SENT WITH PATIENT. IV REMOVED WITHOUT DIFFICULTY. MEDICATIONS FAXED TO PREFERRED PHARMACY. PATIENT WANTED TO SCHEDULE HER OWN FOLLOW UP. BELONGINGS SENT WITH PATIENT.
== END 2021-08-18 16:09 | disposition home or self-care (01) | DRG 897 ==
LOC: ER 20:38 → ICUW 08-13 02:57 → ICUE 08-13 03:16 → MEDS 08-15 11:30
PROVIDERS: Internal Medicine; Physician Assistant; Student in an Organized Health Care Education/Training Program; ADMIT Internal Medicine
PROC: HZ2ZZZZ Detoxification Services for Substance Abuse Treatment (ICD-10-PCS; principal; 2021-08-13)
PROC: 3E0234Z Introduction of Serum, Toxoid and Vaccine into Muscle, Percutaneous Approach (ICD-10-PCS; 2021-08-13)
DX: F10.239 Alcohol dependence with withdrawal, unspecified (principal); S22.41XA Multiple fractures of ribs, right side, initial encounter for closed fracture; Z20.822 Contact with and (suspected) exposure to COVID-19; Z23 Encounter for immunization; F41.9 Anxiety disorder, unspecified; J43.9 Emphysema, unspecified; F32.A Depression, unspecified; G89.4 Chronic pain syndrome; I10 Essential (primary) hypertension; E87.6 Hypokalemia; R07.81 Pleurodynia; G62.9 Polyneuropathy, unspecified; F17.210 Nicotine dependence, cigarettes, uncomplicated; Z53.29 Procedure and treatment not carried out because of patient's decision for other reasons; Z86.718 Personal history of other venous thrombosis and embolism; Z98.890 Other specified postprocedural states; Z87.81 Personal history of (healed) traumatic fracture; Z88.6 Allergy status to analgesic agent; Z88.8 Allergy status to other drugs, medicaments and biological substances; Z79.899 Other long term (current) drug therapy; X58.XXXA Exposure to other specified factors, initial encounter
CPT/HCPCS: 0241U; 36415; 71046; 71260; 80048; 80053; 83735; 85025; 85027; 90471; 90714; 96365; 96366; 97110; 97112; 97116; 97161; 97165; 97535; 99285-25; A9270; C9113; J1650; J2060; J3411; J3475; J3480; J7030; J7042; J7050; Q9967

== ENCOUNTER 2022-01-10 19:32 | Emergency (ER) | payer MEDICARE, OTHER ==
[~2022-01-10] VITALS: Ht 167.6 cm; Wt 81.7 kg
[~2022-01-10 19:32] MED LIST changes: +Celexa20 MG PO; +GENICIN500 M1 PO; +GLUCOSAMINE CHOND PO; +MELATONIN10 M6 PO; +MIRT30 PO; +Naltrexone HCl50 MG PO; +Neurontin 300300 MG PO; +POTASSIUM CHLORIDE PO
[2022-01-10] MEDS ORDERED: CHLO25 PO (23:55)
== END 2022-01-11 00:20 | disposition home or self-care (01) ==
LOC: ER 19:32
DX: F10.239 Alcohol dependence with withdrawal, unspecified (principal); I10 Essential (primary) hypertension; F41.9 Anxiety disorder, unspecified; F32.A Depression, unspecified; F17.210 Nicotine dependence, cigarettes, uncomplicated; Z86.718 Personal history of other venous thrombosis and embolism; Z79.899 Other long term (current) drug therapy
CPT/HCPCS: 96374; 99285-25; A9270; J3411; J7030

== ENCOUNTER 2022-05-15 20:03 | Inpatient (IN) | payer MEDICARE, OTHER ==
[~2022-05-15] VITALS: Ht 165.1 cm; Wt 75.2 kg
[2022-05-16 00:08] LABS: Source, Urine Straight Cath
[2022-05-16 00:12] LABS: BASOPHILS ABSOLUTE AUTO 0.11 K/mm3 (0.00-0.23); BASOPHILS PERCENT AUTO 1 % (0-2); EOSINOPHILS ABSOLUTE AUTO 0.02 K/mm3 (0.00-0.68); EOSINOPHILS PERCENT AUTO 0 % (0-6); Hematocrit 31.7 % (33.0-51.0); Hemoglobin 11.7 g/dL (11.5-16.0); IMMATURE GRAN ABSOLUTE AUTO 1.18 K/mm3 (0.00-0.10); IMMATURE GRAN PERCENT AUTO 5 % (0-1); LYMPHOCYTES ABSOLUTE AUTO 1.41 K/mm3 (0.84-5.20); LYMPHOCYTES PERCENT AUTO 6 % (21-46); MONOCYTES ABSOLUTE AUTO 2.42 K/mm3 (0.16-1.47); MONOCYTES PERCENT AUTO 10 % (4-13); Mean Corpuscular HGB Conc 36.9 g/dL (31.5-36.5); Mean Corpuscular Volume 92 fL (80-100); Mean Platelet Volume 10.7 fL (9.1-12.4); NEUTROPHILS PERCENT AUTO 79 % (41-73); Platelet Count 197 K/mm3 (150-400); RDW Coefficient Variation 15.3 % (11.7-14.2); RDW Standard Deviation 50.9 fL (35.1-46.3); Red Blood Cell Count 3.44 M/mm3 (3.80-5.20); White Blood Cell Count 24.04 K/mm3 (4.00-11.30)
[2022-05-16 00:19] LABS: Appearance, Urine Hazy (Clear); Bilirubin, Urine Neg (Neg); Blood, Urine 2+ (Neg); Color, Urine Yellow (P-Yellow); Glucose Qualitative, Urine Neg (Neg); Ketones, Urine 2+ (Neg); Leukocyte Esterase, Urine 3+ (Neg); Nitrite, Urine Neg (Neg); Protein, Urine 2+ (Neg); Urobilinogen, Urine NORM (Normal); pH, Urine 6.5 (5.0-8.0)
[2022-05-16 00:47] LABS: White Blood Cells, Urine 25-50 /hpf (0-5)
[2022-05-16 00:48] LABS: Bacteria Many /hpf; Squamous Epithelial Cells Few /hpf (Few)
[2022-05-16 00:48] LABS: Albumin, Blood 2.1 g/dL (3.4-5.0); Albumin/Globulin Ratio 0.5 (0.8-1.8); Bilirubin, Total 0.4 mg/dL (0.1-1.0); Bun/Creatinine Ratio 36.3 (12.0-20.0); Calcium, Blood 9.8 mg/dL (8.5-10.1); Creatinine, Blood 0.8 mg/dL (0.40-1.00); Globulin, Blood 3.9 g/dL (2.2-4.0); Potassium, Blood 2.2 mmol/L (3.5-5.5)
[2022-05-16 00:49] LABS: Influenza A, PCR NEGATIVE (NEGATIVE); Influenza B, PCR NEGATIVE (NEGATIVE); Resp Syncytial Virus, PCR NEGATIVE (NEGATIVE); SARS-Cov-2 (COVID-19) PCR, MMC NEGATIVE (NEGATIVE)
[2022-05-16 00:49] LABS: Transitional Epithelial Cells Few /hpf (0-Rare)
[2022-05-16] MEDS ORDERED: AMLODIPINE BESYL5 MG PO (03:27)
[2022-05-16] MEDS ORDERED: Lisinopril2.5 MG PO (03:27)
[2022-05-16] MEDS ORDERED: Celexa20 MG PO (03:27)
[2022-05-16] MEDS ORDERED: Chlordiazepoxid25 MG PO (03:28)
[2022-05-16 06:01] LABS: Hematocrit 27.9 % (33.0-51.0); Hemoglobin 10.3 g/dL (11.5-16.0); Mean Corpuscular HGB 34.2 pg (26.0-34.0); Mean Corpuscular HGB Conc 36.9 g/dL (31.5-36.5); Mean Corpuscular Volume 93 fL (80-100); Mean Platelet Volume 10.7 fL (9.1-12.4); Platelet Count 190 K/mm3 (150-400); RDW Coefficient Variation 15.4 % (11.7-14.2); RDW Standard Deviation 51.8 fL (35.1-46.3); Red Blood Cell Count 3.01 M/mm3 (3.80-5.20); White Blood Cell Count 19.89 K/mm3 (4.00-11.30)
[2022-05-16 06:03] LABS: Bun/Creatinine Ratio 39.6 (12.0-20.0); Calcium, Blood 9.5 mg/dL (8.5-10.1); Creatinine, Blood 0.71 mg/dL (0.40-1.00); Magnesium, Blood 3.1 mg/dL (1.6-2.4); Potassium, Blood 2.8 mmol/L (3.5-5.5)
[2022-05-16 06:57] LABS: BAND PERCENT MAN 14 % (0-8); BASOPHILS PERCENT MAN 0 % (0-2); EOSINOPHILS ABSOLUTE MAN 0.19 K/mm3 (0.00-0.68); EOSINOPHILS PERCENT MAN 1 % (0-6); LYMPHOCYTES ABSOLUTE MAN 0.99 K/mm3 (0.84-5.20); LYMPHOCYTES PERCENT MAN 5 % (21-46); METAMYELOCYTE ABSOLUTE MAN 0.19 K/mm3 (0.00-0.00); METAMYELOCYTE PERCENT MAN 1 % (0-0); MONOCYTES ABSOLUTE MAN 1.98 K/mm3 (0.16-1.47); MONOCYTES PERCENT MAN 10 % (4-13); MYELOCYTE ABSOLUTE MAN 0.19 K/mm3 (0.00-0.00); MYELOCYTE PERCENT MAN 1 % (0-0); SEG NEUTROPHILS PERCENT MAN 68 % (41-73); TOTAL CELLS COUNTED 100
--- NOTE | 2022-05-16 07:30 | NUR ---
ASSUMED CARE: PT RESTING QUIETLY IN BED. RA, ON TELE IN THE 80S. DENIES NEEDS OR CONCERNS AT THIS TIME.
--- NOTE | 2022-05-16 08:31 | NUR ---
PT ROUSED EASILY TO TAKE MEDS. PT APPLIED NYSTATIN TO APRYL AREA. ODOR AND EXCORIATION NOTED. PT GRIMACED WITH PLACEMENT, IMPLYING TENDERNESS. DENIED OTHER NEEDS OR CONCERNS AT THIS TIME.
--- NOTE | 2022-05-16 11:39 | NUR ---
REPORT GIVEN TO YUMI MATAMOROS. PT TRANSFERRED VIA GURNEY TO ROOM 313 BY HOSPITAL STAFF.
--- NOTE | 2022-05-16 12:00 | NUR ---
PT ARRIVED TO MEDICAL FLOOR FROM ER, TRANSFERRED FROM [facility] TO MEDICAL FLOOR BED WITH ASSISTANCE OF TWO STAFF MEMBERS. PT IS ROOM AIR, AND AXO X 4. SHE IS TIRED, SLEEPY BUT AROUSABLE FOR MEDICATIONS. SHE IS ABLE TO SAFELY EAT LUNCH. PT STATES SHE HASN'T SLEPT FOR "FIVE DAYS" BEFORE ARRIVING AT ER. STATES THAT SHE HAD A SEIZURE BECAUSE SHE COULDN'T FIND HER XANAX. STATES THAT SHE NEEDS TO TAKE "A LITTLE XANAX DAILY" TO PREVENT SEIZURES. PT IS ECCHYMOTIC THROUGH OUT HER BODY. SEIZURE PADS PUT ON BED. PT STATES HER LAST DRINK WAS "A COUPLE OF DAYS BEFORE I LOST MY XANAX", SHE HAD TWO BEERS. PT DENIES HALLUCINATIONS, TREMORS OR HEADACHES. NO VISUAL SWEATS OR ANXIETY. VERY LETHARGIC, BUT AROUSABLE.
--- NOTE | 2022-05-16 17:40 | NUR ---
PT HAS REMAINED LETHARGIC THROUGHOUT THE SHIFT, SLEEPING A LOT BUT IS AROUSABLE TO VOICE FOR MEDICATIONS AND EATING. SHE APPROPRIATELY ANSWERS QUESTIONS AND USES CALL LIGHT. ONE PERSON ASSIST TO BED SIDE COMMODE. CONTINENT. LIVES ALONE AT HOME WITH HER KITTENS. PT HAD LOW POTASSIUM, 2.9, SO RECIEVED IV AND PO POTASSIUM REPLACEMENT. TWO IVS IN BILAT AC, BOTH FLUSH AND ARE PATENT. ROOM AIR. LUNGS CLEAR. PT REPORTS HER LAST BM WAS "TEN DAYS AGO," DENIES FEELINGS OF CONSTIPATION, STATES SHE HAS HAD DECREASED PO INTAKE. RN WILL CONTINUE TO MONITOR AND GIVE REPORT TO ONCOMING NURSE.
[2022-05-17 01:14] LABS: Bun/Creatinine Ratio 34.5 (12.0-20.0); Creatinine, Blood 0.7 mg/dL (0.40-1.00); Potassium, Blood 3.4 mmol/L (3.5-5.5)
--- NOTE | 2022-05-17 07:33 | NUR ---
NO ACUTE CHANGES. K REPLACED.
[2022-05-17 08:18] LABS: Hemoglobin 10.4 g/dL (11.5-16.0); Mean Corpuscular HGB 34.6 pg (26.0-34.0); Mean Corpuscular HGB Conc 35.9 g/dL (31.5-36.5); Mean Corpuscular Volume 96 fL (80-100); Mean Platelet Volume 10.4 fL (9.1-12.4); Platelet Count 278 K/mm3 (150-400); RDW Coefficient Variation 16.6 % (11.7-14.2); RDW Standard Deviation 57.3 fL (35.1-46.3); Red Blood Cell Count 3.01 M/mm3 (3.80-5.20); White Blood Cell Count 17.19 K/mm3 (4.00-11.30)
[2022-05-17 08:32] LABS: Bun/Creatinine Ratio 30.1 (12.0-20.0); Calcium, Blood 9.2 mg/dL (8.5-10.1); Creatinine, Blood 0.66 mg/dL (0.40-1.00); Potassium, Blood 3.5 mmol/L (3.5-5.5)
[2022-05-17 08:45] LABS: BAND PERCENT MAN 4 % (0-8); BASOPHILS PERCENT MAN 0 % (0-2); EOSINOPHILS PERCENT MAN 0 % (0-6); LYMPHOCYTES ABSOLUTE MAN 1.71 K/mm3 (0.84-5.20); LYMPHOCYTES PERCENT MAN 10 % (21-46); METAMYELOCYTE ABSOLUTE MAN 0.51 K/mm3 (0.00-0.00); METAMYELOCYTE PERCENT MAN 3 % (0-0); MONOCYTES ABSOLUTE MAN 0.85 K/mm3 (0.16-1.47); MONOCYTES PERCENT MAN 5 % (4-13); MYELOCYTE ABSOLUTE MAN 0.34 K/mm3 (0.00-0.00); MYELOCYTE PERCENT MAN 2 % (0-0); NEUTROPHILS ABSOLUTE MAN 13.75 K/mm3 (1.96-9.15); SEG NEUTROPHILS PERCENT MAN 76 % (41-73); TOTAL CELLS COUNTED 100
--- NOTE | 2022-05-17 18:31 | NUR ---
SHIFT SUMMARY- PT IS A/O, PLESANT AND COOPERATIVE. CIWA WAS NEGATIVE. HER APPETITE IS POOR DUE TO PAINFUL TOUNGE. SHE SLEPT FOR MUCH OF THIS SHIFT. SHE IS RECIEVING IV ABX. 2 DIFFERENT BACTERIA IN HER UA. HER BED IS IN THE LOW POSITION AND CALL LIGHT IS WITHIN REACH/
[2022-05-18 05:13] LABS: Hematocrit 30.6 % (33.0-51.0); Hemoglobin 10.4 g/dL (11.5-16.0); Mean Corpuscular HGB 33.5 pg (26.0-34.0); Mean Corpuscular Volume 99 fL (80-100); Mean Platelet Volume 10.3 fL (9.1-12.4); NRBC ABSOLUTE 0.02 K/mm3 (0.00-0.02); NRBC Auto 0.1 /100 WBC (0.0-0.2); Platelet Count 325 K/mm3 (150-400); RDW Coefficient Variation 17.4 % (11.7-14.2); RDW Standard Deviation 61.5 fL (35.1-46.3); White Blood Cell Count 19.23 K/mm3 (4.00-11.30)
[2022-05-18 05:39] LABS: Bun/Creatinine Ratio 28.5 (12.0-20.0); Calcium, Blood 8.7 mg/dL (8.5-10.1); Creatinine, Blood 0.63 mg/dL (0.40-1.00); Potassium, Blood 3.7 mmol/L (3.5-5.5)
--- NOTE | 2022-05-18 07:19 | NUR ---
Pt A/Ox4 and call light appropriate. pt c/o some pain in her tongue- prn tylenol given. CIWA scores were negative, although as pt visitor was leaving insurance writer noticed a bottle of hard liqour in his pocket. when asking if she took any both denied. security talked to visitor about bringing in alcohol. Pt was up SBA to the commode and had adequate output.
--- NOTE | 2022-05-18 18:43 | NUR ---
PT IS A/O, SLEPT MOST OF THE DAY. SHE IS RECEIVING ABX THROUGH IV. PT COMPLAINS OF TONGUE PAIN INTERMITTENTLY THROUGHOUT SHIFT R/T INJURY FROM PRIOR FALL. MILD WEAKNESS BUT TRANSFERS STANDBY TO COMMODE. CIWA SCORE OF 2 DUE TO MILD HEADACHE. PT IS RESTING IN BED, CALL LIGHT IN REACH, NO CURRENT COMPLAINTS OR REQUESTS.
--- NOTE | 2022-05-18 19:22 | NUR ---
SHIFT SUMMARY- PT IS A/O, PLESANT AND COOPERATIVE. SHE SLEPT FOR MUCH OF THIS SHIFT. SHE IS USING THE BSC AND CALLS FOR ASSSISTANCE. SHE IS RECIEVING IV ABX. HER URINE IS LESS CLOUDY THAN THE PREVIOUS SHIFT. SHE IS EATING AND DRINKING WELL, LONG THE FOOD IS SOFT. SHE IS RECIEVING PAIN MEDICATION NEEDED FOR HER TOUNGE. HER CIWA HAVE BEEN STABLE. HER BED IS IN THE LOW POSITION AND CALL LIGHT IS WITHIN REACH.
[2022-05-18 20:34] LABS: Vancomycin, Trough 24.6 ug/mL (5.0-10.0)
--- NOTE | 2022-05-19 06:17 | NUR ---
SHIFT SUMMARY: PATIENT REPORTED A HEADACHE AT START OF SHIFT AND SCORES A 3 ON WITHDRAWL SCALE. TYLENOL WAS GIVEN WITH GOOD EFFECT. UP TO THE BSC WITH SBA X1. BED ALARM IS ON FOR SAFETY. VANCO TROUGH WAS 24.6, 2100 DOSE OF VANCO WAS HELD.
--- NOTE | 2022-05-19 16:50 | NUR ---
Shift Summary A/Ox3, pleasant/cooperative. Independent to BSC. Medicated for tongue pain with tylenol, good effect provided. Repositions self in bed. Calling appropriately for needs.
--- NOTE | 2022-05-20 05:48 | NUR ---
SHIFT SUMMARY: NO ACUTE CHANGES, VSS. PATIENT IS UP TO THE BSC WITH SBA TO VOID. IV ROCHEPHIN WAS GIVEN PER MAR. SCORED A ZERO ON ALL WITHDRAWL ASSESSMENTS.
--- NOTE | 2022-05-20 09:21 | NUR ---
PUREE/CARDIAC PATIENT REQUESTING PUREE DIET D/T INJURED/PAINFUL TONGUE FROM SEIZURE BITE. ORDERS UPDATED WITH ADVANCED DIET TOLERATED.
--- NOTE | 2022-05-20 16:32 | NUR ---
Shift Summary A/O, up to bsc independently. Had shower, 1p assist FWW with ambulation to bathroom. Tylenol for tongue pain with good relief. Voiding well, patient reports improvement in urinary tract symptoms associated with UTI. CIWA neg. No acute changes.
--- NOTE | 2022-05-21 07:38 | NUR ---
SHIFT SUMMARY: NO ACUTE CHANGES THIS SHIFT, VSS. PATIENT REPORTS BURNING OF THE LABIA AREA WITH URINATION. BARRIER CREAM IS GIVEN, PATIENT REPORT FAIR EFFECT.
[2022-05-21 09:34] LABS: BASOPHILS PERCENT AUTO 1 % (0-2); EOSINOPHILS ABSOLUTE AUTO 0.14 K/mm3 (0.00-0.68); EOSINOPHILS PERCENT AUTO 1 % (0-6); Hematocrit 31.9 % (33.0-51.0); Hemoglobin 10.8 g/dL (11.5-16.0); IMMATURE GRAN ABSOLUTE AUTO 0.15 K/mm3 (0.00-0.10); IMMATURE GRAN PERCENT AUTO 1 % (0-1); LYMPHOCYTES ABSOLUTE AUTO 2.03 K/mm3 (0.84-5.20); LYMPHOCYTES PERCENT AUTO 17 % (21-46); MONOCYTES ABSOLUTE AUTO 0.75 K/mm3 (0.16-1.47); MONOCYTES PERCENT AUTO 6 % (4-13); Mean Corpuscular HGB Conc 33.9 g/dL (31.5-36.5); Mean Corpuscular Volume 100 fL (80-100); Mean Platelet Volume 10.5 fL (9.1-12.4); NEUTROPHILS ABSOLUTE AUTO 9.14 K/mm3 (1.96-9.15); NEUTROPHILS PERCENT AUTO 74 % (41-73); Platelet Count 417 K/mm3 (150-400); RDW Coefficient Variation 17.2 % (11.7-14.2); RDW Standard Deviation 61.7 fL (35.1-46.3); Red Blood Cell Count 3.18 M/mm3 (3.80-5.20); White Blood Cell Count 12.31 K/mm3 (4.00-11.30)
[2022-05-21 09:46] LABS: Bun/Creatinine Ratio 20.2 (12.0-20.0); Calcium, Blood 8.9 mg/dL (8.5-10.1); Creatinine, Blood 0.5 mg/dL (0.40-1.00); Potassium, Blood 3.8 mmol/L (3.5-5.5)
[2022-05-21] MEDS ORDERED: B-1100 M2 PO (14:18)
[2022-05-21] MEDS ORDERED: LEVOFLOXACIN750 MG PO (14:19)
[2022-05-21] MEDS ORDERED: VISBIOME 112.51 EACH PO (14:19)
--- NOTE | 2022-05-21 14:31 | NUR ---
Discharge Summary emani ROBLES. D/C to home. Reviewed d/c paperwork, no questions at this time, copy given. IV removed. Will be escorted via w/c by staff once patient is dressed. Will send belongings home.
== END 2022-05-21 15:45 | disposition home or self-care (01) | DRG 872 ==
LOC: ER 20:03 → MEDS 05-16 03:10
PROVIDERS: Family Medicine; Internal Medicine; Student in an Organized Health Care Education/Training Program; ADMIT Family Medicine
DX: A41.51 Sepsis due to Escherichia coli [E. coli] (principal); N39.0 Urinary tract infection, site not specified; L03.314 Cellulitis of groin; A41.1 Sepsis due to other specified staphylococcus; E87.6 Hypokalemia; R56.9 Unspecified convulsions; I10 Essential (primary) hypertension; F32.A Depression, unspecified; B95.1 Streptococcus, group B, as the cause of diseases classified elsewhere; G89.4 Chronic pain syndrome; F41.9 Anxiety disorder, unspecified; F10.20 Alcohol dependence, uncomplicated; G62.9 Polyneuropathy, unspecified; M72.2 Plantar fascial fibromatosis; F39 Unspecified mood [affective] disorder; Z96.642 Presence of left artificial hip joint; F17.210 Nicotine dependence, cigarettes, uncomplicated; Z20.822 Contact with and (suspected) exposure to COVID-19; Z86.718 Personal history of other venous thrombosis and embolism; Z88.8 Allergy status to other drugs, medicaments and biological substances; Z88.5 Allergy status to narcotic agent; Z88.1 Allergy status to other antibiotic agents; Z91.038 Other insect allergy status; Z79.899 Other long term (current) drug therapy; Z87.81 Personal history of (healed) traumatic fracture; Z98.890 Other specified postprocedural states
CPT/HCPCS: 0241U; 36415; 70450; 71046; 80048; 80053; 80202; 81001; 82947; 83605; 83735; 84132; 85025; 85027; 87040; 87077; 87086; 87147; 87186; 93005; 93010; 93306; 96365; 96366; 96367; 96375; 99285-25; A9270; J0696; J3370; J3475; J3480; J7030; J7050

== ENCOUNTER 2022-12-21 08:01 | Emergency (ER) | payer MEDICARE, OTHER ==
[~2022-12-21] VITALS: Ht 165.1 cm; Wt 63.5 kg
[~2022-12-21 08:01] MED LIST changes: +AMLODIPINE BESYL5 MG PO; +B-1100 M2 PO; +Chlordiazepoxid25 MG PO; +LEVOFLOXACIN750 MG PO; +Lisinopril2.5 MG PO
[2022-12-21 08:46] LABS: Source, Urine Straight Cath
[2022-12-21 08:51] LABS: Appearance, Urine Clear (Clear); Bilirubin, Urine Neg (Neg); Blood, Urine 1+ (Neg); Glucose Qualitative, Urine Neg (Neg); Ketones, Urine Neg (Neg); Leukocyte Esterase, Urine 1+ (Neg); Nitrite, Urine Neg (Neg); Protein, Urine 2+ (Neg); Urobilinogen, Urine NORM (Normal)
[2022-12-21 09:08] LABS: Albumin, Blood 1.7 g/dL (3.4-5.0); Albumin/Globulin Ratio 0.5 (0.8-1.8); Bilirubin, Total 0.3 mg/dL (0.1-1.0); Bun/Creatinine Ratio 12.1 (12.0-20.0); Calcium, Blood 9.9 mg/dL (8.5-10.1); Creatinine, Blood 0.83 mg/dL (0.40-1.00); Globulin, Blood 3.6 g/dL (2.2-4.0); Total Protein, Blood 5.3 g/dL (6.4-8.2)
[2022-12-21 09:14] LABS: Color, Urine Pale Yellow (P-Yellow)
[2022-12-21 09:16] LABS: Amorphous Light (0-Heavy); Bacteria Mod /hpf; Mucus Light (0-Heavy); Squamous Epithelial Cells Rare /hpf (Few)
[2022-12-21 10:58] LABS: Hematocrit 26.5 % (33.0-51.0); Hemoglobin 10.1 g/dL (11.5-16.0); Red Blood Cell Count 2.84 M/mm3 (3.80-5.20); White Blood Cell Count 10.61 K/mm3 (4.00-11.30)
[2022-12-21 10:59] LABS: Mean Corpuscular HGB 34.8 pg (26.0-34.0); Mean Corpuscular Volume 93 fL (80-100); Mean Platelet Volume 10.5 fL (9.1-12.4); Platelet Count 400 K/mm3 (150-400); RDW Coefficient Variation 16.3 % (11.7-14.2); RDW Standard Deviation 54.4 fL (35.1-46.3)
[2022-12-21 11:00] LABS: BASOPHILS PERCENT AUTO 0 % (0-2); EOSINOPHILS PERCENT AUTO 1 % (0-6); LYMPHOCYTES PERCENT AUTO 22 % (21-46); MONOCYTES PERCENT AUTO 7 % (4-13); NEUTROPHILS PERCENT AUTO 69 % (41-73)
[2022-12-21 11:01] LABS: BASOPHILS ABSOLUTE AUTO 0.04 K/mm3 (0.00-0.23); EOSINOPHILS ABSOLUTE AUTO 0.18 K/mm3 (0.00-0.68); IMMATURE GRAN ABSOLUTE AUTO 0.07 K/mm3 (0.00-0.10); IMMATURE GRAN PERCENT AUTO 1 % (0-1); LYMPHOCYTES ABSOLUTE AUTO 2.34 K/mm3 (0.84-5.20); MONOCYTES ABSOLUTE AUTO 0.73 K/mm3 (0.16-1.47); NEUTROPHILS ABSOLUTE AUTO 7.25 K/mm3 (1.96-9.15)
[2022-12-21 11:07] LABS: Mean Corpuscular HGB Conc 37.4 g/dL (31.5-36.5)
[2022-12-21] MEDS ORDERED: CEFD300 PO (12:55)
[2022-12-21] MEDS ORDERED: POWDERLAX238 GM PO (12:55)
[2022-12-21] MEDS ORDERED: ZINC OXIDE57 GM TOP (12:55)
[2022-12-21 16:00] VITALS: BP 106/68
== END 2022-12-21 16:26 ==
LOC: ER 08:01
PROVIDERS: Physician Assistant
DX: N39.0 Urinary tract infection, site not specified (principal); K59.00 Constipation, unspecified; L29.3 Anogenital pruritus, unspecified; I10 Essential (primary) hypertension; Z86.718 Personal history of other venous thrombosis and embolism; F17.210 Nicotine dependence, cigarettes, uncomplicated; Z88.8 Allergy status to other drugs, medicaments and biological substances; Z88.1 Allergy status to other antibiotic agents; Z88.5 Allergy status to narcotic agent; Z91.030 Bee allergy status; Z79.899 Other long term (current) drug therapy
CPT/HCPCS: 51701; 74018; 80053; 81001; 83605; 83735; 85025; 96365-59; 96366-59; 96375-59; 99285-25; G0480; J0696; J3480; J7030; J7050

== ENCOUNTER 2023-04-29 18:32 | Emergency (ER) | payer MEDICARE, OTHER ==
[~2023-04-29] VITALS: Ht 165.1 cm; Wt 77.1 kg
[~2023-04-29 18:32] MED LIST changes: +AMOX-CLAV 500-1 EAC5; +CALCIUM CARBON500 M1 PO; +CELEXA40 M9 PO; +POWDERLAX238 GM PO; +SODBIC650 PO; +SPIR25 PO; +ZINC OXIDE57 GM TOP
[2023-04-29 19:07] LABS: Source, Urine Straight Cath
[2023-04-29 19:13] LABS: Bilirubin, Urine Neg (Neg); Blood, Urine Neg (Neg); Glucose Qualitative, Urine Neg (Neg); Ketones, Urine Neg (Neg); Leukocyte Esterase, Urine 2+ (Neg); Nitrite, Urine Neg (Neg); Protein, Urine 2+ (Neg); Urobilinogen, Urine NORM (Normal)
[2023-04-29 19:14] LABS: BASOPHILS ABSOLUTE AUTO 0.01 K/mm3 (0.00-0.23); BASOPHILS PERCENT AUTO 0 % (0-2); EOSINOPHILS ABSOLUTE AUTO 0.09 K/mm3 (0.00-0.68); EOSINOPHILS PERCENT AUTO 1 % (0-6); IMMATURE GRAN ABSOLUTE AUTO 0.08 K/mm3 (0.00-0.10); IMMATURE GRAN PERCENT AUTO 1 % (0-1); LYMPHOCYTES ABSOLUTE AUTO 2.33 K/mm3 (0.84-5.20); LYMPHOCYTES PERCENT AUTO 20 % (21-46); MONOCYTES ABSOLUTE AUTO 0.63 K/mm3 (0.16-1.47); MONOCYTES PERCENT AUTO 5 % (4-13); Mean Corpuscular HGB Conc 32.4 g/dL (31.5-36.5); Mean Corpuscular Volume 105 fL (80-100); Mean Platelet Volume 9.5 fL (9.1-12.4); NEUTROPHILS ABSOLUTE AUTO 8.47 K/mm3 (1.96-9.15); NEUTROPHILS PERCENT AUTO 73 % (41-73); NRBC ABSOLUTE 0.15 K/mm3 (0.00-0.02); NRBC Auto 1.3 /100 WBC (0.0-0.2); Platelet Count 300 K/mm3 (150-400); RDW Coefficient Variation 20.9 % (11.7-14.2); RDW Standard Deviation 74.2 fL (35.1-46.3); Red Blood Cell Count 1.03 M/mm3 (3.80-5.20); White Blood Cell Count 11.61 K/mm3 (4.00-11.30)
[2023-04-29 19:20] LABS: Appearance, Urine Clear (Clear); Color, Urine Yellow (P-Yellow)
[2023-04-29 19:42] LABS: Hematocrit 10.8 % (33.0-51.0); Hemoglobin 3.5 g/dL (11.5-16.0); Magnesium, Blood 2.3 mg/dL (1.6-2.4)
[2023-04-29 19:46] LABS: Bacteria Mod /hpf; Red Blood Cells, Urine Not Seen /hpf (0-2); Squamous Epithelial Cells Few /hpf (Few); Transitional Epithelial Cells Few /hpf (0-Rare)
[2023-04-29 19:50] LABS: Alanine Aminotransfer (ALT/SGP 46 U/L (12-78); Albumin, Blood 1.8 g/dL (3.4-5.0); Albumin/Globulin Ratio 0.6 (0.8-1.8); Alk Phos 39 U/L (50-136); Anion Gap 9 mmol/L (6-16); Aspartate Aminotrans (AST/SGOT 69 U/L (12-37); Bilirubin, Total <0.1 mg/dL (0.1-1.0); Blood Urea Nitrogen 20 mg/dL (8-24); Bun/Creatinine Ratio 20.6 (12.0-20.0); CO2, Blood 13 mmol/L (21-32); Calcium, Blood 7.5 mg/dL (8.5-10.1); Chloride, Blood 109 mmol/L (98-108); Creatinine, Blood 0.97 mg/dL (0.40-1.00); Globulin, Blood 2.8 g/dL (2.2-4.0); Glomerular Filtration Rate 66 (60-); Glucose, Blood 96 mg/dL (70-99); Potassium, Blood 2.5 mmol/L (3.5-5.5); Sodium, Blood 131 mmol/L (136-145); Total Protein, Blood 4.6 g/dL (6.4-8.2)
[2023-04-29 19:51] LABS: Ethanol (Alcohol), Blood, Med <3 mg/dL
[2023-04-29 20:59] LABS: International Normalized Ratio 1.06; Prothrombin Time Results 11.1 Sec (9.7-11.5)
[2023-04-29 23:24] VITALS: BP 88/55
== END 2023-04-29 23:50 ==
LOC: ER 18:32
PROVIDERS: Emergency Medicine
DX: K92.2 Gastrointestinal hemorrhage, unspecified (principal); D64.9 Anemia, unspecified; N39.0 Urinary tract infection, site not specified; M62.82 Rhabdomyolysis; E87.6 Hypokalemia; E87.1 Hypo-osmolality and hyponatremia; I95.9 Hypotension, unspecified; Z88.8 Allergy status to other drugs, medicaments and biological substances; Z88.1 Allergy status to other antibiotic agents; Z88.5 Allergy status to narcotic agent; Z91.030 Bee allergy status; Z79.899 Other long term (current) drug therapy; I10 Essential (primary) hypertension; F17.210 Nicotine dependence, cigarettes, uncomplicated
CPT/HCPCS: 36430; 71045; 80053; 81001; 82140; 82272; 82550; 83735; 84443; 85025; 85610; 85730; 86850; 86900; 86901; 86923; 93005; 93010; 96361; 96365; 96366; 96367; 96368; 96376; 99285-25; A9270; C9113; J0696; J3480; J7030; J7060; P9016; P9612

== ENCOUNTER 2023-06-29 12:54 | Emergency (ER) | payer MEDICARE, OTHER ==
[~2023-06-29] VITALS: Ht 160 cm; Wt 59.0 kg
[2023-06-29 13:24] LABS: BASOPHILS ABSOLUTE AUTO 0.03 K/mm3 (0.00-0.23); BASOPHILS PERCENT AUTO 0 % (0-2); EOSINOPHILS ABSOLUTE AUTO 0.03 K/mm3 (0.00-0.68); EOSINOPHILS PERCENT AUTO 0 % (0-6); Hematocrit 30.2 % (33.0-51.0); Hemoglobin 10.8 g/dL (11.5-16.0); IMMATURE GRAN ABSOLUTE AUTO 0.03 K/mm3 (0.00-0.10); IMMATURE GRAN PERCENT AUTO 0 % (0-1); LYMPHOCYTES ABSOLUTE AUTO 5.17 K/mm3 (0.84-5.20); LYMPHOCYTES PERCENT AUTO 57 % (21-46); MONOCYTES ABSOLUTE AUTO 0.62 K/mm3 (0.16-1.47); MONOCYTES PERCENT AUTO 7 % (4-13); Mean Corpuscular HGB 32.3 pg (26.0-34.0); Mean Corpuscular HGB Conc 35.8 g/dL (31.5-36.5); Mean Corpuscular Volume 90 fL (80-100); Mean Platelet Volume 11.5 fL (9.1-12.4); NEUTROPHILS ABSOLUTE AUTO 3.16 K/mm3 (1.96-9.15); NEUTROPHILS PERCENT AUTO 35 % (41-73); Platelet Count 287 K/mm3 (150-400); RDW Coefficient Variation 17.2 % (11.7-14.2); RDW Standard Deviation 57.2 fL (35.1-46.3); Red Blood Cell Count 3.34 M/mm3 (3.80-5.20); White Blood Cell Count 9.04 K/mm3 (4.00-11.30)
[2023-06-29 14:02] LABS: Albumin, Blood 2.4 g/dL (3.4-5.0); Albumin/Globulin Ratio 0.8 (0.8-1.8); Bilirubin, Total 0.4 mg/dL (0.1-1.0); Calcium, Blood 8.1 mg/dL (8.5-10.1); Globulin, Blood 3.2 g/dL (2.2-4.0); Potassium, Blood 2.4 mmol/L (3.5-5.5); Total Protein, Blood 5.6 g/dL (6.4-8.2)
[2023-06-29 14:18] LABS: PCO2 Arterial 29.8 mmHg (35-45); PO2 Arterial 155 mmHg (80-100)
[2023-06-29 14:19] LABS: pH Blood Arterial 7.09 (7.35-7.45)
[2023-06-29 14:45] VITALS: BP 107/72
== END 2023-06-29 15:05 | disposition short-term general hospital (02) ==
LOC: ER 12:54
PROVIDERS: Emergency Medicine
DX: T20.30XA Burn of third degree of head, face, and neck, unspecified site, initial encounter (principal); T20.311A Burn of third degree of right ear [any part, except ear drum], initial encounter; T21.32XA Burn of third degree of abdominal wall, initial encounter; J96.92 Respiratory failure, unspecified with hypercapnia; J70.5 Respiratory conditions due to smoke inhalation; T24.231A Burn of second degree of right lower leg, initial encounter; T24.232A Burn of second degree of left lower leg, initial encounter; T25.211A Burn of second degree of right ankle, initial encounter; T25.212A Burn of second degree of left ankle, initial encounter; T23.201A Burn of second degree of right hand, unspecified site, initial encounter; T23.271A Burn of second degree of right wrist, initial encounter; T31.0 Burns involving less than 10% of body surface; J96.91 Respiratory failure, unspecified with hypoxia; E87.20 Acidosis, unspecified; E87.6 Hypokalemia; D64.9 Anemia, unspecified; Z86.59 Personal history of other mental and behavioral disorders; F10.20 Alcohol dependence, uncomplicated; I10 Essential (primary) hypertension; G89.4 Chronic pain syndrome; F17.210 Nicotine dependence, cigarettes, uncomplicated; Z79.899 Other long term (current) drug therapy; Z88.1 Allergy status to other antibiotic agents; Z88.5 Allergy status to narcotic agent; Z88.8 Allergy status to other drugs, medicaments and biological substances; Z91.030 Bee allergy status; X00.0XXA Exposure to flames in uncontrolled fire in building or structure, initial encounter; Y92.003 Bedroom of unspecified non-institutional (private) residence as the place of occurrence of the external cause; Y93.84 Activity, sleeping
CPT/HCPCS: 16030; 31500; 36600; 51702; 71045; 80053; 82375; 82550; 82803; 83605; 85025; 90471; 90714; 93005; 93010; 94002; 96361-59; 96365-59; 99291-25; G0390; J2704; J3480; J7050

== ENCOUNTER → 2023-11-13 | Outpatient (CLI) | payer MEDICARE, OTHER ==
[~2023-11-13] MED LIST changes: +ALBU2.5V5 INH; +LEVOFLOXACIN250 M3 PO; +MEGESTROL400 MG/11 PO; +QUETIAPINE FUMA25 MG PO; +QUETIAPINE FUMA5012 PO
[2023-11-13 15:29] LABS: Albumin, Blood 2.1 g/dL (3.4-5.0); Anion Gap 15 mmol/L (3-11); Blood Urea Nitrogen 10 mg/dL (8-24); Bun/Creatinine Ratio 15.6 (12.0-20.0); CO2, Blood 16 mmol/L (21-32); Calcium, Blood 8.6 mg/dL (8.5-10.1); Chloride, Blood 108 mmol/L (98-108); Creatinine, Blood 0.64 mg/dL (0.40-1.00); Glomerular Filtration Rate 99 (60-); Glucose, Blood 95 mg/dL (70-99); Phosphorus, Blood 2.6 mg/dL (2.5-4.9); Potassium, Blood 2.5 mmol/L (3.5-5.5); Sodium, Blood 136 mmol/L (136-145)
== END | disposition home or self-care (01) ==
LOC: LAB SHORT 14:10 → LAB 14:10
PROVIDERS: Internal Medicine Nephrology
DX: I12.9 Hypertensive chronic kidney disease with stage 1 through stage 4 chronic kidney disease, or unspecified chronic kidney disease (principal); N18.30 Chronic kidney disease, stage 3 unspecified; D63.1 Anemia in chronic kidney disease
CPT/HCPCS: 80069; 85018

== ENCOUNTER → 2023-11-19 | Outpatient (CLI) | payer MEDICARE, OTHER | END | disposition home or self-care (01) | LOC: LAB 12:30 → LAB SHORT 12:30 | DX: I12.9 Hypertensive chronic kidney disease with stage 1 through stage 4 chronic kidney disease, or unspecified chronic kidney disease (principal); N18.1 Chronic kidney disease, stage 1; E87.6 Hypokalemia; T24.332D Burn of third degree of left lower leg, subsequent encounter ==

== ENCOUNTER → 2023-11-20 | Outpatient (CLI) | payer MEDICARE, OTHER | END | disposition home or self-care (01) | LOC: LAB 12:00 → LAB SHORT 12:00 | DX: N39.0 Urinary tract infection, site not specified (principal) | CPT/HCPCS: 87086 ==

== ENCOUNTER → 2023-11-22 | Outpatient (CLI) | payer MEDICARE, OTHER ==
[2023-11-22 20:02] LABS: Bacterial Vaginosis PCR Negative (NEGATIVE); Candida Group, PCR NOT DETECTED (NOT DETECT); Candida glabrata-krusei, PCR NOT DETECTED (NOT DETECT)
== END ==
LOC: LAB 15:53 → LAB SHORT 15:53
PROVIDERS: Nurse Practitioner Family
DX: N89.8 Other specified noninflammatory disorders of vagina (principal)
CPT/HCPCS: 87481; 87661; 87801

== ENCOUNTER 2023-12-27 19:59 | Emergency (ER) | payer MEDICARE, OTHER ==
[~2023-12-27] VITALS: Ht 167.6 cm; Wt 67.1 kg
[2023-12-27 20:53] LABS: BASOPHILS ABSOLUTE AUTO 0.08 K/mm3 (0.00-0.23); BASOPHILS PERCENT AUTO 1 % (0-2); EOSINOPHILS ABSOLUTE AUTO 0.97 K/mm3 (0.00-0.68); EOSINOPHILS PERCENT AUTO 10 % (0-6); Hematocrit 29.1 % (33.0-51.0); Hemoglobin 9.6 g/dL (11.5-16.0); IMMATURE GRAN ABSOLUTE AUTO 0.07 K/mm3 (0.00-0.10); IMMATURE GRAN PERCENT AUTO 1 % (0-1); LYMPHOCYTES ABSOLUTE AUTO 2.58 K/mm3 (0.84-5.20); LYMPHOCYTES PERCENT AUTO 26 % (21-46); MONOCYTES ABSOLUTE AUTO 0.84 K/mm3 (0.16-1.47); MONOCYTES PERCENT AUTO 8 % (4-13); Mean Corpuscular HGB 30.9 pg (26.0-34.0); Mean Corpuscular Volume 94 fL (80-100); Mean Platelet Volume 9.1 fL (9.1-12.4); NEUTROPHILS ABSOLUTE AUTO 5.43 K/mm3 (1.96-9.15); NEUTROPHILS PERCENT AUTO 55 % (41-73); Platelet Count 631 K/mm3 (150-400); RDW Coefficient Variation 16.5 % (11.7-14.2); RDW Standard Deviation 56.4 fL (35.1-46.3); Red Blood Cell Count 3.11 M/mm3 (3.80-5.20); White Blood Cell Count 9.97 K/mm3 (4.00-11.30)
[2023-12-27 21:15] LABS: Albumin, Blood 1.7 g/dL (3.4-5.0); Albumin/Globulin Ratio 0.4 (0.8-1.8); Bilirubin, Total 0.2 mg/dL (0.1-1.0); Bun/Creatinine Ratio 12.1 (12.0-20.0); Calcium, Blood 8.7 mg/dL (8.5-10.1); Creatinine, Blood 0.66 mg/dL (0.40-1.00); Globulin, Blood 4.5 g/dL (2.2-4.0); Potassium, Blood 3.8 mmol/L (3.5-5.5); Total Protein, Blood 6.2 g/dL (6.4-8.2)
[2023-12-27] MEDS ORDERED: Doxycycline Hyclate 100 MG TAB PO ONE (23:15)
[2023-12-27] MEDS ORDERED: Ipratropium/Albuterol SulF 2.5-0.5MG/3 ML Amp INH ONE (23:20)
[2023-12-28] MEDS ORDERED: Doxycycline Mo100 M1 PO (05:49)
[2023-12-28 07:50] VITALS: BP 111/86
== END 2023-12-28 07:50 | disposition home or self-care (01) ==
LOC: ER 19:59
PROVIDERS: Emergency Medicine
DX: J18.9 Pneumonia, unspecified organism (principal); R60.0 Localized edema; I10 Essential (primary) hypertension; F17.200 Nicotine dependence, unspecified, uncomplicated; Z88.1 Allergy status to other antibiotic agents; Z88.5 Allergy status to narcotic agent; Z91.038 Other insect allergy status; Z88.8 Allergy status to other drugs, medicaments and biological substances; Z79.899 Other long term (current) drug therapy
CPT/HCPCS: 71046; 71260; 80053; 83605; 83880; 85025; 85379; 93005; 93010; 94640; 94664; 99285-25; A9270; Q9967

== ENCOUNTER 2024-02-15 16:23 | Inpatient (IN) | payer MEDICARE, OTHER ==
[2024-02-15] VITALS (11 sets, daily range): BP systolic 96–139; BP diastolic 69–125
[~2024-02-15] VITALS: Ht 152.4 cm; Wt 49.0 kg
[~2024-02-15 16:23] MED LIST changes: +Doxycycline Mo100 M1 PO
[2024-02-15] MEDS ORDERED: Magnesium Sulf 2 GM/Water 50ML 50 ML IV ONE (16:50)
[2024-02-15] MEDS ORDERED: LORazepam 2 MG/ML 1ML Injection IV ONE (16:50)
[2024-02-15 16:59] LABS: Calcium, Ionized (POC) 1.36 mmol/L (1.10-1.46); Chloride (POC) 120 mmol/L (98-108); Creatinine (POC) 1.4 mg/dL (0.6-1.0); Glucose (ISTAT POC) 167 mg/dL (70-99); Hemoglobin (POC) 13.3 g/dL (12.0-16.0); Potassium (POC) 5.6 mmol/L (3.5-5.5); Sodium (POC) 137 mmol/L (135-148); Total CO2 (POC) 13 mmol/L (21-32)
[2024-02-15 17:05] LABS: BASOPHILS ABSOLUTE AUTO 0.03 K/mm3 (0.00-0.23); BASOPHILS PERCENT AUTO 0 % (0-2); EOSINOPHILS PERCENT AUTO 0 % (0-6); Hematocrit 35.5 % (33.0-51.0); Hemoglobin 13.1 g/dL (11.5-16.0); IMMATURE GRAN ABSOLUTE AUTO 0.07 K/mm3 (0.00-0.10); IMMATURE GRAN PERCENT AUTO 1 % (0-1); LYMPHOCYTES ABSOLUTE AUTO 1.36 K/mm3 (0.84-5.20); LYMPHOCYTES PERCENT AUTO 9 % (21-46); MONOCYTES PERCENT AUTO 6 % (4-13); Mean Corpuscular HGB 31.8 pg (26.0-34.0); Mean Corpuscular HGB Conc 36.9 g/dL (31.5-36.5); Mean Corpuscular Volume 86 fL (80-100); Mean Platelet Volume 10.7 fL (9.1-12.4); NEUTROPHILS ABSOLUTE AUTO 12.22 K/mm3 (1.96-9.15); NEUTROPHILS PERCENT AUTO 84 % (41-73); Platelet Count 446 K/mm3 (150-400); RDW Standard Deviation 55.3 fL (35.1-46.3); Red Blood Cell Count 4.12 M/mm3 (3.80-5.20); White Blood Cell Count 14.58 K/mm3 (4.00-11.30)
[2024-02-15 18:57] LABS: Beta-hydroxybutyrate 13.2 mg/dL (0.2-2.8); Magnesium, Blood 3.4 mg/dL (1.6-2.4)
[2024-02-15 18:59] LABS: Alanine Aminotransfer (ALT/SGP 35 U/L (12-78); Albumin, Blood 2.7 g/dL (3.4-5.0); Albumin/Globulin Ratio 0.6 (0.8-1.8); Alk Phos 59 U/L (50-136); Anion Gap 13 mmol/L (3-11); Aspartate Aminotrans (AST/SGOT 35 U/L (12-37); Bilirubin, Total 0.5 mg/dL (0.1-1.0); Blood Urea Nitrogen 29 mg/dL (8-24); Bun/Creatinine Ratio 22.3 (12.0-20.0); CO2, Blood 11 mmol/L (21-32); Calcium, Blood 10.4 mg/dL (8.5-10.1); Chloride, Blood 118 mmol/L (98-108); Globulin, Blood 4.2 g/dL (2.2-4.0); Glomerular Filtration Rate 46 (60-); Glucose, Blood 163 mg/dL (70-99); Phosphorus, Blood 2.6 mg/dL (2.5-4.9); Potassium, Blood 1.8 mmol/L (3.5-5.5); Sodium, Blood 140 mmol/L (136-145); Total Protein, Blood 6.9 g/dL (6.4-8.2)
[2024-02-15 19:00] LABS: Ethanol (Alcohol), Blood, Med <3 mg/dL
[2024-02-15] MEDS ORDERED: D5W-1/2NS 1,000 ML IV SCH (19:05)
[2024-02-15] MEDS ORDERED: Thiamine HCl 100 MG in NS 50 ML IV ONE (19:05)
[2024-02-15] MEDS ORDERED: Potassium Chloride 40 MEQ in NS 250 ML IV ONE (19:05)
[2024-02-15 19:39] LABS: Base Excess Venous -18.8 mmol/L; Bicarbonate Venous 11.4 mmol/L (24.0-30.0); PCO2 Venous 29 mmHg (38-42); pH Blood Venous 7.15 (7.34-7.37)
[2024-02-15] MEDS ORDERED: LORazepam 2 MG/ML 1ML Injection IM ONE (19:50)
[2024-02-15] MEDS ORDERED: Ondansetron HCl 2 MG / ML 2ML Vial IV PRN (20:40)
[2024-02-15] MEDS ORDERED: LORazepam 2 MG/ML 1ML Injection IV PRN ×2 (20:40)
[2024-02-15] MEDS ORDERED: CefTRIAXone Sodium 1,000 MG in NS 100 ML IV SCH (21:00)
[2024-02-15] MEDS ORDERED: Lactated Ringer's 1,000 ML IV ONE (21:00)
[2024-02-15] MEDS ORDERED: Folic Acid 1 MG in NS 50 ML IV SCH (21:00)
[2024-02-15] MEDS ORDERED: Potassium Chl 20MEQ/Water100ML 100 ML IV SCH (21:00)
[2024-02-15 21:01] LABS: Thyroid Stimulating Hormone 1.4 uIU/mL (0.360-4.800)
[2024-02-15] MEDS ORDERED: NS 0 ML IV ONE (21:14)
[2024-02-15] MEDS ORDERED: Vancomycin HCL 1,000 MG in NS 250 ML IV ONE (22:52)
[2024-02-15 23:07] LABS: Source, Urine Foley catheter
[2024-02-15 23:10] LABS: Bilirubin, Urine Neg (Neg); Blood, Urine 5+ (Neg); Glucose Qualitative, Urine Neg (Neg); Ketones, Urine Neg (Neg); Leukocyte Esterase, Urine 1+ (Neg); Nitrite, Urine Neg (Neg); Protein, Urine 3+ (Neg); Specific Gravity, Urine 1.015 (1.003-1.022); Urobilinogen, Urine NORM (Normal)
[2024-02-15 23:13] LABS: Appearance, Urine Clear (Clear); Color, Urine Yellow (P-Yellow)
[2024-02-15 23:35] LABS: Amorphous Light (0-Heavy); Bacteria Few /hpf; Red Blood Cells, Urine 0-2 /hpf (0-2); Squamous Epithelial Cells Few /hpf (Few); Transitional Epithelial Cells Few /hpf (0-Rare)
[2024-02-16] VITALS (57 sets, daily range): BP systolic 72–114; BP diastolic 47–91
--- NOTE | 2024-02-16 00:50 | NUR ---
[facility] MESSAGE LEFT TO [facility]ULT [facility] WITH CALL BACK NUMBER FOR ICU.
[2024-02-16] MEDS ORDERED: Potassium Chloride 40 MEQ in NS 250 ML IV ONE ×3 (03:00→07:45)
[2024-02-16 05:03] LABS: Hematocrit 25.2 % (33.0-51.0); Hemoglobin 9.4 g/dL (11.5-16.0); Mean Corpuscular HGB 31.8 pg (26.0-34.0); Mean Corpuscular HGB Conc 37.3 g/dL (31.5-36.5); Mean Corpuscular Volume 85 fL (80-100); Platelet Count 316 K/mm3 (150-400); RDW Coefficient Variation 16.9 % (11.7-14.2); RDW Standard Deviation 52.5 fL (35.1-46.3); Red Blood Cell Count 2.96 M/mm3 (3.80-5.20)
--- NOTE | 2024-02-16 05:17 | NUR ---
PATIENT ARRIVED TO ICU ROOM 3 AT 2150 02/14. PATIENT IS NOT ORIENTATED BUT DOES RESPOND TO VERBAL AND PAINFUL STIMULI. PATIENT LOOKS TO HAVE CONTRACTURES IN ALL EXTERMITIES. PATIENT IS IN SINUS. PATIENT IS ON RA. LUNGS SOUNDS CLEAR. SCHWARTZ PLACED DUE TO OPEN WOUND ON BUTTOCK. DURING INSERSTION A MAGGOT WAS FOUND IN THE PERINEAL AREA, MD AWARE. PATIETN HAS A RASH ON LEGS AND TRUNK. SKIN TEAR TO R ELBOW. WOUND TO L ANKLE. SCATTERED BRUSINING. ALL PHOTOS IN THE CHART. REPLACING PATIENTS K AND WILL RECHECK PER MD ORDER.
[2024-02-16 05:27] LABS: BAND PERCENT MAN 13 % (0-8); BASOPHILS PERCENT MAN 0 % (0-2); EOSINOPHILS PERCENT MAN 0 % (0-6); LYMPHOCYTES ABSOLUTE MAN 0.77 K/mm3 (0.84-5.20); LYMPHOCYTES PERCENT MAN 3 % (21-46); MONOCYTES ABSOLUTE MAN 1.29 K/mm3 (0.16-1.47); MONOCYTES PERCENT MAN 5 % (4-13); NEUTROPHILS ABSOLUTE MAN 23.73 K/mm3 (1.96-9.15); SEG NEUTROPHILS PERCENT MAN 79 % (41-73); TOTAL CELLS COUNTED 100
[2024-02-16 06:09] LABS: Magnesium, Blood 3.1 mg/dL (1.6-2.4)
[2024-02-16 06:13] LABS: Albumin/Globulin Ratio 0.6 (0.8-1.8); Bilirubin, Total 0.4 mg/dL (0.1-1.0); Bun/Creatinine Ratio 24.8 (12.0-20.0); Calcium, Blood 9.3 mg/dL (8.5-10.1); Creatinine, Blood 1.21 mg/dL (0.40-1.00); Globulin, Blood 3.3 g/dL (2.2-4.0); Potassium, Blood 2.7 mmol/L (3.5-5.5); Total Protein, Blood 5.3 g/dL (6.4-8.2)
[2024-02-16] MEDS ORDERED: Sodium Bicarb 8.4% Inj 150 MEQ in Dextrose 5% 1,000 ML IV SCH (07:30)
[2024-02-16 07:59] LABS: Base Excess Venous -17.9 mmol/L; Bicarbonate Venous 12.1 mmol/L (24.0-30.0); PCO2 Venous 25 mmHg (38-42); pH Blood Venous 7.21 (7.34-7.37)
--- NOTE | 2024-02-16 08:23 | NUR ---
ASSUMED CARE BEDSIDE REPORT FROM GASTON EASON AT 0700. PT RESTING IN BED. RESPONSIVE TO PAINFUL STIMULI, LOCALIZES PAIN. MOANS, NO WORDS. PROTECTING AIRWAY. KACEY. EXT CONTRACTED. OCCASIONAL COUGH, LUNGS CLEAR, O2 SATS >97%. SR, RATE 70'S. BP STABLE. KCL BEING REPLACED. SKIN FRAGILE c BREAKDOWN AND RASHES, SEE SKIN ASSESSMENT AND PHOTOS. SCHWARTZ PATENT, DRAINING CLEAR YELLOW URINE TO GRAVITY. CVC TO RIJ, DRESSING C/D/I. WILL CONTINUE PLAN OF CARE.
[2024-02-16] MEDS ORDERED: Enoxaparin 30 MG/0.3 ML SYR SC SCH (09:00)
[2024-02-16 10:03] LABS: Bun/Creatinine Ratio 24.8 (12.0-20.0); Calcium, Blood 9.4 mg/dL (8.5-10.1); Creatinine, Blood 1.17 mg/dL (0.40-1.00); Potassium, Blood 2.7 mmol/L (3.5-5.5)
[2024-02-16 12:11] LABS: Creatinine, Blood 1.12 mg/dL (0.40-1.00); Potassium, Blood 2.8 mmol/L (3.5-5.5)
[2024-02-16 12:18] LABS: Vancomycin, Random 15.4 ug/mL
[2024-02-16] MEDS ORDERED: Vancomycin HCL 750 MG in NS 250 ML IV SCH (13:00)
[2024-02-16 13:06] LABS: Base Excess Venous -12.6 mmol/L; Bicarbonate Venous 15.3 mmol/L (24.0-30.0); PCO2 Venous 25.3 mmHg (38-42); pH Blood Venous 7.33 (7.34-7.37)
[2024-02-16 13:45] LABS: Magnesium, Blood 2.9 mg/dL (1.6-2.4)
[2024-02-16 13:47] LABS: Albumin, Blood 1.8 g/dL (3.4-5.0); Anion Gap 11 mmol/L (3-11); Blood Urea Nitrogen 27 mg/dL (8-24); Bun/Creatinine Ratio 26.2 (12.0-20.0); CO2, Blood 13 mmol/L (21-32); Chloride, Blood 131 mmol/L (98-108); Creatinine, Blood 1.03 mg/dL (0.40-1.00); Glomerular Filtration Rate 61 (60-); Glucose, Blood 137 mg/dL (70-99); Potassium, Blood 2.9 mmol/L (3.5-5.5); Sodium, Blood 152 mmol/L (136-145)
[2024-02-16 13:48] LABS: Phosphorus, Blood 0.9 mg/dL (2.5-4.9)
[2024-02-16] MEDS ORDERED: Potassium Phosphate Dibasic 30 MM in Dextrose 5% 500 ML IV ONE (13:55)
[2024-02-16] MEDS ORDERED: Dextrose 5% 1,000 ML IV SCH (13:55)
--- NOTE | 2024-02-16 17:18 | NUR ---
SHIFT SUMMARY PT ALERT TO NAME ONLY, STATES "WHAT" WHEN NAME CALLED, DOES NOT FOLLOW DIRECTIONS OF ANSWER QUESTIONS APPROPRIATELY. AIRWAY PATENT, OCCASIONAL COUGH. LUNGS CLEAR, ON RA. NPO D/T MENTAL STATUS. SR, RATE 80'S. BP STABLE. PT ABLE TO REPOSITION SELF IN BED. K AND PHOS REPLACED THIS SHIFT. NEPHROLOGY CONSULTED. PLAN FOR REPEAT LABS. D5 AND HCO3 GTT INFUSING. CVC TO RIJ, DRESSING C/D/I. SCHWARTZ PATENT, DRAINED 250 ML CLEAR YELLOW URINE TO GRAVITY. WILL CONTINUE PLAN OF CARE UNTIL REPORT TO ONCOMING NURSE.
[2024-02-16 17:32] LABS: PCO2 Venous 26.2 mmHg (38-42); pH Blood Venous 7.32 (7.34-7.37)
[2024-02-16 17:33] LABS: Base Excess Venous -12.4 mmol/L; Bicarbonate Venous 15.5 mmol/L (24.0-30.0)
[2024-02-16 18:27] LABS: Albumin, Blood 1.8 g/dL (3.4-5.0); Anion Gap 10 mmol/L (3-11); Blood Urea Nitrogen 24 mg/dL (8-24); Bun/Creatinine Ratio 26.5 (12.0-20.0); CO2, Blood 15 mmol/L (21-32); Calcium, Blood 8.6 mg/dL (8.5-10.1); Chloride, Blood 128 mmol/L (98-108); Glomerular Filtration Rate 71 (60-); Glucose, Blood 187 mg/dL (70-99); Phosphorus, Blood 2.1 mg/dL (2.5-4.9); Potassium, Blood 3.2 mmol/L (3.5-5.5); Sodium, Blood 150 mmol/L (136-145)
[2024-02-16] MEDS ORDERED: Potassium Chl 20MEQ/Water100ML 100 ML IV ONE (19:00)
[2024-02-16] MEDS ORDERED: Thiamine HCl 100 MG in NS 50 ML IV SCH (20:00)
[2024-02-16] MEDS ORDERED: DEXTROSE 5% IV SCH (21:00)
[2024-02-16] MEDS ORDERED: FOLIC ACID IV SCH (21:00)
[2024-02-16 21:07] LABS: Base Excess Venous -13.8 mmol/L; Bicarbonate Venous 14.6 mmol/L (24.0-30.0); PCO2 Venous 23.7 mmHg (38-42); pH Blood Venous 7.32 (7.34-7.37)
[2024-02-16 21:29] LABS: Albumin, Blood 1.9 g/dL (3.4-5.0); Anion Gap 12 mmol/L (3-11); Blood Urea Nitrogen 24 mg/dL (8-24); Bun/Creatinine Ratio 24.3 (12.0-20.0); CO2, Blood 13 mmol/L (21-32); Calcium, Blood 8.6 mg/dL (8.5-10.1); Chloride, Blood 126 mmol/L (98-108); Creatinine, Blood 0.99 mg/dL (0.40-1.00); Glomerular Filtration Rate 64 (60-); Glucose, Blood 136 mg/dL (70-99); Phosphorus, Blood 3.2 mg/dL (2.5-4.9); Potassium, Blood 3.2 mmol/L (3.5-5.5); Sodium, Blood 148 mmol/L (136-145)
[2024-02-16] MEDS ORDERED: Potassium Chloride 30 MEQ IV ONE (21:45)
[2024-02-16] MEDS ORDERED: Potassium Chl 20MEQ/Water100ML 100 ML IV STA (21:46)
[2024-02-16] MEDS ORDERED: Lactated Ringer's 1,000 ML IV ONE (22:10)
[2024-02-16] MEDS ORDERED: Albumin Human 50 ML IV SCH (23:30)
[2024-02-16] MEDS ORDERED: Albumin (Human) 25gm/100ml 100 ML IV ONE (23:30)
[2024-02-17] VITALS (56 sets, daily range): BP systolic 74–117; BP diastolic 47–100
[2024-02-17] MEDS ORDERED: Potassium Chl 10MEQ/Water100ML 100 ML IV ONE
[2024-02-17 04:09] LABS: BASOPHILS ABSOLUTE AUTO 0.03 K/mm3 (0.00-0.23); BASOPHILS PERCENT AUTO 0 % (0-2); EOSINOPHILS ABSOLUTE AUTO 0.11 K/mm3 (0.00-0.68); EOSINOPHILS PERCENT AUTO 1 % (0-6); Hematocrit 20.9 % (33.0-51.0); Hemoglobin 7.8 g/dL (11.5-16.0); IMMATURE GRAN ABSOLUTE AUTO 0.11 K/mm3 (0.00-0.10); IMMATURE GRAN PERCENT AUTO 1 % (0-1); LYMPHOCYTES ABSOLUTE AUTO 1.62 K/mm3 (0.84-5.20); LYMPHOCYTES PERCENT AUTO 11 % (21-46); MONOCYTES ABSOLUTE AUTO 1.05 K/mm3 (0.16-1.47); MONOCYTES PERCENT AUTO 7 % (4-13); Mean Corpuscular HGB 31.7 pg (26.0-34.0); Mean Corpuscular HGB Conc 37.3 g/dL (31.5-36.5); Mean Corpuscular Volume 85 fL (80-100); Mean Platelet Volume 10.5 fL (9.1-12.4); NEUTROPHILS ABSOLUTE AUTO 12.12 K/mm3 (1.96-9.15); NEUTROPHILS PERCENT AUTO 81 % (41-73); NRBC ABSOLUTE 0.02 K/mm3 (0.00-0.02); NRBC Auto 0.1 /100 WBC (0.0-0.2); Platelet Count 262 K/mm3 (150-400); RDW Coefficient Variation 17.1 % (11.7-14.2); RDW Standard Deviation 52.5 fL (35.1-46.3); Red Blood Cell Count 2.46 M/mm3 (3.80-5.20); White Blood Cell Count 15.04 K/mm3 (4.00-11.30)
[2024-02-17 04:14] LABS: Base Excess Venous -11.8 mmol/L; Bicarbonate Venous 15.9 mmol/L (24.0-30.0); pH Blood Venous 7.33 (7.34-7.37)
[2024-02-17 04:24] LABS: Albumin, Blood 2.2 g/dL (3.4-5.0); Anion Gap 14 mmol/L (3-11); Blood Urea Nitrogen 19 mg/dL (8-24); Bun/Creatinine Ratio 22.1 (12.0-20.0); CO2, Blood 14 mmol/L (21-32); Calcium, Blood 8.4 mg/dL (8.5-10.1); Chloride, Blood 120 mmol/L (98-108); Creatinine, Blood 0.86 mg/dL (0.40-1.00); Glomerular Filtration Rate 75 (60-); Glucose, Blood 184 mg/dL (70-99); Magnesium, Blood 2.3 mg/dL (1.6-2.4); Phosphorus, Blood 2.4 mg/dL (2.5-4.9); Potassium, Blood 2.7 mmol/L (3.5-5.5); Sodium, Blood 145 mmol/L (136-145)
[2024-02-17] MEDS ORDERED: Potassium Chloride 40 MEQ in NS 250 ML IV ONE ×3 (05:15→18:10)
[2024-02-17] MEDS ORDERED: Sodium Phosphate 20 MM in Dextrose 5% 500 ML IV ONE (05:30)
--- NOTE | 2024-02-17 07:41 | NUR ---
ASSUMED CARE BEDSIDE REPORT FROM GASTON EASON AT 0700. PT RESTING IN BED. EYES CLOSED, RESTLESS, ROLLING, SITTING UP IN BED. RESPONSES TO NAME, DOES NOT ANSWER ANY QUESTIONS. FOLLOWS SIMPLE COMMANDS. MAE. ERAZO. SR, RATE 80-100'S. LEVO GTT FOR MAP>65. NAHCO3, D5W, KCL, NAPHOS INFUSING. CVC TO RIJ, DRESSING C/D/I. LUNGS CLEAR BUT COARSE IN RLL. OCCASIONAL NON PRODUCTIVE COUGH. NPO D/T MENTAL STATUS. SCHWARTZ PATENT, DRAINING CLEAR YELLOW URINE TO GRAVITY. SKIN IN POOR CONDITION, SEE SKIN ASSESSMENT. PLAN FOR REPEAT LABS AT 1200. WILL CONTINUE PLAN OF CARE.
[2024-02-17] MEDS ORDERED: Enoxaparin 40 MG/0.4 ML SYR SC SCH (09:00)
[2024-02-17 12:11] LABS: Base Excess Venous -12.3 mmol/L; Bicarbonate Venous 15.4 mmol/L (24.0-30.0); PCO2 Venous 27.5 mmHg (38-42); pH Blood Venous 7.31 (7.34-7.37)
[2024-02-17 12:53] LABS: Anion Gap 14 mmol/L (3-11); Blood Urea Nitrogen 14 mg/dL (8-24); Bun/Creatinine Ratio 19.2 (12.0-20.0); CO2, Blood 14 mmol/L (21-32); Calcium, Blood 7.7 mg/dL (8.5-10.1); Chloride, Blood 115 mmol/L (98-108); Creatinine, Blood 0.73 mg/dL (0.40-1.00); Glomerular Filtration Rate 92 (60-); Glucose, Blood 108 mg/dL (70-99); Phosphorus, Blood 3.3 mg/dL (2.5-4.9); Potassium, Blood 2.8 mmol/L (3.5-5.5); Sodium, Blood 140 mmol/L (136-145); Vancomycin, Trough 15.1 ug/mL (5.0-10.0)
[2024-02-17] MEDS ORDERED: SODIUM BICARB IV SCH (17:15)
--- NOTE | 2024-02-17 17:16 | NUR ---
SHIFT SUMMARY MENTATION IMPROVED THIS SHIFT. RESPONSE TO NAME, STATES BIRTHDAY, ANSWERS SOME YES/NO QUESTIONS APPROPRIATELY. KEEPS EYES CLOSED, OCCASIONALLY RESTLESS IN BED. APPEARED TO BE HAVING VISUAL HALLUCINATIONS, MEDICATED c ATIVAN. FOLLOWS SIMPLE COMMANDS. LUNGS CLEAR, ON RA. OCCASIONAL COUGH. NPO. SR, RATE 90'S. BP STABLE. LEVO TITRATED OFF THIS SHIFT. SCHWARTZ PATENT, DRAINED 750 ML CLEAR YELLOW URINE TO GRAVITY. 1 BM THIS SHIFT. D5W AND NAHCO3 GTT INFUSING. WILL CONTINUE PLAN OF CARE UNTIL REPORT TO ONCOMING NURSE.
[2024-02-17] MEDS ORDERED: Sodium Bicarb 8.4% Inj 150 MEQ in Dextrose 5% 1,000 ML IV SCH (17:20)
[2024-02-17 18:04] LABS: PCO2 Venous 27.9 mmHg (38-42); pH Blood Venous 7.37 (7.34-7.37)
[2024-02-17 18:05] LABS: Base Excess Venous -9.2 mmol/L; Bicarbonate Venous 17.5 mmol/L (24.0-30.0)
[2024-02-17 18:06] LABS: Potassium, Blood 3.1 mmol/L (3.5-5.5)
[2024-02-17] MEDS ORDERED: Aa 4.25%/Calcium/Lytes/D5w 1,000 ML IV SCH (18:15)
[2024-02-17] MEDS ORDERED: NS 1,000 ML BAG IR SCH (21:15)
[2024-02-17] MEDS ORDERED: NS 250 ML IV PRN (21:25)
[2024-02-18] VITALS (32 sets, daily range): BP systolic 91–130; BP diastolic 61–98
--- NOTE | 2024-02-18 01:12 | NUR ---
PATIENT ROLLING SIDE TO SIDE IN BED, NOT FOLLOWING COMMANDS, BUT ATTEMPTING TO OPEN EYES. MEDICATED WITH ATIVAN SLOWLY, WITH GOOD RESULTS. PATIENT LESS RESTLESS.
[2024-02-18 04:13] LABS: BASOPHILS ABSOLUTE AUTO 0.03 K/mm3 (0.00-0.23); BASOPHILS PERCENT AUTO 0 % (0-2); EOSINOPHILS ABSOLUTE AUTO 0.28 K/mm3 (0.00-0.68); EOSINOPHILS PERCENT AUTO 3 % (0-6); Hematocrit 22.6 % (33.0-51.0); Hemoglobin 8.4 g/dL (11.5-16.0); IMMATURE GRAN ABSOLUTE AUTO 0.08 K/mm3 (0.00-0.10); IMMATURE GRAN PERCENT AUTO 1 % (0-1); LYMPHOCYTES ABSOLUTE AUTO 1.47 K/mm3 (0.84-5.20); LYMPHOCYTES PERCENT AUTO 15 % (21-46); MONOCYTES ABSOLUTE AUTO 0.49 K/mm3 (0.16-1.47); MONOCYTES PERCENT AUTO 5 % (4-13); Mean Corpuscular HGB 32.1 pg (26.0-34.0); Mean Corpuscular HGB Conc 37.2 g/dL (31.5-36.5); Mean Corpuscular Volume 86 fL (80-100); Mean Platelet Volume 10.5 fL (9.1-12.4); NEUTROPHILS ABSOLUTE AUTO 7.79 K/mm3 (1.96-9.15); NEUTROPHILS PERCENT AUTO 77 % (41-73); NRBC ABSOLUTE 0.02 K/mm3 (0.00-0.02); NRBC Auto 0.2 /100 WBC (0.0-0.2); Platelet Count 258 K/mm3 (150-400); RDW Coefficient Variation 17.5 % (11.7-14.2); RDW Standard Deviation 54.3 fL (35.1-46.3); Red Blood Cell Count 2.62 M/mm3 (3.80-5.20); White Blood Cell Count 10.14 K/mm3 (4.00-11.30)
[2024-02-18 04:30] LABS: Albumin, Blood 1.9 g/dL (3.4-5.0); Anion Gap 15 mmol/L (3-11); Blood Urea Nitrogen 11 mg/dL (8-24); Bun/Creatinine Ratio 20.5 (12.0-20.0); CO2, Blood 16 mmol/L (21-32); Calcium, Blood 8.1 mg/dL (8.5-10.1); Chloride, Blood 116 mmol/L (98-108); Creatinine, Blood 0.54 mg/dL (0.40-1.00); Glomerular Filtration Rate 103 (60-); Glucose, Blood 114 mg/dL (70-99); Phosphorus, Blood 3.7 mg/dL (2.5-4.9); Potassium, Blood 2.9 mmol/L (3.5-5.5); Sodium, Blood 144 mmol/L (136-145)
[2024-02-18] MEDS ORDERED: Potassium Chloride 40 MEQ in NS 250 ML IV ONE (05:30)
--- NOTE | 2024-02-18 05:47 | NUR ---
DR. MELCHOR AT BEDSIDE TO SEE PATIENT. KCL BOLUS STARTED. PATIENT STARTING TO FOLLOW SIMPLE COMMANDS
--- NOTE | 2024-02-18 07:38 | NUR ---
ASSUMED CARE BEDSIDE REPORT FROM KIRTI EASON AT 0700. PT IN BED, RESTLESS. CIWA 12. MEDICATED c ATIVAN ORDERED. PT OPENS EYES SPONT, FOLLOWS SIMPLE COMMANDS, MAEW, ORIENTED TO SELF AND PLACE. SR, RATE 80-100'S. BP STABLE. LEVO GTT PLACED ON STANDBY, MAP>65. LUNGS COARSE ON RIGHT SIDE, OCCASIONAL NON PRODUCTIVE COUGH. PROTECTING AIRWAY. NPO. CLINIMIX GTT INFUSING. CVC TO RIJ, DRESSING C/D/I. SCHWARTZ PATENT, DRAINING CLEAR YELLOW URINE TO GRAVITY. SKIN FRAGILE, SEE SKIN ASSESSMENT. WILL CONTINUE PLAN OF CARE.
[2024-02-18 12:04] LABS: Anion Gap 12 mmol/L (3-11); Blood Urea Nitrogen 11 mg/dL (8-24); Bun/Creatinine Ratio 21.3 (12.0-20.0); CO2, Blood 18 mmol/L (21-32); Chloride, Blood 117 mmol/L (98-108); Creatinine, Blood 0.52 mg/dL (0.40-1.00); Glomerular Filtration Rate 104 (60-); Glucose, Blood 104 mg/dL (70-99); Phosphorus, Blood 3.3 mg/dL (2.5-4.9); Potassium, Blood 3.3 mmol/L (3.5-5.5); Sodium, Blood 144 mmol/L (136-145)
[2024-02-18 12:06] LABS: Calcium, Blood 8.3 mg/dL (8.5-10.1)
[2024-02-18] MEDS ORDERED: Potassium Chl 20MEQ/Water100ML 100 ML IV ONE ×2 (12:15→20:00)
--- NOTE | 2024-02-18 15:39 | NUR ---
Spoke to pt's roommate Janak who goes by "Hippie." He states the patient has been sneaking alcohol occasionally, and that he hasn't been buying it for her. He also states he has legal papers and an advance directive that Yarelis's code status should be DNR. He agrees to bring this paperwork in. Attempted to visit with the patient today, but she remains confused, only answering some very basic "yes" or "no" questions. Plan to change code status to DNR if appropriate paperwork becomes available, and will continue to attempt to work on goals of care with pt when she is more responsive and coherent.
--- NOTE | 2024-02-18 17:51 | NUR ---
SHIFT SUMMARY NO ACUTE CHANGES THIS SHIFT. RESPONSE TO VERBAL STIMULI, FOLLOWS SIMPLE DIRECTIONS. ANSWERS SOME YES/NO QUESTIONS. MAEW. CIWA 10-12, ATIVAN GIVEN. LUNGS COARSE ON RIGHT, OCCASIONAL COUGH. SR, RATE 60-80'S. BP STABLE. CLINIMIX GTT INFUSING, KCL ADMINSTERED. SCHWARTZ PATENT, DRAINED 1500 ML CLEAR YELLOW URINE TO GRAVITY. WILL CONTINUE PLAN OF CARE UNTIL REPORT TO ONCOMING NURSE.
--- NOTE | 2024-02-18 21:20 | NUR ---
PT. BECOMING SLIGHTLY MORE AGITATED, TRYING TO SIT UP, BUT ABLE TO ANSWER QUESTIONS AND FOLLOW SIMPLE COMMANDS. MEDICATED WITH ATIVAN SLOWLY AND AWAITING RESULTS.L
[2024-02-19] VITALS (9 sets, daily range): BP systolic 89–122; BP diastolic 54–91
--- NOTE | 2024-02-19 00:35 | NUR ---
PATIENT WITH INCREASING AGITATION, TURNED SIDEWAY IN THE BED. PLAYING IN HER WET/DIRTY BRIEF. PATIENT CLEANED AND BARRIER CREAM APPLIED TO PERIANAL AREA. MEDICATED WITH ATIVAN
[2024-02-19] MEDS ORDERED: Dextrose 10% 500 ML IV SCH (03:00)
[2024-02-19 03:35] LABS: Hematocrit 21.5 % (33.0-51.0); Hemoglobin 7.8 g/dL (11.5-16.0)
[2024-02-19 03:51] LABS: Magnesium, Blood 1.6 mg/dL (1.6-2.4)
[2024-02-19 03:55] LABS: Albumin, Blood 1.7 g/dL (3.4-5.0); Anion Gap 12 mmol/L (3-11); Blood Urea Nitrogen 8 mg/dL (8-24); Bun/Creatinine Ratio 18.3 (12.0-20.0); CO2, Blood 18 mmol/L (21-32); Calcium, Blood 7.8 mg/dL (8.5-10.1); Chloride, Blood 119 mmol/L (98-108); Creatinine, Blood 0.44 mg/dL (0.40-1.00); Glomerular Filtration Rate 108 (60-); Glucose, Blood 80 mg/dL (70-99); Potassium, Blood 2.6 mmol/L (3.5-5.5); Sodium, Blood 146 mmol/L (136-145)
[2024-02-19] MEDS ORDERED: Dextrose 5% 1,000 ML IV SCH (05:35)
[2024-02-19] MEDS ORDERED: Mag Sulfate 1 GM/D5% 100ML 100 ML IV ONE (05:35)
[2024-02-19] MEDS ORDERED: Potassium Chl 20MEQ/Water100ML 100 ML IV SCH (06:30)
--- NOTE | 2024-02-19 06:40 | NUR ---
DR MELCHOR NOTIFIED OF LAB VALUES AND NEW ORDERS NOTED. MAGNESIUM, POTASSIUM BOLUSES STARTED. IV FLUID OF D5W STARTED AT 50CC/HR. PATIENT'S MENTATION CONTUINING TO IMPROVE.
--- NOTE | 2024-02-19 07:40 | NUR ---
ASSUMED CARE: REPORT RECEIVED FROM YUMI CARLOS. ASSUMED CARE OF THIS PT AT APPROX 0700. ON ASSESSMENT, THE PT IS RESTING QUIETLY. SHE AWAKENS BRIEFLY TO VERBAL STIMULUS & TURNS HEAD TOWARDS NAME BEING SAID. LS CLEAR, PT ON RA WITH O2 SATS > 95% WHEN CHECKED. MONITOR SHOWS SB-SR WITH HR 50-80s, BP STABLE. PT NPO AT THIS TIME R/T SOMNOLENCE & INABILITY TO STAY AWAKE LONG ENOUGH TO SAFELY HAVE PO INTAKE. INCONTINENT OF URINE, ATTENDS IN PLACE. SKIN CONDITION OVERALL FRAGILE, ECCHYMOTIC & WITH NUMEROUS SMALL ABRASIONS/ WOUNDS - SEE ASSESSMENT. Q2H REPOSITIONING TO MAINTAIN SKIN INTEGRITY. WILL CONTINUE TO MONITOR & UPDATE NEEDED.
[2024-02-19 12:26] LABS: Anion Gap 7 mmol/L (3-11); Blood Urea Nitrogen 8 mg/dL (8-24); Bun/Creatinine Ratio 20.4 (12.0-20.0); CO2, Blood 23 mmol/L (21-32); Calcium, Blood 8.3 mg/dL (8.5-10.1); Chloride, Blood 113 mmol/L (98-108); Creatinine, Blood 0.39 mg/dL (0.40-1.00); Glomerular Filtration Rate 111 (60-); Glucose, Blood 105 mg/dL (70-99); Phosphorus, Blood 3.4 mg/dL (2.5-4.9); Potassium, Blood 3.3 mmol/L (3.5-5.5); Sodium, Blood 140 mmol/L (136-145)
[2024-02-19] MEDS ORDERED: Potassium Chloride 40 MEQ in NS 250 ML IV ONE (12:55)
[2024-02-19] MEDS ORDERED: TPN Consult Notification XX ONE (14:15)
--- NOTE | 2024-02-19 16:13 | NUR ---
TELEPHONE REPORT FROM YUMI SIERRA. PT COMING TO PCU 9
[2024-02-19] MEDS ORDERED: SODIUM ACETATE 30 MEQ IV SCH (17:00)
[2024-02-19] MEDS ORDERED: [UNRECOGNIZED DRUG - OTHER] IV SCH (17:00)
[2024-02-19] MEDS ORDERED: POTASSIUM CHLORIDE 50 MEQ IV SCH (17:00)
[2024-02-19] MEDS ORDERED: SODIUM CHLORIDE IV SCH (17:00)
--- NOTE | 2024-02-19 17:11 | NUR ---
TRANSFER TO PCU: REPORT GIVEN TO SNEHAL Melgoza RN TO ASSUME CARE. PT TRANSFERRED TO PCU-09 AT APPROX 1700. CHART, MEDICATIONS & ALL BELONGINGS HAVE BEEN TRANSFERRED AT THAT TIME.
--- NOTE | 2024-02-19 17:33 | NUR ---
Received pt from ICU 3 to PCU 9. She is easily awakened, alert for several minutes at a time. Oriented to person only. Resistant to hygiene care which was done upon arrival. She had had urinary incontinence and was also picking at her open wounds covering her thighs and buttocks with very dirty fingernails. Care was completed and pt is lying on her left side, appears to be comfortable at this time. Central line dressing was changed by ULTRASOUND MANAGER YUMI Chavira reported upon transfer. Active infusions of D5, Thiamine and potassium chloride. Pt is NSR/sinus arrhythmia by telemetry with PACs and occasional MObitz I. Heart Rate is 79 bpm. Respirations even and unlabored, 16-18/minute Temp 97.1, spo2 97% on room air. B/P 97/64
--- NOTE | 2024-02-19 18:18 | NUR ---
Attempted to begin Sharon bedside swallow evaluation, but the pt is unable to participate due to her confusion. Defered until tomorrow. CPN infusing via central line. Dressings to left shoulder and left elbow removed, noted soiled and replaced with new mepilex dressings. The pt is needing frequent reminders not to attempt to pull up the edge of the central line CHG dressing. Bed alarm is on.
[2024-02-19 19:16] LABS: Albumin, Blood 1.9 g/dL (3.4-5.0); Anion Gap 8 mmol/L (3-11); Blood Urea Nitrogen 7 mg/dL (8-24); Bun/Creatinine Ratio 16.5 (12.0-20.0); CO2, Blood 21 mmol/L (21-32); Calcium, Blood 8.3 mg/dL (8.5-10.1); Chloride, Blood 114 mmol/L (98-108); Creatinine, Blood 0.43 mg/dL (0.40-1.00); Glomerular Filtration Rate 109 (60-); Glucose, Blood 105 mg/dL (70-99); Phosphorus, Blood 2.4 mg/dL (2.5-4.9); Potassium, Blood 3.2 mmol/L (3.5-5.5); Sodium, Blood 140 mmol/L (136-145)
[2024-02-20 03:25] VITALS: BP 120/95
[2024-02-20 04:12] LABS: Hematocrit 26.2 % (33.0-51.0); Hemoglobin 9.3 g/dL (11.5-16.0)
--- NOTE | 2024-02-20 05:38 | NUR ---
SHIFT SUMMARY THIS RN ASSUMED CARE OF PATIENT AT 1900 FOLLOWING BEDSIDE SHIFT REPORT. PATIENT APPEARS RESTLESS AND IMPULSIVE. NO SIGN OF ACUTE DISTRESS. NEURO - PATIENT RESPONDS TO NAME BUT CANNOT ANSWER ANY ORIENTATION QUESTIONS ASKED BY RN. PT IS VERY CONFUSED AND UNRECEPTIVE TO REORIENTATION RESPONDING WITH AGITATION/ANGER. PUPILS EQUAL & REACTIVE BUT SLUGGISH. ABLE TO MOVE ALL EXTREMITIES AT WILL BUT HAVING DIFFICULTY FOLLOWING DIRECTION. PRN ATIVAN GIVEN PER CIWA SCORES. PATIENT IS A HIGH FALL & SAFETY RISK. AVASURE IN PLACE. PT'S ROOM NEAR NURSE'S STATION FOR INCREASED MONITORING. CV - CONTINUOUS TELEMETRY MONITORING. SINUS ARRYTHMIA NOTED. HR 60'S - 70'S. BP STABLE. AFEBRILE. RESP - ON ROOM AIR. LUNG SOUNDS CLEAR. OCCASIONAL PRODUCTIVE COUGH NOTED. GI - NPO ON TPN AT THIS TIME. INCONTINENT. ATTENDS IN PLACE. - INCONTINENT. PUREWICK IN PLACE, CHANGED THIS AM. M/S - PATIENT FREQUENTLY REPOSITIONS SELF IN BED. NURSE ASSIST FOR Q2 TURNS.
[2024-02-20 06:22] LABS: Albumin, Blood 2.1 g/dL (3.4-5.0); Anion Gap 8 mmol/L (3-11); Blood Urea Nitrogen 8 mg/dL (8-24); Bun/Creatinine Ratio 19.1 (12.0-20.0); CO2, Blood 20 mmol/L (21-32); Calcium, Blood 8.6 mg/dL (8.5-10.1); Chloride, Blood 114 mmol/L (98-108); Creatinine, Blood 0.42 mg/dL (0.40-1.00); Glomerular Filtration Rate 109 (60-); Glucose, Blood 84 mg/dL (70-99); Magnesium, Blood 1.8 mg/dL (1.6-2.4); Phosphorus, Blood 2.8 mg/dL (2.5-4.9); Potassium, Blood 3.4 mmol/L (3.5-5.5); Sodium, Blood 139 mmol/L (136-145); Triglycerides 111 mg/dL (30-160)
[2024-02-20] MEDS ORDERED: Potassium Chl 20MEQ/Water100ML 100 ML IV ONE (06:40)
[2024-02-20 07:42] VITALS: BP 113/99
[2024-02-20 11:51] VITALS: BP 99/68
[2024-02-20 12:28] LABS: Vancomycin, Trough 14.3 ug/mL (5.0-10.0)
[2024-02-20] MEDS ORDERED: Vancomycin HCL 750 MG in NS 250 ML IV SCH (13:00)
--- NOTE | 2024-02-20 14:44 | NUR ---
Wound assessment and care completed. All wounds were documented and updated in photo assessment in chart. Cleansed with standard [facility] wound cleanser and covered with mepilex dressings on the left heel, right forearm. Other wounds were left open to air.
[2024-02-20 15:51] VITALS: BP 102/56
[2024-02-20 18:02] LABS: Albumin, Blood 1.8 g/dL (3.4-5.0); Anion Gap 6 mmol/L (3-11); Blood Urea Nitrogen 7 mg/dL (8-24); Bun/Creatinine Ratio 16.9 (12.0-20.0); CO2, Blood 23 mmol/L (21-32); Calcium, Blood 8.3 mg/dL (8.5-10.1); Chloride, Blood 118 mmol/L (98-108); Creatinine, Blood 0.41 mg/dL (0.40-1.00); Glomerular Filtration Rate 110 (60-); Glucose, Blood 94 mg/dL (70-99); Phosphorus, Blood 2.7 mg/dL (2.5-4.9); Potassium, Blood 3.1 mmol/L (3.5-5.5); Sodium, Blood 144 mmol/L (136-145)
[2024-02-20] MEDS ORDERED: Potassium Chloride 40 MEQ in NS 250 ML IV ONE (18:10)
--- NOTE | 2024-02-20 18:12 | NUR ---
Called results of chemistry labs to Dr. Burdick.
--- NOTE | 2024-02-20 18:56 | NUR ---
Pt's GUMARO Briceno was here to see the patient. States that he is a tenant on her property, along with some other housemates. States that the pt has been in need of help at home for making sure that she is taking care of herself, as she self-neglects quite a lot. He states that she has said that she has in the past refused to eat, has overdosed on her own medications and simply refused to take care of her own hygiene. The pt has been very lethargic all day. At this time she occasionally has awakened in the past hour, for very short conversations, but falls back to sleep readily.
[2024-02-20 20:00] VITALS: BP 118/77
[2024-02-20 23:49] VITALS: BP 109/71
[2024-02-21] VITALS (7 sets, daily range): BP systolic 95–131; BP diastolic 68–93
[2024-02-21 03:51] LABS: Hemoglobin 8.6 g/dL (11.5-16.0)
[2024-02-21 04:09] LABS: Albumin, Blood 1.8 g/dL (3.4-5.0); Anion Gap 10 mmol/L (3-11); Blood Urea Nitrogen 8 mg/dL (8-24); Bun/Creatinine Ratio 16.6 (12.0-20.0); CO2, Blood 20 mmol/L (21-32); Chloride, Blood 122 mmol/L (98-108); Creatinine, Blood 0.48 mg/dL (0.40-1.00); Glomerular Filtration Rate 106 (60-); Glucose, Blood 92 mg/dL (70-99); Magnesium, Blood 1.5 mg/dL (1.6-2.4); Phosphorus, Blood 2.4 mg/dL (2.5-4.9); Potassium, Blood 3.7 mmol/L (3.5-5.5); Sodium, Blood 148 mmol/L (136-145)
--- NOTE | 2024-02-21 06:00 | NUR ---
1915 Assumed care of pt, bedside report completed. Shift plan of care reviewed with pt, will need frequent re-enforcement and re-orientation. Pt with uneventful shift, VSS. Pt alert though oriented to self only despite frequent re-orientation. Pleasant and will occasionally follow simple commands though it is unclear how uch she is able to retain. Pt incontinent of urine, repeatedly removed Purewick, left out at this time and attends in place. Frequent oral care, poor dentition noted. Skin in poor condition though appears to be markedly improved from admit per 02/20/24 repeat pictures. Please see full assessment for additional details. No further complaints or concernsat this time, will continue to monitor.
[2024-02-21] MEDS ORDERED: Dextrose 5% 1,000 ML IV SCH (06:15)
[2024-02-21] MEDS ORDERED: Mag Sulfate 1 GM/D5% 100ML 100 ML IV STA (06:23)
[2024-02-21] MEDS ORDERED: Potassium Phosphate Dibasic 10 MM in Dextrose 5% 250 ML IV STA (06:23)
--- NOTE | 2024-02-21 11:41 | NUR ---
Pt ate snack with good appetite after passing [place] Bedside swallow this morning. She is sitting up in recliner chair. Frequently pulling on the central line dressing; she managed to completely remove it 2 nights ago. Today she is directable but has nearly no short term memory and so keeps forgetting not to pull on it. Concern for this safety issue. Avasure alerts are prompt to tell staff when pt is attempting to pull the dressing. Covered dressing at this time with a neck pillow so that may help.
--- NOTE | 2024-02-21 13:38 | NUR ---
The pt managed to tear the CHG dressing open at the insertion site of the central line, without disloging the rest of the dressing. Manasa has called multiple times today as the pt kept reaching for the dressing and scratching and pulling at it. The pt is now oriented to person and to place, but needs frequent redirecting in order to remind her of safety/care/tx. Transfered from bed to chair mid morning, and now back to bed. She has been calm, confused, pleasant and cooperative. Smiling frequently and responds well to directions. Plan is to d/c the central line if the patient is eating and drinking well the rest of the day, as the pt's interference with the line is posing a safety risk.
--- NOTE | 2024-02-21 14:41 | NUR ---
Readily drinking orange juice provided to her.
--- NOTE | 2024-02-21 15:46 | NUR ---
ASSUMPTION OF CARE: PATIENT ON ROOM AIR, ALERT AND ORIENTED 2-3, MILDLY COOPERATIVE AND REDIRECTABLE, SITTER AT BEDSIDE.TELE SITTER WELL. PATIENT CENTRAL LINE RECEIVING CPN STOPPED AT THIS TIME, INCREASED PO INTAKE TODAY. POWERGLIDE ESTABLISHED BY DAY RN, TELE SR/HUBERT JAMES I BLOCKED PAC'S AT TIMES, VSS.
[2024-02-21] MEDS ORDERED: SODIUM ACETATE IV SCH ×2 (17:00)
[2024-02-21] MEDS ORDERED: SODIUM CHLORIDE IV SCH ×2 (17:00)
[2024-02-21] MEDS ORDERED: POTASSIUM CHLORIDE 50 MEQ IV SCH ×2 (17:00)
[2024-02-21] MEDS ORDERED: [UNRECOGNIZED DRUG - OTHER] IV SCH ×2 (17:00)
[2024-02-22 04:01] VITALS: BP 109/72
[2024-02-22 04:10] LABS: BASOPHILS ABSOLUTE AUTO 0.05 K/mm3 (0.00-0.23); BASOPHILS PERCENT AUTO 1 % (0-2); EOSINOPHILS ABSOLUTE AUTO 0.26 K/mm3 (0.00-0.68); EOSINOPHILS PERCENT AUTO 4 % (0-6); Hematocrit 22.3 % (33.0-51.0); Hemoglobin 7.7 g/dL (11.5-16.0); IMMATURE GRAN ABSOLUTE AUTO 0.03 K/mm3 (0.00-0.10); IMMATURE GRAN PERCENT AUTO 0 % (0-1); LYMPHOCYTES ABSOLUTE AUTO 1.87 K/mm3 (0.84-5.20); LYMPHOCYTES PERCENT AUTO 28 % (21-46); MONOCYTES ABSOLUTE AUTO 0.91 K/mm3 (0.16-1.47); MONOCYTES PERCENT AUTO 14 % (4-13); Mean Corpuscular HGB 32.1 pg (26.0-34.0); Mean Corpuscular HGB Conc 34.5 g/dL (31.5-36.5); Mean Corpuscular Volume 93 fL (80-100); Mean Platelet Volume 10.2 fL (9.1-12.4); NEUTROPHILS ABSOLUTE AUTO 3.59 K/mm3 (1.96-9.15); NEUTROPHILS PERCENT AUTO 54 % (41-73); Platelet Count 213 K/mm3 (150-400); RDW Coefficient Variation 17.7 % (11.7-14.2); RDW Standard Deviation 59.7 fL (35.1-46.3); White Blood Cell Count 6.71 K/mm3 (4.00-11.30)
[2024-02-22 04:26] LABS: International Normalized Ratio 0.93
[2024-02-22 04:33] LABS: Albumin, Blood 1.8 g/dL (3.4-5.0); Albumin/Globulin Ratio 0.6 (0.8-1.8); Bilirubin, Total 0.3 mg/dL (0.1-1.0); Bun/Creatinine Ratio 14.3 (12.0-20.0); Calcium, Blood 7.8 mg/dL (8.5-10.1); Creatinine, Blood 0.49 mg/dL (0.40-1.00); Globulin, Blood 2.9 g/dL (2.2-4.0); Magnesium, Blood 1.5 mg/dL (1.6-2.4); Phosphorus, Blood 2.7 mg/dL (2.5-4.9); Potassium, Blood 3.4 mmol/L (3.5-5.5); Total Protein, Blood 4.7 g/dL (6.4-8.2)
--- NOTE | 2024-02-22 05:52 | NUR ---
SHIFT SUMMARY PATEINT SLEPT MOST OF SHIFT. HAD A BEDBATH BY AIDES DUE TO BOWEL MOVEMENT. HAS PUREWICK IN PLACE WITH ATTENDS OVER IT FOR INCOTINENCE. SITTER IN ROOM. PATEITN KNOWS SELF BUT NOT , OR WHERE SHE IS. PATIENT OVERESTIMATES ABILITY TO DO THINGS. CAN MOVE SELF IN BED. HR AND SBP STABLE THROUGHOUT SHIFT. WHEN AWAKE PATEINT ENJOYS FOOD AND DRINKS. CALL LIGHT WITHIN REACH.
[2024-02-22] MEDS ORDERED: Magnesium Sulf 2 GM/Water 50ML 50 ML IV ONE (06:05)
[2024-02-22] MEDS ORDERED: Potassium Chl 10MEQ/Water100ML 100 ML IV SCH (08:00)
[2024-02-22 08:06] VITALS: BP 102/71
--- NOTE | 2024-02-22 14:10 | NUR ---
REPORT FROM YANIQUE ROSARIO, PATIENT IN ROOM, 1:1 AT BEDSIDE, CALL LIGHT WITH IN REACH
[2024-02-22 14:48] VITALS: BP 101/67
--- NOTE | 2024-02-22 17:43 | NUR ---
NO CHANGES, ORIETATION TO SELF ONLY, VERY CONSFUSED AND IMPULSIVE, 1:1 AT BEDSIDE, MEDICATED WITH ATIVAN, CALL LIGHT WITH IN REACH, BED ALARM ON, WILL RELAY TO PMRN
[2024-02-22 18:58] VITALS: BP 101/72
[2024-02-22] MEDS ORDERED: Arginine/Glutamine/Calcium Hmb 1 Packet PO SCH (21:00)
[2024-02-23] MEDS ORDERED: NS 250 ML IV PRN (01:15)
[2024-02-23 02:53] VITALS: BP 100/64
--- NOTE | 2024-02-23 06:23 | NUR ---
SHIFT SUMMARY DX HYPOKALEMIA. HX Depression, Hypertension, Insomnia, GERD, history of alcohol abuse and history of alcoholic hepatitis. IV RIGHT AC PATIENT APPEARED TO SLEEP THROUGH THE NIGHT. ABLE TO MAKE NEEDS KNOWN. BED IN LOW POSITION, RAILS X2 CALL LIGHT WITHIN REACH.
[2024-02-23 06:27] LABS: Hematocrit 24.9 % (33.0-51.0); Hemoglobin 8.3 g/dL (11.5-16.0)
[2024-02-23 07:00] LABS: Albumin, Blood 1.9 g/dL (3.4-5.0); Anion Gap 9 mmol/L (3-11); Blood Urea Nitrogen 12 mg/dL (8-24); Bun/Creatinine Ratio 23.3 (12.0-20.0); CO2, Blood 19 mmol/L (21-32); Calcium, Blood 8.3 mg/dL (8.5-10.1); Chloride, Blood 116 mmol/L (98-108); Creatinine, Blood 0.51 mg/dL (0.40-1.00); Glomerular Filtration Rate 104 (60-); Glucose, Blood 89 mg/dL (70-99); Magnesium, Blood 1.8 mg/dL (1.6-2.4); Phosphorus, Blood 3.3 mg/dL (2.5-4.9); Potassium, Blood 4.2 mmol/L (3.5-5.5); Sodium, Blood 140 mmol/L (136-145)
[2024-02-23 07:39] VITALS: BP 98/62
[2024-02-23] MEDS ORDERED: Loperamide HCl 2 MG Cap PO PRN (11:55)
[2024-02-23] MEDS ORDERED: Lactobacil 2-S.Thermo-Bifido 1 1 Cap PO SCH (12:00)
[2024-02-23 15:19] VITALS: BP 100/70
--- NOTE | 2024-02-23 16:48 | NUR ---
SHIFT SUMMARY MS HURST IS ORIENTATED TO HERSELF, SOMETIMES TO [place]. SHE HAS CONFUSED CONVERSATION AND NEEDS FREQUENT REORIENTATION. SITTER AT BEDSIDE HELPING TO REDIRECT HER. SHE HAS RASH OVER BUTTOCKS AND HIPS, PHOTO PUT IN CHART. SEVERAL EPISODES OF DIARRHEA STOOL, GIVEN IMODIUM AFTER 3RD LARGE STOOL INCONTINENT STOOL THIS SHIFT AND SHE HAS HAD AN EPISODE OF INCONTINENCE OF STOOL SINCE. PROTECTIVE SKIN CREAM ON RASH. LEG WOUND CLEANSED AND REDRESSED. PHOTO IN CHART. SMALL AMOUNT OF YELLOW EXUDATE. 2 PERSON ASSIST UP TO CHAIR. MS HURST HAS BEEN EATING WELL FOR BREAKFAST AND LUNCH TODAY. 1+EDEMA NOTED TO FEET. IN BED, CALL LIGHT IN REACH, BED ALARM ON AND SITTER AT BEDSIDE.
[2024-02-23 19:33] VITALS: BP 115/76
[2024-02-24 03:35] VITALS: BP 104/76
--- NOTE | 2024-02-24 06:26 | NUR ---
SHIFT SUMMARY PATIENT DID NOT SLEEP AT NIGHT. INCONTINENT 3 TIMES THROUGH THE NIGHT. GAVE IMODIUM. PATIENT IS DISORIENTATED AT TIMES AND APPEARS CONFUSED. ASKED SITTER AND WAS DENIED SALT TO PUT IN HER COFFEE, PATIENT ADVISED ALERT AND ORIENTED TO SELF. BED IN LOW POSITION, RAILS TIMES 2, CALL LIGHT WITHIN REACH.
[2024-02-24 07:09] VITALS: BP 109/75
[2024-02-24 07:29] LABS: Hematocrit 25.8 % (33.0-51.0); Hemoglobin 8.4 g/dL (11.5-16.0)
[2024-02-24 07:56] LABS: Albumin, Blood 2.1 g/dL (3.4-5.0); Anion Gap 11 mmol/L (3-11); Blood Urea Nitrogen 18 mg/dL (8-24); Bun/Creatinine Ratio 39.3 (12.0-20.0); CO2, Blood 18 mmol/L (21-32); Calcium, Blood 8.3 mg/dL (8.5-10.1); Chloride, Blood 112 mmol/L (98-108); Creatinine, Blood 0.46 mg/dL (0.40-1.00); Glomerular Filtration Rate 107 (60-); Glucose, Blood 116 mg/dL (70-99); Magnesium, Blood 1.8 mg/dL (1.6-2.4); Potassium, Blood 3.8 mmol/L (3.5-5.5); Sodium, Blood 137 mmol/L (136-145)
[2024-02-24] MEDS ORDERED: Omeprazole 20 MG CapCR PO SCH (14:00)
--- NOTE | 2024-02-24 15:32 | NUR ---
SHIFT SUMMARY MS HURST IS ORIENTATED TO HER NAME ONLY, HAS BEEN VERY CONFUSED. NONSENSICAL CONVERSATION. SHE HAS NOT SLEPT AT ALL TODAY AND PER REPORT DID NOT SLEEP LAST NIGHT. UP TO THE CHAIR WITH 2 PERSON ASSISTANCE, GAIT BELT AND FRONT WHEEL WALKER TWICE SO FAR TODAY. SHE WALKS ON HER TOES AND UNABLE TO FLEX HER FOOT TO PUT WEIGHT ON HER HEELS. SITTER DISCONTINUED. RUE POWERGLIDE IS DOUBLE WRAPPED. LOOSE BROWN STOOL SEMI FORMED X 2 TODAY. INCONTINENT OF STOOL AND URINE. RASH ON BUTTOCKS AND HIPS, DEPENDS CHECKED AND CHANGED TO KEEP SKIN CLEAN AND DRY POSSIBLE. ZINC BARRIER CREAM APPLIED. MS HURST DOES NOT USE THE CALL LIGHT BUT CALLS OUT FOR HELP. BED LOW, CALL LIGHT IN REACH. BED AND CHAIR ALARMS USED.
[2024-02-24 15:41] VITALS: BP 121/84
[2024-02-24 20:32] VITALS: BP 129/91
[2024-02-25 02:21] VITALS: BP 119/66
--- NOTE | 2024-02-25 06:19 | NUR ---
SHIFT SUMMARY PATIENT VISITED BY PATIENTS POWER OF ASSISTANT SALES DIRECTOR AND ANOTHER FRIEND. PATIENT WAS INCONTINENT TWICE. HS MEDICATION TAKEN. APPEARED MORE DISORIENTED AND NOT ABLE TO KEEP LINEAR CONVERSATION, OFTEN TRYING TO ANSWER QUESTION, THEN LOOSING THOUGHT AND CHANGING TO SOMETHING ABSTRACT. PATIENT BECAME AGITATED WHEN TOLD SHE STAFF SHE WANTED BOOZE OR BEER. DENTAL DETAIL REPRESENTATIVE REDIRECTED PATIENT. BED IN LOW POSITION CALL LIGHT WITHIN REACH, RAILS TIMES 2.
[2024-02-25 07:22] VITALS: BP 130/88
[2024-02-25 07:22] LABS: Albumin, Blood 2.2 g/dL (3.4-5.0); Anion Gap 12 mmol/L (3-11); Blood Urea Nitrogen 15 mg/dL (8-24); Bun/Creatinine Ratio 30.9 (12.0-20.0); CO2, Blood 17 mmol/L (21-32); Calcium, Blood 8.7 mg/dL (8.5-10.1); Chloride, Blood 113 mmol/L (98-108); Creatinine, Blood 0.49 mg/dL (0.40-1.00); Glomerular Filtration Rate 105 (60-); Glucose, Blood 99 mg/dL (70-99); Magnesium, Blood 1.7 mg/dL (1.6-2.4); Phosphorus, Blood 3.8 mg/dL (2.5-4.9); Potassium, Blood 3.6 mmol/L (3.5-5.5); Sodium, Blood 138 mmol/L (136-145)
[2024-02-25 07:44] LABS: Base Excess Venous -7.5 mmol/L; Bicarbonate Venous 18.9 mmol/L (24.0-30.0); PCO2 Venous 33.3 mmHg (38-42); pH Blood Venous 7.35 (7.34-7.37)
[2024-02-25 15:41] VITALS: BP 109/72
--- NOTE | 2024-02-25 18:09 | NUR ---
SHIFT SUMMARY PATIENT A/OX3 THIS SHIFT AND CONFUSED. REQUESTING SAMPLES FROM THE LOCAL BREWERY THIS AM. PATIENT RELUCTANT TO CARE, REFUSING TO GET OUT OF BED, REFUSING OCCUPATIONAL THERAPY, AND REFUSING CLAUDE PACKET THIS AM. PATIENT WITH INCREASED APPETITE PER REPORT AND ATE 100% OF LUNCH. DRESSING TO LEFT LOWER EXTREMITY C/D/I. NO OTHER CONCERNS AT THIS TIME.
[2024-02-25 19:32] VITALS: BP 109/74
[2024-02-25] MEDS ORDERED: Sodium Bicarbonate 650 MG Tab PO SCH (21:00)
--- NOTE | 2024-02-26 04:44 | NUR ---
VISITOR USE ASSISTANT SUMMARY PT A/OX3. ORIENTATION/MENTATION SEEMS TO WAX/MICHELLE. PT CLEAR AND FOLLOWING DIRECTIONS AT TIMES AND OTHER TIMES RESPONSES ARE CONFUSED. PT CAN MAKE NEEDS KNOWN WITH PROMPTING. PT REFUSING CLAUDE. MEPILEX DRESSINGS TO BLE ARE CDI--NOT CHANGED THIS SHIFT. CALL LIGHT ACCESSIBLE. BED ALARM IN PLACE. REGULAR INTERVAL ROUNDING COMPLETE.
[2024-02-26 05:33] VITALS: BP 120/81
[2024-02-26 05:49] LABS: Hematocrit 24.3 % (33.0-51.0); Hemoglobin 8.1 g/dL (11.5-16.0)
[2024-02-26 06:17] LABS: Anion Gap 13 mmol/L (3-11); Blood Urea Nitrogen 12 mg/dL (8-24); Bun/Creatinine Ratio 23.1 (12.0-20.0); CO2, Blood 19 mmol/L (21-32); Calcium, Blood 8.3 mg/dL (8.5-10.1); Chloride, Blood 114 mmol/L (98-108); Creatinine, Blood 0.52 mg/dL (0.40-1.00); Glomerular Filtration Rate 104 (60-); Glucose, Blood 78 mg/dL (70-99); Magnesium, Blood 1.7 mg/dL (1.6-2.4); Phosphorus, Blood 3.6 mg/dL (2.5-4.9); Potassium, Blood 3.1 mmol/L (3.5-5.5); Sodium, Blood 143 mmol/L (136-145)
[2024-02-26] MEDS ORDERED: Potassium Chloride 20 MEQ TabCR PO SCH (08:00)
[2024-02-26] MEDS ORDERED: Spironolactone 25 MG Tab PO SCH (09:00)
[2024-02-26 15:11] VITALS: BP 93/56
[2024-02-26 15:14] VITALS: BP 103/68
--- NOTE | 2024-02-26 18:34 | NUR ---
SHIFT SUMMARY PATIENT A/OX1-3 THROUGHOUT THE SHIFT. PATIENT'S MENTATION WAXES AND WANES AND PATIENT BECOMES CONFUSED AND DISORIENTED. EARLIER TODAY BELIEVED SHE WAS AT HER HOUSE AND WAS ASKING STAFF MEMBERS IF THEY ATE [place] BECAUSE SHE WAS THINKING OF "COOKING SOME UP" ALSO REQUESTED PEANUT BUTTER SO SHE COULD MAKE PEANUT BUTTER COOKIES. PATIENT DENIES PAIN THIS SHIFT. PATIENT INCONTINENT OF BOWEL AND BLADDER MULTIPLE TIMES THIS SHIFT AND WILL REMOVE DIRTY ATTENDS AND PLACE THEM ON THE FLOOR. CALL LIGHT WITHIN REACH, BUT D/T CONFUSION PATIENT NOT USING CALL LIGHT. PATIENT PARTICIPATED WITH PHYSICAL THERAPY THIS AFTERNOON. DRESSING WAS CHANGED TO HER LEFT LOWER LEG. NO OTHER CONCERNS AT THIS TIME.
[2024-02-26 19:42] VITALS: BP 99/63
[2024-02-27 03:25] VITALS: BP 99/70
--- NOTE | 2024-02-27 04:27 | NUR ---
SHIFT SUMMARY 70 YR F ADMITTED ON 02/26/24. FULL CODE. NO ACUTE CHANGES THIS SHIFT. PT HAS REMAINED VERY CONFUSED THROUGHOUT SHIFT. SHE DOES NOT UNDERSTAND WHERE SHE IS AND GETS VERY AGITATED WHEN TOLD SHE IS IN THE HOSPITAL. SHE CALLED THIS NURSE A LIAR AND STATED "I AM NOT STUPID". SHE HAS BEEN MOSTLY CONTINENT THIS SHIFT BUT WILL NOT KEEP A BRIEF ON, SHE TAKES THEM OFF AND THROWS THEM ACROSS THE ROOM. NO C/O PAIN OR DISCOMFORT THIS SHIFT. WILL CONTINUE TO MONITOR. BED IN LOW POSITION AND CALL LIGHT IN REACH.
[2024-02-27 06:04] LABS: Hematocrit 23.5 % (33.0-51.0)
[2024-02-27 06:31] LABS: Anion Gap 10 mmol/L (3-11); Blood Urea Nitrogen 22 mg/dL (8-24); CO2, Blood 21 mmol/L (21-32); Calcium, Blood 8.5 mg/dL (8.5-10.1); Chloride, Blood 113 mmol/L (98-108); Creatinine, Blood 0.48 mg/dL (0.40-1.00); Glomerular Filtration Rate 106 (60-); Glucose, Blood 78 mg/dL (70-99); Magnesium, Blood 1.7 mg/dL (1.6-2.4); Phosphorus, Blood 3.2 mg/dL (2.5-4.9); Potassium, Blood 3.9 mmol/L (3.5-5.5); Sodium, Blood 140 mmol/L (136-145); Triglycerides 54 mg/dL (30-160)
[2024-02-27 07:20] VITALS: BP 82/72
[2024-02-27 09:16] VITALS: BP 96/62
[2024-02-27 15:33] VITALS: BP 91/57
--- NOTE | 2024-02-27 17:11 | NUR ---
report received verified, pt a/o x1 vss with a low bp, pt very confused and agitated, doesnt understand why she is here or when she arrived and insists she is at home. pt refused to be changed at first but OT worked with pt and was able to convince to change brief and get into chair, pt did well on transfer. no change in condition. assisted to chair again after a nap, pt waiting for dinner, still confused about about here she is but is easily reoriented.
[2024-02-27 19:22] VITALS: BP 105/71
--- NOTE | 2024-02-28 04:32 | NUR ---
SHIFT SUMMARY 63 YR F ADMITTED ON 02/15/24. FULL CODE. NO ACUTE CHANGES THIS SHIFT. PT HAS BEEN VERY PLEASANT AND COOPERATIVE WITH CARE THIS SHIFT. SHE HAS CALLED APPROPRIATELY TO USE THE BEDSIDE COMMODE AND HAS BEEN CONTINENT THIS SHIFT. SHE IS STILL VERY CONFUSED, BUT HAS NOT BEEN AGGRESSIVE OR APPEARED TO BE AGITATED. WILL CONTINUE TO MONITOR. BED IN LOW POSITION AND CALL LIGHT IN REACH.
[2024-02-28 06:54] LABS: Hematocrit 25.4 % (33.0-51.0); Hemoglobin 8.4 g/dL (11.5-16.0)
[2024-02-28 07:11] LABS: Albumin, Blood 2.1 g/dL (3.4-5.0); Anion Gap 10 mmol/L (3-11); Blood Urea Nitrogen 27 mg/dL (8-24); Bun/Creatinine Ratio 47.1 (12.0-20.0); CO2, Blood 21 mmol/L (21-32); Calcium, Blood 8.6 mg/dL (8.5-10.1); Chloride, Blood 116 mmol/L (98-108); Creatinine, Blood 0.57 mg/dL (0.40-1.00); Glomerular Filtration Rate 101 (60-); Glucose, Blood 78 mg/dL (70-99); Magnesium, Blood 1.7 mg/dL (1.6-2.4); Phosphorus, Blood 3.6 mg/dL (2.5-4.9); Potassium, Blood 3.7 mmol/L (3.5-5.5); Sodium, Blood 143 mmol/L (136-145)
[2024-02-28 09:51] VITALS: BP 113/86
--- NOTE | 2024-02-28 16:07 | NUR ---
SHIFT SUMMARY: PT IS A&OXSELF; SHE CONTINUES TO THINK SHE IS IN HER HOME/ROOM. SHE IS ABLE TO HAVE A CONVERSATION AND MAKE HER NEEDS KNOWN (SHE HOLLERS OUT VERSUS USING HER CALL LIGHT) SHE IS CONFUSED, BUT OVERALL PLEASANT AND COOPERATIVE. SHE IS EATING, DRINKING, AND USES THE RESTROOM; HAS BEEN CONTINENT/INCONTINENT. SHE IS IN BED, ALERT, CALL LIGHT WITHIN REACH, BED ALARM ON, NO SIGNS OR SYMPTOMS OF DISTRESS, PLAN OF CARE ONGOING.
[2024-02-28 16:10] VITALS: BP 92/63
[2024-02-28 19:30] VITALS: BP 86/48
[2024-02-29 03:33] VITALS: BP 99/61
--- NOTE | 2024-02-29 04:28 | NUR ---
SHIFT SUMMARY 63 YR F ADMITTED ON 02/15/24. FULL CODE. NO ACUTE CHANGES THIS SHIFT. PT HAS BEEN PLEASANT AND COOPERATIVE. SHE HAS NOT YELLED OUT THIS SHIFT. SHE WAS UPSET AT BEGINNING OF SHIFT STATING THAT SHE IS NOT BEING GIVEN MEAT WITH HER MEALS AND STATED THAT SHE "NEEDS MEAT". SHE WAS EASILY REDIRECTED FROM THIS SUBJECT AND DID NOT BRING IT UP AGAIN. WILL CONTINUE TO MONITOR. BED IN LOW POSITION AND CALL LIGHT IN REACH.
[2024-02-29 07:03] VITALS: BP 99/60
[2024-02-29 10:03] LABS: Albumin, Blood 2.2 g/dL (3.4-5.0); Anion Gap 10 mmol/L (3-11); Blood Urea Nitrogen 27 mg/dL (8-24); CO2, Blood 20 mmol/L (21-32); Calcium, Blood 8.6 mg/dL (8.5-10.1); Chloride, Blood 116 mmol/L (98-108); Creatinine, Blood 0.49 mg/dL (0.40-1.00); Glomerular Filtration Rate 105 (60-); Glucose, Blood 90 mg/dL (70-99); Magnesium, Blood 1.7 mg/dL (1.6-2.4); Phosphorus, Blood 3.9 mg/dL (2.5-4.9); Potassium, Blood 4.5 mmol/L (3.5-5.5); Sodium, Blood 141 mmol/L (136-145)
[2024-02-29 10:06] LABS: Hematocrit 30.3 % (33.0-51.0); Hemoglobin 9.7 g/dL (11.5-16.0)
[2024-02-29 15:19] VITALS: BP 94/62
--- NOTE | 2024-02-29 17:57 | NUR ---
SHIFT SUMMARY: PT'S ORIENTATION IMPROVED TODAY; SHE ACKNOWLEDGES THAT SHE IS IN THE HOSPITAL AND SHE KNOWS TODAY'S DATE. SHE SPOKE WITH HER FRIEND/PETE ALVARENGA. SHE VOICES THAT SHE WOULD LIKE TO GO HOME. SHE DOES NOT WANT PLACEMENT. SHE IS IN BED, CALL LIGHT WITHIN REACH, NO SIGNS OR SYMPTOMS OF DISTRESS, PLAN OF CARE ONGOING.
[2024-02-29 19:09] VITALS: BP 118/80
[2024-03-01 03:27] VITALS: BP 108/69
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
[2024-03-01 07:04] VITALS: BP 113/70
[2024-03-01 16:31] VITALS: BP 97/67
--- NOTE | 2024-03-01 16:44 | NUR ---
SHIFT SUMMARY: NO EVENTS OR CHANGES WITH THE PATIENT THROUGHOUT THE SHIFT. HER ORIENTATION IS THE SAME AND YESTERDAY. SHE VOICES THAT SHE DOES NOT WANT TO GO TO THE FACILITY AND THAT SHE WANTS TO GO HOME. SHE IS IN BED, CALL LIGHT WITHIN REACH, NO SIGNS OR SYMPTOMS OF DISTRESS, PLAN OF CARE ONGOING.
[2024-03-01 19:52] VITALS: BP 101/66
--- NOTE | 2024-03-02 06:23 | NUR ---
NO ACUTE CHANGES DURING SHIFT. A&OX3-4, NO RECOLLECTION OF BEING BROUGHT TO HOSPITAL. CONTINUES TO BE IN STABLE CONDITION. PT IS EAGER TO GET BACK HOME, DISPOSITION TBD HOME VS FACILITY.
[2024-03-02 07:03] VITALS: BP 114/82
[2024-03-02] MEDS ORDERED: Spironolactone 12.5 MG TAB PO SCH (09:00)
[2024-03-02 15:56] VITALS: BP 91/65
--- NOTE | 2024-03-02 16:11 | NUR ---
PT HAS BEEN AO X4 TODAY AND COOPERATIVE OF CARE. PT HAS BEEN SITTING UP FOR MEALS. PT HAS BEEN CALLING APPROPRIATELY. PT HAS BED ALARM IN PLACE AND CALL LIGHT WITHIN REACH WILL CONTINUE TO MONITOR.
[2024-03-02 19:34] VITALS: BP 109/66
[2024-03-03 03:02] VITALS: BP 109/73
--- NOTE | 2024-03-03 05:56 | NUR ---
NO ACUTE CHANGES DURING SHIFT. PT CALLS APPROPRIATELY. VSS, NO REPORTS OF PAIN. SLEPT THROUGHOUT SHIFT.
[2024-03-03 07:01] VITALS: BP 111/68
[2024-03-03 16:56] VITALS: BP 109/69
--- NOTE | 2024-03-03 18:00 | NUR ---
DAY SHIFT SUMMARY: A&Ox4. PLEASANT AND COOPERATIVE [facility] CARE. EXHIBITS PROFICIENT ABILITY TO UTILIZE CALL LIGHT. VERY NEUROTIC IN REGARDS TO MEALS: TIMING, WHAT SHE'LL BE EATING, WHEN SHE'LL BE EATING IT, HOW SHE'LL BE SITTING WHEN EATING, ETC. LARGE BM x2 TODAY. AMBUL[place] [facility] [place] [facility]. MEDS WHOLE WITH FLUIDS. NO C/O PAIN OR DISCMOFRT TODAY. BANDAGE TO RIGHT ACHILLES REGION CHANGED; NICKEL-SIZED LESION WITH CLEAR DRAINAGE. NO EDEMA, ERYTHEMA, HEAT, OR OTHER S/Sx INFx. WORKED WITH BOTH PT AND OT TODAY. NO ACUTE CONCERNS. BED IN LOWEST POSITION, CALL LIGHT WITHIN REACH. REPORT TO BE GIVEN TO ONCOMING NURSE.
--- NOTE | 2024-03-03 18:35 | NUR ---
PATIENT REPORTS NOT RECEIVING HER ANTIDEPRESSANT WHILE BEING IN HOSPITAL. MED REC DONE AGAIN AND MESSAGE TO PROVIDER TO REVIEW.
[2024-03-03 19:07] VITALS: BP 101/66
[2024-03-03] MEDS ORDERED: Ibuprofen 400 MG Tab PO PRN (20:35)
[2024-03-04 03:11] VITALS: BP 101/63
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
[2024-03-04 07:10] VITALS: BP 108/69
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
[2024-03-04] MEDS ORDERED: JUVEN PACKET1 EAC3 PO (15:05)
[2024-03-04] MEDS ORDERED: SODBIC650 PO (15:06)
--- NOTE | 2024-03-04 15:29 | NUR ---
pt is being discharged on home health, faxed new medications to [facility], power glide was removed intact, went over discharge instructions with her, she verbalized understanding, left via wheelchair with transport in attendence.
== END 2024-03-04 15:35 | disposition home health service (06) | DRG 720 ==
LOC: ER 16:23 → ICUE 21:39 → PCU 02-19 17:03 → MEDS 02-22 14:08
PROVIDERS: Emergency Medicine; Internal Medicine; Internal Medicine Nephrology; Nurse Practitioner Acute Care; ADMIT Student in an Organized Health Care Education/Training Program
PROC: 05HM33Z Insertion of Infusion Device into Right Internal Jugular Vein, Percutaneous Approach (ICD-10-PCS; principal; 2024-02-15)
PROC: 3E033XZ Introduction of Vasopressor into Peripheral Vein, Percutaneous Approach (ICD-10-PCS; 2024-02-15)
PROC: 3E03329 Introduction of Other Anti-infective into Peripheral Vein, Percutaneous Approach (ICD-10-PCS; 2024-02-15)
PROC: HZ2ZZZZ Detoxification Services for Substance Abuse Treatment (ICD-10-PCS; 2024-02-15)
PROC: 30233J1 Transfusion of Nonautologous Serum Albumin into Peripheral Vein, Percutaneous Approach (ICD-10-PCS; 2024-02-16)
PROC: 3E0336Z Introduction of Nutritional Substance into Peripheral Vein, Percutaneous Approach (ICD-10-PCS; 2024-02-19)
DX: A41.9 Sepsis, unspecified organism (principal); G92.8 Other toxic encephalopathy; G93.41 Metabolic encephalopathy; R65.21 Severe sepsis with septic shock; L03.116 Cellulitis of left lower limb; N17.9 Acute kidney failure, unspecified; E87.0 Hyperosmolality and hypernatremia; E87.20 Acidosis, unspecified; F10.231 Alcohol dependence with withdrawal delirium; E87.3 Alkalosis; E87.6 Hypokalemia; E83.39 Other disorders of phosphorus metabolism; N18.30 Chronic kidney disease, stage 3 unspecified; I12.9 Hypertensive chronic kidney disease with stage 1 through stage 4 chronic kidney disease, or unspecified chronic kidney disease; F41.9 Anxiety disorder, unspecified; F32.A Depression, unspecified; D63.1 Anemia in chronic kidney disease; E86.9 Volume depletion, unspecified; I45.81 Long QT syndrome; E87.8 Other disorders of electrolyte and fluid balance, not elsewhere classified; E88.09 Other disorders of plasma-protein metabolism, not elsewhere classified; E83.42 Hypomagnesemia; G47.00 Insomnia, unspecified; K21.9 Gastro-esophageal reflux disease without esophagitis; G89.4 Chronic pain syndrome; K70.10 Alcoholic hepatitis without ascites; Z88.1 Allergy status to other antibiotic agents; Z88.8 Allergy status to other drugs, medicaments and biological substances; Z91.038 Other insect allergy status; Z79.899 Other long term (current) drug therapy; Z79.51 Long term (current) use of inhaled steroids; Z87.440 Personal history of urinary (tract) infections; Z87.891 Personal history of nicotine dependence; Z98.890 Other specified postprocedural states; Z79.2 Long term (current) use of antibiotics; Z86.718 Personal history of other venous thrombosis and embolism
CPT/HCPCS: 36415; 36556; 51703; 70450; 71045; 80047; 80048; 80053; 80069; 80202; 80320; 81001; 82010; 82550; 82803; 82947; 83605; 83690; 83735; 84100; 84132; 84295; 84443; 84478; 85014; 85018; 85025; 85610; 87040; 93005; 93010; 94760; 94762; 96365-59; 96366-59; 96372-59; 97110; 97116; 97162; 97165; 97530; 99285-25; A9270; C1751; J0612; J0696; J1650; J2060; J3370; J3411; J3475; J3480; J7030; J7042; J7050; J7060; J7070; J7120; J7131; P9047

== ENCOUNTER 2024-07-11 16:51 | Inpatient (IN) | payer MEDICARE ==
[~2024-07-11] VITALS: Ht 165.1 cm; Wt 59.2 kg
[~2024-07-11 16:51] MED LIST changes: +JUVEN PACKET1 EAC3 PO
[2024-07-11] MEDS ORDERED: BUMETANIDE2 M6 PO (17:12)
[2024-07-11] MEDS ORDERED: KLOR-CON 1010 ME9 PO (17:12)
[2024-07-11] MEDS ORDERED: CITALOPRAM HBR20 M9 PO (17:12)
[2024-07-11] MEDS ORDERED: Ketorolac Tromethamine 15mg Vial IV ONE ×2 (18:10)
[2024-07-11] MEDS ORDERED: Lactated Ringer's 1,000 ML IV ONE (18:10)
[2024-07-11] MEDS ORDERED: Methocarbamol 500 MG Tab PO ONE (18:10)
[2024-07-11 18:56] LABS: BASOPHILS ABSOLUTE AUTO 0.06 K/mm3 (0.00-0.23); BASOPHILS PERCENT AUTO 0 % (0-2); EOSINOPHILS ABSOLUTE AUTO 0.02 K/mm3 (0.00-0.68); EOSINOPHILS PERCENT AUTO 0 % (0-6); Hemoglobin 9.4 g/dL (11.5-16.0); IMMATURE GRAN ABSOLUTE AUTO 0.11 K/mm3 (0.00-0.10); IMMATURE GRAN PERCENT AUTO 1 % (0-1); LYMPHOCYTES ABSOLUTE AUTO 1.34 K/mm3 (0.84-5.20); LYMPHOCYTES PERCENT AUTO 7 % (21-46); MONOCYTES ABSOLUTE AUTO 0.91 K/mm3 (0.16-1.47); MONOCYTES PERCENT AUTO 5 % (4-13); Mean Corpuscular HGB 26.4 pg (26.0-34.0); Mean Corpuscular HGB Conc 33.6 g/dL (31.5-36.5); Mean Corpuscular Volume 79 fL (80-100); Mean Platelet Volume 9.6 fL (9.1-12.4); NEUTROPHILS ABSOLUTE AUTO 17.56 K/mm3 (1.96-9.15); NEUTROPHILS PERCENT AUTO 88 % (41-73); Platelet Count 403 K/mm3 (150-400); RDW Standard Deviation 65.1 fL (35.1-46.3); Red Blood Cell Count 3.56 M/mm3 (3.80-5.20)
[2024-07-11 19:01] LABS: Magnesium, Blood 2.8 mg/dL (1.6-2.4)
[2024-07-11 19:06] LABS: Albumin, Blood 2.1 g/dL (3.4-5.0); Albumin/Globulin Ratio 0.5 (0.8-1.8); Bilirubin, Total 0.2 mg/dL (0.1-1.0); Bun/Creatinine Ratio 10.5 (12.0-20.0); Calcium, Blood 8.6 mg/dL (8.5-10.1); Creatinine, Blood 1.05 mg/dL (0.40-1.00); Globulin, Blood 3.9 g/dL (2.2-4.0); Potassium, Blood 2.3 mmol/L (3.5-5.5)
[2024-07-11] MEDS ORDERED: Potassium Chl 20MEQ/Water100ML 100 ML IV ONE (19:10)
[2024-07-11] MEDS ORDERED: Potassium Chloride 20 MEQ/15 ML UDC PO ONE (19:10)
[2024-07-11] MEDS ORDERED: Potassium Chl 10MEQ/Water100ML 100 ML IV SCH (19:15)
[2024-07-11] MEDS ORDERED: NS 1,000 ML IV SCH (19:35)
[2024-07-11 22:00] LABS: Source, Urine Clean Catch
[2024-07-11 22:11] LABS: Bilirubin, Urine Neg (Neg); Blood, Urine 3+ (Neg); Glucose Qualitative, Urine Neg (Neg); Ketones, Urine Neg (Neg); Leukocyte Esterase, Urine Neg (Neg); Nitrite, Urine Neg (Neg); Protein, Urine 2+ (Neg); Specific Gravity, Urine 1.015 (1.003-1.022); Urobilinogen, Urine NORM (Normal)
[2024-07-11 22:26] LABS: Appearance, Urine Hazy (Clear); Color, Urine Pale Yellow (P-Yellow)
[2024-07-11 22:28] LABS: Bacteria Mod /hpf; Granular Casts 0-2 /lpf (0); Red Blood Cells, Urine 0-2 /hpf (0-2); Squamous Epithelial Cells Few /hpf (Few)
[2024-07-11] MEDS ORDERED: Pantoprazole Sodium 40 MG Injection IV ONE (23:10)
[2024-07-11] MEDS ORDERED: Ondansetron HCl 2 MG / ML 2ML Vial IV ONE (23:15)
[2024-07-11 23:35] LABS: BASOPHILS ABSOLUTE AUTO 0.04 K/mm3 (0.00-0.23); BASOPHILS PERCENT AUTO 0 % (0-2); EOSINOPHILS ABSOLUTE AUTO 0.02 K/mm3 (0.00-0.68); EOSINOPHILS PERCENT AUTO 0 % (0-6); Hematocrit 25.6 % (33.0-51.0); Hemoglobin 8.4 g/dL (11.5-16.0); IMMATURE GRAN ABSOLUTE AUTO 0.13 K/mm3 (0.00-0.10); IMMATURE GRAN PERCENT AUTO 1 % (0-1); LYMPHOCYTES ABSOLUTE AUTO 0.99 K/mm3 (0.84-5.20); LYMPHOCYTES PERCENT AUTO 5 % (21-46); MONOCYTES ABSOLUTE AUTO 0.75 K/mm3 (0.16-1.47); MONOCYTES PERCENT AUTO 4 % (4-13); Mean Corpuscular HGB 26.1 pg (26.0-34.0); Mean Corpuscular HGB Conc 32.8 g/dL (31.5-36.5); Mean Corpuscular Volume 80 fL (80-100); Mean Platelet Volume 9.3 fL (9.1-12.4); NEUTROPHILS ABSOLUTE AUTO 16.78 K/mm3 (1.96-9.15); NEUTROPHILS PERCENT AUTO 90 % (41-73); Platelet Count 353 K/mm3 (150-400); RDW Coefficient Variation 23.4 % (11.7-14.2); RDW Standard Deviation 67.9 fL (35.1-46.3); Red Blood Cell Count 3.22 M/mm3 (3.80-5.20); White Blood Cell Count 18.71 K/mm3 (4.00-11.30)
[2024-07-11 23:54] LABS: Bun/Creatinine Ratio 13.3 (12.0-20.0); Calcium, Blood 7.9 mg/dL (8.5-10.1); Creatinine, Blood 0.98 mg/dL (0.40-1.00); Potassium, Blood 2.8 mmol/L (3.5-5.5)
[2024-07-12] VITALS (23 sets, daily range): BP systolic 75–115; BP diastolic 43–66
[2024-07-12] MEDS ORDERED: CefTRIAXone Sodium 1,000 MG in NS 100 ML IV ONE (00:15)
[2024-07-12] MEDS ORDERED: Potassium Chl 20MEQ/Water100ML 100 ML IV ONE (00:40)
[2024-07-12] MEDS ORDERED: Potassium Chl 10MEQ/Water100ML 100 ML IV SCH (00:45)
[2024-07-12] MEDS ORDERED: NS 1,000 ML IV SCH ×2 (01:05→04:00)
[2024-07-12] MEDS ORDERED: FLU VACC TS2024-25(6MOS UP)/PF 45 MCG/0.5 ML SYRINGE IM ONE (03:45)
[2024-07-12] MEDS ORDERED: Acetaminophen 325 MG TABLET PO PRN (03:45)
[2024-07-12] MEDS ORDERED: Pantoprazole Sodium 40 MG in NS 50 ML IV SCH (04:05)
[2024-07-12] MEDS ORDERED: Potassium Chloride 40 MEQ in NS 250 ML IV ONE (04:05)
[2024-07-12] MEDS ORDERED: Doxycycline Hyclate 100 MG in Dextrose 5% 250 ML IV SCH (04:10)
[2024-07-12 05:06] LABS: BASOPHILS ABSOLUTE AUTO 0.05 K/mm3 (0.00-0.23); BASOPHILS PERCENT AUTO 0 % (0-2); EOSINOPHILS ABSOLUTE AUTO 0.02 K/mm3 (0.00-0.68); EOSINOPHILS PERCENT AUTO 0 % (0-6); Hematocrit 25.1 % (33.0-51.0); Hemoglobin 8.5 g/dL (11.5-16.0); IMMATURE GRAN ABSOLUTE AUTO 0.11 K/mm3 (0.00-0.10); IMMATURE GRAN PERCENT AUTO 1 % (0-1); LYMPHOCYTES ABSOLUTE AUTO 1.28 K/mm3 (0.84-5.20); LYMPHOCYTES PERCENT AUTO 7 % (21-46); MONOCYTES ABSOLUTE AUTO 0.64 K/mm3 (0.16-1.47); MONOCYTES PERCENT AUTO 4 % (4-13); Mean Corpuscular HGB 26.7 pg (26.0-34.0); Mean Corpuscular HGB Conc 33.9 g/dL (31.5-36.5); Mean Corpuscular Volume 79 fL (80-100); Mean Platelet Volume 9.6 fL (9.1-12.4); NEUTROPHILS ABSOLUTE AUTO 15.77 K/mm3 (1.96-9.15); NEUTROPHILS PERCENT AUTO 88 % (41-73); Platelet Count 351 K/mm3 (150-400); RDW Coefficient Variation 23.7 % (11.7-14.2); RDW Standard Deviation 67.4 fL (35.1-46.3); Red Blood Cell Count 3.18 M/mm3 (3.80-5.20); White Blood Cell Count 17.87 K/mm3 (4.00-11.30)
[2024-07-12 05:48] LABS: Albumin, Blood 1.7 g/dL (3.4-5.0); Albumin/Globulin Ratio 0.5 (0.8-1.8); Bilirubin, Total 0.3 mg/dL (0.1-1.0); Bun/Creatinine Ratio 15.6 (12.0-20.0); Calcium, Blood 7.6 mg/dL (8.5-10.1); Creatinine, Blood 0.96 mg/dL (0.40-1.00); Globulin, Blood 3.4 g/dL (2.2-4.0); Potassium, Blood 3.4 mmol/L (3.5-5.5); Total Protein, Blood 5.1 g/dL (6.4-8.2)
[2024-07-12] MEDS ORDERED: Pantoprazole Sodium 40 MG Tab PO SCH (06:00)
[2024-07-12] MEDS ORDERED: Sodium Bicarb 8.4% 1 MEQ/ML 50 ML Vial IV ONE ×2 (06:15→09:30)
[2024-07-12] MEDS ORDERED: Lactated Ringer's 1,000 ML IV SCH (07:00)
[2024-07-12 08:42] LABS: Hematocrit 28.2 % (33.0-51.0); Hemoglobin 9.2 g/dL (11.5-16.0)
[2024-07-12] MEDS ORDERED: Lactobacil 2-S.Thermo-Bifido 1 1 Cap PO SCH (09:00)
[2024-07-12 09:07] LABS: Anion Gap 13 mmol/L (3-11); Blood Urea Nitrogen 15 mg/dL (8-24); Bun/Creatinine Ratio 15.3 (12.0-20.0); CO2, Blood 11 mmol/L (21-32); Calcium, Blood 7.9 mg/dL (8.5-10.1); Chloride, Blood 117 mmol/L (98-108); Creatinine, Blood 0.98 mg/dL (0.40-1.00); Glomerular Filtration Rate 64 (60-); Glucose, Blood 91 mg/dL (70-99); Phosphorus, Blood 1.6 mg/dL (2.5-4.9); Sodium, Blood 138 mmol/L (136-145)
[2024-07-12] MEDS ORDERED: Midodrine 5 MG Tab PO SCH (10:10)
[2024-07-12 11:04] LABS: Base Excess Venous -16.9 mmol/L; Bicarbonate Venous 12.2 mmol/L (24.0-30.0); PCO2 Venous 32.5 mmHg (38-42)
[2024-07-12 11:05] LABS: pH Blood Venous 7.16 (7.34-7.37)
[2024-07-12 11:21] LABS: Albumin, Blood 1.7 g/dL (3.4-5.0); Albumin/Globulin Ratio 0.5 (0.8-1.8); Bilirubin, Total 0.2 mg/dL (0.1-1.0); Bun/Creatinine Ratio 15.1 (12.0-20.0); Calcium, Blood 7.2 mg/dL (8.5-10.1); Creatinine, Blood 0.99 mg/dL (0.40-1.00); Globulin, Blood 3.2 g/dL (2.2-4.0); Total Protein, Blood 4.9 g/dL (6.4-8.2)
[2024-07-12] MEDS ORDERED: Sodium Bicarb 8.4% Inj 100 MEQ in Sodium Chloride 0.45% 1,000 ML IV SCH (12:25)
[2024-07-12] MEDS ORDERED: Potassium Chloride 40 MEQ in NS 250 ML IV SCH (12:25)
[2024-07-12] MEDS ORDERED: Albumin (Human) 25gm/100ml 100 ML IV ONE (12:25)
[2024-07-12] MEDS ORDERED: Vancomycin HCL 1,750 MG in NS 500 ML IV ONE (12:30)
[2024-07-12] MEDS ORDERED: Dextrose 50% 50 ML Syringe IV ONE (14:50)
[2024-07-12] MEDS ORDERED: IBUP400 PO (15:15)
[2024-07-12] MEDS ORDERED: OMEP20ER PO (15:16)
[2024-07-12 15:43] LABS: Percent Saturation 16.6 % (15.0-50.0)
--- NOTE | 2024-07-12 16:05 | NUR ---
MD NOTIFIED OF LOW BP. MD STATED GOAL IS TO MAINTAIN MAP >55. IF MAPS GET TO 55, WE WILL TRANSFER TO ICU. AT THIS TIME, WE WILL CONITINUE TO MONITOR IN PCU
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
[2024-07-12 21:34] LABS: Base Excess Venous -15.5 mmol/L; Bicarbonate Venous 13.1 mmol/L (24.0-30.0); PCO2 Venous 30.3 mmHg (38-42); pH Blood Venous 7.22 (7.34-7.37)
[2024-07-12 22:00] LABS: Albumin/Globulin Ratio 0.8 (0.8-1.8); Bilirubin, Total 0.5 mg/dL (0.1-1.0); Bun/Creatinine Ratio 13.6 (12.0-20.0); Calcium, Blood 7.4 mg/dL (8.5-10.1); Creatinine, Blood 0.96 mg/dL (0.40-1.00); Globulin, Blood 2.6 g/dL (2.2-4.0); Potassium, Blood 3.3 mmol/L (3.5-5.5); Total Protein, Blood 4.6 g/dL (6.4-8.2)
[2024-07-12] MEDS ORDERED: Potassium Chloride 20 MEQ TabCR PO SCH (22:05)
[2024-07-13] VITALS (22 sets, daily range): BP systolic 79–128; BP diastolic 45–98
--- NOTE | 2024-07-13 04:58 | NUR ---
SHIFT SUMMARY. SHIFT HAS BEEN MOSTLY UNREMARKABLE. PT MENTATION FLUCTUATES BUT HAS CONSISTENTLY BEEN ABLE TO FOLLOW COMMANDS AND MAKE NEEDS KNOWN NEEDED. HAS BEEN VERY SOMNOLENT THROUGHOUT SHIFT BUT IS EASILY WOKEN FOR CARE AND PARTICIPATORY IN CARE. HAS BEEN CONTINENT THROUGHOUT SHIFT AND HAS HAD 2 BMs AND USED THE BED CAMPO UPON REQUEST. SODIUM BICARB AND PROTONIX RUNNING THROUGHOUT SHIFT. ON SHIFT ONSET, BP WAS VERY SOFT WITH MAP <60. UPON REPOSITIONING PATIENT AND ADJUSTING BLOOD PRESSURE CUFF LOCATION/FIT, BP HAS BEEN STABLE WITH MAP >=65 THROUGHOUT SHIFT. PT DENIES PAIN OUTSIDE OF THAT ASSOCIATED WITH REPOSITIONING. PT HAS CONSISTENTLY REFUSED REPOSITIONING EXCEPT FOR SPORADICALLY WHEN SHE ALLOWS FOR STAFF TO REPOSITION HER. PT HEAVILY FAVORS RIGHT SIDE WITH MILD BLANCHABLE REDNESS ON THAT HIP. MEPILEX IN PLACE C/D/I AND PILLOW ALTERNATING UNDER THAT HIP WELL. MINIMAL URINE OUTPUT THIS SHIFT, BLADDER SCAN THIS MORNING REVEALED BLADDER VOLUME OF >400mls AND <450mls BUT PT WAS THEN ABLE TO VOID WITH BM SHORTLY AFTER. HAS BEEN RUNNING SINUS ON TELE THROUGHOUT SHIFT. HAS BEEN ON RA-2L O2 THROUGHOUT SHIFT AND MAINTAINS ADEQUATE SATURATION. BED LOCKED IN LOWEST POSITION. CALL LIGHT LEFT WITHIN REACH. CONTINUING TO MONITOR.
[2024-07-13] MEDS ORDERED: CefTRIAXone Sodium 1,000 MG in NS 100 ML IV SCH (06:00)
[2024-07-13] MEDS ORDERED: Vancomycin HCL 1,000 MG in NS 250 ML IV SCH (06:00)
[2024-07-13 08:12] LABS: BASOPHILS ABSOLUTE AUTO 0.05 K/mm3 (0.00-0.23); BASOPHILS PERCENT AUTO 0 % (0-2); Hematocrit 19.5 % (33.0-51.0); Hemoglobin 6.7 g/dL (11.5-16.0); LYMPHOCYTES ABSOLUTE AUTO 1.31 K/mm3 (0.84-5.20); LYMPHOCYTES PERCENT AUTO 8 % (21-46); MONOCYTES ABSOLUTE AUTO 0.45 K/mm3 (0.16-1.47); MONOCYTES PERCENT AUTO 3 % (4-13); Mean Corpuscular HGB 26.6 pg (26.0-34.0); Mean Corpuscular HGB Conc 34.4 g/dL (31.5-36.5); Mean Corpuscular Volume 77 fL (80-100); Mean Platelet Volume 9.3 fL (9.1-12.4); Platelet Count 337 K/mm3 (150-400); RDW Coefficient Variation 23.3 % (11.7-14.2); RDW Standard Deviation 64.7 fL (35.1-46.3); Red Blood Cell Count 2.52 M/mm3 (3.80-5.20); White Blood Cell Count 17.52 K/mm3 (4.00-11.30)
[2024-07-13 08:15] LABS: EOSINOPHILS ABSOLUTE AUTO 0.29 K/mm3 (0.00-0.68); EOSINOPHILS PERCENT AUTO 2 % (0-6); IMMATURE GRAN ABSOLUTE AUTO 0.11 K/mm3 (0.00-0.10); IMMATURE GRAN PERCENT AUTO 1 % (0-1); NEUTROPHILS ABSOLUTE AUTO 15.31 K/mm3 (1.96-9.15); NEUTROPHILS PERCENT AUTO 87 % (41-73)
[2024-07-13 08:31] LABS: Albumin, Blood 1.8 g/dL (3.4-5.0); Albumin/Globulin Ratio 0.7 (0.8-1.8); Bilirubin, Total 0.3 mg/dL (0.1-1.0); Bun/Creatinine Ratio 15.4 (12.0-20.0); Calcium, Blood 8.1 mg/dL (8.5-10.1); Creatinine, Blood 0.84 mg/dL (0.40-1.00); Globulin, Blood 2.6 g/dL (2.2-4.0); Potassium, Blood 3.6 mmol/L (3.5-5.5); Total Protein, Blood 4.4 g/dL (6.4-8.2)
[2024-07-13] MEDS ORDERED: NS 250 ML IV PRN (09:55)
[2024-07-13] MEDS ORDERED: Potassium Chloride 40 MEQ in NS 250 ML IV ONE (16:00)
[2024-07-13] MEDS ORDERED: Furosemide 10 MG/ML 4ML Vial IV ONE (16:50)
[2024-07-13] MEDS ORDERED: Albuterol 2.5 MG/3 ML VIAL INH PRN (16:55)
[2024-07-13] MEDS ORDERED: Ipratropium/Albuterol SulF 2.5-0.5MG/3 ML Amp INH SCH (16:55)
[2024-07-13] MEDS ORDERED: Potassium Chloride 20 MEQ TabCR PO ONE (17:35)
--- NOTE | 2024-07-13 18:45 | NUR ---
End of shift note. Pt has been drowsy for much of this shift, waking up a little more this evening. Pt will wake to name and is A&O 2-3. Respiratory status has been biggest concern this shift. This morning Pt was maintaining sats >92% on 4L NC, with short dips into the 80s with movement. This afternoon Pt has been struggling to maintain sats and has had increase periods where she is in the 70s-80%. Taking longer to come back into the 90s. Pt did require to be placed on mask with 9L to be above 90%. Pt was able to be weaned back after some time. Sats seem to be much better when Pt is laying on right side, which is how she prefers to be positioned. When laying on back or left side sats are significantly lower. MD was notifed of concerns and new orders were placed. IV lasix was given with good effect. Pt received 1u PRBC which she tolerated well. MD to be phoned with bicarb results after the unit is completed. BP has been stable all shift. Staff has encouraged Pt to lay on her back when taking BP readings, when taken while laying on her side they are soft. Pt has been boosted lots this shift. Pt has refused to lay on left side or on back, except for short periods of time. Pt reports back pain but has refused PRN APAP. PO ensures have been encouraged. Pt is able to make needs known, call light is within reach.
--- NOTE | 2024-07-13 19:49 | NUR ---
ASSUMPTION OF CARE: PATIENT IS ALERT AND ORIENTED X 2-3. BLOOD HAD JUST FINISHED INFUSING AT THE START OF SHIFT. DENIES CHEST PAIN PRESSURE, IMPROVED SOB AT REST. VARIABLE OXYGEN NEEDS 4-6L VIA NC. DIURESING WELL, CMP ORDERED FOR POST INFUSION ASA DAY RN INFORMED ABOUT NEED FOR POTENTIAL BICARB NEEDS. ADINA NOTIFY IS IN. BP STABLE FOR DAY RN. POTENTIAL WITH NO ACUTE NEEDS ENDORSED. PATIENT CURRENTLY RECIEVING BREATHING TREATMENT.
[2024-07-13 21:06] LABS: Base Excess Venous -1.7 mmol/L; Bicarbonate Venous 16.5 mmol/L (24.0-30.0); PCO2 Venous 28.3 mmHg (38-42); pH Blood Venous 7.34 (7.34-7.37)
[2024-07-13 21:08] LABS: BASOPHILS ABSOLUTE AUTO 0.07 K/mm3 (0.00-0.23); BASOPHILS PERCENT AUTO 0 % (0-2); EOSINOPHILS ABSOLUTE AUTO 0.23 K/mm3 (0.00-0.68); EOSINOPHILS PERCENT AUTO 1 % (0-6); Hematocrit 26.2 % (33.0-51.0); Hemoglobin 9.1 g/dL (11.5-16.0); IMMATURE GRAN ABSOLUTE AUTO 0.19 K/mm3 (0.00-0.10); IMMATURE GRAN PERCENT AUTO 1 % (0-1); LYMPHOCYTES ABSOLUTE AUTO 1.45 K/mm3 (0.84-5.20); LYMPHOCYTES PERCENT AUTO 7 % (21-46); MONOCYTES ABSOLUTE AUTO 0.52 K/mm3 (0.16-1.47); MONOCYTES PERCENT AUTO 2 % (4-13); Mean Corpuscular HGB 27.4 pg (26.0-34.0); Mean Corpuscular HGB Conc 34.7 g/dL (31.5-36.5); Mean Corpuscular Volume 79 fL (80-100); Mean Platelet Volume 9.1 fL (9.1-12.4); NEUTROPHILS PERCENT AUTO 89 % (41-73); Platelet Count 338 K/mm3 (150-400); RDW Coefficient Variation 22.4 % (11.7-14.2); RDW Standard Deviation 64.4 fL (35.1-46.3); Red Blood Cell Count 3.32 M/mm3 (3.80-5.20); White Blood Cell Count 22.06 K/mm3 (4.00-11.30)
[2024-07-13 21:27] LABS: Albumin/Globulin Ratio 0.6 (0.8-1.8); Bilirubin, Total 0.6 mg/dL (0.1-1.0); Bun/Creatinine Ratio 12.7 (12.0-20.0); Calcium, Blood 8.5 mg/dL (8.5-10.1); Creatinine, Blood 0.87 mg/dL (0.40-1.00); Globulin, Blood 3.2 g/dL (2.2-4.0); Potassium, Blood 2.6 mmol/L (3.5-5.5); Total Protein, Blood 5.2 g/dL (6.4-8.2)
[2024-07-14] VITALS (10 sets, daily range): BP systolic 101–145; BP diastolic 59–85
--- NOTE | 2024-07-14 05:12 | NUR ---
EOS: SPOKE WITH RESIDENT ABOUT LABS, ORDER FOR 60MEQ OF POTASSIUM IV OBTAINED, INFUSING CURRENLTY. PATIENT HAS BEEN HAVING COUGHING FITS WHERE SHE WILL DESATURATE TO THE 70'S NC AT 7-10L VERY LITTLE RESPIRATORY RESERVE, DESATS WITH MINOR EXERTION SUCH ROLLING CECILE ETO SIDE IN BED. PATIENT HAS BEEN COOPEARTIVE WITH MOST CARES, LARGE INCONTINENT VOID RECENTLY, 2 BM'S THROUGH THE SHIFT, SMALL. SR WITH PAC'S. AWAITING TO DRAW AM LABS DUE TO CURRENT INFUSION OF POTASSIUM, PATIENT OVERALL HAS THE HIGH POTENTIAL TO DETERIORATE. LABILE BLOOD PRESSURE, WHEN LAYING FLAT IS SYSTOLIC GREATER THAN 100. MAP >65.
[2024-07-14] MEDS ORDERED: Pantoprazole Sodium 40 MG Tab PO SCH (06:00)
[2024-07-14 08:47] LABS: BASOPHILS ABSOLUTE AUTO 0.07 K/mm3 (0.00-0.23); BASOPHILS PERCENT AUTO 0 % (0-2); EOSINOPHILS ABSOLUTE AUTO 0.26 K/mm3 (0.00-0.68); EOSINOPHILS PERCENT AUTO 1 % (0-6); Hematocrit 24.2 % (33.0-51.0); Hemoglobin 8.5 g/dL (11.5-16.0); IMMATURE GRAN ABSOLUTE AUTO 0.26 K/mm3 (0.00-0.10); IMMATURE GRAN PERCENT AUTO 1 % (0-1); LYMPHOCYTES ABSOLUTE AUTO 1.48 K/mm3 (0.84-5.20); LYMPHOCYTES PERCENT AUTO 7 % (21-46); MONOCYTES ABSOLUTE AUTO 0.51 K/mm3 (0.16-1.47); MONOCYTES PERCENT AUTO 2 % (4-13); Mean Corpuscular HGB 27.4 pg (26.0-34.0); Mean Corpuscular HGB Conc 35.1 g/dL (31.5-36.5); Mean Corpuscular Volume 78 fL (80-100); NEUTROPHILS ABSOLUTE AUTO 18.91 K/mm3 (1.96-9.15); NEUTROPHILS PERCENT AUTO 88 % (41-73); Platelet Count 361 K/mm3 (150-400); RDW Standard Deviation 61.4 fL (35.1-46.3); White Blood Cell Count 21.49 K/mm3 (4.00-11.30)
[2024-07-14] MEDS ORDERED: Furosemide 10 MG/ML 4ML Vial IV SCH ×3 (09:00→17:00)
[2024-07-14 09:04] LABS: Bun/Creatinine Ratio 16.3 (12.0-20.0); Calcium, Blood 8.3 mg/dL (8.5-10.1); Creatinine, Blood 0.8 mg/dL (0.40-1.00); Magnesium, Blood 1.6 mg/dL (1.6-2.4); Phosphorus, Blood 1.3 mg/dL (2.5-4.9); Potassium, Blood 3.1 mmol/L (3.5-5.5)
[2024-07-14] MEDS ORDERED: Magnesium Sulf 2 GM/Water 50ML 50 ML IV ONE (10:35)
[2024-07-14] MEDS ORDERED: Potassium Chloride 20 MEQ TabCR PO SCH (10:35)
--- NOTE | 2024-07-14 16:42 | NUR ---
SHIFT SUMMARY PT REMAINS ALERT AND ORIENTED TO SELF AND PLACE, BUT FORGETFUL AT TIMES. PT ON 6L NC AT THIS TIME WITH SATS >90%. PT HAD TO BE TITRATED UP AND DOWN THIS SHIFT TO KEEP O2 SATS >90%. RESPIRATIONS HAVE DECREASED FROM THE 30'S THIS AM TO THE 20'S THIS AFTERNOON. PT COMPLAINS OF DISCOMFORT IN BACK, BUT DENIED TYLENOL. PT REPOSITIONED Q2H AND MORE FREQUENTLY NEEDED. BED BATH PROVIDED TODAY. PT HAD INCONTINENT BM THIS SHIFT. WILL REPORT OFF TO ONCOMING RN
[2024-07-14 16:53] LABS: Albumin, Blood 1.9 g/dL (3.4-5.0); Albumin/Globulin Ratio 0.6 (0.8-1.8); Bilirubin, Total 0.5 mg/dL (0.1-1.0); Bun/Creatinine Ratio 15.8 (12.0-20.0); Calcium, Blood 8.3 mg/dL (8.5-10.1); Creatinine, Blood 0.82 mg/dL (0.40-1.00); Globulin, Blood 3.4 g/dL (2.2-4.0); Total Protein, Blood 5.3 g/dL (6.4-8.2)
[2024-07-14 16:54] LABS: Potassium, Blood 2.2 mmol/L (3.5-5.5)
[2024-07-14] MEDS ORDERED: Potassium Phosphate Dibasic 30 MM in Dextrose 5% 500 ML IV STA (16:58)
[2024-07-14] MEDS ORDERED: Dextrose 5% 1,000 ML IV SCH (17:00)
[2024-07-14] MEDS ORDERED: Albumin (Human) 25gm/100ml 100 ML IV ONE (17:50)
[2024-07-14] MEDS ORDERED: Potassium Chloride 20 MEQ TabCR PO ONE (18:00)
[2024-07-14] MEDS ORDERED: TraMADol HCl 50 MG Tab PO ONE (22:25)
--- NOTE | 2024-07-14 23:18 | NUR ---
ASSUMPTION OF CARE: PATIENT IS MORE ALERT AND ORIENTED THAN PREVIOUS SHIFT, HOWEVER, IS EXTREMELY ANXIOUS, HYPERFIXATING ON ANTIDEPRESSANT MEDICATION, ADDITIONALLY IS COMPLAINING OF EXTREME PAIN, 1 X ORDER FOR TRAMADOL OBTAINED, PATIENT DID RESPOND WELL TO TRAMADOL. CT CHEST WAS ABLE TO BE PREFORMED, PATIENT IS RESTING CURRENLTY SPO2 IS VERY LABILE 6-10L VIA NC. FOR SPO2 >88%. DENEIS CHEST PAIN PRESSURE, CAN BE ACTIVELY SOB AT REST. INCONTINENT BOWEL AND URINARY INCONTINENCE SO FAR HAVE BEEN UNABLE TO GET AN ACCURATE 24 HOUR URINE COLLECTION. PLAN OF CARE CONTINUES.
[2024-07-15] VITALS (68 sets, daily range): BP systolic 68–142; BP diastolic 30–109
[2024-07-15 02:16] LABS: BASOPHILS ABSOLUTE AUTO 0.05 K/mm3 (0.00-0.23); BASOPHILS PERCENT AUTO 0 % (0-2); EOSINOPHILS ABSOLUTE AUTO 0.28 K/mm3 (0.00-0.68); EOSINOPHILS PERCENT AUTO 1 % (0-6); Hematocrit 20.9 % (33.0-51.0); Hemoglobin 7.5 g/dL (11.5-16.0); IMMATURE GRAN ABSOLUTE AUTO 0.24 K/mm3 (0.00-0.10); IMMATURE GRAN PERCENT AUTO 1 % (0-1); LYMPHOCYTES ABSOLUTE AUTO 1.51 K/mm3 (0.84-5.20); LYMPHOCYTES PERCENT AUTO 7 % (21-46); MONOCYTES ABSOLUTE AUTO 0.66 K/mm3 (0.16-1.47); MONOCYTES PERCENT AUTO 3 % (4-13); Mean Corpuscular HGB 27.4 pg (26.0-34.0); Mean Corpuscular HGB Conc 35.9 g/dL (31.5-36.5); Mean Corpuscular Volume 76 fL (80-100); Mean Platelet Volume 9.2 fL (9.1-12.4); NEUTROPHILS ABSOLUTE AUTO 17.67 K/mm3 (1.96-9.15); NEUTROPHILS PERCENT AUTO 87 % (41-73); Platelet Count 316 K/mm3 (150-400); RDW Coefficient Variation 21.5 % (11.7-14.2); RDW Standard Deviation 59.6 fL (35.1-46.3); Red Blood Cell Count 2.74 M/mm3 (3.80-5.20); White Blood Cell Count 20.41 K/mm3 (4.00-11.30)
[2024-07-15 03:16] LABS: Thyroid Stimulating Hormone 2.89 uIU/mL (0.360-4.800)
[2024-07-15 03:31] LABS: Calcium, Blood 7.9 mg/dL (8.5-10.1); Creatinine, Blood 0.7 mg/dL (0.40-1.00); Potassium, Blood 2.7 mmol/L (3.5-5.5)
[2024-07-15 03:55] LABS: Magnesium, Blood 1.8 mg/dL (1.6-2.4)
[2024-07-15] MEDS ORDERED: Potassium Chl 20MEQ/Water100ML 100 ML IV SCH (04:35)
[2024-07-15 04:41] LABS: Phosphorus, Blood 4.7 mg/dL (2.5-4.9)
--- NOTE | 2024-07-15 06:46 | NUR ---
EOS: OATIENT STILL REMAINS TO BE HYPOKALEMIC, MORE POTASSIUM ORDERED AND INFUSING, PATIENT HAS BEEN EDUCATED ON NEEDING TO MONITOR FLUIDS, CT IMAGE RESUTLS IN, DENIES CHEST PAIN, STILL REQUIREING LARGE AMOUNTS OF OXYGEN 8-10L FOR SPO2 >91%. PATIENT EXTREMELY WORRIED ABOUT ANTIDEPRESSANT, EDUCATED ON HER TO SPEAK WITH HOSPITALIST IN AM. PATIENT HAVING FREQUENT ECTOPY, SA WITH PAC'S. PATIENT STILL REMAINS HIGH FOR DETERIORATION, PLAN OF CARE CONTINUES.
--- NOTE | 2024-07-15 07:59 | NUR ---
AM NOTE PT IS ALERT TO SELF ONLY, SHE STATED THAT SHE THOUGHT SHE WAS IN HER ROOM. SHE IS ABLE TO FOLLOW COMMANDS AND IS ABLE TO MAKE HER NEEDS KNOWN. BP AND HR STABLE AT THIS TIME. O2 DEMANDS HAVE INCREASED, WHEN THIS RN ASSUMED CARE, SPO2 DROPPED TO LOW 80'S, O2 INCREASED TO 12L FROM 10L VIA NC TO MAINTAIN SPO2 >90%. RESPIRATORY THERAPIST [place] WAS AT BEDSIDE AND SPO2 DROPPED TO 60'S, PT THEN PLACED ON CPAP W/ 15L BLEED AND SPO2 IS NOW >95%. SHE APPEARS COMFORTABLE AT THIS TIME. SHE PREFERS LAYING ON R SIDE DUE TO COLE LOCATED ON L HIP AND ANKLE. SHE DENIES FEELINGS OF CP/PRESSURE. SHE IS TACHYPNEIC. SHE DENIES FEELING NAUSEOUS AT THIS TIME. CALL LIGHT IS W/IN REACH.
[2024-07-15] MEDS ORDERED: LORazepam 2 MG/ML 1ML Injection IV PRN (08:25)
[2024-07-15 08:35] LABS: Base Excess Venous -10.6 mmol/L; Bicarbonate Venous 16.5 mmol/L (24.0-30.0); PCO2 Venous 33.3 mmHg (38-42); pH Blood Venous 7.29 (7.34-7.37)
[2024-07-15] MEDS ORDERED: Furosemide 10 MG/ML 4ML Vial IV SCH (09:00)
[2024-07-15] MEDS ORDERED: Thiamine HCl 100 MG Tab PO SCH (09:00)
--- NOTE | 2024-07-15 10:37 | NUR ---
CARE NOTE BP ARE SOFT W/ MAP NOTED TO BE IN 50'S. PT CANNOT TOLERATE SWALLOWING PO MIDODRINE. DR. GAUTAM NOTIFIED BY THIS RN AT APPROX. 1038 REGARDING PT'S INABILITY TO TAKE PO MIDODRINE WELL SOFT BP.
--- NOTE | 2024-07-15 11:44 | NUR ---
CARE NOTE THIS RN GAVE BRENDA PEREZ ELECTRICAL RESEARCH ENGINEER REPORT AT APPROX. 1120 AND PT WAS TRANSFERRED TO ICU AT APPROX. 1130 W/ ASSISTANCE FROM [facility] RESPIRATORY THERAPIST WELL KULWINDER BILLS RN.
[2024-07-15] MEDS ORDERED: Piperacillin/Tazobactam Sod 3.375 GM in NS 100 ML IV SCH (12:00)
[2024-07-15] MEDS ORDERED: Vancomycin HCL 1,000 MG in NS 250 ML IV SCH (12:00)
[2024-07-15 13:47] LABS: Adenovirus Not Detected (NOT DETECT); Bordetella pertussis Not Detected (NOT DETECT); Chlamydophila pneumoniae Not Detected (NOT DETECT); Coronavirus 229E Not Detected (NOT DETECT); Coronavirus HKU1 Not Detected (NOT DETECT); Coronavirus NL63 Not Detected (NOT DETECT); Coronavirus OC43 Not Detected (NOT DETECT); Human Metapneumovirus Not Detected (NOT DETECT); Human Rhinovirus/Enterovirus Detected (NOT DETECT); Influenza A/2009-H1 Not Detected (NOT DETECT); Influenza A/H1 Not Detected (NOT DETECT); Influenza A/H3 Not Detected (NOT DETECT); Influenza B Not Detected (NOT DETECT); Mycoplasma pneumoniae Not Detected (NOT DETECT); Parainfluenza Virus 1 Not Detected (NOT DETECT); Parainfluenza Virus 2 Not Detected (NOT DETECT); Parainfluenza Virus 3 Not Detected (NOT DETECT); Parainfluenza Virus 4 Not Detected (NOT DETECT); Respiratory Syncytial Virus Not Detected (NOT DETECT); SARS-Cov-2 (COVID-19), BioFire Not Detected (NOT DETECT)
[2024-07-15 14:27] LABS: Bun/Creatinine Ratio 15.3 (12.0-20.0); Creatinine, Blood 0.72 mg/dL (0.40-1.00); Magnesium, Blood 1.4 mg/dL (1.6-2.4)
[2024-07-15] MEDS ORDERED: dexmedeTOMIDine 100 ML IV SCH (14:45)
[2024-07-15] MEDS ORDERED: Magnesium Sulf 2 GM/Water 50ML 50 ML IV ONE (14:50)
--- NOTE | 2024-07-15 15:08 | NUR ---
TRANSFER OF CARE @1130 REPORT GIVEN BY JOANIE CRUZ PLATER HELPER PATIENT TRANSFERED TO ICU 4 FROM PCU 7 PT ON BIPAP PICC LINE INSERTED, LEVO STARTED, SCHWARTZ INSERTED, LABS SENT
[2024-07-15] MEDS ORDERED: Ipratropium/Albuterol SulF 2.5-0.5MG/3 ML Amp INH PRN (16:20)
[2024-07-15] MEDS ORDERED: Vasopressin 20 UNITS in NS 100 ML IV SCH (16:25)
[2024-07-15] MEDS ORDERED: Potassium Chloride 20 MEQ/15 ML UDC PT ONE (17:00)
[2024-07-15] MEDS ORDERED: Lactulose 20 GM/30 ML UDC PT SCH (17:00)
--- NOTE | 2024-07-15 18:43 | NUR ---
PATIENT TRANSFERED FROM PCU TODAY HYPOTENSIVE ON LEVO AND VASO PER EMAR, MAKING URINE, SCHWARTZ DRAINING APPROPRIATELY, PATIENT CONFUSED AND ANXIOUS
[2024-07-15 20:34] LABS: Base Excess Venous -9.2 mmol/L; Bicarbonate Venous 17.6 mmol/L (24.0-30.0); PCO2 Venous 31.2 mmHg (38-42); pH Blood Venous 7.34 (7.34-7.37)
[2024-07-15 20:58] LABS: Bun/Creatinine Ratio 15.9 (12.0-20.0); Creatinine, Blood 0.76 mg/dL (0.40-1.00); Potassium, Blood 3.7 mmol/L (3.5-5.5)
--- NOTE | 2024-07-15 22:32 | NUR ---
UPDATE 2050 PT DESAT 79% ON SIMPLE MASK 5LPM O2, DRY COUGH NOTED, INCREASED O2 TO 10 LPM WITH NOTED SPO2 ON 82-84%, INCREASED RESP 40S WITH NOTED ACCESSORY MUSCLE USE, PT PLACED ON CPAP WITH 10 LPM O2, DECREASED RESP AND EFFORT NOTED WITH SP O2 INCREASED TO >902%, PT TOLERATING MASK WELL AT THIS TIE
[2024-07-16] VITALS (95 sets, daily range): BP systolic 78–138; BP diastolic 42–103
[2024-07-16 03:47] LABS: BASOPHILS ABSOLUTE AUTO 0.04 K/mm3 (0.00-0.23); BASOPHILS PERCENT AUTO 0 % (0-2); EOSINOPHILS ABSOLUTE AUTO 0.59 K/mm3 (0.00-0.68); EOSINOPHILS PERCENT AUTO 4 % (0-6); Hematocrit 22.5 % (33.0-51.0); Hemoglobin 7.9 g/dL (11.5-16.0); IMMATURE GRAN ABSOLUTE AUTO 0.21 K/mm3 (0.00-0.10); IMMATURE GRAN PERCENT AUTO 1 % (0-1); LYMPHOCYTES ABSOLUTE AUTO 1.25 K/mm3 (0.84-5.20); LYMPHOCYTES PERCENT AUTO 8 % (21-46); MONOCYTES ABSOLUTE AUTO 0.51 K/mm3 (0.16-1.47); MONOCYTES PERCENT AUTO 3 % (4-13); Mean Corpuscular HGB 27.1 pg (26.0-34.0); Mean Corpuscular HGB Conc 35.1 g/dL (31.5-36.5); Mean Corpuscular Volume 77 fL (80-100); Mean Platelet Volume 10.1 fL (9.1-12.4); NEUTROPHILS ABSOLUTE AUTO 12.67 K/mm3 (1.96-9.15); NEUTROPHILS PERCENT AUTO 83 % (41-73); Platelet Count 329 K/mm3 (150-400); RDW Coefficient Variation 21.8 % (11.7-14.2); RDW Standard Deviation 60.9 fL (35.1-46.3); Red Blood Cell Count 2.91 M/mm3 (3.80-5.20); White Blood Cell Count 15.27 K/mm3 (4.00-11.30)
[2024-07-16 04:16] LABS: Albumin, Blood 1.9 g/dL (3.4-5.0); Albumin/Globulin Ratio 0.6 (0.8-1.8); Bilirubin, Direct 0.2 mg/dL (0.0-0.3); Bilirubin, Indirect 0.2 mg/dL (0.1-0.7); Bilirubin, Total 0.4 mg/dL (0.1-1.0); Bun/Creatinine Ratio 18.3 (12.0-20.0); Calcium, Blood 8.1 mg/dL (8.5-10.1); Creatinine, Blood 0.71 mg/dL (0.40-1.00); Globulin, Blood 3.3 g/dL (2.2-4.0); Potassium, Blood 4.2 mmol/L (3.5-5.5); Total Protein, Blood 5.2 g/dL (6.4-8.2)
--- NOTE | 2024-07-16 06:25 | NUR ---
SHIFT SUMMARY PT REMAINS ON PRECEDEX, RASS -1, PRECEDEX TITRATED PER EMAR, PT ORIENTED TO SELF ONLY, SOFT SPOKEN , FOLLOWS COMMANDS, SA- BRADYCARDIA 48-60S, BPMAP>65 ON LEVOPHED INFUSION, TITRATED PER EMAR, VASOPRESSIN OFF AT 2199, PLACED ON CPAP 10 LPM O2 AT 2050 FOR DESAT SPO2 70S, TOLERATING CPAP ALL SHIFT WITH SPO2>90% AND O2 AT 7-9LPM VIA CPAP, SCHWARTZ PATENT AND DRAINING TO GRAVITY, LEFT PICC AND RIGHT POWERGLIDE PATENT, BED ALARM ON SIDE RAILS UP X2, CALL LIGHT IN REACH
--- NOTE | 2024-07-16 06:51 | NUR ---
UPDATE SPOKE WITH DR ULRICH AND NOTIFIED OF AM LAB RESULTS OF BICARB 18, HGB 7.9. STATES HE WILL LOOK AT CHART AND RESULTS
--- NOTE | 2024-07-16 11:14 | NUR ---
At bedside with Dr. Deshpande to trial simple mask. Oxygen dropped into 70s and pt was placed back on CPAP. O2 titrated to 10lpm to allow for compensation. Pt detached tubing from mask shortly after and oxygen decreased to 66%. Pt yelling to give her some water, pt reassured that she is receiving water via NGT and education provided regarding safety issue with oral intake currently. Pt placed NPO and nutrition consulted for tube feeding.
[2024-07-16] MEDS ORDERED: Bisacodyl 10 MG Supp PR PRN (15:55)
[2024-07-16] MEDS ORDERED: Magnesium Hydroxide Conc 10 ML UDC PT PRN (15:55)
[2024-07-16] MEDS ORDERED: Docusate Sodium Liquid 100 MG UDC PT PRN (15:55)
[2024-07-16] MEDS ORDERED: Citalopram Hydrobromide 20 MG Tab PT SCH (16:00)
--- NOTE | 2024-07-16 16:42 | NUR ---
Cigarettes and commercial loan manager Belongings of commercial loan manager and cigarettes brought to ICU from PCU. Put belongings in icu locked cupboard while pt is in the ICU unit. Her label is on the bag of belongings.
--- NOTE | 2024-07-16 17:59 | NUR ---
PT LETHARGIC, ORIENTED TO SELF ONLY. IRRITABLE THROUGH SHIFT. TMAX 100.9 BLADDER. JOSE TO SINUS ARRYTHMIA, HYPOTENSIVE, REMAINS ON LEVOPHED GTT. WEANED FROM CPAP TO OXYMIZER TO HEATED HFNC, 40L 50%. PT CURRENTLY NPO WITH DOBHOFF TUBE TO LEFT NARE, VHP INFUSING AT 20 ML/HR. BM X2 LARGE, LOOSE/LIQUID. URINE OUTPUT 450, TEMP SENSING SCHWARTZ TO GRAVITY. PICC TO LORENZO, MIDLINE TO MOI. PRECEDEX AT .2, LEVOPHED AT 3, SEE MAR. SAFETY, COMFORT, HYGIENE ADDRESSED.
--- NOTE | 2024-07-16 21:25 | NUR ---
ASSUMED CARE OF PT FROM BRENDA PAZ RN AT 2129. AGREE W/INITIAL ASSESSMENT.
[2024-07-17] VITALS (72 sets, daily range): BP systolic 83–129; BP diastolic 55–88
[2024-07-17 00:10] LABS: Vancomycin, Trough 19.6 ug/mL (5.0-10.0)
[2024-07-17] MEDS ORDERED: Vancomycin HCL 1,250 MG in NS 250 ML IV SCH (04:00)
[2024-07-17 05:11] LABS: Hematocrit 21.9 % (33.0-51.0); Hemoglobin 7.4 g/dL (11.5-16.0); Mean Corpuscular HGB 26.9 pg (26.0-34.0); Mean Corpuscular HGB Conc 33.8 g/dL (31.5-36.5); Mean Corpuscular Volume 80 fL (80-100); Mean Platelet Volume 10.1 fL (9.1-12.4); Platelet Count 295 K/mm3 (150-400); RDW Coefficient Variation 22.5 % (11.7-14.2); RDW Standard Deviation 63.6 fL (35.1-46.3); Red Blood Cell Count 2.75 M/mm3 (3.80-5.20); White Blood Cell Count 13.86 K/mm3 (4.00-11.30)
[2024-07-17 05:36] LABS: Bun/Creatinine Ratio 18.3 (12.0-20.0); Calcium, Blood 8.6 mg/dL (8.5-10.1); Creatinine, Blood 0.65 mg/dL (0.40-1.00); Magnesium, Blood 2.3 mg/dL (1.6-2.4); Phosphorus, Blood 2.7 mg/dL (2.5-4.9); Potassium, Blood 3.4 mmol/L (3.5-5.5)
[2024-07-17] MEDS ORDERED: Citalopram Hydrobromide 20 MG Tab PO SCH (09:00)
[2024-07-17] MEDS ORDERED: Lansoprazole 15 MG TAB.RAP.DR PO SCH (10:29)
[2024-07-17] MEDS ORDERED: Lansoprazole 15 MG TAB.RAP.DR PT SCH (10:31)
[2024-07-17] MEDS ORDERED: Acetaminophen 325 MG TABLET PT PRN (10:35)
[2024-07-17] MEDS ORDERED: Potassium Chloride 20 MEQ/15 ML UDC PT ONE (12:00)
[2024-07-17] MEDS ORDERED: Nicotine 21 MG PATCH TOP SCH (15:20)
[2024-07-17] MEDS ORDERED: OLANZapine 10 MG Tab PO ONE (16:45)
--- NOTE | 2024-07-17 18:51 | NUR ---
Shift Summary Pt wakes to verbal stimuli, oriented to self; this afternoon pt asking staff to remove shoes from her bed, notified MD, new orders for zyprexa this evening. Pt assists with repositioning. Pt repeatedly requesting water and food, pt educated on asp risk and waiting for resp status to improve before trying to eat/drink. Tele sinus with pac 60-70's, bp soft at times, MAP remains >65 for majority of shift. This am pt on cpap with 6l bleed in transitioned to airvo 50l 50-60% fio2, ls coarse, moist unproductive cough noted, resp rate 20-28 at rest, 28-30's while aggitated. Abd soft, nontender, +bt noted. Small soft bm this afternoon. Dobhoff in place, tube feeding per goal; increased flush to 200ml q4 due to sodium per Dr Deshpande. Temp trending up 99.5 up to 100.1, Dr Deshpande notified. Other vss. No other acute changes noted. Report given to oncoming rn.
[2024-07-17] MEDS ORDERED: Lactobacil 2-S.Thermo-Bifido 1 1 Cap PT SCH (21:00)
[2024-07-18] VITALS (68 sets, daily range): BP systolic 83–123; BP diastolic 50–82
[2024-07-18 05:25] LABS: BASOPHILS ABSOLUTE AUTO 0.07 K/mm3 (0.00-0.23); BASOPHILS PERCENT AUTO 0 % (0-2); EOSINOPHILS ABSOLUTE AUTO 1.11 K/mm3 (0.00-0.68); EOSINOPHILS PERCENT AUTO 7 % (0-6); Hematocrit 22.3 % (33.0-51.0); Hemoglobin 7.4 g/dL (11.5-16.0); IMMATURE GRAN ABSOLUTE AUTO 0.32 K/mm3 (0.00-0.10); IMMATURE GRAN PERCENT AUTO 2 % (0-1); LYMPHOCYTES ABSOLUTE AUTO 1.56 K/mm3 (0.84-5.20); LYMPHOCYTES PERCENT AUTO 9 % (21-46); MONOCYTES ABSOLUTE AUTO 0.62 K/mm3 (0.16-1.47); MONOCYTES PERCENT AUTO 4 % (4-13); Mean Corpuscular HGB 27.3 pg (26.0-34.0); Mean Corpuscular HGB Conc 33.2 g/dL (31.5-36.5); Mean Corpuscular Volume 82 fL (80-100); Mean Platelet Volume 10.5 fL (9.1-12.4); NEUTROPHILS ABSOLUTE AUTO 12.91 K/mm3 (1.96-9.15); NEUTROPHILS PERCENT AUTO 78 % (41-73); Platelet Count 262 K/mm3 (150-400); RDW Coefficient Variation 23.5 % (11.7-14.2); RDW Standard Deviation 67.2 fL (35.1-46.3); Red Blood Cell Count 2.71 M/mm3 (3.80-5.20); White Blood Cell Count 16.59 K/mm3 (4.00-11.30)
--- NOTE | 2024-07-18 05:33 | NUR ---
SHIFT SUMMERY PT HAS BEEN ON CPAP ALL NIGHT W/6L BLEED IN. SHE HAS DISCONNECTED THE HOSE MULTIPLE TIMES AND HER OXYGEN SATURATION DROPS TO THE 50S VERY QUICKLY. SHE DOES NOT SEEM TO UNDERSTAND THE IMPORTANCE OF HAVING THE OXYGEN NOR THE DANGER OF REMOVING IT. SHE IS ON A PRECEDEX DRIP, SEE [facility]. SHE HAS BEEN INCONTINENT OF STOOL. SCHWARTZ CATH INTACT PATENT AND DRAINING. SHE HAS BEEN SB-SR W/PAC ON THE [place]. BP WNL. AFEBRILE.
[2024-07-18 06:02] LABS: Albumin, Blood 1.8 g/dL (3.4-5.0); Albumin/Globulin Ratio 0.5 (0.8-1.8); Bilirubin, Total 0.3 mg/dL (0.1-1.0); Bun/Creatinine Ratio 23.8 (12.0-20.0); Calcium, Blood 8.5 mg/dL (8.5-10.1); Creatinine, Blood 0.63 mg/dL (0.40-1.00); Globulin, Blood 3.5 g/dL (2.2-4.0); Potassium, Blood 4.4 mmol/L (3.5-5.5); Total Protein, Blood 5.3 g/dL (6.4-8.2)
[2024-07-18] MEDS ORDERED: Citalopram Hydrobromide 20 MG Tab PT SCH (09:00)
--- NOTE | 2024-07-18 09:38 | NUR ---
CARE ASSUMPTION PT A&OX1. FEBRILE UPON CARE ASSUMPTION. MEDICATED THIS AM WITH TYLENOL PER TUBE. PT REMAINS FEBRILE, SEE VITALS. SP02>90% ON CPAP 6L BLEED IN. PT PULLED TUBE FROM MASK AT START OF SHIFT, DESATTED QUICKLY TO 60'S. TUBE REPLACED, TOOK A FEW MINUTES TO RECOVER >90%. PT EDUCATED ON NOT REMOVING CPAP TUBE FROM MASK. TELEMETRY SHOWS NSR W/ PACS, HR 60'S-70'S. PT W/ SCHWARTZ CATHETER DRAINING YELLOW URINE TO GRAVITY. PT INCONTINENT OF STOOL, LIQUID BM THIS AM. PT CHANGED, REPOSITIONED. PRECEDEX GTT INFUSING AT 0.7. ABX INFUSING PER EMAR. MEDICATIONS PER DOBHOFF. TF INFUSING PER EMAR. CALL LIGHT IN REACH.
--- NOTE | 2024-07-18 16:58 | NUR ---
SHIFT SUMMARY NO ACUTE CHANGES SINCE CARE ASSUMPTION. pt a&ox1. ASKING FREQUENTLY FOR FOOD/WATER. PT EDUCATED ABOUT FAILED SWALLOW EVAL/DOBHOFF/NPO. PT VERBALLY UPSET/CURSING AT STAFF. SP02>90% ON AIRVO THIS AFTERNOON 50L 50%. PT W/ DRY UNPRODUCTIVE COUGH. TELEMETRY SHOWS NSR W/ PACS, HR 60'S. SCHWARTZ CATHETER W/ CLEAR YELLOW URINE TO GRAVITY. BM X1. REPOSITIONED Q2H. PRECEDEX INFUSING, REMAINS AT 0.7. CALL LIGHT IN REACH.
[2024-07-18] MEDS ORDERED: Folic Acid 1 MG TAB PO SCH (19:00)
[2024-07-18] MEDS ORDERED: Potassium Chloride 20 MEQ TabCR PO SCH (19:00)
[2024-07-18] MEDS ORDERED: Potassium Chloride 20 MEQ/15 ML UDC PT SCH (20:00)
--- NOTE | 2024-07-18 20:00 | NUR ---
ASSUMED CARE OF PT AT 1900. REPORT RECEIVED AT ROOM. PT PRESENTS IN BED. ALERT AND MILDLY DISORIENTED. PT REPEATS THAT SHE WANTS TO DRINK WATER AND AN ENSURE. PT RE-EDUCATED THAT SHE IS NPO AT THIS TIME. WHEN ASKED PT WHAT THE YEAR IS SHE SAYS SHE DOESN'T KNOW AND DOESN'T CARE. IS ABLE TO STATE THAT SHE IS IN [place] AND KNOWS THE PRESIDENT. ORAL CARE DONE WHICH REVEALS SOME DRYNESS TO ROOF OF MOUTH. AFTER GOOD ORAL CARE, MOISTENER APPLIED TO ENTIRETY OF MOUTH WITH ATTENTION TO PALATES. PT SOMEWHAT COOPERATIVE. WHEN TURNING PT TO HER LEFT SIDE, SHE YELLS AND PROTESTS THE TURN. "I DONT WANT TO TURN ON MY SIDE". PT ALSO ADDS THAT SHE WANTS A "BEER AND A CIGARRETTE." PT IMMEDIATELY TURNS HERSELF BACK TO HER RIGHT SIDE. WILL REVIEW CHART AND PLAN OF CARE FOR THIS PT.
[2024-07-18] MEDS ORDERED: Sodium Bicarbonate 650 MG Tab PT SCH (21:00)
[2024-07-18] MEDS ORDERED: Sodium Bicarbonate 650 MG Tab PO SCH (21:00)
[2024-07-19] VITALS (71 sets, daily range): BP systolic 81–138; BP diastolic 55–86
[2024-07-19 04:17] LABS: BASOPHILS ABSOLUTE AUTO 0.09 K/mm3 (0.00-0.23); BASOPHILS PERCENT AUTO 1 % (0-2); EOSINOPHILS ABSOLUTE AUTO 1.23 K/mm3 (0.00-0.68); EOSINOPHILS PERCENT AUTO 7 % (0-6); Hematocrit 21.5 % (33.0-51.0); Hemoglobin 7.1 g/dL (11.5-16.0); IMMATURE GRAN ABSOLUTE AUTO 0.59 K/mm3 (0.00-0.10); IMMATURE GRAN PERCENT AUTO 4 % (0-1); LYMPHOCYTES ABSOLUTE AUTO 1.86 K/mm3 (0.84-5.20); LYMPHOCYTES PERCENT AUTO 11 % (21-46); MONOCYTES PERCENT AUTO 3 % (4-13); Mean Corpuscular HGB 27.8 pg (26.0-34.0); Mean Corpuscular Volume 84 fL (80-100); Mean Platelet Volume 10.7 fL (9.1-12.4); NEUTROPHILS ABSOLUTE AUTO 12.82 K/mm3 (1.96-9.15); NEUTROPHILS PERCENT AUTO 75 % (41-73); NRBC ABSOLUTE 0.02 K/mm3 (0.00-0.02); NRBC Auto 0.1 /100 WBC (0.0-0.2); Platelet Count 256 K/mm3 (150-400); RDW Coefficient Variation 23.8 % (11.7-14.2); RDW Standard Deviation 69.9 fL (35.1-46.3); Red Blood Cell Count 2.55 M/mm3 (3.80-5.20); White Blood Cell Count 17.09 K/mm3 (4.00-11.30)
[2024-07-19 04:46] LABS: Albumin, Blood 1.7 g/dL (3.4-5.0); Albumin/Globulin Ratio 0.5 (0.8-1.8); Bilirubin, Total 0.3 mg/dL (0.1-1.0); Bun/Creatinine Ratio 23.3 (12.0-20.0); Calcium, Blood 8.3 mg/dL (8.5-10.1); Creatinine, Blood 0.64 mg/dL (0.40-1.00); Globulin, Blood 3.7 g/dL (2.2-4.0); Potassium, Blood 4.5 mmol/L (3.5-5.5); Total Protein, Blood 5.4 g/dL (6.4-8.2)
--- NOTE | 2024-07-19 05:27 | NUR ---
PT DOES NOT STAY IN ANY POSITION EXCEPT DIRECTLY TO HER RIGHT SIDE. PT TOLERATES ORAL CARE WELL. HAS KEPT HER CPAP MASK IN PLACE THROUGOUT THE NIGHT. PT HAS MAINTAINED > 90 PERCENT FIO2. DOES QUICKLY DESATURATE TO LOW 80 PERCENTS WHEN MASK REMOVED FOR ORAL CARE. PT HAS BEEN INCONTINENT TO LOOSE LYLES COLORED STOOL. PRECEDEX DRIP CONTINUES AT 0.7 MCG'S/KG/HOUR. HAS REMAINED CALM EXCEPT WHEN SHE IS TURNED. HAS ASKED FOR BEER AND CIGARRETTES SEVERAL TIMES THIS NIGHT. WILL CONTINUE TO MONITOR PT, AND WILL REPORT OFF TO ONCOMING RN.
[2024-07-19] MEDS ORDERED: Folic Acid 1 MG TAB PT SCH (09:00)
[2024-07-19] MEDS ORDERED: Thiamine HCl 100 MG Tab PT SCH (09:00)
[2024-07-19] MEDS ORDERED: Furosemide 10 MG / ML 2ML Vial IV ONE (13:40)
[2024-07-19] MEDS ORDERED: QUEtiapine Fumarate 25 MG Tab PT SCH (13:40)
[2024-07-19] MEDS ORDERED: Dextrose 5% 500 ML IV SCH (14:00)
[2024-07-19] MEDS ORDERED: Sodium Bicarbonate 650 MG Tab PT SCH (17:00)
--- NOTE | 2024-07-19 19:27 | NUR ---
ASSUMED CARE OF PT AT 1900. REPORT RECEIVED AT BEDSIDE. PT AWAKE AND BECOMES UPSET WITH REPORT BEING DONE. VERY DIFFICULT TO UNDERSTAND PT WHILE SHE IS WEARING CPAP MASK. WILL MAKE EFFORTS TO TRY TO UNDERSTAND PT AND ADDRESS HER CONCERNS. PT CONTINUES ON PRECEDEX DRIP AT 0.8 MCG'S/KG/HOUR. WILL REVIEW CHART AND PLAN OF CARE FOR THIS PT.
--- NOTE | 2024-07-19 22:44 | NUR ---
HAVE UTILIZED THE AUTO TURN FUNCTION ON BED SECONDARY TO PT NOT WANTING REPOSITIONED. THIS TO PROTECT SKIN INTEGRITY. PT WEARING BIPAP MASK. OCCASSIONALLY PT WILL PULL AT TUBING AND GET IT DISCONNECTED FROM MASK. TOLERATING TUBE FEEDINGS WELL. URINE OUTPUT WELL.
[2024-07-20] VITALS (72 sets, daily range): BP systolic 72–157; BP diastolic 45–101
--- NOTE | 2024-07-20 03:52 | NUR ---
PT INCONTINENT TO LARGE LIQUID YELLOW STOOL. PT, UNFORTUNATELY, ATTEMPTS TO REMOVE PADDING FROM UNDER HERSELF AND SPREADS THE STOOL OUT AND SOILS ALL BEDDING AND GOWN. FULL BEDBATH DONE WITH LINEN AND GOWN CHANGE. DID OPT TO PLACE FLEXISEAL TO CONTROL STOOL. TEACHING DONE AND PT TOLERATES THIS PROCEDURE WELL. HAVE TURNED OFF AUTO-TURN FUNCTION AT THIS TIME. PT ALLOWED TO TURN HERSELF. WILL CONTINUE TO MONITOR PT. PRECEDEX CONTINUES AT 0.8 MCG'S/KG/HOUR.
[2024-07-20 05:26] LABS: BASOPHILS ABSOLUTE AUTO 0.07 K/mm3 (0.00-0.23); BASOPHILS PERCENT AUTO 0 % (0-2); EOSINOPHILS ABSOLUTE AUTO 0.74 K/mm3 (0.00-0.68); EOSINOPHILS PERCENT AUTO 4 % (0-6); Hematocrit 20.9 % (33.0-51.0); Hemoglobin 6.7 g/dL (11.5-16.0); IMMATURE GRAN ABSOLUTE AUTO 0.63 K/mm3 (0.00-0.10); IMMATURE GRAN PERCENT AUTO 4 % (0-1); LYMPHOCYTES ABSOLUTE AUTO 1.74 K/mm3 (0.84-5.20); LYMPHOCYTES PERCENT AUTO 10 % (21-46); MONOCYTES ABSOLUTE AUTO 0.43 K/mm3 (0.16-1.47); MONOCYTES PERCENT AUTO 3 % (4-13); Mean Corpuscular HGB 27.5 pg (26.0-34.0); Mean Corpuscular HGB Conc 32.1 g/dL (31.5-36.5); Mean Corpuscular Volume 86 fL (80-100); Mean Platelet Volume 10.9 fL (9.1-12.4); NEUTROPHILS PERCENT AUTO 78 % (41-73); NRBC ABSOLUTE 0.04 K/mm3 (0.00-0.02); NRBC Auto 0.2 /100 WBC (0.0-0.2); Platelet Count 249 K/mm3 (150-400); Red Blood Cell Count 2.44 M/mm3 (3.80-5.20); White Blood Cell Count 16.71 K/mm3 (4.00-11.30)
[2024-07-20 05:40] LABS: Albumin, Blood 1.5 g/dL (3.4-5.0); Anion Gap 7 mmol/L (3-11); Blood Urea Nitrogen 14 mg/dL (8-24); Bun/Creatinine Ratio 24.3 (12.0-20.0); CO2, Blood 21 mmol/L (21-32); Calcium, Blood 8.2 mg/dL (8.5-10.1); Chloride, Blood 125 mmol/L (98-108); Creatinine, Blood 0.58 mg/dL (0.40-1.00); Glomerular Filtration Rate 100 (60-); Glucose, Blood 123 mg/dL (70-99); Phosphorus, Blood 2.1 mg/dL (2.5-4.9); Potassium, Blood 4.2 mmol/L (3.5-5.5); Sodium, Blood 149 mmol/L (136-145)
--- NOTE | 2024-07-20 05:41 | NUR ---
ATTEMPTED WEAN TRIAL THIS AM. ADMINISTERED 5 MG HALDOL. AND CUT THE PROPOFOL IN HALF FROM 40 MCG'S, DOWN TO 20 MCG'S/KG/MIN. PT WITHIN APPROX 5 MINUTES AWAKENS AND BEGINS TO GET AGGRESSIVE IN BED. ATTEMPTS TO GET AHOLD OF HIS ETT. DOES NOT REDIRECT. PT'S RESPIRATORY RATE INCREASES TO 60 PER MINUTE. HEART RATE 110'S TO 120'S. PLACED PT BACK TO PROPOFOL AT 40 MCG'S/KG/MIN. FOLLOWED BY A DOSE OF 1 MG VERSED. PT CONTINUES TO THRASH ABOUT BED. 30 MINUTES INTO RETURN TO SEDATION. DID PLACE PROPOFOL UP TO 50 MCG'S/KG/MIN. ATTEMPTED TO GET PT TO SQUEEZE FINGERS WENT UNSUCESSFUL. WILL CONTINUE TO MONITOR PT, AND WILL REPORT OFF TO ONCOMING RN.
[2024-07-20] MEDS ORDERED: Dextrose 5% 1,000 ML IV SCH (06:55)
[2024-07-20] MEDS ORDERED: Potassium Phosphate Dibasic 30 MM in Dextrose 5% 500 ML IV ONE (06:55)
[2024-07-20] MEDS ORDERED: Doxycycline Hyclate 100 MG in Dextrose 5% 250 ML IV SCH (09:00)
[2024-07-20] MEDS ORDERED: Alteplase Recombinant 2 MG / Vial IV ONE (10:10)
[2024-07-20 14:41] LABS: CORTISOL,U FREE - RATIO TO CRT 360.91 ug/g CRT; CREATININE,URINE - PER VOLUME 11 mg/dL; HOURS COLLECTED Random hr; TOTAL VOLUME Random mL
[2024-07-20] MEDS ORDERED: Furosemide 10 MG / ML 2ML Vial IV ONE (15:00)
[2024-07-20] MEDS ORDERED: MethylPREDNISolone Sod Succ 40 MG VIAL IV SCH (16:00)
[2024-07-20 17:52] LABS: Hematocrit 20.2 % (33.0-51.0); Hemoglobin 6.4 g/dL (11.5-16.0)
--- NOTE | 2024-07-20 18:39 | NUR ---
PT DROWSY TO RESTLESS THROUGH SHIFT. A/O X1, SELF. INTERMITTENTLY ABLE TO IDENTIFY THAT SHE IS AT THE HOSPITAL. AGITATED, IRRITABLE, EMOTIONAL. CV STATUS SINUS ARRYTHMIA, EKG PERFORMED. BP SOFT TO HYPOTENSIVE. LEFT EXTREMITY EDEMATOUS - VENOUS DUPLEX ORDERED. +1 PITTING EDEMA GENERALIZED. PT CONTINUES TO BE BIPAP DEPENDENT BETWEEN 6-15L, MINIMAL RESERVE, O2 SAT DROPS WITH REPOSITION AND ORAL CARE. TOOTH DISLODGED DURING ORAL CARE. NGT TO LEFT NARE INFUSING PIVOT 1.5 AT 35ML/HR. FWF 150 Q2H. BOWEL MANAGEMENT SYSTEM INTACT AND TO GRAVITY, FLUSHED AND FLOWING BROWN LIQUID STOOL. SCHWARTZ INTACT AND TO GRAVITY, YELLOW HAZY URINE - 1150 ML. FULL BATH AND LINEN CHANGE PERFORMED. FOLLOW BACK UP DR. HUNTLEY REGARDING LUE EDEMA AND AM H/H. REPEATED H/H AT [address] LOWER[address] HUNTLEY NOTIFIED AND STAT TYPE/SCREEN AND 1 UNTI PRBCS ORDERED. PT DID VERBALIZE THE NAMES OF TWO SONS, PINKY AND JOY VOSS AND STATED ONE WORKED A OB/GYN DOCTOR IN [place] AND THE OTHER WAS LOCAL. FRIEND ON CHART VISITED FOR A SHORT TIME TODAY, LYLE PEGUERO. SAFETY, COMFORT, HYGIENE ADDRESSED. MIDLINE TO RUE, PICC LINE TO LUE.
[2024-07-20] MEDS ORDERED: Doxycycline Hyclate 100 MG TAB PT SCH (21:00)
[2024-07-20] MEDS ORDERED: Enoxaparin 60 MG/0.6 ML SYR SC SCH (21:00)
--- NOTE | 2024-07-20 21:06 | NUR ---
update 1927 venous ultrsound completed to JONAH, results of extensive blood clots to left a rm- subclavian vein distally to wrist, Dr Condon on unit and notified of results, new orders recieved for lovenox subq and ok to continue to use left arm PICC 2010 1 unit prbc started at this time per orders, noted temp 100.1f, medicated with tylenol 650 mg via ngt per emar
[2024-07-21] VITALS (53 sets, daily range): BP systolic 96–143; BP diastolic 59–88
[2024-07-21 04:18] LABS: BASOPHILS ABSOLUTE AUTO 0.05 K/mm3 (0.00-0.23); BASOPHILS PERCENT AUTO 0 % (0-2); EOSINOPHILS ABSOLUTE AUTO 0.17 K/mm3 (0.00-0.68); EOSINOPHILS PERCENT AUTO 1 % (0-6); Hematocrit 26.6 % (33.0-51.0); Hemoglobin 8.7 g/dL (11.5-16.0); IMMATURE GRAN ABSOLUTE AUTO 0.55 K/mm3 (0.00-0.10); IMMATURE GRAN PERCENT AUTO 4 % (0-1); LYMPHOCYTES ABSOLUTE AUTO 1.98 K/mm3 (0.84-5.20); LYMPHOCYTES PERCENT AUTO 13 % (21-46); MONOCYTES ABSOLUTE AUTO 0.38 K/mm3 (0.16-1.47); MONOCYTES PERCENT AUTO 3 % (4-13); Mean Corpuscular HGB 27.4 pg (26.0-34.0); Mean Corpuscular HGB Conc 32.7 g/dL (31.5-36.5); Mean Corpuscular Volume 84 fL (80-100); Mean Platelet Volume 10.5 fL (9.1-12.4); NEUTROPHILS ABSOLUTE AUTO 11.78 K/mm3 (1.96-9.15); NEUTROPHILS PERCENT AUTO 79 % (41-73); NRBC ABSOLUTE 0.06 K/mm3 (0.00-0.02); NRBC Auto 0.4 /100 WBC (0.0-0.2); Platelet Count 241 K/mm3 (150-400); RDW Coefficient Variation 21.9 % (11.7-14.2); RDW Standard Deviation 63.8 fL (35.1-46.3); Red Blood Cell Count 3.18 M/mm3 (3.80-5.20); White Blood Cell Count 14.91 K/mm3 (4.00-11.30)
[2024-07-21 04:42] LABS: Albumin, Blood 1.5 g/dL (3.4-5.0); Anion Gap 9 mmol/L (3-11); Blood Urea Nitrogen 15 mg/dL (8-24); Bun/Creatinine Ratio 26.4 (12.0-20.0); CO2, Blood 22 mmol/L (21-32); Calcium, Blood 8.4 mg/dL (8.5-10.1); Chloride, Blood 117 mmol/L (98-108); Creatinine, Blood 0.57 mg/dL (0.40-1.00); Glomerular Filtration Rate 101 (60-); Glucose, Blood 115 mg/dL (70-99); Phosphorus, Blood 2.4 mg/dL (2.5-4.9); Potassium, Blood 4.4 mmol/L (3.5-5.5); Sodium, Blood 144 mmol/L (136-145)
--- NOTE | 2024-07-21 06:29 | NUR ---
SHIFT SUMMARY PT RASS 0/-1, OPENS EYES TO VERBAL STIMULI, ORIENTED TO SELF, ABLE TO MAKE NEEDS KNOWN, FOLLOWS COMMANDS, TMAX 100.2F, TYLENOL GIVEN PER EMAR, SA 60-80S, SBP MAP >65, REMAINS ON CPAP WITH 4-7 LPM O2, SPO2>92%, [place] LUNGS COARSE/RHONCHI, LEFT NARE NGT AND SECURED TO NOSE WITH TAPE AT 61CM, PIVOT 1.5 INFUSING AT 35 ML/HR, WITH 150 ML H2O EVERY 2 HOURS, PT TOLERATING WELL, SCHWARTZ PATENT AND DRAINING TO GRAVITY, FECAL RECTAL TUBE PATENT AND DRAINING TO GRAVITY, GENERALIZED +2 EDEMA, BLE +1/+2 EDEMA, LUE +4 EDEMA WITH BRUISING AND HEMATOMA TO LEFT AC NOTED, LUE+EXTENSIVE DVT SUBCLAVIAN TO DISTAL WRIST, LOVENOX STARTED SUBQ, 1 UNIT PRBC COMPLETED FOR HGB 6.4, HGB 7.9 1 HOUR AFTER COMPLETION AND 8.7 HGB THIS AM, HOB UP 45 DEGREES, LEFT UPPER ARM PICC PATENT AND IN USE PER DR HUNTLEY, PRECEDEX INFUSING AT 0.5 MCG/KG/HR, RIGHT UPPER ARM MIDLINE PATENT AND CLAMPED, SIDE RAILS UP X2
[2024-07-21] MEDS ORDERED: Furosemide 10 MG / ML 2ML Vial IV SCH (09:00)
--- NOTE | 2024-07-21 11:03 | NUR ---
PT CONTINUOUSLY REPORTS THAT ITS "GETTING HARDER TO BREATHE". PT OXYGEN SATURATION MID 90S WHILE BIPAP IS ON BUT RN INCREASED LPM FROM 4 UP TO 10 FOR PATIENT COMFORT. PT UNCLEAR HOW AND WHY SHE "BECAME SO SICK" AND SAYS SHE "WAS FINE AT [facility]". PT DOES NOT REMEMBER ADMISSION OR DAILY CARE SINCE ADMISSION. PT DENIES RECENT DRUG/ALCOHOL/CIGARETTE USE DESPITE CURRENT CHART DOCUMENTATION. PT EXPRESSES DESIRES TO "" THIS MORNING AND "STOP ALL THIS AND BE COMFORTABLE". DESPITE SEEMING QUITE LUCID AT THE MOMENT, ONGOING CONCERNS FOR PATIENT'S COGNITIVE STATUS PROMPT DISCUSSION WITH INVESTOR RELATIONS ASSOCIATE AND PALLIATIVE CARE ALONG WITH ST/OT FOR COGNITIVE EVALUATION AND GOALS OF CARE. 20MG IV LASIX GIVEN.
[2024-07-21] MEDS ORDERED: TraMADol HCl 50 MG Tab PO ONE (17:45)
[2024-07-21] MEDS ORDERED: TraMADol HCl 50 MG Tab PT ONE (18:10)
--- NOTE | 2024-07-21 19:16 | NUR ---
PT TOLERATED HFNC WELL TODAY. PRECEDEX HAS BEEN OFF SINCE THIS AM. PT ALERT AND ORIENTED TO SELF, PLACE, SITUATION, DATE. DIURESED TODAY, AROUND 2L OUT. SINUS ARRHYTHMIA. PT C/O CHEST PAIN, EKG PERFORMED, DR. PEREZ NOTIFIED. ULTRAM X1 GIVEN. PT REPORTED FEELING NG FLUSH IN THROAT, CXR ORDERED FOR PLACEMENT CONFIRMATION. BMS INTACT, 500ML OUT.
[2024-07-21] MEDS ORDERED: Arginine/Glutamine/Calcium Hmb 1 Packet PT SCH (21:00)
[2024-07-22] VITALS (48 sets, daily range): BP systolic 90–149; BP diastolic 54–92
[2024-07-22 03:48] LABS: Hematocrit 24.9 % (33.0-51.0); Hemoglobin 8.2 g/dL (11.5-16.0); Mean Corpuscular HGB 27.9 pg (26.0-34.0); Mean Corpuscular HGB Conc 32.9 g/dL (31.5-36.5); Mean Corpuscular Volume 85 fL (80-100); Mean Platelet Volume 10.6 fL (9.1-12.4); NRBC ABSOLUTE 0.02 K/mm3 (0.00-0.02); NRBC Auto 0.1 /100 WBC (0.0-0.2); Platelet Count 331 K/mm3 (150-400); RDW Coefficient Variation 22.2 % (11.7-14.2); RDW Standard Deviation 64.7 fL (35.1-46.3); Red Blood Cell Count 2.94 M/mm3 (3.80-5.20); White Blood Cell Count 15.31 K/mm3 (4.00-11.30)
[2024-07-22 04:08] LABS: Albumin, Blood 1.5 g/dL (3.4-5.0); Albumin/Globulin Ratio 0.4 (0.8-1.8); Bilirubin, Total 0.2 mg/dL (0.1-1.0); Calcium, Blood 8.3 mg/dL (8.5-10.1); Creatinine, Blood 0.53 mg/dL (0.40-1.00); Phosphorus, Blood 1.7 mg/dL (2.5-4.9); Potassium, Blood 3.3 mmol/L (3.5-5.5); Total Protein, Blood 5.5 g/dL (6.4-8.2)
[2024-07-22 04:12] LABS: BAND PERCENT MAN 3 % (0-8); BASOPHILS ABSOLUTE MAN 0.15 K/mm3 (0.00-0.23); BASOPHILS PERCENT MAN 1 % (0-2); EOSINOPHILS ABSOLUTE MAN 0.61 K/mm3 (0.00-0.68); EOSINOPHILS PERCENT MAN 4 % (0-6); LYMPHOCYTES ABSOLUTE MAN 1.22 K/mm3 (0.84-5.20); LYMPHOCYTES PERCENT MAN 8 % (21-46); MONOCYTES ABSOLUTE MAN 0.76 K/mm3 (0.16-1.47); MONOCYTES PERCENT MAN 5 % (4-13); MYELOCYTE PERCENT MAN 2 % (0-0); NEUTROPHILS ABSOLUTE MAN 12.24 K/mm3 (1.96-9.15); SEG NEUTROPHILS PERCENT MAN 77 % (41-73); TOTAL CELLS COUNTED 100
[2024-07-22] MEDS ORDERED: Potassium Phosphate Dibasic 30 MM in Dextrose 5% 500 ML IV STA (04:40)
--- NOTE | 2024-07-22 04:48 | NUR ---
UPDATE 0445 PT CONVERTED FROM AFLUTTER TO SINUS BRADYCARDIA 50S WITHOUT INTERVENTION, PRECEDEX STOPPED AT THIS TIME
--- NOTE | 2024-07-22 04:52 | NUR ---
UPDATE 0426 CALLED AND SPOKE WITH DR CHAPPELL REGARDING AM LAB RESULTS, POTASSIUM 3.3, AND PHOS 1.7, NEW ORDERS RECEIVED
--- NOTE | 2024-07-22 06:16 | NUR ---
SHIFT SUMMARY PT TMAX 99.8F, BP MAP >65, SINUS ARRHYTHMIA 60-80S, ALERT AND ORIENTED TO SELF AND PLACE AT TIMES, EASILY REORIENTED TO SITUATION, FOLLOWS COMMANDS, ABLE TO MAKE NEEDS KNOWN, PLEASANT DEMEANOR, BECAME ANXIOUS WITH REPOSITIONING TO LEFT SIDE AT 0100 DESAT TO 77% WITH NOTED TACHYPNEA, RT AT BEDSIDE, PT REPOSITIONED TO SUPINE POSITION WITH SLIGHT OFFLOADING TO RIGHT SIDE, REMAINS ON HFNC 45LPM/50% O2, SLOW TO RECOVER SPO2 >90%,PRECDEX RESTARTED FOR ANXIETY AT 0.2 MCG/KG/HR, PRECEDEX OFF AT 604, PT RESTING QUIETLY WITH SPO2>92% PICC TO LEFT ARM PATENT, SCHWARTZ AND RECTAL TUBE PATENT AND DRAINING TO GRAVITY, LEFT NART NGT PATENT AT 61 CM, PLACEMENT VERIIFIED BY CHEST XRAY AND TUBE FEEDING RESUMED AT 2029, HOB UP 35 DEGREES, SIDE RAILS UP X2 CALL LIGHT IN REACH DRAINING TO GRAVIYT
--- NOTE | 2024-07-22 08:10 | NUR ---
ASSUMED CARE OF PATIENT PATIENT A/OX3 WITH SOME CONFUSION. DOBHOFF IN PLACE MEASURING AT 61CM INFUSING PIVOT 1.5 @ 35 (GOAL). AIRVO AT 45L 45% WITH O2 SATS ABOVE 90%, LUNG SOUNDS RHONCHI/COARSE THROUGHOUT. PATIENT IN NORMAL SINUS WITH FREQUENT PACS. BP SOFT BUT STABLE WITH MAPS > 65. NON-PITTING EDEMA TO LEFT EXTREMETY, KNOWN DVTS. SCHWARTZ CATHETER IN PLACE, PATENT AND TO GRAVITY. RECTAL TUBE REMOVED DUE TO FREQUENT LEAKING AND PATIENT DISCOMFORT.
--- NOTE | 2024-07-22 11:02 | NUR ---
Pt's POA is Janak Argueta. Paperwork is in her chart. Will print copy for ICU. Yarelis has been stating since yesterday she is "done," and requests to be placed on comfort care. I spoke with pt's POA Janak last evening, explaining the patient is asking to change her status to comfort care. This morning, he agreed with the patient going comfort care. Will talk with LINE MAINTENANCE SUPERVISOR and physician.
[2024-07-22 12:06] LABS: Adenovirus Not Detected (NOT DETECT); Bordetella pertussis Not Detected (NOT DETECT); Chlamydophila pneumoniae Not Detected (NOT DETECT); Coronavirus 229E Not Detected (NOT DETECT); Coronavirus HKU1 Not Detected (NOT DETECT); Coronavirus NL63 Not Detected (NOT DETECT); Coronavirus OC43 Not Detected (NOT DETECT); Human Metapneumovirus Not Detected (NOT DETECT); Human Rhinovirus/Enterovirus Not Detected (NOT DETECT); Influenza A/2009-H1 Not Detected (NOT DETECT); Influenza A/H1 Not Detected (NOT DETECT); Influenza A/H3 Not Detected (NOT DETECT); Influenza B Not Detected (NOT DETECT); Mycoplasma pneumoniae Not Detected (NOT DETECT); Parainfluenza Virus 1 Not Detected (NOT DETECT); Parainfluenza Virus 2 Not Detected (NOT DETECT); Parainfluenza Virus 3 Not Detected (NOT DETECT); Parainfluenza Virus 4 Not Detected (NOT DETECT); Respiratory Syncytial Virus Not Detected (NOT DETECT); SARS-Cov-2 (COVID-19), BioFire Not Detected (NOT DETECT)
[2024-07-22 13:29] LABS: Albumin, Blood 1.6 g/dL (3.4-5.0); Anion Gap 7 mmol/L (3-11); Blood Urea Nitrogen 17 mg/dL (8-24); Bun/Creatinine Ratio 32.4 (12.0-20.0); CO2, Blood 29 mmol/L (21-32); Chloride, Blood 110 mmol/L (98-108); Creatinine, Blood 0.53 mg/dL (0.40-1.00); Glomerular Filtration Rate 103 (60-); Glucose, Blood 128 mg/dL (70-99); Phosphorus, Blood 3.3 mg/dL (2.5-4.9); Potassium, Blood 3.9 mmol/L (3.5-5.5); Sodium, Blood 142 mmol/L (136-145)
[2024-07-22] MEDS ORDERED: OxyCODONE HCL 5 MG TAB PT ONE (13:40)
[2024-07-22] MEDS ORDERED: OxyCODONE HCL 5 MG TAB PT PRN (18:10)
--- NOTE | 2024-07-22 18:58 | NUR ---
END OF SHIFT NOTE NO ACUTE NEGATIVE CHANGES, VSS. NEW AIRVO SETTINGS 40L 33%. RECTAL TUBE REMOVED DUE TO DECREASED LOOSE STOOLS AND LEAKING. COMPLAINTS OF 8/10 MID BACK PAIN, PRN OXYCODONE ORDERED.
[2024-07-23] VITALS (30 sets, daily range): BP systolic 86–129; BP diastolic 34–88
[2024-07-23 04:40] LABS: BASOPHILS PERCENT AUTO 1 % (0-2); EOSINOPHILS ABSOLUTE AUTO 0.69 K/mm3 (0.00-0.68); EOSINOPHILS PERCENT AUTO 5 % (0-6); Hematocrit 26.9 % (33.0-51.0); Hemoglobin 8.8 g/dL (11.5-16.0); IMMATURE GRAN ABSOLUTE AUTO 0.26 K/mm3 (0.00-0.10); IMMATURE GRAN PERCENT AUTO 2 % (0-1); LYMPHOCYTES ABSOLUTE AUTO 2.24 K/mm3 (0.84-5.20); LYMPHOCYTES PERCENT AUTO 16 % (21-46); MONOCYTES ABSOLUTE AUTO 0.76 K/mm3 (0.16-1.47); MONOCYTES PERCENT AUTO 6 % (4-13); Mean Corpuscular HGB 27.8 pg (26.0-34.0); Mean Corpuscular HGB Conc 32.7 g/dL (31.5-36.5); Mean Corpuscular Volume 85 fL (80-100); Mean Platelet Volume 10.7 fL (9.1-12.4); NEUTROPHILS ABSOLUTE AUTO 9.86 K/mm3 (1.96-9.15); NEUTROPHILS PERCENT AUTO 71 % (41-73); NRBC ABSOLUTE 0.02 K/mm3 (0.00-0.02); NRBC Auto 0.1 /100 WBC (0.0-0.2); Platelet Count 392 K/mm3 (150-400); RDW Coefficient Variation 21.6 % (11.7-14.2); RDW Standard Deviation 63.9 fL (35.1-46.3); Red Blood Cell Count 3.17 M/mm3 (3.80-5.20); White Blood Cell Count 13.91 K/mm3 (4.00-11.30)
[2024-07-23 04:54] LABS: Albumin, Blood 1.6 g/dL (3.4-5.0); Anion Gap 5 mmol/L (3-11); Blood Urea Nitrogen 23 mg/dL (8-24); Bun/Creatinine Ratio 49.3 (12.0-20.0); CO2, Blood 33 mmol/L (21-32); Calcium, Blood 8.6 mg/dL (8.5-10.1); Chloride, Blood 108 mmol/L (98-108); Creatinine, Blood 0.47 mg/dL (0.40-1.00); Glomerular Filtration Rate 106 (60-); Glucose, Blood 100 mg/dL (70-99); Phosphorus, Blood 2.1 mg/dL (2.5-4.9); Potassium, Blood 3.4 mmol/L (3.5-5.5); Sodium, Blood 143 mmol/L (136-145)
--- NOTE | 2024-07-23 06:28 | NUR ---
SHIFT SUMMARY NO ACUTE EVENTS THIS SHIFT, PT ALERT AND ORIENTED X3 , EASILY REORIENTED TO TIME AND DATE, STATES ITS WINTER BUT I DONT CARE WHAT THE DATE IS, FOLLOWS COMMANDS, ABLE TO MAKE NEEDS KNOWN, CALL LIGHT IN REACH, TMAX 99.0F, SINUS ARRHYTHMIA 60-80S, SBP M AP >65, REMAINS ON HFNC 40LPM/33% O2 WITH SPO2>90%, PRODUCTIVE COUGH WITH YAUNKERS WITH IN REACH AND PT ABLE TO USE INDEPENDENTLY, SCHWARTZ PATENT AND DRAINING TO GRAVITY, LEFT PICC PATENT, RIGHT UPPER ARM MIDLINE PATENT AND CLAMPED, LEFT NARE NGT PATENT AND SECURED AT 61 CM WITH TAPE TO NOSE, PT TOLERATING PIVOT 1.5 TUBE FEEDING AT 35ML/HR AND 100 ML H2O FLUSHES EVERY 4 HOURS, HOB UP 35 DEGREES, SIDE RAILS UP X2 CALL LIGHT IN REACH, NOTED LUE ++4 EDEMA WITH DOPPLER TO RADIAL PULSE AND LUE +DVT
--- NOTE | 2024-07-23 06:52 | NUR ---
UPDATE 0645 BURDEN ON UNIT AND NOTIFIED OF AM LAB RESULTS
[2024-07-23] MEDS ORDERED: Potassium Phosphate Dibasic 20 MM in Dextrose 5% 500 ML IV STA (07:07)
--- NOTE | 2024-07-23 07:15 | NUR ---
ASSUMPTION OF CARE: ASSUMED CARE OF PATIENT. PATIENT SLEEPING SOUNDLY IN BED. OPENS EYES TO VERBAL STIMULI. PATIENT ON HUMIDIFIED HIGH FLOW 40L/35%. SPO2 >92%. NO SIGNS OF PAIN OR DISCOMFORT. BLOOD PRESSURES STABLE WITH MAPS >65. CORE TEMP OF 99.0. HR IN THE 80S. SCHWARTZ IN PLACE AND DRAINING FREELY LIGHT YELLOW URINE. PICC LINE SALINE LOCKED.
--- NOTE | 2024-07-23 19:06 | NUR ---
SHIFT SUMMARY: NEURO: PATIENT WAS INTERACTIVE WITH STAFF AND ENGAGING WITH CARE. SHE REPORTED AT TIMES THAT SHE WAS FEELING SOME CONFUSION. PATIENT HAD DIFFICULTY ARTICULATING HER NEEDS AT TIMES. PATIENT SAT AT THE BEDSIDE TWICE AND STOOD ONCE. RESPIRATORY: PATIENT TRANSITION TO HIGH FLOW NASAL CANNULA AROUND 11. PATIENT WAS ON 2-4L FOR THE REST OF THE SHIFT WITH SPO2 >90%. WHEN AT REST, PATIENT WAS ABLE TO TOLERATE 2L. PATIENT HAS A STRONG, PRODUCTIVE COUGH. PATIENT USED FLUTTER WHEN CUED. CARDIAC: PATIENT'S VITALS STABLE WITH MAPS >65. HR ELEVATED INTO THE 120S WITH ACTIVITY, BUT DID NOT SUSTAIN. HR IN THE 70S-90S. PATIENT REPORTED DIZZINESS WITH SITTING, BUT BLOOD PRESSURE REMAINED STABLE. GI/: PATIENT ABLE TO SWALLOW NEW DIET WITHOUT DIFFICULTY. PATIENT NAUSEATED AFTER EATING MINIMAL AMOUNTS OF HER DINNER, PATIENT VOMITED ABOUT 25ML AFTER EATING. PATIENT ABLE TO TOLERATE SMALL BITES OF CHOCOLATE PUDDING AND SIPS OF WATER WITHOUT DIFFICULTY. INDWELLING CATHETER PULLED. PATIENT ABLE TO VOID WITHOUT DIFFICULTY. PSYCHSOCIAL: PATIENT ADAMANTLY REFUSING REHAB. DISCUSSED BENEFITS. SHE REPORTED THAT SHE WILL CONTINUE TO THINK ABOUT HER. SHE WOULD LIKE TO DISCUSS THIS DECISION WITH HER POALYLE.
--- NOTE | 2024-07-23 22:30 | NUR ---
PER DR BURGER, TITRATE NITROGYCERIN TO KEEP SBP <140 AND MAP TITRATE DILTIAZEM TO KEEP HR <100.
[2024-07-24] VITALS: BP 105/65
[2024-07-24 04:29] LABS: BASOPHILS PERCENT AUTO 1 % (0-2); EOSINOPHILS ABSOLUTE AUTO 0.55 K/mm3 (0.00-0.68); EOSINOPHILS PERCENT AUTO 5 % (0-6); Hematocrit 27.9 % (33.0-51.0); Hemoglobin 9.2 g/dL (11.5-16.0); IMMATURE GRAN ABSOLUTE AUTO 0.19 K/mm3 (0.00-0.10); IMMATURE GRAN PERCENT AUTO 2 % (0-1); LYMPHOCYTES ABSOLUTE AUTO 2.32 K/mm3 (0.84-5.20); LYMPHOCYTES PERCENT AUTO 21 % (21-46); MONOCYTES ABSOLUTE AUTO 0.65 K/mm3 (0.16-1.47); MONOCYTES PERCENT AUTO 6 % (4-13); Mean Corpuscular HGB 27.8 pg (26.0-34.0); Mean Corpuscular Volume 84 fL (80-100); Mean Platelet Volume 10.2 fL (9.1-12.4); NEUTROPHILS ABSOLUTE AUTO 7.46 K/mm3 (1.96-9.15); NEUTROPHILS PERCENT AUTO 66 % (41-73); Platelet Count 423 K/mm3 (150-400); RDW Coefficient Variation 21.5 % (11.7-14.2); RDW Standard Deviation 63.1 fL (35.1-46.3); Red Blood Cell Count 3.31 M/mm3 (3.80-5.20); White Blood Cell Count 11.27 K/mm3 (4.00-11.30)
--- NOTE | 2024-07-24 06:47 | NUR ---
PT ARRIVED TP PCU 11 AT 0628. PT ALERT AND VS WNL. ON 2L NC. BEDBATH COMPLETED. COMPLETE BED CHANGE. PHOTOS TAKEN OF WOUNDS ON ANKLE AND HIP.
[2024-07-24 07:03] LABS: Albumin, Blood 1.8 g/dL (3.4-5.0); Anion Gap 6 mmol/L (3-11); Blood Urea Nitrogen 23 mg/dL (8-24); Bun/Creatinine Ratio 40.5 (12.0-20.0); CO2, Blood 34 mmol/L (21-32); Calcium, Blood 8.8 mg/dL (8.5-10.1); Chloride, Blood 106 mmol/L (98-108); Creatinine, Blood 0.57 mg/dL (0.40-1.00); Glomerular Filtration Rate 101 (60-); Glucose, Blood 80 mg/dL (70-99); Phosphorus, Blood 2.9 mg/dL (2.5-4.9); Sodium, Blood 143 mmol/L (136-145)
[2024-07-24 08:30] VITALS: BP 117/76
--- NOTE | 2024-07-24 08:30 | NUR ---
ASSUMPTION OF CARE: THIS RN TO ASSUME CARE OF PATIENT. PATIENT LYING IN BED AND VITAL SIGNS TAKEN. VITAL SIGNS STABLE. TRIALED PATIENT ON ROOM AIR AND PATIENT DESATTED TO 80 AND WAS THEN TURNED BACK UP TO TWO LITERS VIA NASAL CANNULA. PATIENT DENIED CHEST PAIN/PRESSURE. WAS ALERT TO PLACE,SELF, AND SITUATION. WAS NOT ABLE TO GIVE THE DATE AND WAS GIVEN THE DATE. PATIENT WAS ABLE TO EAT SOME BREAKFAST AND RESTING IN BED. HAS THE CALL LIGHT WITHIN REACH AND BED AT LOWEST POSITION.
[2024-07-24] MEDS ORDERED: Potassium Chloride 40 MEQ in NS 250 ML IV ONE (11:00)
--- NOTE | 2024-07-24 11:05 | NUR ---
TRANSFER NOTE: PATIENT IS ALERT AND ORIENTED X3 AND NOT ABLE TO ANSWER ORIENTATION QUESTIONS ECEPT GIVING THE DATE. IS SATTING >92% ON 2 LITERS VIA NASAL CANNULA. PATIENT ON TELE SHOWING SIUS WITH RATE IN 70'S. ANTIBIOTICS PAUSED AND RN TO TAKE OVER NOTIFIED TO CONTINUE ONCE ARRIVED ON UNIT. PATIENT WENT VIA BED WITH ALL PERSONAL BELONGINGS AND A VOICEMAIL WAS LEFT WITH HER POWER OF RANGE RIDER LYLE. HIS PHONE NUMBER IS . RECEIVING RN NOTIFIED ABOUT THE MEPELEX'S PLACED OVER THE LEFT HIP AND LEFT ANKLE. LEFT OVER MEDICATIONS WERE SENT OVER TO RN WELL.
--- NOTE | 2024-07-24 12:33 | NUR ---
PATIENT TRANSFERRED FROM PCU TO MED SURG FLOOR. PATIENT TRANSFERRED VIA HOSPITAL BED. PATIENT A/0 X 3 WITH 2L O2 N/C. PATIENT CURRENTLY ON TELEMETRY 82/SINUS ARRYTHYMIA WITH PAC/PVC'S. PATIENT IS ON A MODIFIED DIET HOWEVER PATIENT DECLINIED LUNCH TODAY STATED SHE DID NOT LIKE FOOD. PATIENT HAS PICC LINE IN LEFT UPPER ARM AND RIGHT UPPER ARM POWERGLIDE. PATIENT IS ASSIST X 1 AND ABLE TO MOVE SELF IN BED. PATIENT AFFECT IS FLAT HOWEVER IS COOPERATIVE WITH CARE. PATIENT HAS CALL LIGHT AT SIDE AND WILL CALL FOR ASSISTANCE WHEN NEEDED
[2024-07-24 15:41] VITALS: BP 103/74
--- NOTE | 2024-07-24 17:00 | NUR ---
SHIFT SUMMARY: PATIENT A/O X 4. PATIENT HAS IV IN MOI AND SALINE LOCKED. PATIENT WAS TRANSFERRED FROM PCU MID SHIFT, PATIENT ON 2L OXYGEN N/C MAINTAINING HER OXYGEN SATURATION. PATIENT ABLE TO MOVE IN BED WITH ONE ASSIST AND IS COOPERATIVE WITH CARE. PATIENT DISCHARGE PLAN IS SNF PENDING CASE MANAGMENT TO FIND SNF PLACMENT. PATIENT HAS HAD NO ACUTE CHANGES THIS SHIFT. CALL LIGHT IN PLACE AND ADVISED TO CALL FOR ANY ASSISTANCE.
--- NOTE | 2024-07-24 17:47 | NUR ---
CONTACTED DR STEWARD REGARDING 6 RUN VTACH, PATIENT WAS UP AND ALERT TALKING IN ROOM WITH NO SYMTOMS. PATIENT CONTINUES ON TELEMETERY FOR MONITORING
[2024-07-24 20:12] VITALS: BP 148/63
[2024-07-25 02:32] VITALS: BP 122/71
--- NOTE | 2024-07-25 04:51 | NUR ---
PT IS ALERT AND ORIENTED. TELE IN PLACE, NSR @ 72 WITH PAC. 3-4L O2 VIA NC, BASELINE IS RA. L PICC TO BE REMOVED 07/25/23. NO ACUTE NEEDS OVERNIGHT. PLAN TO DC TO SNF.
[2024-07-25 07:16] VITALS: BP 111/71
[2024-07-25] MEDS ORDERED: Citalopram Hydrobromide 20 MG Tab PO SCH (09:00)
[2024-07-25] MEDS ORDERED: PredniSONE 20 MG Tab PO SCH (09:00)
[2024-07-25] MEDS ORDERED: Potassium Chloride 20 MEQ/15 ML UDC PO SCH (09:00)
[2024-07-25 10:26] LABS: Albumin, Blood 1.9 g/dL (3.4-5.0); Anion Gap 7 mmol/L (3-11); Blood Urea Nitrogen 24 mg/dL (8-24); Bun/Creatinine Ratio 48.5 (12.0-20.0); CO2, Blood 32 mmol/L (21-32); Calcium, Blood 8.6 mg/dL (8.5-10.1); Chloride, Blood 107 mmol/L (98-108); Glomerular Filtration Rate 104 (60-); Glucose, Blood 123 mg/dL (70-99); Phosphorus, Blood 3.3 mg/dL (2.5-4.9); Potassium, Blood 3.8 mmol/L (3.5-5.5); Sodium, Blood 142 mmol/L (136-145)
[2024-07-25 15:15] VITALS: BP 101/64
--- NOTE | 2024-07-25 17:01 | NUR ---
SHIFT SUMMARY PT AOX2, UNABLE TO ASSESS FURTHER ORIENTATION, WHEN RN ASKED FOR "DATE AND LCOATION", PT DID NOT WANT TO ANSWER/GUESS. IS COOPERATIVE WITH CARE, ABLE TO MAKE NEEDS KNOWN. DOES HAVE BOUTS OF CONFUSION THROUGHOUT SHIFT SUCH PT STATING "IM ON THE THIRD FLOOR, I DONT KNOW HOW I AM GOING TO GET DOWN FROM HERE". WORKED WITH SPEECH THERAPY TODAY, TOLERATING PO AND IV MEDICATIONS. PURE WICK IN PLACE. TALKED WITH PT ABOUT POSSIBLY BECOMING HOSPICE/DNR ON SUNDAY. BED IN LOWEST POSITION, CALL LIGHT WITHIN REACH.
[2024-07-25 19:24] VITALS: BP 97/69
--- NOTE | 2024-07-26 03:30 | NUR ---
SHIFT SUMM: PT IS A 64 YO FULL CODE ADMITTED FOR SEPSIS AND DYSPNEA. PT HAS BEE BEEN SOMEWHAT CONFUSED BUT COOPERATIVE W/CARE. PT HAS A LORENZO PICC AND MOI PG. PT IS ON TELE WITH SR AT 66.PT HAS A PUREWICK LA AND HAS BEEN ON LASIX. PT HAS HAD NO BM AND REPOSITIONS SELF. PT IS ON 2.5 L OF OXYGEN AND CONT.PULSE OX. PT HAS WOUNDS THAT SHE WOULD NOT LET ME CHANGE THE DRESSINGS ON LL ANKLE, BURN ON L HIP AND L ELBOW SKIN TEAR. SHE SAYS THE BURN IS VERY TENDER TO TOUCH. PT HAS A HIST OF AMS FROM CHRONIC ALCOHOL USE HIST. PT WAS VISITED BY GUMARO ALVARENGA" AT BEDSIDE AT BEG OF SHIFT. PT HAS BEEN RESTING IN BED W/CALL LIGHT IN REACH. THE PLAN IS FOR PT TO GO TO A SNF REHAB BUT UNSURE WHEN.
[2024-07-26 05:47] LABS: BASOPHILS ABSOLUTE AUTO 0.16 K/mm3 (0.00-0.23); BASOPHILS PERCENT AUTO 1 % (0-2); EOSINOPHILS ABSOLUTE AUTO 0.42 K/mm3 (0.00-0.68); EOSINOPHILS PERCENT AUTO 4 % (0-6); Hematocrit 28.1 % (33.0-51.0); IMMATURE GRAN ABSOLUTE AUTO 0.15 K/mm3 (0.00-0.10); IMMATURE GRAN PERCENT AUTO 1 % (0-1); LYMPHOCYTES ABSOLUTE AUTO 2.93 K/mm3 (0.84-5.20); LYMPHOCYTES PERCENT AUTO 26 % (21-46); MONOCYTES PERCENT AUTO 8 % (4-13); Mean Corpuscular HGB 27.7 pg (26.0-34.0); Mean Corpuscular Volume 87 fL (80-100); Mean Platelet Volume 10.7 fL (9.1-12.4); NEUTROPHILS ABSOLUTE AUTO 6.79 K/mm3 (1.96-9.15); NEUTROPHILS PERCENT AUTO 60 % (41-73); Platelet Count 529 K/mm3 (150-400); RDW Coefficient Variation 21.4 % (11.7-14.2); Red Blood Cell Count 3.25 M/mm3 (3.80-5.20); White Blood Cell Count 11.35 K/mm3 (4.00-11.30)
[2024-07-26 06:19] LABS: Albumin, Blood 1.9 g/dL (3.4-5.0); Anion Gap 6 mmol/L (3-11); Blood Urea Nitrogen 25 mg/dL (8-24); Bun/Creatinine Ratio 52.2 (12.0-20.0); CO2, Blood 33 mmol/L (21-32); Calcium, Blood 8.7 mg/dL (8.5-10.1); Chloride, Blood 104 mmol/L (98-108); Creatinine, Blood 0.48 mg/dL (0.40-1.00); Glomerular Filtration Rate 105 (60-); Glucose, Blood 82 mg/dL (70-99); Phosphorus, Blood 3.4 mg/dL (2.5-4.9); Potassium, Blood 3.1 mmol/L (3.5-5.5); Sodium, Blood 140 mmol/L (136-145)
[2024-07-26 07:21] VITALS: BP 113/66
[2024-07-26] MEDS ORDERED: Potassium Chloride 20 MEQ/15 ML UDC PO ONE (10:00)
[2024-07-26] MEDS ORDERED: Potassium Chloride 10 Meq Tablet SA PO ONE (10:30)
[2024-07-26 14:39] VITALS: BP 99/71
[2024-07-26] MEDS ORDERED: Potassium Chloride 10 Meq Tablet SA PO SCH (17:00)
--- NOTE | 2024-07-26 17:58 | NUR ---
SHIFT SUMMARY PT IS A/OX2, CONFUSION TO DATE/TIME AND PLACE. PT REMAINS ON 2.5L O2 TO MAINTAIN SATS >90% USING CONTINUOUS PULSE OX. ON TELE RUNNING NORMAL SINUS RYTHYM WITH PAC'S. PURWICK IN PLACE DRAINING CLEAR, YELLOW URINE. PT CONT/INCONT OF BOWELS. PT REPORTS BEDREST AT BASELINE.
[2024-07-26 20:25] VITALS: BP 103/72
[2024-07-27] MEDS ORDERED: BUMETANIDE2 M6 PO (00:46)
[2024-07-27] MEDS ORDERED: SODBIC650 PO (00:47)
[2024-07-27] MEDS ORDERED: JUVEN PACKET1 EAC3 PO (00:47)
[2024-07-27 03:18] VITALS: BP 116/72
--- NOTE | 2024-07-27 04:31 | NUR ---
SHIFT SUMM: PT HAS BEEN RESTING MOST OF THE EVENING OR WATCHING TV. PT SEEMS MORE IRRITATED THIS SHIFT COMPARED TO LAST NIGHT AND STATES SHE WANTS TO GO HOME BECAUSE SHE MISSES HER CAT. PT WAS ANGRY WHEN WE WOKE HER TO BE CHANGED AND REPOSITIONED. PT WAS INCONT AND ALSO HAS A PURE WICK. PT WOULD NOT LET ME CHANGE HER WOUND DRESSINGS BECAUSE SHE SAYS ITS TO PAINFUL. PT HAS BEEN CONFUSED AT TIMES AND CANT TELL ME THE DAY AND SOMETIMES WHERE SHES AT. CALL LIGHT CLOSE. CHG BATH DONE ON PICC LINE
[2024-07-27 05:12] LABS: BASOPHILS ABSOLUTE AUTO 0.06 K/mm3 (0.00-0.23); BASOPHILS PERCENT AUTO 1 % (0-2); EOSINOPHILS ABSOLUTE AUTO 0.22 K/mm3 (0.00-0.68); EOSINOPHILS PERCENT AUTO 2 % (0-6); Hematocrit 27.1 % (33.0-51.0); Hemoglobin 8.6 g/dL (11.5-16.0); IMMATURE GRAN ABSOLUTE AUTO 0.12 K/mm3 (0.00-0.10); IMMATURE GRAN PERCENT AUTO 1 % (0-1); LYMPHOCYTES ABSOLUTE AUTO 2.67 K/mm3 (0.84-5.20); LYMPHOCYTES PERCENT AUTO 23 % (21-46); MONOCYTES ABSOLUTE AUTO 0.88 K/mm3 (0.16-1.47); MONOCYTES PERCENT AUTO 8 % (4-13); Mean Corpuscular HGB 27.6 pg (26.0-34.0); Mean Corpuscular HGB Conc 31.7 g/dL (31.5-36.5); Mean Corpuscular Volume 87 fL (80-100); Mean Platelet Volume 10.3 fL (9.1-12.4); NEUTROPHILS ABSOLUTE AUTO 7.74 K/mm3 (1.96-9.15); NEUTROPHILS PERCENT AUTO 66 % (41-73); Platelet Count 508 K/mm3 (150-400); RDW Coefficient Variation 21.3 % (11.7-14.2); RDW Standard Deviation 65.9 fL (35.1-46.3); Red Blood Cell Count 3.12 M/mm3 (3.80-5.20); White Blood Cell Count 11.69 K/mm3 (4.00-11.30)
[2024-07-27 05:57] LABS: Anion Gap 8 mmol/L (3-11); Blood Urea Nitrogen 27 mg/dL (8-24); Bun/Creatinine Ratio 54.9 (12.0-20.0); CO2, Blood 31 mmol/L (21-32); Calcium, Blood 8.7 mg/dL (8.5-10.1); Chloride, Blood 103 mmol/L (98-108); Creatinine, Blood 0.49 mg/dL (0.40-1.00); Glomerular Filtration Rate 105 (60-); Glucose, Blood 79 mg/dL (70-99); Phosphorus, Blood 3.4 mg/dL (2.5-4.9); Potassium, Blood 3.2 mmol/L (3.5-5.5); Sodium, Blood 139 mmol/L (136-145)
[2024-07-27 07:28] VITALS: BP 117/72
[2024-07-27] MEDS ORDERED: Potassium Chloride 20 MEQ TabCR PO SCH (13:00)
[2024-07-27 15:22] VITALS: BP 112/68
--- NOTE | 2024-07-27 18:23 | NUR ---
SHIFT SUMMARY PT IS A/OX2-3. PT REMAINS HYPOKALEMIC, TRENDING UPWARDS. PT TITRATED TO 1L OF O2 FROM 2.5L, SATS REMAINING >95% USING CONTINUOUS PULSE OX. PT INCONT OF BOWELS AND BLADDER, ATTENDS IN PLACE AND CHANGED NEEDED. PT CALLS APPROPRIATELY USING THE CALL LIGHT.
[2024-07-27 20:34] VITALS: BP 107/66
[2024-07-28 02:29] VITALS: BP 108/66
--- NOTE | 2024-07-28 04:03 | NUR ---
TRANSFER NOTE: PT AOX4 ARRIVED AT 1930 AND SELF TRANSFERRED FROM [facility] TO [facility]. IS ABLE TO STAND PIVOT ALONE COMPLAINS OF SOME WEAKNESS WHILE AMBULATING. PT HAS BEEN ASSISTING STAND PIVOT TO THE COMMODE APPROPRIATELY. PT CALLS APPROPRIATELY AND ORIENTED TO ABILITY. PT AND FAMILY ORIENTED TO ROOM. CONTINUING CARE.
--- NOTE | 2024-07-28 04:05 | NUR ---
SHIFT SUMMARY: PT AOX4 HAD A COUPLE OF BLOODDY AND EXTREMELY WATERY STOOLS. PT COMPLAINED OF MILD STOMACH PAIN MEDICATED PER EMR. ABD SLIGHTLY TENDER BUT STILL SOFT TO THE TOUCH AND BOWEL SOUNDS WERE AUSCULTATED. PT STATES THAT THE NAUSEA IS SEVERLY REDUCED BUT THE DIARRHEA HAS A LOT OF URGENCY. PT IS IN PLEASANT MOOD AND AFFECT, AT BEDSIDE. STOOL SAMPLE COLLECTED AND NEG FOR PATHOGENS SO PT TAKEN OUT OF ISOLATION. PT CURRENTLY RESTING IN BED, BED IN LOWEST POSITION, CALL LIGHT IN REACH. CONTINUING CARE.
--- NOTE | 2024-07-28 04:14 | NUR ---
SHIFT SUMMARY: PT AOX2 TO PERSON AND PLACE, CONFUSED OF DATE AND SITUATION. PT DID CALL APPROPRIATELY TO BE CHANGED BUT SEEMED TO FORGET AFTER CHANGING. HAS BEEN PLEASANT THROUGHT THE NIGHT. DENIES PAIN, OR SOB. NO ACUTE CHANGES. POA AGREEABLE TO SNF BUT WANTS TO TALK TO CASE MANAGEMENT BEFORE SENDING HER ANYWHERE. WILL PASS ON TO DAY SHIFT. PT IN BED RESTING, BED IN LOWEST POSITION, CALL LIGHT IN REACH. CONTINUING CARE.
[2024-07-28 06:25] LABS: BASOPHILS ABSOLUTE AUTO 0.09 K/mm3 (0.00-0.23); BASOPHILS PERCENT AUTO 1 % (0-2); EOSINOPHILS ABSOLUTE AUTO 0.32 K/mm3 (0.00-0.68); EOSINOPHILS PERCENT AUTO 3 % (0-6); Hemoglobin 8.6 g/dL (11.5-16.0); IMMATURE GRAN ABSOLUTE AUTO 0.12 K/mm3 (0.00-0.10); IMMATURE GRAN PERCENT AUTO 1 % (0-1); LYMPHOCYTES ABSOLUTE AUTO 2.69 K/mm3 (0.84-5.20); LYMPHOCYTES PERCENT AUTO 23 % (21-46); MONOCYTES ABSOLUTE AUTO 1.03 K/mm3 (0.16-1.47); MONOCYTES PERCENT AUTO 9 % (4-13); Mean Corpuscular HGB 27.7 pg (26.0-34.0); Mean Corpuscular HGB Conc 31.9 g/dL (31.5-36.5); Mean Corpuscular Volume 87 fL (80-100); Mean Platelet Volume 10.5 fL (9.1-12.4); NEUTROPHILS ABSOLUTE AUTO 7.36 K/mm3 (1.96-9.15); NEUTROPHILS PERCENT AUTO 63 % (41-73); Platelet Count 538 K/mm3 (150-400); RDW Coefficient Variation 21.4 % (11.7-14.2); Red Blood Cell Count 3.11 M/mm3 (3.80-5.20); White Blood Cell Count 11.61 K/mm3 (4.00-11.30)
[2024-07-28 06:45] LABS: Anion Gap 8 mmol/L (3-11); Blood Urea Nitrogen 26 mg/dL (8-24); Bun/Creatinine Ratio 55.9 (12.0-20.0); CO2, Blood 31 mmol/L (21-32); Calcium, Blood 8.5 mg/dL (8.5-10.1); Chloride, Blood 101 mmol/L (98-108); Creatinine, Blood 0.47 mg/dL (0.40-1.00); Glomerular Filtration Rate 106 (60-); Glucose, Blood 77 mg/dL (70-99); Phosphorus, Blood 3.1 mg/dL (2.5-4.9); Potassium, Blood 3.1 mmol/L (3.5-5.5); Sodium, Blood 137 mmol/L (136-145)
[2024-07-28 07:23] VITALS: BP 120/71
[2024-07-28 15:14] VITALS: BP 110/63
--- NOTE | 2024-07-28 17:36 | NUR ---
SHIFT SUMMARY PT AOX3, DID NOT WANT TO GUESS THE DATE, WAS ABLE TO GUESS LOCATION, COOPERATIVE, ABLE TO MAKE NEEDS KNOWN. SPEND SHIFT IN BED. PT IS INCONTINENT OF URINE, ARMHOLE RAISER LOCKSTITCH CHANGED BRIEF, NO BOWEL MOVEMENT THIS RN IS AWARE OF. PLAN IS TO AWAITE FOR SNF ACCEPTANCE. BED IN LOWEST POSITION, CALL LIGHT WITHIN REACH.
[2024-07-28 20:04] VITALS: BP 110/73
--- NOTE | 2024-07-29 04:50 | NUR ---
SHIFT SUMMARY: PT AOX3/4 SEEMS TO BE A LOT MORE ORIENTED TONIGHT THAN THE NIGHT BEFORE. STILL INCONTINENT TO BOWEL AND STOOL. IS ABLE TO CALL APPROPRIATELY AND MAKE NEEDS KNOWN. TOLERATING MEDICATIONS WELL. NO ACUTE EVENTS OVERNIGHT. PT IN BED RESTING, BED IN LOWEST POSITION, CALL LIGHT IN REACH. CONTINUING CARE.
[2024-07-29 05:24] VITALS: BP 124/79
[2024-07-29 07:25] VITALS: BP 112/73
[2024-07-29 09:45] LABS: BASOPHILS ABSOLUTE AUTO 0.09 K/mm3 (0.00-0.23); BASOPHILS PERCENT AUTO 1 % (0-2); EOSINOPHILS ABSOLUTE AUTO 0.38 K/mm3 (0.00-0.68); EOSINOPHILS PERCENT AUTO 3 % (0-6); Hematocrit 30.4 % (33.0-51.0); Hemoglobin 9.7 g/dL (11.5-16.0); IMMATURE GRAN ABSOLUTE AUTO 0.14 K/mm3 (0.00-0.10); IMMATURE GRAN PERCENT AUTO 1 % (0-1); LYMPHOCYTES ABSOLUTE AUTO 2.63 K/mm3 (0.84-5.20); LYMPHOCYTES PERCENT AUTO 21 % (21-46); MONOCYTES ABSOLUTE AUTO 0.94 K/mm3 (0.16-1.47); MONOCYTES PERCENT AUTO 8 % (4-13); Mean Corpuscular HGB 27.9 pg (26.0-34.0); Mean Corpuscular HGB Conc 31.9 g/dL (31.5-36.5); Mean Corpuscular Volume 87 fL (80-100); Mean Platelet Volume 10.4 fL (9.1-12.4); NEUTROPHILS ABSOLUTE AUTO 8.09 K/mm3 (1.96-9.15); NEUTROPHILS PERCENT AUTO 66 % (41-73); Platelet Count 619 K/mm3 (150-400); RDW Coefficient Variation 21.3 % (11.7-14.2); RDW Standard Deviation 66.7 fL (35.1-46.3); Red Blood Cell Count 3.48 M/mm3 (3.80-5.20); White Blood Cell Count 12.27 K/mm3 (4.00-11.30)
[2024-07-29 10:05] LABS: Albumin, Blood 2.2 g/dL (3.4-5.0); Albumin/Globulin Ratio 0.5 (0.8-1.8); Bilirubin, Total 0.2 mg/dL (0.1-1.0); Bun/Creatinine Ratio 38.3 (12.0-20.0); Calcium, Blood 8.9 mg/dL (8.5-10.1); Creatinine, Blood 0.55 mg/dL (0.40-1.00); Globulin, Blood 4.2 g/dL (2.2-4.0); Potassium, Blood 3.3 mmol/L (3.5-5.5); Total Protein, Blood 6.4 g/dL (6.4-8.2)
[2024-07-29] MEDS ORDERED: ACET325 PO (13:58)
[2024-07-29] MEDS ORDERED: IPRAT-ALBUT 0.5-3 ML INH (13:58)
[2024-07-29] MEDS ORDERED: DULCOLAX400 MG/5 M PO (14:02)
[2024-07-29] MEDS ORDERED: Prednisone10 MG PO (14:04)
[2024-07-29] MEDS ORDERED: QUET25 PO (14:05)
--- NOTE | 2024-07-29 15:41 | NUR ---
DISCHARGE PT DISCHARGED AOX3/4, COOPERATIVE, ABLE TO MAKE NEEDS KNOWN. BELONGINGS LEFT WITH PT, ON O2 PER PT REQUEST 1LO2. TRANSPORTED VIA WHEELCHAIR BY TRANSPORTATION TO [facility] FOR REHAB. PT REPEATED "HOW LONG ARE THEY GOING TO KEEP ME". THIS RN REINFORCED "YOU ARE NOT BEING HELD CAPTIVE, THIS IS NOT A LONG TERM, YOU CAN LEAVE WHENEVER YOU WANT." REPORT GIVEN TO HENRY AT [facility] AND INFORMED ABOUT EVENT. PICC LINE DC'D BY ASAEL POWERGLIDE REMOVED BY THIS RN AT 1530 BEFORE PT LEFT. DISCHARGE PAPERWORK WENT WITH TRANSPORTATION..
[2024-08-01] MEDS ORDERED: Citalopram Hydrobromide 20 MG Tab PO SCH (09:00)
== END 2024-07-29 15:23 | DRG 871 ==
LOC: ER 16:51 → ICUE 07-12 03:44 → PCU 07-12 03:44 → ICUE 07-15 11:30 → PCU 07-24 06:08 → MEDS 07-24 10:54 → ENPENDDIS 07-29 11:25 → MEDS 07-29 15:23
PROVIDERS: Family Medicine; Internal Medicine; Internal Medicine Critical Care Medicine; Student in an Organized Health Care Education/Training Program; ADMIT Student in an Organized Health Care Education/Training Program
PROC: 30233N1 Transfusion of Nonautologous Red Blood Cells into Peripheral Vein, Percutaneous Approach (ICD-10-PCS; 2024-07-13)
PROC: 3E03329 Introduction of Other Anti-infective into Peripheral Vein, Percutaneous Approach (ICD-10-PCS; 2024-07-14)
PROC: 3E033XZ Introduction of Vasopressor into Peripheral Vein, Percutaneous Approach (ICD-10-PCS; 2024-07-15)
PROC: 5A09457 Assistance with Respiratory Ventilation, 24-96 Consecutive Hours, Continuous Positive Airway Pressure (ICD-10-PCS; principal; 2024-07-16)
DX: A41.9 Sepsis, unspecified organism (principal); G93.41 Metabolic encephalopathy; J18.9 Pneumonia, unspecified organism; J96.01 Acute respiratory failure with hypoxia; R65.21 Severe sepsis with septic shock; S32.049A Unspecified fracture of fourth lumbar vertebra, initial encounter for closed fracture; S32.10XA Unspecified fracture of sacrum, initial encounter for closed fracture; N30.00 Acute cystitis without hematuria; F10.239 Alcohol dependence with withdrawal, unspecified; N17.9 Acute kidney failure, unspecified; I82.622 Acute embolism and thrombosis of deep veins of left upper extremity; K86.1 Other chronic pancreatitis; F03.94 Unspecified dementia, unspecified severity, with anxiety; E87.1 Hypo-osmolality and hyponatremia; E87.20 Acidosis, unspecified; K76.82 Hepatic encephalopathy; I10 Essential (primary) hypertension; G47.00 Insomnia, unspecified; F32.A Depression, unspecified; E87.6 Hypokalemia; E83.39 Other disorders of phosphorus metabolism; D64.9 Anemia, unspecified; G89.4 Chronic pain syndrome; Z96.642 Presence of left artificial hip joint; Z88.1 Allergy status to other antibiotic agents; Z88.6 Allergy status to analgesic agent; Z88.8 Allergy status to other drugs, medicaments and biological substances; Z79.899 Other long term (current) drug therapy; E87.8 Other disorders of electrolyte and fluid balance, not elsewhere classified; E16.2 Hypoglycemia, unspecified; X58.XXXA Exposure to other specified factors, initial encounter; K70.30 Alcoholic cirrhosis of liver without ascites
CPT/HCPCS: 0202U; 36415; 36430; 36569; 51701; 51702; 71045; 71260; 74177; 76705; 80048; 80053; 80069; 80076; 80202; 81001; 82140; 82330; 82530; 82607; 82728; 82746; 82803; 82947; 83540; 83550; 83605; 83690; 83735; 83880; 84100; 84132; 84145; 84443; 84484; 85014; 85018; 85025; 85027; 86850; 86900; 86901; 86923; 87040; 87086; 87449; 92526; 92610; 93005; 93010; 93308; 93971; 94640; 94660; 94664; 94762; 96361; 96365-59; 96366; 96367; 96368; 96375; 97110; 97112; 97162; 97165; 97530; 99285-25; A9270; C1751; J0696; J1650; J1885; J1940; J2060; J2405; J2470; J2543; J2919; J2997; J3370; J3475; J3480; J7030; J7040; J7050; J7060; J7070; J7120; J7512; P9016; P9047; Q9967

== ENCOUNTER 2024-08-01 17:26 | Emergency (ER) | payer MEDICARE ==
[~2024-08-01] VITALS: Ht 162.6 cm; Wt 56.7 kg
[~2024-08-01 17:26] MED LIST changes: +ACET325 PO; +BUMETANIDE2 M6 PO; +CITALOPRAM HBR20 M9 PO; +DULCOLAX400 MG/5 M PO; +IBUP400 PO; +IPRAT-ALBUT 0.5-3 ML INH; +KLOR-CON 1010 ME9 PO; +OMEP20ER PO; +Prednisone10 MG PO; +QUET25 PO
[2024-08-01 20:00] VITALS: BP 102/77
[2024-08-01 21:42] LABS: Calcium, Ionized (POC) 1.24 mmol/L (1.10-1.46); Chloride (POC) 103 mmol/L (98-108); Creatinine (POC) 0.8 mg/dL (0.6-1.0); Glucose (ISTAT POC) 105 mg/dL (70-99); Hemoglobin (POC) 9.9 g/dL (12.0-16.0); Potassium (POC) 3.4 mmol/L (3.5-5.5); Sodium (POC) 138 mmol/L (135-148); Total CO2 (POC) 23 mmol/L (21-32)
[2024-08-01] MEDS ORDERED: XARELTO20 MG PO (22:02)
[2024-08-01] MEDS ORDERED: Rivaroxaban 10 MG Tab PO ONE (22:25)
[2024-08-01] MEDS ORDERED: Potassium Chloride 20 MEQ TabCR PO ONE (22:25)
[2024-08-02] MEDS ORDERED: Rivaroxaban 10 MG Tab PO SCH (09:00)
[2024-08-02] MEDS ORDERED: Rivaroxaban 10 MG Tab PO ONE (22:00)
== END 2024-08-02 00:16 | disposition home or self-care (01) ==
LOC: ER 17:26
PROVIDERS: Student in an Organized Health Care Education/Training Program
DX: I82.B12 Acute embolism and thrombosis of left subclavian vein (principal); I82.621 Acute embolism and thrombosis of deep veins of right upper extremity; I70.8 Atherosclerosis of other arteries; I10 Essential (primary) hypertension; F32.A Depression, unspecified; I48.91 Unspecified atrial fibrillation; F17.210 Nicotine dependence, cigarettes, uncomplicated; Z88.5 Allergy status to narcotic agent; Z88.1 Allergy status to other antibiotic agents; Z91.030 Bee allergy status; Z79.899 Other long term (current) drug therapy
CPT/HCPCS: 80047; 85014; 93971; 99284-25; A9270

== ENCOUNTER 2024-08-15 15:23 | Inpatient (IN) | payer MEDICARE, MEDICAID ==
[~2024-08-15] VITALS: Ht 167.6 cm; Wt 54.4 kg
[~2024-08-15 15:23] MED LIST changes: +XARELTO20 MG PO
[2024-08-15 16:40] LABS: BASOPHILS ABSOLUTE AUTO 0.05 K/mm3 (0.00-0.23); BASOPHILS PERCENT AUTO 1 % (0-2); EOSINOPHILS ABSOLUTE AUTO 0.45 K/mm3 (0.00-0.68); EOSINOPHILS PERCENT AUTO 4 % (0-6); Hematocrit 24.6 % (33.0-51.0); Hemoglobin 7.9 g/dL (11.5-16.0); IMMATURE GRAN ABSOLUTE AUTO 0.03 K/mm3 (0.00-0.10); IMMATURE GRAN PERCENT AUTO 0 % (0-1); LYMPHOCYTES ABSOLUTE AUTO 2.58 K/mm3 (0.84-5.20); LYMPHOCYTES PERCENT AUTO 25 % (21-46); MONOCYTES PERCENT AUTO 8 % (4-13); Mean Corpuscular HGB 28.6 pg (26.0-34.0); Mean Corpuscular HGB Conc 32.1 g/dL (31.5-36.5); Mean Corpuscular Volume 89 fL (80-100); Mean Platelet Volume 10.8 fL (9.1-12.4); NEUTROPHILS ABSOLUTE AUTO 6.49 K/mm3 (1.96-9.15); NEUTROPHILS PERCENT AUTO 62 % (41-73); Platelet Count 226 K/mm3 (150-400); RDW Coefficient Variation 20.1 % (11.7-14.2); Red Blood Cell Count 2.76 M/mm3 (3.80-5.20)
[2024-08-15 17:09] LABS: Albumin, Blood 2.8 g/dL (3.4-5.0); Albumin/Globulin Ratio 0.8 (0.8-1.8); Bilirubin, Total 0.3 mg/dL (0.1-1.0); Bun/Creatinine Ratio 19.4 (12.0-20.0); Creatinine, Blood 0.72 mg/dL (0.40-1.00); Globulin, Blood 3.6 g/dL (2.2-4.0); Potassium, Blood 4.5 mmol/L (3.5-5.5); Total Protein, Blood 6.4 g/dL (6.4-8.2)
[2024-08-15] MEDS ORDERED: Pantoprazole Sodium 40 MG Injection IV ONE (18:50)
[2024-08-15] MEDS ORDERED: Octreotide Acetate 500 MCG in NS 250 ML IV SCH (18:50)
[2024-08-15] MEDS ORDERED: CefTRIAXone Sodium 1,000 MG in NS 100 ML IV ONE (18:50)
[2024-08-15] MEDS ORDERED: FLU VACC TS2024-25(6MOS UP)/PF 45 MCG/0.5 ML SYRINGE IM SCH (20:05)
[2024-08-15] MEDS ORDERED: Pantoprazole Sodium 40 MG in NS 50 ML IV SCH (20:05)
[2024-08-15] MEDS ORDERED: Ondansetron HCl 2 MG / ML 2ML Vial IV PRN (20:05)
[2024-08-15 20:11] LABS: International Normalized Ratio 1.09; Prothrombin Time Results 11.6 Sec (9.7-11.5)
[2024-08-15 22:27] VITALS: BP 114/77
[2024-08-15 22:52] LABS: Hematocrit 28.3 % (33.0-51.0); Hemoglobin 8.8 g/dL (11.5-16.0)
[2024-08-16] VITALS (12 sets, daily range): BP systolic 98–135; BP diastolic 71–89
[2024-08-16] MEDS ORDERED: OxyCODONE HCL 5 MG TAB PO PRN (05:05)
[2024-08-16 05:17] LABS: BASOPHILS ABSOLUTE AUTO 0.05 K/mm3 (0.00-0.23); BASOPHILS PERCENT AUTO 1 % (0-2); EOSINOPHILS ABSOLUTE AUTO 0.69 K/mm3 (0.00-0.68); EOSINOPHILS PERCENT AUTO 10 % (0-6); Hematocrit 23.5 % (33.0-51.0); Hemoglobin 7.4 g/dL (11.5-16.0); IMMATURE GRAN ABSOLUTE AUTO 0.02 K/mm3 (0.00-0.10); IMMATURE GRAN PERCENT AUTO 0 % (0-1); LYMPHOCYTES ABSOLUTE AUTO 2.01 K/mm3 (0.84-5.20); LYMPHOCYTES PERCENT AUTO 28 % (21-46); MONOCYTES ABSOLUTE AUTO 0.62 K/mm3 (0.16-1.47); MONOCYTES PERCENT AUTO 9 % (4-13); Mean Corpuscular HGB 28.9 pg (26.0-34.0); Mean Corpuscular HGB Conc 31.5 g/dL (31.5-36.5); Mean Corpuscular Volume 92 fL (80-100); NEUTROPHILS ABSOLUTE AUTO 3.82 K/mm3 (1.96-9.15); NEUTROPHILS PERCENT AUTO 53 % (41-73); Platelet Count 209 K/mm3 (150-400); RDW Coefficient Variation 20.3 % (11.7-14.2); RDW Standard Deviation 68.5 fL (35.1-46.3); Red Blood Cell Count 2.56 M/mm3 (3.80-5.20); White Blood Cell Count 7.21 K/mm3 (4.00-11.30)
[2024-08-16 05:37] LABS: Albumin, Blood 2.6 g/dL (3.4-5.0); Albumin/Globulin Ratio 0.8 (0.8-1.8); Bilirubin, Total 0.2 mg/dL (0.1-1.0); Bun/Creatinine Ratio 17.1 (12.0-20.0); Calcium, Blood 8.6 mg/dL (8.5-10.1); Creatinine, Blood 0.7 mg/dL (0.40-1.00); Globulin, Blood 3.2 g/dL (2.2-4.0); Potassium, Blood 4.1 mmol/L (3.5-5.5); Total Protein, Blood 5.8 g/dL (6.4-8.2)
[2024-08-16] MEDS ORDERED: Omeprazole 20 MG CapCR PO SCH ×2 (06:00)
--- NOTE | 2024-08-16 06:16 | NUR ---
A&OX4, VSS, 1 SMALL RED STOOL THIS SHIFT, MEDICATED 1X FOR C/O BACK PAIN, SLEEPING AT THIS TIME, CALL LIGHT IN REACH, ABLE TO MAKE NEEDS KNOWN.
[2024-08-16] MEDS ORDERED: Spironolactone 12.5 MG TAB PO SCH (09:00)
[2024-08-16] MEDS ORDERED: TraMADol HCl 50 MG Tab PO PRN (09:50)
[2024-08-16 11:05] LABS: Hematocrit 25.2 % (33.0-51.0); Hemoglobin 7.7 g/dL (11.5-16.0)
[2024-08-16 14:39] LABS: Hemoglobin 7.5 g/dL (11.5-16.0)
[2024-08-16 17:20] LABS: Hematocrit 23.2 % (33.0-51.0); Hemoglobin 7.1 g/dL (11.5-16.0)
--- NOTE | 2024-08-16 17:48 | NUR ---
SHIFT SUMMARY: PATIENT IS A&OX4/INDEPENDENT/SBA, CONTINENT; WALKED OUT IN THE VELA TODAY WITH A WALKED. SHE HAS HAD MULTIPLE BOWEL MOVEMENTS TODAY; NO NOTEABLY BLOODY/TARRY, SOFT DARK AND LIGHT BROWN WITH NOTED SLIGHT PRESENCE OF BLOOD WITH HER BOWEL MOVEMENT THIS MORNING. MD AWARE; NOTIFIED DR. MAURO OF CONTINUED DECREASED HEMOGLOBIN (7.1) 1 UNIT OF BLOOD WAS ORDERED. PATIENT IN BED, CALL LIGHT WITHIN REACH, NO SIGNS OR SYMPTOMS OF DISTRESS, PLAN OF CARE ONGOING. SEE NURSE NOTIFY FROM DR. CONNOLLY.
[2024-08-16] MEDS ORDERED: NS 250 ML IV PRN (18:15)
--- NOTE | 2024-08-16 18:52 | NUR ---
ONCE THE FIRST 15 MINUTES OF BLOOD ADMINISTERED WAS UP THE PATIENT STARTED COMPLAINING OF HER IV SITE BEING ACHY AND PAINFUL. MAGAZINE WORKER WAS CALLED IN AND ASSESSMENT IV SITE. PATIENT CONTINUES TO COMPLAIN OF PAIN AND ACHING AND NOW THROBBING OF SITE. MAGAZINE WORKER WILL ASSESS FOR NEW PERPHERIAL SITE FOR BLOOD TO FINISH TRANSFUSING. NO SIGNS OR SYMPTOMS OF DISTRESS WITH PATIENT.
[2024-08-17 04:53] VITALS: BP 106/72
[2024-08-17 05:09] LABS: BASOPHILS ABSOLUTE AUTO 0.03 K/mm3 (0.00-0.23); BASOPHILS PERCENT AUTO 0 % (0-2); EOSINOPHILS ABSOLUTE AUTO 0.62 K/mm3 (0.00-0.68); EOSINOPHILS PERCENT AUTO 9 % (0-6); Hematocrit 26.8 % (33.0-51.0); Hemoglobin 8.5 g/dL (11.5-16.0); IMMATURE GRAN ABSOLUTE AUTO 0.02 K/mm3 (0.00-0.10); IMMATURE GRAN PERCENT AUTO 0 % (0-1); LYMPHOCYTES ABSOLUTE AUTO 1.87 K/mm3 (0.84-5.20); LYMPHOCYTES PERCENT AUTO 27 % (21-46); MONOCYTES ABSOLUTE AUTO 0.64 K/mm3 (0.16-1.47); MONOCYTES PERCENT AUTO 9 % (4-13); Mean Corpuscular HGB 29.5 pg (26.0-34.0); Mean Corpuscular HGB Conc 31.7 g/dL (31.5-36.5); Mean Corpuscular Volume 93 fL (80-100); Mean Platelet Volume 10.6 fL (9.1-12.4); NEUTROPHILS ABSOLUTE AUTO 3.76 K/mm3 (1.96-9.15); NEUTROPHILS PERCENT AUTO 54 % (41-73); Platelet Count 184 K/mm3 (150-400); RDW Coefficient Variation 18.6 % (11.7-14.2); RDW Standard Deviation 62.8 fL (35.1-46.3); Red Blood Cell Count 2.88 M/mm3 (3.80-5.20); White Blood Cell Count 6.94 K/mm3 (4.00-11.30)
[2024-08-17 05:54] LABS: Bun/Creatinine Ratio 12.8 (12.0-20.0); Calcium, Blood 8.8 mg/dL (8.5-10.1); Creatinine, Blood 0.7 mg/dL (0.40-1.00); Potassium, Blood 4.1 mmol/L (3.5-5.5)
--- NOTE | 2024-08-17 06:44 | NUR ---
SHIFT SUMMARY PT ALERT AND ORIENTED TIMES 4 . PT ADMITTED FOR HEMATOCHEZIA, BLOOD IN STOOL, DECREASED H /H. PT APPEARED TO SLEEP THROUGH THE NIGHT WITHOUT ISSUE. PT ABLE TO MAKE NEEDS KNOWN. BED IN LOW POSITION, CALL LIGHT WITHIN REACH, RAILS TIMES 3.
--- NOTE | 2024-08-17 07:13 | NUR ---
ASSUMED CARE: PT RESTING QUIETLY IN BED AT THIS TIME. NO ACUTE NEEDS OR CONCERNS.
[2024-08-17 07:32] VITALS: BP 103/69
[2024-08-17] MEDS ORDERED: Cyanocobalamin 1000 MCG/ML 1ML Vial IM SCH (09:00)
[2024-08-17] MEDS ORDERED: Sod Ferric Gluc Complx/Sucrose 125 MG in NS 100 ML IV SCH (09:50)
--- NOTE | 2024-08-17 13:45 | NUR ---
REPORT GIVEN TO YUMI CERVANTES.
[2024-08-17 16:36] VITALS: BP 94/62
--- NOTE | 2024-08-17 17:05 | NUR ---
SHIFT SUMMARY PATIENT RESTING. AROUSES EASILY AND ABLE TO MAKE NEEDS KNOWN. PATIENT ABLE TO GET UP WITH WALKER INDEPENDENT TO BEDSIDE COMMODE. CALLS APPROPRIATELY. CONTINUES ON CLEAR LIQUID DIET. PLANS TO HAVE ENDOSCOPY TOMORROW. NO SIGNS OF ACTIVE BLEEDING.
[2024-08-17 19:56] VITALS: BP 99/63
[2024-08-18 04:45] LABS: BASOPHILS ABSOLUTE AUTO 0.06 K/mm3 (0.00-0.23); BASOPHILS PERCENT AUTO 1 % (0-2); EOSINOPHILS ABSOLUTE AUTO 0.55 K/mm3 (0.00-0.68); EOSINOPHILS PERCENT AUTO 9 % (0-6); Hematocrit 27.9 % (33.0-51.0); Hemoglobin 8.7 g/dL (11.5-16.0); IMMATURE GRAN ABSOLUTE AUTO 0.02 K/mm3 (0.00-0.10); IMMATURE GRAN PERCENT AUTO 0 % (0-1); LYMPHOCYTES ABSOLUTE AUTO 2.06 K/mm3 (0.84-5.20); LYMPHOCYTES PERCENT AUTO 32 % (21-46); MONOCYTES ABSOLUTE AUTO 0.67 K/mm3 (0.16-1.47); MONOCYTES PERCENT AUTO 10 % (4-13); Mean Corpuscular HGB 29.5 pg (26.0-34.0); Mean Corpuscular HGB Conc 31.2 g/dL (31.5-36.5); Mean Corpuscular Volume 95 fL (80-100); Mean Platelet Volume 10.3 fL (9.1-12.4); NEUTROPHILS PERCENT AUTO 48 % (41-73); Platelet Count 188 K/mm3 (150-400); RDW Standard Deviation 65.4 fL (35.1-46.3); Red Blood Cell Count 2.95 M/mm3 (3.80-5.20); White Blood Cell Count 6.46 K/mm3 (4.00-11.30)
[2024-08-18 05:08] LABS: Bun/Creatinine Ratio 14.2 (12.0-20.0); Calcium, Blood 8.9 mg/dL (8.5-10.1); Creatinine, Blood 0.56 mg/dL (0.40-1.00); Potassium, Blood 4.7 mmol/L (3.5-5.5)
[2024-08-18 05:38] VITALS: BP 98/64
[2024-08-18 07:16] VITALS: BP 103/69
[2024-08-18] MEDS ORDERED: Peg/Electrolytes 4,000 ML BTL PO ONE (09:05)
[2024-08-18] MEDS ORDERED: Lactated Ringer's 1,000 ML IV SCH (15:15)
[2024-08-18 16:20] VITALS: BP 113/76
[2024-08-18] MEDS ORDERED: propofoL 60 ML IV ONE (16:22)
[2024-08-18] MEDS ORDERED: Lidocaine HCl 2% 10 ML SDA ONE (16:23)
[2024-08-18 16:42] VITALS: BP 148/87
--- NOTE | 2024-08-18 16:52 | NUR ---
INTO SDS VIA WHEELCHAIR. PT REPORTS 5/10 LOW BACK PAIN. HISTORY AND ALLERGIES REVIEWED. NPO STATUS CONFIRMED. LUNGS WITH FINE CRACKLES TO RIGHT BASE. PT REPORTS INTERMITTENT SOB AND FREQUENT MOIST COUGH OCCASIONALLY PRODUCTIVE OF MODERATE AMOUNT OF TENACIOUS, LYLES SECRETIONS. BOWEL PREP COMPLETE @ 1100-PT REPORTS THAT THE STOOL IS YELLOW LIQUID WITH SOME SEDEMENT.
[2024-08-18] MEDS ORDERED: Benzocaine Oral Spray 0.5ML UD ONE (17:02)
--- NOTE | 2024-08-18 17:23 | NUR ---
08/18/24 1723 Real Morrison History, Chart, Medications and Allergies reviewed before start of procedure. MONITOR INTACT WITH CONTINUOUS PULSE OXIMETRY, CONTINUOUS END TITAL CO2, AND INTERMITTENT BLOOD PRESSURE. 3-LEAD EKG REVIEWED WITH PHYSICIAN PRIOR TO START OF PROCEDURE. O2 VIA POM INTACT THROUGHOUT SEDATION/PROCEDURE. Bite Block Placed. HURRICAINE SPRAY TO OROPHARYX BY ANESTHESIA PROVIDER.
--- NOTE | 2024-08-18 17:38 | NUR ---
SHIFT SUMMARY PT A/Ox4, ABLE TO MAKE NEEDS KNOWN, AND USE CALL LIGHT APPROPRIATELY. PT COMPLETED GOLYTELY AND IS NOW GETTING UPPER AND LOWER GI SCOPE COMPLETED, PT CURRENTLY IN DAY SURGERY UNIT. PT TREATED FOR PAIN X1 FOR HER BACK PER EMAR.
[2024-08-18] MEDS ORDERED: Omeprazole 20 MG CapCR PO SCH (18:00)
[2024-08-18 18:12] VITALS: BP 109/58
[2024-08-18] MEDS ORDERED: Sucralfate 1 GM Tab PO SCH (21:00)
[2024-08-18 22:06] VITALS: BP 101/59
--- NOTE | 2024-08-19 06:42 | NUR ---
SHIFT SUMMARY PT ALERT AND ORIENTED TIMES 4 . PT ADMITTED FOR HEMATOCHEZIA, BLOOD IN STOOL. PT HAD ESOPHAGOGASTROLDUODENOSCOPY AND COLONOSCOPY. PT APPEARED TO SLEEP THROUGH THE NIGHT WITHOUT ISSUE. PT ABLE TO MAKE NEEDS KNOWN. PT ON REGULAR DIET NOW. PT DENIES PAIN AND REPORTS NO ISSUES. BED IN LOW POSITION, CALL LIGHT WITHIN REACH, RAILS TIMES 3.
[2024-08-19 07:59] LABS: BASOPHILS ABSOLUTE AUTO 0.06 K/mm3 (0.00-0.23); BASOPHILS PERCENT AUTO 1 % (0-2); EOSINOPHILS ABSOLUTE AUTO 0.44 K/mm3 (0.00-0.68); EOSINOPHILS PERCENT AUTO 6 % (0-6); Hematocrit 28.8 % (33.0-51.0); Hemoglobin 9.2 g/dL (11.5-16.0); IMMATURE GRAN ABSOLUTE AUTO 0.02 K/mm3 (0.00-0.10); IMMATURE GRAN PERCENT AUTO 0 % (0-1); LYMPHOCYTES PERCENT AUTO 25 % (21-46); MONOCYTES ABSOLUTE AUTO 0.76 K/mm3 (0.16-1.47); MONOCYTES PERCENT AUTO 11 % (4-13); Mean Corpuscular HGB 29.6 pg (26.0-34.0); Mean Corpuscular HGB Conc 31.9 g/dL (31.5-36.5); Mean Corpuscular Volume 93 fL (80-100); Mean Platelet Volume 10.3 fL (9.1-12.4); NEUTROPHILS ABSOLUTE AUTO 4.09 K/mm3 (1.96-9.15); NEUTROPHILS PERCENT AUTO 57 % (41-73); Platelet Count 224 K/mm3 (150-400); RDW Coefficient Variation 19.1 % (11.7-14.2); RDW Standard Deviation 63.7 fL (35.1-46.3); Red Blood Cell Count 3.11 M/mm3 (3.80-5.20); White Blood Cell Count 7.17 K/mm3 (4.00-11.30)
[2024-08-19 08:27] LABS: Albumin, Blood 2.5 g/dL (3.4-5.0); Anion Gap 7 mmol/L (3-11); Blood Urea Nitrogen 8 mg/dL (8-24); CO2, Blood 24 mmol/L (21-32); Calcium, Blood 9.2 mg/dL (8.5-10.1); Chloride, Blood 115 mmol/L (98-108); Creatinine, Blood 0.67 mg/dL (0.40-1.00); Glomerular Filtration Rate 97 (60-); Glucose, Blood 84 mg/dL (70-99); Phosphorus, Blood 4.1 mg/dL (2.5-4.9); Potassium, Blood 4.1 mmol/L (3.5-5.5); Sodium, Blood 142 mmol/L (136-145)
[2024-08-19 09:06] VITALS: BP 116/69
[2024-08-19 15:49] VITALS: BP 106/69
--- NOTE | 2024-08-19 18:18 | NUR ---
SHIFT SUMMARY NO ACUTE CHANGES, A/Ox4, ABLE TO MAKE NEEDS KNOWN AND USES CALL LIGHT APPROPRIATELY. PT REMAINS INDEPENDENT IN ROOM, WORKED WITH PHYSICAL THERAPY TODAY. APPETITE IS FAIR. WOUND CARE COMPLETED BY RN. PAIN TREATED PER EMAR. PT CURRENTLY LAYING IN BED WITH BED IN LOWEST POSITION AND CALL LIGHT WITHIN REACH.
[2024-08-19 20:19] VITALS: BP 103/69
[2024-08-20 00:17] VITALS: BP 121/82
[2024-08-20 04:20] VITALS: BP 111/70
[2024-08-20 05:02] LABS: BASOPHILS ABSOLUTE AUTO 0.07 K/mm3 (0.00-0.23); BASOPHILS PERCENT AUTO 1 % (0-2); EOSINOPHILS PERCENT AUTO 5 % (0-6); Hematocrit 28.2 % (33.0-51.0); Hemoglobin 8.9 g/dL (11.5-16.0); IMMATURE GRAN ABSOLUTE AUTO 0.03 K/mm3 (0.00-0.10); IMMATURE GRAN PERCENT AUTO 0 % (0-1); LYMPHOCYTES ABSOLUTE AUTO 2.22 K/mm3 (0.84-5.20); LYMPHOCYTES PERCENT AUTO 27 % (21-46); MONOCYTES ABSOLUTE AUTO 0.94 K/mm3 (0.16-1.47); MONOCYTES PERCENT AUTO 12 % (4-13); Mean Corpuscular HGB 29.7 pg (26.0-34.0); Mean Corpuscular HGB Conc 31.6 g/dL (31.5-36.5); Mean Corpuscular Volume 94 fL (80-100); NEUTROPHILS ABSOLUTE AUTO 4.47 K/mm3 (1.96-9.15); NEUTROPHILS PERCENT AUTO 55 % (41-73); NRBC ABSOLUTE 0.03 K/mm3 (0.00-0.02); NRBC Auto 0.4 /100 WBC (0.0-0.2); RDW Coefficient Variation 19.3 % (11.7-14.2); RDW Standard Deviation 66.2 fL (35.1-46.3); White Blood Cell Count 8.13 K/mm3 (4.00-11.30)
[2024-08-20 05:06] LABS: Mean Platelet Volume 10.6 fL (9.1-12.4); Platelet Count 222 K/mm3 (150-400)
--- NOTE | 2024-08-20 05:52 | NUR ---
SHIFT SUMMARY NOC PT A/O X 4. PLEASANT AND COOPERATIVE WITH CARE. VSS. NO ACUTE EVENTS TO REPORT. PT ON TELE SINUS RHYTHM IN 70'S. PT INDEPENDENT IN ROOM. WOUNDS ON L HIP AND R CALF HAVE MEPILEX DRESSING IN PLACE C/D/I. PT EXPECTED TO DISCHARGE HOME TODAY WITH HOME HEALTH. PT CURRENTLY RESTING WITH BED IN LOWEST POSITION, AND CALL LIGHT WITHIN REACH.
[2024-08-20 08:19] VITALS: BP 119/73
[2024-08-20] MEDS ORDERED: Ferrous Sulfate 325 MG Tab PO SCH (09:00)
[2024-08-20] MEDS ORDERED: XARELTO10 M2 PO (13:23)
[2024-08-20] MEDS ORDERED: FERSU300 PO (13:24)
[2024-08-20] MEDS ORDERED: SUCR1 PO (13:25)
--- NOTE | 2024-08-20 15:17 | NUR ---
DISCHARGE SUMMARY PT DISCHARGED AT APPROX 1500 ON 08/20/2024. IV REMOVED PRIOR TO DISCHARGE, SITE TENDER AND RED WITH SOME DISCOMFORT REPORTED BY PT. EDUCATED PT ON INFILTRATION AND TO USE ICE PACK PRN FOR DISCOMFORT AND TO NOTIFY HOSPITAL IF AREA WORSENS. DISCHARGE PACKET AND NEW MEDICATIONS REVIEWED WITH PT. PT WHEELED DOWN TO PATIENT ENTRANCE BY RN, PT ABLE TO STAND AMBULATE TO TAXI WITH MINIMAL ASSISTANCE. PT DISCHARGED WITH HH, NEW RX FAXED TO PHARMACY.
== END 2024-08-20 14:59 | disposition home health service (06) | DRG 378 ==
LOC: ER 15:23 → ERHOLD 15:24 → MEDS 15:24
PROVIDERS: Family Medicine; Student in an Organized Health Care Education/Training Program; Surgery; ADMIT Internal Medicine
PROC: 30233N1 Transfusion of Nonautologous Red Blood Cells into Peripheral Vein, Percutaneous Approach (ICD-10-PCS; 2024-08-16)
PROC: 0DB68ZX Excision of Stomach, Via Natural or Artificial Opening Endoscopic, Diagnostic (ICD-10-PCS; principal; 2024-08-18 15:30)
PROC: 0DBN8ZZ Excision of Sigmoid Colon, Via Natural or Artificial Opening Endoscopic (ICD-10-PCS; 2024-08-18 15:30)
DX: K26.4 Chronic or unspecified duodenal ulcer with hemorrhage (principal); D62 Acute posthemorrhagic anemia; I10 Essential (primary) hypertension; F32.A Depression, unspecified; G89.4 Chronic pain syndrome; F41.9 Anxiety disorder, unspecified; Z96.642 Presence of left artificial hip joint; F17.210 Nicotine dependence, cigarettes, uncomplicated; Z96.632 Presence of left artificial wrist joint; Z96.631 Presence of right artificial wrist joint; I48.0 Paroxysmal atrial fibrillation; S91.002A Unspecified open wound, left ankle, initial encounter; S91.001A Unspecified open wound, right ankle, initial encounter; K70.30 Alcoholic cirrhosis of liver without ascites; F10.20 Alcohol dependence, uncomplicated; K44.9 Diaphragmatic hernia without obstruction or gangrene; M54.50 Low back pain, unspecified; S71.002A Unspecified open wound, left hip, initial encounter; K63.5 Polyp of colon; Z98.890 Other specified postprocedural states; Z88.1 Allergy status to other antibiotic agents; Z88.5 Allergy status to narcotic agent; Z88.8 Allergy status to other drugs, medicaments and biological substances; Z91.038 Other insect allergy status; Z79.01 Long term (current) use of anticoagulants; Z79.899 Other long term (current) drug therapy; Z86.73 Personal history of transient ischemic attack (TIA), and cerebral infarction without residual deficits; Z86.79 Personal history of other diseases of the circulatory system; Z98.42 Cataract extraction status, left eye; Z98.41 Cataract extraction status, right eye
CPT/HCPCS: 36415; 36430; 71046; 80048; 80053; 80069; 82607; 82728; 82746; 83540; 83550; 85014; 85018; 85025; 85610; 86850; 86900; 86901; 86923; 88305; 88342; 93005; 93010; 93970; 97161; 97530; 99285-25; A9270; G0378; J0696; J2003; J2354; J2470; J2704; J2916; J3420; J7050; J7120; P9016